=== PATIENT | female | born 1940 | race Caucasian/White ===

== ENCOUNTER 2017-03-22 14:28 | Emergency (ER) | payer MEDICARE, MEDICAID ==
[~2017-03-22] VITALS: Wt 52.3 kg
[~2017-03-22 14:28] MED LIST: ACET-141 PO; AMLO-145 PO; ATEN50TA PO; BACTDS PO; CALC1TAB82 PO; DIVA500T33 PO; ESCI10TA PO; FAMO20TA18 PO; FOLI-49 PO; GABA300C16 PO; HYDR-3498 PO; LISI40TA9 PO; LORA-441 PO; MAGN400O4 PO; OXYB10TA13 PO; PREMVAG VAG; QUET25TA26 PO; RALO60TA12 PO; SENN8.6C3 PO; TERB250T46 PO; TIZA2CAP6 PO; TOPI25CA PO
[2017-03-22 14:42] VITALS: Wt 52.3 kg
[2017-03-22] MEDS ORDERED: ASPIRIN 81 MG TAB PO STA (14:49)
[2017-03-22 15:23] LABS: BASOPHIL # 0.1 10^3/ul (0.0-0.1); BASOPHILS % 0.7 % (0.0-2.0); EOSINOPHILS # 0.2 10^3/ul (0.0-0.5); EOSINOPHILS % 2.7 % (0.0-7.0); HEMATOCRIT 35.4 % (37.0-47.0); HEMOGLOBIN 11.7 g/dl (12.0-16.0); LYMPHOCYTES # 2.6 10^3/ul (0.8-2.9); LYMPHOCYTES % 34.8 % (15.0-51.0); MEAN CORPUSCULAR HEMOGLOBIN 31.4 pg (29.0-33.0); MEAN CORPUSCULAR HGB CONC 33.1 g/dl (32.0-37.0); MEAN CORPUSCULAR VOLUME 94.9 fl (82.0-101.0); MEAN PLATELET VOLUME 9.9 fl (7.4-10.4); MONOCYTE # 0.7 10^3/ul (0.3-0.9); MONOCYTES % 9.3 % (0.0-11.0); NEUTROPHIL # 3.9 10^3/ul (1.6-7.5); PLATELET COUNT 271 10^3/UL (140-415); RED BLOOD COUNT 3.73 10^6/ul (4.20-5.40); RED CELL DISTRIBUTION WIDTH 12.9 % (11.5-14.5); WHITE BLOOD COUNT 7.4 10^3/ul (4.8-10.8)
[2017-03-22] MEDS ORDERED: HYDROCODONE/APAP (5/325) TAB PO ONE (15:30)
[2017-03-22 15:43] LABS: POTASSIUM 3.9 mmol/L (3.5-5.1)
[2017-03-22 15:45] LABS: ANION GAP 15 (8-16); BLOOD UREA NITROGEN 34 mg/dl (7-20); CALCIUM 9.5 mg/dl (8.4-10.2); CARBON DIOXIDE 27 mmol/L (21-31); CHLORIDE 105 mmol/L (97-110); CREATININE 0.87 mg/dl (0.44-1.00); GLUCOSE 105 mg/dl (70-220); SODIUM 143 mmol/L (135-144)
[2017-03-22 15:57] LABS: B-TYPE NATRIURETIC PEPTIDE 183 PG/ML (0-450)
[2017-03-22 15:58] LABS: TROPONIN-I < 0.012 ng/ml (0.00-0.12)
--- NOTE | 2017-03-22 16:56 | RADRPT ---
PROCEDURE: XR Shoulder. CLINICAL INDICATION: Right shoulder pain TECHNIQUE: Three views of the right shoulder are available for review. COMPARISON: None available FINDINGS: No acute fracture or dislocation is identified. Bony mineralization is normal. There is no radiodens e foreign body IMPRESSION: 1. Unremarkable right shoulder x-ray series. 2. No acute fracture or dislocation is seen. RPTAT: QQ .Eitan Cobb MD, MD Date Time Electronically viewed and signed by .Eitan Cobb MD, on 03/22/2017 15:30 .R/
--- NOTE | 2017-03-22 16:56 | RADRPT ---
PROCEDURE: XR Chest. CLINICAL INDICATION: Chest pain TECHNIQUE: Single frontal chest x-ray. COMPARISON: CR CHEST 01/10/2015 FINDINGS: No acute infiltrate, pleural effusion or pneumothorax is identified. Cardiomediastinal silhouette i s within normal limits. Aortic atherosclerotic calcification is noted. The osseous structures are remarkable for degenerative enthesopathy of the spine. IMPRESSION: 1. No evidence of acute cardiopulmonary process. 2. Aortic atherosclerosis. RPTAT: QQ .Eitan Cobb MD, Date Time Electronically viewed and signed by .Eitan Cobb MD, on 03/22/2017 15:29 .R/
[2017-03-22] MEDS ORDERED: ACET-2047 PO (17:01)
[2017-03-22] MEDS ORDERED: AMLO-147 PO (17:02)
[2017-03-22] MEDS ORDERED: METO-429 PO (17:04)
[2017-03-22] MEDS ORDERED: DOCU-159 PO (17:05)
[2017-03-22] MEDS ORDERED: QUET25TA26 PO (17:05)
[2017-03-22] MEDS ORDERED: KETOROLAC 15 MG INJ IV STA (17:25)
[2017-03-22] MEDS ORDERED: morphine 2 MG INJ IV STA (17:49)
[2017-03-22] MEDS ORDERED: ONDANSETRON 4 MG INJ IV PRN (18:00)
[2017-03-22] MEDS ORDERED: ACETAMINOPHEN 325 MG TAB PO PRN (18:00)
[2017-03-22] MEDS ORDERED: HYDR-906 PO (20:30)
[2017-03-22] MEDS ORDERED: POLY17PO6 PO (20:30)
[2017-03-22 20:40] VITALS: TEMP 98.1
[2017-03-22] MEDS ORDERED: AMLODIPINE 10 MG TAB PO ONE (21:30)
[2017-03-22] MEDS ORDERED: hydrALAzine 20 MG INJ ONE (22:25)
[2017-03-22] MEDS ORDERED: hydrALAzine 20 MG INJ IV ONE (22:30)
[2017-03-22 23:00] VITALS: BP 134/64; PULSE 74; RESP 16
--- NOTE | 2017-03-24 20:13 | ERD ---
ER Documentation Chief Complaint Chief Complaint right arm pain and right chest pain for a few days. no stemi in field HPI This 76-year-old female presents for intermittent right-sided chest pain as well as right upper arm pain for the last 3 days. The chest pain is described as a tightness in the right arm pain is described as a soreness. It is mostly present in her upper bicep. It is made worse by certain movements and by use of the arm. She denies shortness of breath, nausea, vomiting. She has had no fever or chills. She currently does not have the chest pain. ROS All systems reviewed and are negative except as per history of present illness. Medications Home Meds Active Scripts Polyethylene Glycol* (Miralax*) 17 Gm Powd.pack, 17 GM PO DAILY for CONSTIPATION , #7 Prov:JULISAISIAHMARA DO 03/22/17 Hydrocodone/Acetaminophen (Sunfield 5-325 Tablet) 1 Each Tablet, 1 EACH PO Q6, #20 TAB Prov:MARA EGAN DO 03/22/17 Reported Medications Docusate Sodium* (Docusate Sodium*) 100 Mg Capsule, 100 MG PO DAILY, #30 CAP 03/22/17 Quetiapine Fumarate* (Seroquel*) 25 Mg Tablet, 25 MG PO HS, #30 TAB 03/22/17 Metoprolol Tartrate* (Lopressor*) 50 Mg Tab, 50 MG PO DAILY, #60 TAB HOLD FORSBP<110 OR HR<60 03/22/17 Amlodipine Besylate* (Amlodipine Besylate*) 10 Mg Tablet, 10 MG PO DAILY, #30 TAB HOLD FOR SBP<110 OR HR<60 03/22/17 Acetaminophen* (Acetaminophen*) 650 Mg Tablet, 650 MG PO Q4H Y for PAIN LEVEL 1- 5, #30 TAB 03/22/17 Escitalopram Oxalate* (Lexapro*) 10 Mg Tablet, 10 MG PO DAILY 01/28/13 Lorazepam* (Ativan*) 0.5 Mg Tablet, 0.5 MG PO Q8H 04/07/10 Discontinued Reported Medications Acetaminophen* (Acetaminophen*) 500 MG Extra Strength Tablet, 500 MG PO Q4H Y for MODERATE PAIN LEVEL 4-6, TAB 01/06/15 Quetiapine Fumarate* (Seroquel*) 25 Mg Tablet, 75 MG PO QHS, TAB 01/06/15 Estrogens Conjugated* (Premarin* Vaginal Cream) 1 Applic Cr, 1 APPLIC VAG TID X 7 DAYS Y for MENOPAUSE, TUB END ON 01/26/2015 01/06/15 Estrogens Conjugated* (Premarin* Vaginal Cream) 1 Applic Cr, 1 APPLIC VAG DAILY X 14 DAYS, TUB END ON 01/19/2015 01/06/15 Oxybutynin Chloride* (Oxybutynin Chloride* ER) 10 Mg/Bottle Tab.osm.24, 10 MG PO QHS, TAB.SA 01/06/15 Magnesium Hydroxide* (Milk Of Magnesia*) 400 Mg/5 Ml Oral.susp, 30 ML PO DAILY Y for CONSTIPATION, ML 01/06/15 Topiramate* (Topamax*) 25 Mg Cap.sprink, 25 MG PO QHS, CAP 11/20/14 Hydrocodone Bit-Acetaminophen* (Sunfield*) 5-325 Mg Tab, 1 TAB PO Q6 Y for PAIN LEVEL 6-10, TAB 11/20/14 Famotidine* (Famotidine*) 20 Mg Tablet, 20 MG PO QHS, TAB 11/20/14 Tizanidine Hcl* (Tizanidine Hcl*) 2 Mg Capsule, 2 MG PO HS 01/28/13 Sennosides* (Senna*) 8.6 Mg Capsule, 8.6 MG PO DAILY 01/28/13 Gabapentin* (Gabapentin*) 300 Mg Capsule, 300 MG PO DAILY 04/07/10 Divalproex Sodium (Depakote) 500 Mg Tablet.dr, 625 MG PO BID 04/07/10 Atenolol* (Atenolol*) 50 Mg Tablet, 50 MG PO DAILY 04/07/10 Folic Acid* (Folic Acid*) 1 Mg Tablet, 1 MG PO DAILY 04/07/10 Calcium Carbonate/Vitamin D3 (Os-Matt 500+D Caplet) 1 Tab Tablet, 1 TAB PO BID 04/07/10 Lisinopril* (Lisinopril*) 40 Mg Tablet, 40 MG PO DAILY HOLD FOR SBP LESS THAN 110 04/07/10 Amlodipine Besylate* (Amlodipine Besylate*) 5 Mg Tablet, 5 MG PO QHS HOLD IF SBP LESS THAN 110 OR HR LESS THAN 60 04/07/10 Raloxifene Hcl* (Evista*) 60 Mg Tablet, 60 MG PO DAILY 04/07/10 Discontinued Scripts Terbinafine* (Lamisil*) 250 Mg Tab, 250 MG PO BID, #6 Prov:MARA WORTHINGTON MD 01/12/15 Sulfamethoxazole-Trimethoprim* (Bactrim* DS) 1 Tab Tab, 1 TAB PO BID, #6 TAB Prov:MARA WORTHINGTON MD 01/12/15 Allergies Allergies: Coded Allergies: Milk Containing Products (Verified Allergy, Unknown, INTOLERANCE, 03/22/17 ) STOMACH UPSET milk (Verified Allergy, Unknown, STOMACH UPSET, 03/22/17) INTOLERANCE orange juice (Unverified Allergy, Unknown, INTOLERANCE, 03/22/17) STOMACH UPSET Uncoded Allergies: FLORIDALMA FLOWER (Allergy, Mild, SNEEZE A LOT, 04/07/10) PT SAYS SHE SNEEZE A LOT Wool CLOTH (Allergy, Mild, ITCHING, 04/07/10) WHOLE BODY GETS ITCHY PMhx/Soc History of Surgery: Yes (partial colon resection, tonsillectomy, hemorrhoidectomy) Anesthesia Reaction: No (NOT KNOWN) Hx Neurological Disorder: No Hx Respiratory Disorders: No Hx Cardiac Disorders: Yes (HTN) Hx Psychiatric Problems: Yes (BIPOLAR DISORDER) Hx Miscellaneous Medical Probl: Yes (wrist fx) Hx Alcohol Use: No Hx Substance Use: No Hx Tobacco Use: Yes (HISTORY PER MD) Smoking Status: Current every day smoker Physical Exam Vitals Vital Signs Date Time Temp Pulse Resp B/P Pulse Ox O2 Delivery O2 Flow Rate FiO2 03/22/17 23:00 74 16 134/64 99 Room Air 03/22/17 20:40 98.1 60 18 161/75 97 Room Air 03/22/17 17:23 98.5 65 16 171/69 99 Room Air 03/22/17 15:44 98.1 60 14 153/67 98 Room Air 03/22/17 14:42 98.0 71 18 148/78 98 Physical Exam Const: [] No distress Head: Atraumatic Eyes: Normal Conjunctiva ENT: Normal External Ears, Nose and Mouth. Neck: Full range of motion..~ No meningismus. Resp: Clear to auscultation bilaterally Cardio: Regular rate and rhythm, no murmurs Abd: Soft, non tender, non distended. Normal bowel sounds Skin: No petechiae or rashes Back: No midline or flank tenderness Ext: No cyanosis, or edema, right arm with normal appearance no deformities or skin changes however she does have tenderness to her right upper bicep and lower shoulder area in the soft tissues. Full range of motion of shoulder and elbow both passive and active. Distal pulses intact all 4 extremities. Neur: Awake and alert Psych: Normal Mood and Affect Result Diagram: 03/22/17 1514 03/22/17 1514 Results 24 hrs Laboratory Tests Test 03/22/17 15:14 03/22/17 18:49 White Blood Count 7.410^3/ul Red Blood Count 3.7310^6/ul Hemoglobin 11.7g/dl Hematocrit 35.4% Mean Corpuscular Volume 94.9fl Mean Corpuscular Hemoglobin 31.4pg Mean Corpuscular Hemoglobin Concent 33.1g/dl Red Cell Distribution Width 12.9% Platelet Count 91242^3/UL Mean Platelet Volume 9.9fl Neutrophils % 52.0% Lymphocytes % 34.8% Monocytes % 9.3% Eosinophils % 2.7% Basophils % 0.7% Nucleated Red Blood Cells % 0.0/100WBC Neutrophils # 3.910^3/ul Lymphocytes # 2.610^3/ul Monocytes # 0.710^3/ul Eosinophils # 0.210^3/ul Basophils # 0.110^3/ul Nucleated Red Blood Cells # 0.010^3/ul Sodium Level 143mmol/L Potassium Level 3.9mmol/L Chloride Level 105mmol/L Carbon Dioxide Level 27mmol/L Anion Gap 15 Blood Urea Nitrogen 34mg/dl Creatinine 0.87mg/dl Glucose Level 105mg/dl Calcium Level 9.5mg/dl Troponin I < 0.012ng/ml < 0.012ng/ml B-Type Natriuretic Peptide 183PG/ML Current Medications Medications (Trade) Dose Ordered Sig/Kendy Route PRN Reason Start Time Stop Time Status Last Admin Dose Admin Aspirin (Aspirin) 162 mg ONCE STAT PO 03/22/17 14:49 03/22/17 14:51 DC 03/22/17 15:25 Acetaminophen/ Hydrocodone Bitart (Sunfield (5/325)) 1 tab ONCE ONCE PO 03/22/17 15:30 03/22/17 15:31 DC 03/22/17 15:25 Ketorolac Tromethamine (Toradol) 15 mg ONCE STAT IV 12/14/17 17:25 03/22/17 17:27 DC Ondansetron HCl (Zofran Inj) 4 mg ER BRIDGE PRN IV NAUSEA AND/OR VOMITING 03/22/17 18:00 03/22/17 23:03 DC Acetaminophen (Tylenol Tab) 650 mg ER BRIDGE PRN PO MILD PAIN/FEVER 03/22/17 18:00 03/22/17 23:03 DC 03/22/17 22:35 Morphine Sulfate (morphine) 2 mg ONCE STAT IV 03/22/17 17:49 03/22/17 17:50 DC 03/22/17 18:17 Amlodipine Besylate (Norvasc) 10 mg ONCE ONCE PO 03/22/17 21:30 03/22/17 21:31 DC 03/22/17 21:55 Hydralazine HCl (Apresoline) 10 mg ONCE ONCE IV 03/22/17 22:30 03/22/17 22:31 DC 03/22/17 22:33 Hydralazine HCl (Apresoline) 20 mg STK-MED ONCE .ROUTE 03/22/17 22:25 03/22/17 22:26 DC Procedures/MDM Atypical chest pain in a patient with cardiac risk factors however the pain pattern seems to be more musculoskeletal. The patient does use her arm frequently for both use of her walker and a wheelchair. She does have full function of that arm. No signs of acute ischemia on EKG or laboratories. Patient remained without chest pain in the emergency room. She was given 325 mg aspirin as well as morphine which helped with her arm pain. Negative shoulder x-ray for any bony abnormality. I discussed with her following up with her primary care doctor for an echocardiogram and she seems agreeable to this. Also discussed with her getting an echocardiogram through her doctor. I have low suspicion for recurrent acute coronary syndrome, aortic dissection, pulmonary embolism. Going to discharge with analgesic pain medicine EKG interpretation: Junctional bradycardia rate of 59, normal axis, no ST or T- wave changes concerning for acute ischemia. Abnormal EKG cafeteria monitor interpretation: Normal sinus rhythm without arrhythmia Chest x-ray interpretation: I see no acute process. See no widened mediastinum , no pneumothorax, no pulmonary edema, no fractures. Right shoulder x-ray interpretation: Normal right shoulder x-ray except for degenerative joint disease. No fracture dislocation or soft tissue abnormality seen. Departure Diagnosis: Primary Impression: Strain of upper arm, right Additional Impressions: Chest pain Normocytic anemia Condition: Critical Patient Instructions: Chest Pain, Uncertain Cause, Muscle Strain, Extremity Additional Instructions: Call your primary care doctor TOMORROW for an appointment during the next 1-2 days and an orthopedic referral.See the doctor sooner or return here if your condition worsens before your appointment time. MARA EGAN DO Mar 23, 2017 21:15
== END 2017-03-22 23:02 | disposition home or self-care (01) ==
LOC: E/R 14:28
DX: S46.911A Strain of unspecified muscle, fascia and tendon at shoulder and upper arm level, right arm, initial encounter (principal); S29.001A Unspecified injury of muscle and tendon of front wall of thorax, initial encounter; D64.9 Anemia, unspecified; I10 Essential (primary) hypertension; F17.210 Nicotine dependence, cigarettes, uncomplicated; X58.XXXA Exposure to other specified factors, initial encounter; Y92.9 Unspecified place or not applicable
CPT/HCPCS: 36415; 71010; 73030; 80048; 83880; 84484; 85025; 93005; 96374; 96375; 99285; J0360; J2270

== ENCOUNTER 2017-12-21 15:17 | Inpatient (IN) | END 2018-01-01 19:00 | DRG 377 ==

== ENCOUNTER 2018-09-03 04:18 | Inpatient (IN) | payer MEDICARE, OTHER ==
[~2018-09-03] VITALS: Ht 160 cm; Wt 60.0 kg
[~2018-09-03 04:18] MED LIST changes: -ACET-141 PO; -AMLO-145 PO; -ATEN50TA PO; -BACTDS PO; -CALC1TAB82 PO; +CLON-379 PO; +DEXT15DR5 BOTH EYES; +DICL100G37 TOP; +DIVA-48 PO; -DIVA500T33 PO; -ESCI10TA PO; +ESCI5TAB10 PO; -FOLI-49 PO; +FURO40TA4 PO; -GABA300C16 PO; -HYDR-3498 PO; +LACHYD12 TOP; -LISI40TA9 PO; -MAGN400O4 PO; -OXYB10TA13 PO; +POLY17PO6 PO; -PREMVAG VAG; -QUET25TA26 PO; -RALO60TA12 PO; -SENN8.6C3 PO; -TERB250T46 PO; -TIZA2CAP6 PO; -TOPI25CA PO; +TRAM50TA PO; +VALB40CA PO
[2018-09-03] MEDS ORDERED: SOD CHLORIDE 0.9% 1,000 ML IV STA (04:47)
[2018-09-03] MEDS ORDERED: ONDANSETRON 4 MG INJ IV PRN ×2 (06:30→13:00)
[2018-09-03] MEDS ORDERED: ACETAMINOPHEN 325 MG TAB PO PRN ×2 (06:30→13:00)
[2018-09-03] MEDS: POTASSIUM CHLORIDE 100 ML IVPB SCH ×2 (06:53→09:16)
--- NOTE | 2018-09-03 07:21 | QN ---
Documentation Comment Repeat lactic acid was 2.4 but at this point I doubt sepsis or severe sepsis. I believe the elevated lactic acid is likely related to severe anemia and dehydration. CECIL LOPEZ MD September 03, 2018 07:21
[2018-09-03] MEDS ORDERED: ALLO100T PO (08:12)
[2018-09-03] MEDS ORDERED: ACET650S13 RC (08:12)
[2018-09-03] MEDS ORDERED: DICL25TA11 PO (08:13)
[2018-09-03] MEDS ORDERED: FURO-110 PO (08:14)
[2018-09-03] MEDS ORDERED: FER325 PO (08:14)
[2018-09-03] MEDS ORDERED: LOSA50TA14 PO (08:15)
[2018-09-03] MEDS ORDERED: MULT-542 PO (08:15)
[2018-09-03] MEDS ORDERED: POTA10TA37 PO (08:16)
[2018-09-03] MEDS ORDERED: PROT946L PO (08:16)
[2018-09-03] MEDS ORDERED: CHOL100062 PO (08:18)
[2018-09-03] MEDS ORDERED: ACET1TAB40 PO (08:18)
[2018-09-03] MEDS ORDERED: CARB1TAB2 PO (08:18)
--- NOTE | 2018-09-03 12:39 | HP ---
Date/Time of Note Date/Time of Note DATE: 09/03/18 TIME: 12:34 Assessment/Plan VTE Prophylaxis SCD applied (from Nsg): Yes Pharmacological prophylaxis: NA/contraindicated Pharm contraindication: bleeding Lines/Catheters IV Catheter Type (from Nrsg): Saline Lock Assessment/Plan Assessment/Plan - Sepsis with fever, and elevated lactic acid most likely secondary to pneumonia. Start broad-spectrum antibiotics. Dr. Batista is asked to see patient in infection disease consultation. - Health care associated pneumonia - Severe anemia, will transfuse 2 units of packed red blood cell count, will obtain stool for OB. - Possible UTI per UA - Acute kidney injury due to dehydration, continue IV fluids. - Severe hypokalemia, status post replacement - Gout, continue Uloric - Bipolar disorder. Continue Depakote, Lexapro and p.r.n. Ativan. - Bedbound status - Hx of hemorrhoidectomy. - DNR/DNI status Further recommendations based on clinical course. Plan of care is discussed with Dr. Wyman. Result Diagram: 09/03/18 0435 09/03/18 0525 Results 24hrs Laboratory Tests Test 09/03/18 04:35 09/03/18 05:14 09/03/18 05:25 09/03/18 06:40 White Blood Count 8.9 Red Blood Count 2.05 #L Hemoglobin 6.4 #*L Hematocrit 21.4 #L Mean Corpuscular 104.4 H Volume Mean Corpuscular 31.2 Hemoglobin Mean Corpuscular 29.9 L Hemoglobin Concen t Red Cell 15.3 H Distribution Width Platelet Count 195 Mean Platelet 11.6 #H Volume Immature 4.300 H Granulocytes % Neutrophils % Segmented 61 Neutrophils % (Manual) Band Neutrophils 21 H % (Manual) Lymphocytes % Lymphocytes % 10 L (Manual) Monocytes % Monocytes % 4 (Manual) Eosinophils % Eosinophils % 1 (Manual) Basophils % Metamyelocytes % 1 H (manual) Myelocytes % 2 H (Manual) Nucleated Red 0.8 H Blood Cells % Immature 0.380 H Granulocytes # Neutrophils # Neutrophils # 5.6 (Manual) Band Neutrophils 1.8 H # Lymphocytes 0.8 (Manual) Lymphocytes # Monocytes # Monocytes # 0.3 (Manual) Eosinophils # Basophils # Metamyelocytes # 0.0 Myelocytes # 0.1 H Nucleated Red Blood Cells # Platelet Estimate NORMAL Hypochromasia 2+ Anisocytosis 1+ Prothrombin Time 17.4 #H Prothrombin Time 1.4 Ratio INR International 1.41 Normalized Ratio Activated 30.4 Partial Thrombopl ast Time POC Venous 1.3 Lactate Urine Color YELLOW Urine Clarity SLIGHTLY CLOUDY A Urine pH 5.0 Urine Specific 1.017 Point Comfort Urine Ketones NEGATIVE Urine Nitrite NEGATIVE Urine Bilirubin NEGATIVE Urine NEGATIVE Urobilinogen Urine Leukocyte TRACE A Esterase Urine Microscopic 1 RBC Urine Microscopic 3 WBC Urine Squamous FEW Epithelial Cells Urine Renal FEW A Epithelial Cells Urine Bacteria FEW A Urine Mucus FEW A Urine Hemoglobin 1+ H Urine Glucose NEGATIVE Urine Total NEGATIVE Protein Sodium Level 155 H Potassium Level 2.3 *L Chloride Level 133 H Carbon Dioxide 19 L Level Anion Gap 3 L Blood Urea 91 H Nitrogen Creatinine 1.18 H Est Glomerular Filtrat Rate mL/min Glucose Level 67 L Calcium Level 4.7 *L Total Bilirubin 0.1 L Direct Bilirubin 0.00 Indirect 0.1 Bilirubin Aspartate Amino 122 H Transf (AST/SGOT) Alanine 61 Aminotransferase (ALT/SGPT) Alkaline 55 Phosphatase Troponin I 0.090 Total Protein 3.4 L Albumin 1.5 L Globulin 1.90 Albumin/Globulin 0.78 Ratio Lactic Acid Level 2.4 *H Test 09/03/18 08:41 Lactic Acid Level 2.5 *H HPI/ROS Admit Date/Time Admit Date/Time Hx of Present Illness The patient is 77-year-old female with history of known STEMI, hypertension, GERD, anemia, Parkinson's disease dysphagia, bipolar disorder and osteoporosis. [facility] was [facility] for evaluation for fever, generalized weakness and productive cough. Patient was noted to have anemia with hemoglobin of 6.4, acute kidney injury with severe hypokalemia. Patient was transfused 2 units of packed red blood cells and was giving potassium replacement. Patient is noted to have diminished lung sounds and productive cough sounds congested. Patient also noted to have elevated lactic acid on admission. Patient is lethargic however arousable but cannot provide any medical history. Most of the medical history was obtained from medical records and talking to nursing staff. Patient has a POLST which indicate patient is DNR DNI. Patient will be admitted for further evaluation and management to telemetry floor. ROS Unable to obtain due to patient's condition PMH/Family/Social Past Medical History Per HPI Medications Current Medications Ondansetron HCl (Zofran Inj) 4 mg ER BRIDGE PRN IV NAUSEA/VOMITING; Start 09/03/18 at 06:30; Stop 09/04/18 at 06:29 Acetaminophen (Tylenol Tab) 650 mg ER BRIDGE PRN PO .MILD PAIN 1-3 OR TEMP; Start 09/03/18 at 06:30; Stop 09/04/18 at 06:29 Coded Allergies: Milk Containing Products (Verified Allergy, Unknown, INTOLERANCE, 09/03/18) STOMACH UPSET milk (Verified Allergy, Unknown, STOMACH UPSET, 09/03/18) INTOLERANCE orange juice (Unverified Allergy, Unknown, INTOLERANCE, 09/03/18) STOMACH UPSET Uncoded Allergies: FLORIDALMA FLOWER (Allergy, Mild, SNEEZE A LOT, 04/07/10) PT SAYS SHE SNEEZE A LOT Wool CLOTH (Allergy, Mild, ITCHING, 04/07/10) WHOLE BODY GETS ITCHY Past Surgical History Past Surgical Hx: other (Status post hemorrhoidectomy) Family History Significant Family History: no pertinent family hx Social History Patient is a resident of prison facility Alcohol Use: none Smoking Status: Never smoker Drug Use: none Exam/Review of Systems Vital Signs Vitals Vital Signs Date Temp Pulse Resp B/P (MAP) Pulse Ox O2 O2 Flow FiO2 Time Delivery Rate 09/03/18 97.9 99 18 120/56 100 Nasal 4.0 11:30 (77) Cannula Intake and Output 09/02/18 09/02/18 09/03/18 1414:59 22:59 06:59 IntakeIntake Total 350 ml BalanceBalance 350 ml Exam Constitutional: alert, frail Head: normocephalic Neck: supple Respiratory: congested cough, diminished breath sounds Cardiovascular: regular rate and rhythm Gastrointestinal: soft, non-tender Genitourinary - Female: other (Acosta catheter) Musculoskeletal: nl extremities to inspection Extremities: normal pulses Neurological: confused, lethargic Skin: nl CHRIS Monroy September 03, 2018 12:39
[2018-09-03] MEDS ORDERED: DOCUSATE SODIUM 100 MG CAP PO PRN (13:00)
[2018-09-03] MEDS ORDERED: NITROGLYCERIN (SL) 0.4 MG TAB SL PRN (13:00)
[2018-09-03] MEDS ORDERED: MAGNESIUM HYDROXIDE 30ML CUP PO PRN (13:00)
[2018-09-03] MEDS ORDERED: LORAZEPAM 2 MG INJ IV PRN (13:00)
[2018-09-03] MEDS ORDERED: NACL 0.9% 3 ML SYG IV SCH (13:00)
[2018-09-03] MEDS: D5W-0.45 NACL + KCL 20 MEQ 1,000 ML IV SCH ×2 (13:18→23:48)
[2018-09-03] MEDS: CEFEPIME 1GM/50 ML (PMX) 50 ML IVPB SCH ×2 (14:48→20:53)
[2018-09-03 15:33] VITALS: BP 119/56; PULSE 65; RESP 19
[2018-09-03 17:10] VITALS: BP 128/70; PULSE 127; RESP 24
[2018-09-03 17:38] VITALS: BP 128/70; PULSE 132; RESP 19
[2018-09-03] MEDS ORDERED: PENDING SANTYL ORDER FOR WOUND CARE XX PRN (18:00)
[2018-09-03 18:39] VITALS: Ht 160 cm; Wt 60.0 kg
[2018-09-03 20:00] VITALS: PULSE 126
[2018-09-03] MEDS ORDERED: ENALAPRILAT 1.25 MG INJ IV PRN (20:00)
[2018-09-03 20:30] VITALS: BP 166/74; PULSE 131; RESP 22
[2018-09-03] MEDS: ACETAMINOPHEN 650 MG SUPP PR PRN (20:46)
[2018-09-03] MEDS: FAMOTIDINE 20 MG INJ IV SCH (20:46)
[2018-09-03] MEDS: LEVALBUTEROL (NEB) 0.63 MG/3 ML AMP HHN SCH (23:59)
[2018-09-04] VITALS (12 sets, daily range): BP systolic 129–154; BP diastolic 54–88; PULSE 92–125; RESP 18–24
[2018-09-04] MEDS ORDERED: CEFTRIAXONE 1 GM/50 ML (PMX) 50 ML IVPB SCH
[2018-09-04] MEDS: LEVALBUTEROL (NEB) 0.63 MG/3 ML AMP HHN SCH ×4 (02:07→19:41)
[2018-09-04] MEDS: AZITHROMYCIN 500MG/NS (PMX) 250 ML IV SCH (03:21)
--- NOTE | 2018-09-04 07:21 | CONS ---
DATE OF ADMISSION: 09/03/2018 DATE OF CONSULTATION: I am seeing this patient for Dr. Ez Bustillos. REQUESTING PHYSICIAN: Maikel Thompson. HISTORY OF PRESENT ILLNESS: The patient is a 77-year-old white female who was admitted from [facility] on [facility] in [place] with the chief complaint of shortness of breat h. The patient was admitted with a diagnosis of sepsis with fever. Upon admission, she was noted to have a temperature equivalent of 102.1, however, it was in axillary, which was read 100.1. The whit e count was 8900 with a 61 polys and 21 bands, hemoglobin 6.4 grams. The patient's urinalysis was ye llow, cloudy, specific gravity 1.017, pH 5, positive leukocyte esterase, 1 RBC, 1 WBC. Serum sodium 155, potassium 2.3, chloride 133, CO2 19, BUN 91, and creatinine 1.18. Lactic acid was 2.4. Chest x -ray revealed a right basilar consolidation and minimally patchy density medially in the left lung ba se. PAST MEDICAL HISTORY: The patient has a past medical history of gout and bipolar disorder. PHYSICAL EXAMINATION: GENERAL: The patient is an acutely ill-appearing white female. VITAL SIGNS: Pulse of 131, temperature axillary of 98.8 which is 100.8, respirations 22, and pulse o ximetry is 95% on 8 liters per minute by nasal cannula. HEENT: The pupils are constricted and reactive. Mouth mucous membranes of the mouth are moist. NECK: Supple. CHEST: Decreased breath sounds at left base and rhonchi over the right upper chest. ABDOMEN: Soft, no palpable organs or masses. EXTREMITIES: Unremarkable. INITIAL IMPRESSION: Systemic inflammatory response, healthcare-associated pneumonia, rule out aspira tion, severe anemia and hypernatremic dehydration, acute kidney injury, gout and bipolar disorder. RECOMMENDATIONS: I would discontinue cefepime and substitute ceftriaxone and azithromycin 1 gram and 500 mg respectively, wait for culture results, and rehydrate the patient. Dictated By: Gordon LOVELACE MD EC/NTS Conf#: [id number] DID#: [id number] CC: EZ BUSTILLOS MD; MAIKEL THOMPSON MD;*EndCC*
[2018-09-04] MEDS: D5W-0.45 NACL + KCL 20 MEQ 1,000 ML IV SCH (08:39)
[2018-09-04] MEDS: DEXTROSE 5% 1,000 ML IV SCH (10:20)
[2018-09-04] MEDS ORDERED: VANCOMYCIN IV PER PHARMACY XX SCH (11:30)
[2018-09-04] MEDS: ACETAMINOPHEN 650 MG SUPP PR PRN (11:38)
[2018-09-04] MEDS ORDERED: VANCOMYCIN HCL 1.25 GM in SOD CHLORIDE 0.9% 250 ML IVPB SCH (13:00)
--- NOTE | 2018-09-04 13:46 | PN ---
Date/Time of Note Date/Time of Note DATE: 09/04/18 TIME: 13:38 Assessment/Plan VTE Prophylaxis Risk score (from [facility] [place]0 risk: 7 SCD applied (from [facility] [place]): Yes Pharmacological prophylaxis: NA/contraindicated Pharm contraindication: other Lines/Catheters IV Catheter Type (from [place]): Saline Lock Urinary Cath still in place: Yes Reason Cath still needed: urinary retention Assessment/Plan Hospital Course Patient is tachycardic with fever, lethargic but easily arousable, continued on oxygen via facemask. Assessment/Plan - Sepsis with fever, and elevated lactic acid most likely secondary to pneumonia. Continue antibiotics. Dr. Batista is following in infection disease consultation. - Health care associated pneumonia - Acute respiratory insufficiency. Dr. Thomas is asked to see patient in pulmonology consultation. - Hypernatremia, IV fluids changed to D5 water. Patient is very lethargic to start p.o. fluids. Dr. Fulton is asked to see patient in nephrology consultation. - Severe anemia, obtain stool for OB. - Possible UTI per UA - Acute kidney injury due to dehydration, continue IV fluids. - Severe hypokalemia, status post replacement, resolved. - Bipolar disorder. - Bedbound status - Hx Gout - Hx of hemorrhoidectomy. - DNR/DNI status Further recommendations based on clinical course. Plan of care is discussed with Dr. Wyman. Result Diagram: 09/04/18 0719 09/04/18 0719 Results 24hrs Laboratory Tests Test 09/04/18 07:19 White Blood Count 7.1 # Red Blood Count 4.39 # Hemoglobin 13.5 # Hematocrit 45.1 # Mean Corpuscular Volume 102.7 H Mean Corpuscular Hemoglobin 30.8 Mean Corpuscular Hemoglobin Concent 29.9 L Red Cell Distribution Width 16.3 H Platelet Count 200 Mean Platelet Volume 11.1 H Immature Granulocytes % 5.500 H Neutrophils % Segmented Neutrophils % (Manual) 44 Band Neutrophils % (Manual) 36 H Lymphocytes % Lymphocytes % (Manual) 12 L Reactive Lymphocytes % (Manual) 1 H Monocytes % Monocytes % (Manual) 4 Eosinophils % Basophils % Metamyelocytes % (manual) 2 H Myelocytes % (Manual) 1 H Nucleated Red Blood Cells % 0.7 H Immature Granulocytes # 0.390 H Neutrophils # Neutrophils # (Manual) 3.3 Band Neutrophils # 2.5 H Lymphocytes (Manual) 0.8 Lymphocytes # Reactive Lymphocytes # 0.0 Monocytes # Monocytes # (Manual) 0.2 L Eosinophils # Basophils # Metamyelocytes # 0.1 H Myelocytes # 0.0 Nucleated Red Blood Cells # Platelet Estimate NORMAL Poikilocytosis 1+ Anisocytosis 1+ Sodium Level 164 *H Potassium Level 4.6 # Chloride Level 131 H Carbon Dioxide Level 26 Anion Gap 7 Blood Urea Nitrogen 74 H Creatinine 1.01 H Est Glomerular Filtrat Rate mL/min Glucose Level 147 # Calcium Level 8.3 L Total Bilirubin 0.2 Direct Bilirubin 0.00 Indirect Bilirubin 0.2 Aspartate Amino Transf (AST/SGOT) 86 H Alanine Aminotransferase (ALT/SGPT) 68 Alkaline Phosphatase 114 # Total Protein 5.9 #L Albumin 2.7 #L Globulin 3.20 Albumin/Globulin Ratio 0.84 Thyroid Stimulating Hormone (TSH) 1.220 Exam/Review of Systems Exam Vitals Vital Signs Date Temp Pulse Resp B/P (MAP) Pulse Ox O2 O2 Flow FiO2 Time Delivery Rate 09/04/18 99.8 107 12:28 09/04/18 18 135/88 95 11:05 (104) 09/04/18 Simple 08:54 Mask 09/04/18 15.0 100 08:33 Intake and Output 09/03/18 09/03/18 09/04/18 1515:00 23:00 07:00 IntakeIntake Total 550 ml 50 ml BalanceBalance 550 ml 50 ml Exam Constitutional: alert, frail Respiratory: congested cough, diminished breath sounds Cardiovascular: regular rate and rhythm, tachycardia Gastrointestinal: soft, non-tender Genitourinary - Female: other (Acosta catheter) Musculoskeletal: nl extremities to inspection Extremities: normal pulses Neurological: confused, lethargic Results Results 24hrs Laboratory Tests Test 09/04/18 07:19 White Blood Count 7.1 # Red Blood Count 4.39 # Hemoglobin 13.5 # Hematocrit 45.1 # Mean Corpuscular Volume 102.7 H Mean Corpuscular Hemoglobin 30.8 Mean Corpuscular Hemoglobin Concent 29.9 L Red Cell Distribution Width 16.3 H Platelet Count 200 Mean Platelet Volume 11.1 H Immature Granulocytes % 5.500 H Neutrophils % Segmented Neutrophils % (Manual) 44 Band Neutrophils % (Manual) 36 H Lymphocytes % Lymphocytes % (Manual) 12 L Reactive Lymphocytes % (Manual) 1 H Monocytes % Monocytes % (Manual) 4 Eosinophils % Basophils % Metamyelocytes % (manual) 2 H Myelocytes % (Manual) 1 H Nucleated Red Blood Cells % 0.7 H Immature Granulocytes # 0.390 H Neutrophils # Neutrophils # (Manual) 3.3 Band Neutrophils # 2.5 H Lymphocytes (Manual) 0.8 Lymphocytes # Reactive Lymphocytes # 0.0 Monocytes # Monocytes # (Manual) 0.2 L Eosinophils # Basophils # Metamyelocytes # 0.1 H Myelocytes # 0.0 Nucleated Red Blood Cells # Platelet Estimate NORMAL Poikilocytosis 1+ Anisocytosis 1+ Sodium Level 164 *H Potassium Level 4.6 # Chloride Level 131 H Carbon Dioxide Level 26 Anion Gap 7 Blood Urea Nitrogen 74 H Creatinine 1.01 H Est Glomerular Filtrat Rate mL/min Glucose Level 147 # Calcium Level 8.3 L Total Bilirubin 0.2 Direct Bilirubin 0.00 Indirect Bilirubin 0.2 Aspartate Amino Transf (AST/SGOT) 86 H Alanine Aminotransferase (ALT/SGPT) 68 Alkaline Phosphatase 114 # Total Protein 5.9 #L Albumin 2.7 #L Globulin 3.20 Albumin/Globulin Ratio 0.84 Thyroid Stimulating Hormone (TSH) 1.220 Medications Medication Current Medications IV Flush (NS 3 ml) 3 ml PER PROTOCOL IV ; Start 09/03/18 at 13:00 Lorazepam (Ativan) 0.5 mg Q6H PRN IV .ANXIETY; Start 09/03/18 at 13:00 Ondansetron HCl (Zofran Inj) 4 mg Q6H PRN IV NAUSEA/VOMITING; Start 09/03/18 at 13:00 Nitroglycerin (Nitroglycerin (Sl Tab) 0.4 Mg) 1 tab Q5M PRN SL .CHEST PAIN; Start 09/03/18 at 13:00 Acetaminophen (Tylenol Tab) 650 mg Q6H PRN PO .PAIN 1-3 OR TEMP; Start 09/03/18 at 13:00 Morphine Sulfate (morphine) 2 mg Q4H PRN IV .PAIN 7-10; Start 09/03/18 at 13:00 Docusate Sodium (Colace) 100 mg Q12H PRN PO .CONSTIPATION; Start 09/03/18 at 13:00 Magnesium Hydroxide (Milk Of Mag) 30 ml DAILY PRN PO .CONSTIPATION; Start 09/03/18 at 13:00 Famotidine (Pepcid Iv) 20 mg QHS IV Last administered on 09/03/18at 20:46; Admin Dose 20 MG; Start 09/03/18 at 21:00 Miscellaneous Information (Pending [facility] Order For Wound Care) This patient lin... PRN PRN XX WOUND CARE; Start 09/03/18 at 18:00 Acetaminophen (Tylenol Supp) 650 mg Q6H PRN CO FEVER Last administered on 09/04/18 11:38; Admin Dose 650 MG; Start 09/03/18 at 20:00 Enalaprilat (Vasotec Iv) 0.625 mg Q6H PRN IV ELEVATED BLOOD PRESSURE Last administered on 09/03/18 20:58; Admin Dose 0.625 MG; Start 09/03/18 at 20:00 Azithromycin 250 ml @ 250 mls/hr Q24H IV Last administered on 09/04/18 03:21; Admin Dose 250 MLS/HR; Start 09/04/18 at 01:00; Stop 09/08/18 at 00:59 Levalbuterol (Xopenex Neb) 0.63 mg Q6H RESP THERAPY HHN Last administered on 09/04/18at 08:19; Admin Dose 0.63 MG; Start 09/04/18 at 00:00 Dextrose 1,000 ml @ 75 mls/hr [id number] IV Last administered on 09/04/18at 10:20; Admin Dose 75 MLS/HR; Start 09/04/18 at 10:00 Vancomycin HCl (Vanco Iv Per Pharmacy) VANCOMYCIN PER PHARMACY PER PROTOCOL XX ; Start 09/04/18 at 11:30 Cefepime HCl 50 ml @ 100 mls/hr Q12 IVPB ; Start 09/04/18 at 21:00 Vancomycin HCl 1.25 gm/Sodium Chloride 250 ml @ 83.333 mls/ hr ONCE@1300 IVPB Last administered on 09/04/18at 12:51; Admin Dose 83.333 MLS/HR; Start 09/04/18 at 13:00; Stop 09/04/18 at 19:00 Vancomycin HCl 250 ml @ 125 mls/hr Q48H IVPB ; Start 09/06/18 at 09:00 CHRIS ROSARIO September 04, 2018 13:46
--- NOTE | 2018-09-04 16:50 | CONS ---
DATE OF ADMISSION: 09/03/2018 DATE OF CONSULTATION: 09/04/2018 TYPE OF CONSULTATION: Nephrology. REASON FOR CONSULTATION: Severe hypernatremia, acute kidney injury. HISTORY OF PRESENT ILLNESS: This is a 77-year-old female with a past medical history of hypertension , history of GERD, history of Parkinson disease, history of dysphagia, history of bipolar disorder, a nemia, ____, who presents from a skilled nurse facility for evaluation of fever, generalized weakness and cough. The patient was transferred to the emergency room. Upon arrival, the patient was noted to have hemoglobin of 6.4 g/dL. The patient also had a chest x-ray which showed findings of bibasila r consolidation. The patient was placed on IV fluids, antibiotic therapy for sepsis, pneumonia, bact eremia and admitted to telemetry for evaluation. In terms of patient's renal history, the patient previously had episodes of acute kidney injury, but her baseline renal function ranges around 0.5 to 1.0 mg/dL. On admission, the patient has creatinine 1.18 mg/dL. The patient was also noted to be hypernatremic with sodium of 155 mEq/L and potassium l evel of 2.3 mEq/L. The patient has been given IV fluid with worsening sodium levels. Urinary output has been approximately 400 mL in the last 12 hours. There have been no reported hemoptysis, hematem esis or hematochezia. PAST MEDICAL HISTORY: As stated above, Parkinson disease, history of dysphagia, history of acute kid onesimo injury, history of hypertension, history of coronary artery disease. PAST SURGICAL HISTORY: Status post hemorrhoidectomy. FAMILY HISTORY: No family history of kidney disease. SOCIAL HISTORY: Lives at skilled nurse facility. MEDICATIONS: Have been reviewed. REVIEW OF SYSTEMS: Unable to do adequate review of systems as the patient is altered. Pertinent pos itives as obtained by reviewing medical records, speaking to hospital staff, stated in HPI, otherwise negative. PHYSICAL EXAMINATION: VITAL SIGNS: Blood pressure is 135/88, respiration 18, pulse 106, temperature 99.8. HEENT: Head is normocephalic. NECK: Supple. HEART: Regular rate. LUNGS: Show diminished breath sounds at base. ABDOMEN: Soft, nontender to palpation without rebound or guarding. EXTREMITIES: Negative for clubbing, cyanosis. Positive edema. DERMATOLOGIC: No rashes. MUSCULOSKELETAL: No joint effusions. NEUROLOGIC: No change in exam. LABORATORY DATA: Have been reviewed. Urinalysis has been reviewed. IMAGING STUDIES: Have been reviewed. ASSESSMENT AND PLAN: This is a 77-year-old female who presents with: 1. Nonoliguric acute kidney injury. Etiology of acute kidney injury is secondary to dehydration, vo lume depletion, tubular injury. Urinalysis shows evidence of urine epithelial cells, which is consis tent with tubular injury. Renal function has improved with IV hydration. At this point, we will con tinue current treatment plan. Continue IV hydration. Continue supportive care, renally dose all med s. 2. Hypernatremia. The patient has a free water deficit approximately 6 liters. Etiology is seconda ry to insensible losses and decreased free water intake. Possibly diabetes insipidus, needs to be ru led out. Plan is to check a urine sodium, urine osmolality. We will adjust hypertonic fluids, start D5 water at 100 mL per hour. We will monitor serial sodium levels closely to ensure correction no m ore than 12 mEq in 24-hour period. Additionally, we will monitor glucose levels closely to maintain euglycemic status in order to ____ any form of osmolar diuresis. 3. Hyperkalemia, likely due to total body deficit, improved. Continue to monitor and replete. 4. Lactic acidosis secondary to sepsis. Continue to trend lactic acid levels. 5. Mineral bone disorder. The patient is hypocalcemic, improved after being given calcium gluconate . Continue to monitor. 6. Severe sepsis secondary to pneumonia and bacteremia. Continue broad spectrum antibiotics. We wi ll continue to monitor. Follow up cultures. Follow up with infectious disease. 7. Acute encephalopathy on top of possible dementia. Continue to monitor. 8. Acute respiratory failure secondary to pneumonia. Continue supplemental oxygen. Continue nebuli zers. 9. Anemia. Monitor H and H levels. Repeat hemoglobin levels within normal limits. Possible previo us ____, resolved. Continue to monitor. 10. Bipolar disorder. 11. History of gout. Thank you, Dr. Wyman, for this interesting consult. It will be a pleasure to follow the patient w ith mary throughout the hospital course. Dictated By: SANDRA REGALADO/EVER Conf#: [id number] DID#: [id number] CC: MAIKEL WYMAN MD; GUALBERTO AGUILAR MD;*End*
[2018-09-04] MEDS: CEFEPIME 1GM/50 ML (PMX) 50 ML IVPB SCH (21:46)
[2018-09-04] MEDS: FAMOTIDINE 20 MG INJ IV SCH (21:46)
[2018-09-05] VITALS (10 sets, daily range): BP systolic 124–143; BP diastolic 67–92; PULSE 85–117; RESP 18–22
[2018-09-05] MEDS: DEXTROSE 5% 1,000 ML IV SCH ×3 (00:24→13:38)
[2018-09-05] MEDS: AZITHROMYCIN 500MG/NS (PMX) 250 ML IV SCH (00:25)
[2018-09-05] MEDS: LEVALBUTEROL (NEB) 0.63 MG/3 ML AMP HHN SCH ×4 (02:16→20:18)
[2018-09-05] MEDS: CEFEPIME 1GM/50 ML (PMX) 50 ML IVPB SCH ×2 (08:34→22:55)
--- NOTE | 2018-09-05 13:54 | PN ---
DATE: 09/05/2018 SUBJECTIVE: The patient is more alert. No acute events noted. No hemoptysis, hematemesis or hemato chezia. OBJECTIVE: VITAL SIGNS: Blood pressure is 143/68, respirations 19, pulse 78, temperature 98.1. HEENT: Head is normocephalic. NECK: Supple. HEART: Regular rate. LUNGS: Show diminished breath sounds at the base. ABDOMEN: Soft, nontender to palpation without rebound or guarding. EXTREMITIES: Negative for clubbing, cyanosis. Trace edema. DERMATOLOGIC: No rashes. MUSCULOSKELETAL: No joint effusion. NEUROLOGIC: No change in exam. MEDICATIONS: Have been reviewed. LABORATORY DATA: Have been reviewed. ASSESSMENT AND PLAN: 1. Nonoliguric acute kidney injury. Etiology is secondary to dehydration and volume depletion. Yan al function has improved with supportive care. We will continue current treatment plans, supportive care, renally dose meds. 2. Hypernatremia. Etiology is secondary to insensible losses and decreased free water intake. The patient has no evidence of diabetes insipidus. Continue hypotonic fluid. Monitor serum sodium level s. 3. Hypokalemia. Etiology is secondary to total body deficit. Improved. Continue to monitor and re plete. 4. Lactic acidosis secondary to sepsis, improving. Continue to monitor. 5. Mineral bone disorder. Monitor calcium and phosphorus levels. 6. Sepsis secondary to pneumonia and bacteremia. Continue current regimen. Follow up cultures. Fo llow up with infectious disease. 7. Acute encephalopathy on top of dementia. Etiology is toxic metabolic. Continue to monitor. 8. Acute respiratory failure secondary to pneumonia. Continue supplemental oxygen. Continue nebuli zers. 9. Anemia. Monitor hemoglobin and hematocrit levels. 10. History of bipolar disorder. 11. History of gout. Dictated By: SANDRA AGUIRRE DO NR/NTS Conf#: [id number] DID#: [id number] CC: GUALBERTO AGUILAR MD; MAIKEL THOMPSON MD;*EndCC*
--- NOTE | 2018-09-05 14:07 | CONS ---
Assessment/Plan Assessment/Plan Hospital Course (Demo Recall) No acute events. Patient is awake noncommunicative, comfortable on nasal cannula. WBC 7.7 bands 49 BUN 51 creatinine 0.72 Blood culture on admission grew staph species 1 out of 2 sets. Urine culture negative Chest x-ray on admission revealed right basilar consolidation. Please see full report in the chart Microbiology: Urine culture preliminary negative blood culture grew gram-positiv e cocci in clusters 1 out of 2 sets Antimicrobials: Vanco, Zithromax, cefepime Physical examination: This is a fragile chronically ill-appearing elderly woman who is awake in no distress. Head atraumatic normocephalic sclera nonicteric vehicle mucosa dry. Neck is supple chest rise symmetrical breath sounds with scattered crackles. Heart: S1-S2. Abdomen soft bowel sounds present. Extremities with trace edema. Assessment: 1. Severe sepsis, present on admission 2. Bacteremia, likely contaminant 3. Healthcare associated pneumonia possibly aspiration 4. Acute possibly on chronic kidney disease 5. Anemia Plan: Remains stable, continue present care, antibiotics, follow repeat blood cu ltures Consultation Date/Type/Reason Admit Date/Time September 03, 2018 at 06:14 Initial Consult Date Type of Consult id Date/Time of Note DATE: 09/05/18 TIME: 14:04 Exam/Review of Systems Exam Vitals Vital Signs Date Temp Pulse Resp B/P (MAP) Pulse Ox O2 O2 Flow FiO2 Time Delivery Rate 09/05/18 98 24 95 Nasal 4.0 36 13:14 Cannula 09/05/18 98.4 129/88 11:02 (102) Intake and Output 09/04/18 09/04/18 09/05/18 1515:00 23:00 07:00 IntakeIntake Total 616.663 ml 283.333 ml OutputOutput Total 450 ml 450 ml BalanceBalance 616.663 ml -166.667 ml -450 ml Results Result Diagram: 09/05/18 0625 09/05/18 0625 Results 24hrs Laboratory Tests Test 09/04/18 14:14 09/04/18 15:55 09/05/18 06:25 Sodium Level 161 *H 158 H Potassium Level 4.2 3.7 Chloride Level 131 H 130 H Carbon Dioxide Level 27 25 Anion Gap 3 L 3 L Blood Urea Nitrogen 65 H 51 H Creatinine 0.84 0.72 Est Glomerular Filtrat Rate mL/min Glucose Level 113 103 Calcium Level 7.9 L 8.3 L Urine Color YELLOW Urine Clarity CLOUDY A Urine pH 5.0 Urine Specific [place] 1.020 Urine Ketones NEGATIVE Urine Nitrite NEGATIVE Urine Bilirubin NEGATIVE Urine Urobilinogen NEGATIVE Urine Leukocyte Esterase NEGATIVE Urine Microscopic RBC 7 H Urine Microscopic WBC 5 Urine Bacteria FEW A Urine Mucus FEW A Urine Hemoglobin 1+ H Urine Osmolality 605 Urine Glucose NEGATIVE Urine Total Protein 1+ H White Blood Count 7.7 Red Blood Count 3.97 L Hemoglobin 12.3 Hematocrit 40.1 Mean Corpuscular Volume 101.0 Mean Corpuscular Hemoglobin 31.0 Mean Corpuscular Hemoglobin Concent 30.7 L Red Cell Distribution Width 16.1 H Platelet Count 188 Mean Platelet Volume 11.6 H Immature Granulocytes % 1.900 H Neutrophils % 83.4 H Segmented Neutrophils % (Manual) 31 L Band Neutrophils % (Manual) 49 H Lymphocytes % 13.2 L Lymphocytes % (Manual) 16 Reactive Lymphocytes % (Manual) 2 H Monocytes % 0.9 Monocytes % (Manual) 1 Eosinophils % 0.1 Basophils % 0.5 Metamyelocytes % (manual) 1 H Nucleated Red Blood Cells % 0.3 H Immature Granulocytes # 0.150 H Neutrophils # 6.4 Neutrophils # (Manual) 2.7 Band Neutrophils # 3.7 H Lymphocytes (Manual) 1.2 Lymphocytes # 1.0 Reactive Lymphocytes # 0.1 H Monocytes # 0.1 L Monocytes # (Manual) 0.0 L Eosinophils # 0.0 Basophils # 0.0 Metamyelocytes # 0.0 Nucleated Red Blood Cells # 0.0 Toxic Granulation 2+ Platelet Estimate NORMAL Giant Platelets 2 H Polychromasia 1+ Poikilocytosis 1+ Medications Medication Current Medications IV Flush (NS 3 ml) 3 ml PER PROTOCOL IV ; Start 09/03/18 at 13:00 Lorazepam (Ativan) 0.5 mg Q6H PRN IV .ANXIETY; Start 09/03/18 at 13:00 Ondansetron HCl (Zofran Inj) 4 mg Q6H PRN IV NAUSEA/VOMITING; Start 09/03/18 at 13:00 Nitroglycerin (Nitroglycerin (Sl Tab) 0.4 Mg) 1 tab Q5M PRN SL .CHEST PAIN; Start 09/03/18 at 13:00 Acetaminophen (Tylenol Tab) 650 mg Q6H PRN PO .PAIN 1-3 OR TEMP; Start 09/03/18 at 13:00 Morphine Sulfate (morphine) 2 mg Q4H PRN IV .PAIN 7-10; Start 09/03/18 at 13:00 Docusate Sodium (Colace) 100 mg Q12H PRN PO .CONSTIPATION; Start 09/03/18 at 13:00 Magnesium Hydroxide (Milk Of Mag) 30 ml DAILY PRN PO .CONSTIPATION; Start 09/03/18 at 13:00 Famotidine (Pepcid Iv) 20 mg QHS IV Last administered on 09/04/18at 21:46; Admin Dose 20 MG; Start 09/03/18 at 21:00 Miscellaneous Information (Pending [facility] Order For Wound Care) This patient lin... PRN PRN XX WOUND CARE; Start 09/03/18 at 18:00 Acetaminophen (Tylenol Supp) 650 mg Q6H PRN SD FEVER Last administered on 09/04/18at 11:38; Admin Dose 650 MG; Start 09/03/18 at 20:00 Enalaprilat (Vasotec Iv) 0.625 mg Q6H PRN IV ELEVATED BLOOD PRESSURE Last administered on 09/03/18at 20:58; Admin Dose 0.625 MG; Start 09/03/18 at 20:00 Azithromycin 250 ml @ 250 mls/hr Q24H IV Last administered on 09/05/18at 00:25; Admin Dose 250 MLS/HR; Start 09/04/18 at 01:00; Stop 09/08/18 at 00:59 Levalbuterol (Xopenex Neb) 0.63 mg Q6H RESP THERAPY HHN Last administered on 09/05/18at 13:14; Admin Dose 0.63 MG; Start 09/04/18 at 00:00 Dextrose 1,000 ml @ 100 mls/hr Q10H IV Last administered on 09/05/18 13:38; Admin Dose 100 MLS/HR; Start 09/04/18 at 10:00 Vancomycin HCl (Vanco Iv Per Pharmacy) VANCOMYCIN PER PHARMACY PER PROTOCOL XX ; Start 09/04/18 at 11:30 Cefepime HCl 50 ml @ 100 mls/hr Q12 IVPB Last administered on 09/05/18at 08:34; Admin Dose 100 MLS/HR; Start 09/04/18 at 21:00 Vancomycin/Sodium Chloride 250 ml @ 125 mls/hr Q24H IVPB ; Start 09/05/18 at 14:00 GHADA ART NP September 05, 2018 14:07
--- NOTE | 2018-09-05 14:41 | PN ---
Date/Time of Note Date/Time of Note DATE: 09/05/18 TIME: 14:38 Assessment/Plan VTE Prophylaxis Risk score (from [facility] [place]0 risk: 9 SCD applied (from [facility] [place]): Yes Pharmacological prophylaxis: NA/contraindicated Pharm contraindication: other Lines/Catheters IV Catheter Type (from [facility]): Saline Lock Urinary Cath still in place: Yes Reason Cath still needed: urinary retention Assessment/Plan Hospital Course Patient is currently on supplemental oxygen via nasal cannula, patient is still lethargic and frail, will try to will obtain swallow eval, continue current care. Assessment/Plan - Sepsis with fever, and elevated lactic acid most likely secondary to pneumonia. Continue antibiotics. Dr. Batista is following in infection disease consultation. - Health care associated pneumonia - Acute respiratory insufficiency. is following in pulmonology consultation. - Hypernatremia, IV fluids changed to D5 water. Dr. Fulton is following in nephrology consultation. - Severe anemia, f/up on stool for OB. - Possible UTI per UA - Acute kidney injury due to dehydration, continue IV fluids. - Severe hypokalemia, status post replacement, resolved. - Bipolar disorder. - Bedbound status - Hx Gout - Hx of hemorrhoidectomy. - Protein calorie malnutrition - DNR/DNI status Further recommendations based on clinical course. Plan of care is discussed with Dr. Wyman. Result Diagram: 09/05/18 0625 09/05/18 0625 Results 24hrs Laboratory Tests Test 09/04/18 15:55 09/05/18 06:25 Urine Color YELLOW Urine Clarity CLOUDY A Urine pH 5.0 Urine Specific [place] 1.020 Urine Ketones NEGATIVE Urine Nitrite NEGATIVE Urine Bilirubin NEGATIVE Urine Urobilinogen NEGATIVE Urine Leukocyte Esterase NEGATIVE Urine Microscopic RBC 7 H Urine Microscopic WBC 5 Urine Bacteria FEW A Urine Mucus FEW A Urine Hemoglobin 1+ H Urine Osmolality 605 Urine Glucose NEGATIVE Urine Total Protein 1+ H White Blood Count 7.7 Red Blood Count 3.97 L Hemoglobin 12.3 Hematocrit 40.1 Mean Corpuscular Volume 101.0 Mean Corpuscular Hemoglobin 31.0 Mean Corpuscular Hemoglobin Concent 30.7 L Red Cell Distribution Width 16.1 H Platelet Count 188 Mean Platelet Volume 11.6 H Immature Granulocytes % 1.900 H Neutrophils % 83.4 H Segmented Neutrophils % (Manual) 31 L Band Neutrophils % (Manual) 49 H Lymphocytes % 13.2 L Lymphocytes % (Manual) 16 Reactive Lymphocytes % (Manual) 2 H Monocytes % 0.9 Monocytes % (Manual) 1 Eosinophils % 0.1 Basophils % 0.5 Metamyelocytes % (manual) 1 H Nucleated Red Blood Cells % 0.3 H Immature Granulocytes # 0.150 H Neutrophils # 6.4 Neutrophils # (Manual) 2.7 Band Neutrophils # 3.7 H Lymphocytes (Manual) 1.2 Lymphocytes # 1.0 Reactive Lymphocytes # 0.1 H Monocytes # 0.1 L Monocytes # (Manual) 0.0 L Eosinophils # 0.0 Basophils # 0.0 Metamyelocytes # 0.0 Nucleated Red Blood Cells # 0.0 Toxic Granulation 2+ Platelet Estimate NORMAL Giant Platelets 2 H Polychromasia 1+ Poikilocytosis 1+ Sodium Level 158 H Potassium Level 3.7 Chloride Level 130 H Carbon Dioxide Level 25 Anion Gap 3 L Blood Urea Nitrogen 51 H Creatinine 0.72 Est Glomerular Filtrat Rate mL/min Glucose Level 103 Calcium Level 8.3 L Exam/Review of Systems Exam Vitals Vital Signs Date Temp Pulse Resp B/P (MAP) Pulse Ox O2 O2 Flow FiO2 Time Delivery Rate 09/05/18 98 24 95 Nasal 4.0 36 13:14 Cannula 09/05/18 98.4 129/88 11:02 (102) Intake and Output 09/04/18 09/04/18 09/05/18 1515:00 23:00 07:00 IntakeIntake Total 616.663 ml 283.333 ml OutputOutput Total 450 ml 450 ml BalanceBalance 616.663 ml -166.667 ml -450 ml Exam Constitutional: alert, frail Respiratory: congested cough, diminished breath sounds Cardiovascular: regular rate and rhythm, tachycardia Gastrointestinal: soft, non-tender Genitourinary - Female: other (Acosta catheter) Musculoskeletal: nl extremities to inspection Extremities: normal pulses Neurological: confused, lethargic Results Results 24hrs Laboratory Tests Test 09/04/18 15:55 09/05/18 06:25 Urine Color YELLOW Urine Clarity CLOUDY A Urine pH 5.0 Urine Specific [place] 1.020 Urine Ketones NEGATIVE Urine Nitrite NEGATIVE Urine Bilirubin NEGATIVE Urine Urobilinogen NEGATIVE Urine Leukocyte Esterase NEGATIVE Urine Microscopic RBC 7 H Urine Microscopic WBC 5 Urine Bacteria FEW A Urine Mucus FEW A Urine Hemoglobin 1+ H Urine Osmolality 605 Urine Glucose NEGATIVE Urine Total Protein 1+ H White Blood Count 7.7 Red Blood Count 3.97 L Hemoglobin 12.3 Hematocrit 40.1 Mean Corpuscular Volume 101.0 Mean Corpuscular Hemoglobin 31.0 Mean Corpuscular Hemoglobin Concent 30.7 L Red Cell Distribution Width 16.1 H Platelet Count 188 Mean Platelet Volume 11.6 H Immature Granulocytes % 1.900 H Neutrophils % 83.4 H Segmented Neutrophils % (Manual) 31 L Band Neutrophils % (Manual) 49 H Lymphocytes % 13.2 L Lymphocytes % (Manual) 16 Reactive Lymphocytes % (Manual) 2 H Monocytes % 0.9 Monocytes % (Manual) 1 Eosinophils % 0.1 Basophils % 0.5 Metamyelocytes % (manual) 1 H Nucleated Red Blood Cells % 0.3 H Immature Granulocytes # 0.150 H Neutrophils # 6.4 Neutrophils # (Manual) 2.7 Band Neutrophils # 3.7 H Lymphocytes (Manual) 1.2 Lymphocytes # 1.0 Reactive Lymphocytes # 0.1 H Monocytes # 0.1 L Monocytes # (Manual) 0.0 L Eosinophils # 0.0 Basophils # 0.0 Metamyelocytes # 0.0 Nucleated Red Blood Cells # 0.0 Toxic Granulation 2+ Platelet Estimate NORMAL Giant Platelets 2 H Polychromasia 1+ Poikilocytosis 1+ Sodium Level 158 H Potassium Level 3.7 Chloride Level 130 H Carbon Dioxide Level 25 Anion Gap 3 L Blood Urea Nitrogen 51 H Creatinine 0.72 Est Glomerular Filtrat Rate mL/min Glucose Level 103 Calcium Level 8.3 L Medications Medication Current Medications IV Flush (NS 3 ml) 3 ml PER PROTOCOL IV ; Start 09/03/18 at 13:00 Lorazepam (Ativan) 0.5 mg Q6H PRN IV .ANXIETY; Start 09/03/18 at 13:00 Ondansetron HCl (Zofran Inj) 4 mg Q6H PRN IV NAUSEA/VOMITING; Start 09/03/18 at 13:00 Nitroglycerin (Nitroglycerin (Sl Tab) 0.4 Mg) 1 tab Q5M PRN SL .CHEST PAIN; Start 09/03/18 at 13:00 Acetaminophen (Tylenol Tab) 650 mg Q6H PRN PO .PAIN 1-3 OR TEMP; Start 09/03/18 at 13:00 Morphine Sulfate (morphine) 2 mg Q4H PRN IV .PAIN 7-10; Start 09/03/18 at 13:00 Docusate Sodium (Colace) 100 mg Q12H PRN PO .CONSTIPATION; Start 09/03/18 at 13:00 Magnesium Hydroxide (Milk Of Mag) 30 ml DAILY PRN PO .CONSTIPATION; Start 09/03/18 at 13:00 Famotidine (Pepcid Iv) 20 mg QHS IV Last administered on 09/04/18at 21:46; Admin Dose 20 MG; Start 09/03/18 at 21:00 [facility]isc[facility] This patient lin ... PRN PRN XX WOUND CARE; Start 09/03/18 at 18:00 Acetaminophen (Tylenol Supp) 650 mg Q6H PRN [place] FEVER Last administered on 09/04/18 11:38; Admin Dose 650 MG; Start 09/03/18 at 20:00 Enalaprilat (Vasotec Iv) 0.625 mg Q6H PRN IV ELEVATED BLOOD PRESSURE Last administered on 09/03/18at 20:58; Admin Dose 0.625 MG; Start 09/03/18 at 20:00 Azithromycin 250 ml @ 250 mls/hr Q24H IV Last administered on 09/05/18 00:25; Admin Dose 250 MLS/HR; Start 09/04/18 at 01:00; Stop 09/08/18 at 00:59 Levalbuterol (Xopenex Neb) 0.63 mg Q6H RESP THERAPY HHN Last administered on 09/05/18 13:14; Admin Dose 0.63 MG; Start 09/04/18 at 00:00 Dextrose 1,000 ml @ 100 mls/hr Q10H IV Last administered on 09/05/18 13:38; Admin Dose 100 MLS/HR; Start 09/04/18 at 10:00 Vancomycin HCl (Vanco Iv Per Pharmacy) VANCOMYCIN PER PHARMACY PER PROTOCOL XX ; Start 09/04/18 at 11:30 Cefepime HCl 50 ml @ 100 mls/hr Q12 IVPB Last administered on 09/05/18at 08:34; Admin Dose 100 MLS/HR; Start 09/04/18 at 21:00 Vancomycin/Sodium Chloride 250 ml @ 125 mls/hr Q24H IVPB ; Start 09/05/18 at 14:00 CHRIS ROSARIO September 05, 2018 14:41
[2018-09-05] MEDS: VANCOMYCIN 750 MG (PMX) 250 ML IVPB SCH (14:54)
--- NOTE | 2018-09-05 15:57 | CONS ---
DATE OF ADMISSION: 09/03/2018 DATE OF CONSULTATION: TYPE OF CONSULTATION: Pulmonary. REASON FOR CONSULTATION: Shortness of breath. Thank you, Dr. Wyman, for this consultation. HISTORY OF PRESENT ILLNESS: This is an unfortunate 77-year-old lady [facility] with a history of coronary artery disease, Parkinson's, dysphagia, bipolar disorder, osteop orosis, found to have increasing cough, congestion with a hemoglobin of 6.4 and evidence of acute kid onesimo injury. She received 2 units packed red blood cells and had correction of her hypokalemia and re cheryl in mild respiratory distress, currently on supplemental O2, previously on bilevel. PAST MEDICAL HISTORY: As above. MEDICATIONS: Per chart. SOCIAL HISTORY: She is a nonsmoker. No alcohol, no history of drug use. FAMILY HISTORY: Noncontributory. SYSTEMS REVIEW: A 12-point review of systems is currently unable to perform. PHYSICAL EXAMINATION: GENERAL: Frail elderly lady on nasal cannula O2. VITAL SIGNS: Currently afebrile, pulse is 89, blood pressure 129/88, O2 saturation 97% on 4 liters n yves cannula. NECK: Supple. No JVD or lymphadenopathy. CARDIAC: S1, S2. No added sounds or murmurs. CHEST: Diminished air entry bilaterally. ABDOMEN: Soft, nontender. No guarding or rebound. EXTREMITIES: No cyanosis, clubbing. A 1+ edema. NEUROLOGIC: Grossly intact. No focal deficits. LABORATORY DATA: White count 7.7, hemoglobin 12.3, platelets of 188. BUN 51, creatinine 2.72, sodiu m 158. INR 1.41. DIAGNOSTIC DATA: Chest x-ray was reviewed which showed elevated right hemidiaphragm with atelectasis . EKG showed no acute ischemic changes. IMPRESSION AND PLAN: 1. Possible early healthcare-associated pneumonia versus aspiration pneumonia. 2. Advanced dementia. 3. Significant anemia, possibly of chronic disease. 4. Dehydration with hypernatremia. 5. Deep venous thrombosis and gastrointestinal prophylaxis. 6. Dementia with dysphagia. RECOMMENDATIONS: 1. Continue to monitor H and H. 2. Antibiotics per ID. 3. Aspiration precautions. 4. Decrease supplemental O2 as tolerated. 5. Discussion of goals of care with family. Dictated By: GUALBERTO WHITE/EVER Conf#: [id number] DID#: [id number] CC: MAIKEL WYMAN MD;*EndCC*
[2018-09-05] MEDS: ACETAMINOPHEN 650 MG SUPP PR PRN (19:47)
[2018-09-05] MEDS: FAMOTIDINE 20 MG INJ IV SCH (22:55)
[2018-09-05] MEDS: BALSAM PERU/CASTOR OIL 60 GM TUBE TOP SCH (22:55)
[2018-09-06] VITALS (10 sets, daily range): BP systolic 118–151; BP diastolic 58–94; PULSE 75–112; RESP 18–20
[2018-09-06] MEDS: AZITHROMYCIN 500MG/NS (PMX) 250 ML IV SCH (01:53)
[2018-09-06] MEDS: LEVALBUTEROL (NEB) 0.63 MG/3 ML AMP HHN SCH ×4 (02:02→20:58)
[2018-09-06] MEDS: DEXTROSE 5% 1,000 ML IV SCH ×3 (02:59→22:18)
--- NOTE | 2018-09-06 08:15 | PN ---
Date/Time of Note Date/Time of Note DATE: 09/06/18 TIME: 08:12 Assessment/Plan VTE [place]axis [place] [facility] [place]: 9 [place] [facility] [place] Yes SCD contraindicated: other Pharmacological prophylaxis: other Pharm contraindication: other Lines/Catheters [facility] (from [facility] Peripheral IV Urinary Cath still in place: Yes Reason Cath still needed: urinary retention Assessment/Plan Assessment/Plan - Sepsis with fever, and elevated lactic acid most likely secondary to pneumonia. Continue antibiotics. Dr. Batista is following in infection disease consultation. - Health care associated pneumonia - Acute respiratory insufficiency. is following in pulmonology consultation. - Hypernatremia, IV fluids changed to D5 water. Dr. Fulton is following in nephrology consultation. - Severe anemia, f/up on stool for OB. - Possible UTI per UA - Acute kidney injury due to dehydration, continue IV fluids. - Severe hypokalemia, status post replacement, resolved. - Bipolar disorder. - Bedbound status - Hx Gout - Hx of hemorrhoidectomy. - Protein calorie malnutrition - DNR/DNI status Further recommendations based on clinical course. Plan of care is discussed with Dr. Wyman. Result Diagram: 09/06/18 0557 09/06/18 0557 Results 24hrs Laboratory Tests Test 09/06/18 05:57 White Blood Count 9.4 # Red Blood Count 3.85 L Hemoglobin 11.9 L Hematocrit 38.7 Mean Corpuscular Volume 100.5 Mean Corpuscular Hemoglobin 30.9 Mean Corpuscular Hemoglobin Concent 30.7 L Red Cell Distribution Width 15.9 H Platelet Count 216 Mean Platelet Volume 11.1 H Immature Granulocytes % 1.400 H Neutrophils % Lymphocytes % Monocytes % Eosinophils % Basophils % Nucleated Red Blood Cells % 0.0 Immature Granulocytes # 0.130 H Neutrophils # Lymphocytes # Monocytes # Eosinophils # Basophils # Nucleated Red Blood Cells # Sodium Level 156 H Potassium Level 3.7 Chloride Level 128 H Carbon Dioxide Level 24 Anion Gap 4 L Blood Urea Nitrogen 36 #H Creatinine 0.75 Est Glomerular Filtrat Rate mL/min Glucose Level 88 Calcium Level 8.3 L Phosphorus Level 3.3 Magnesium Level 2.5 Subjective 24 Hr Interval Summary Free Text/Dictation - afebrile -Na - 156 today; nephro follows - swallow evaluation today no events overnight dw staff Constitutional: requiring IVF, requiring O2 Exam/Review of Systems Exam Vitals Vital Signs Date Temp Pulse Resp B/P (MAP) Pulse Ox O2 O2 Flow FiO2 Time Delivery Rate 09/06/18 98.2 99 18 120/60 97 07:35 (80) 09/06/18 6.0 02:02 09/06/18 Nasal 02:02 Cannula 09/05/18 36 20:18 Intake and Output 09/05/18 09/05/18 09/06/18 1515:00 23:00 07:00 IntakeIntake Total 970 ml 350 ml 0 ml OutputOutput Total 750 ml 650 ml BalanceBalance 970 ml -400 ml -650 ml Constitutional: alert, well developed Psych: nl mood/affect Eyes: nl lids, nl sclera ENMT: nl external ears & nose Respiratory: clear to auscultation Cardiovascular: nl pulses, other (s1s2) Gastrointestinal: soft Musculoskeletal: muscle weakness Extremities: normal pulses Neurological: confused Lymph: nontender Results Results 24hrs Laboratory Tests Test 09/06/18 05:57 White Blood Count 9.4 # Red Blood Count 3.85 L Hemoglobin 11.9 L Hematocrit 38.7 Mean Corpuscular Volume 100.5 Mean Corpuscular Hemoglobin 30.9 Mean Corpuscular Hemoglobin Concent 30.7 L Red Cell Distribution Width 15.9 H Platelet Count 216 Mean Platelet Volume 11.1 H Immature Granulocytes % 1.400 H Neutrophils % Lymphocytes % Monocytes % Eosinophils % Basophils % Nucleated Red Blood Cells % 0.0 Immature Granulocytes # 0.130 H Neutrophils # Lymphocytes # Monocytes # Eosinophils # Basophils # Nucleated Red Blood Cells # Sodium Level 156 H Potassium Level 3.7 Chloride Level 128 H Carbon Dioxide Level 24 Anion Gap 4 L Blood Urea Nitrogen 36 #H Creatinine 0.75 Est Glomerular Filtrat Rate mL/min Glucose Level 88 Calcium Level 8.3 L Phosphorus Level 3.3 Magnesium Level 2.5 Medications Medication Current Medications IV Flush (NS 3 ml) 3 ml PER PROTOCOL IV ; Start 09/03/18 at 13:00 Lorazepam (Ativan) 0.5 mg Q6H PRN IV .ANXIETY; Start 09/03/18 at 13:00 Ondansetron HCl (Zofran Inj) 4 mg Q6H PRN IV NAUSEA/VOMITING; Start 09/03/18 at 13:00 Nitroglycerin (Nitroglycerin (Sl Tab) 0.4 Mg) 1 tab Q5M PRN SL .CHEST PAIN; Start 09/03/18 at 13:00 Acetaminophen (Tylenol Tab) 650 mg Q6H PRN PO .PAIN 1-3 OR TEMP; Start 09/03/18 at 13:00 Morphine Sulfate (morphine) 2 mg Q4H PRN IV .PAIN 7-10; Start 09/03/18 at 13:00 Docusate Sodium (Colace) 100 mg Q12H PRN PO .CONSTIPATION; Start 09/03/18 at 13:00 Magnesium Hydroxide (Milk Of Mag) 30 ml DAILY PRN PO .CONSTIPATION; Start 09/03/18 at 13:00 Famotidine (Pepcid Iv) 20 mg QHS IV Last administered on 09/05/18at 22:55; Admin Dose 20 MG; Start 09/03/18 at 21:00 Miscellaneous Information (Pending [facility] Order For Wound Care) This patient lin... PRN PRN XX WOUND CARE; Start 09/03/18 at 18:00 Acetaminophen (Tylenol Supp) 650 mg Q6H PRN [place] FEVER Last administered on 09/05/18at 19:47; Admin Dose 650 MG; Start 09/03/18 at 20:00 Enalaprilat (Vasotec Iv) 0.625 mg Q6H PRN IV ELEVATED BLOOD PRESSURE Last administered on 09/03/18at 20:58; Admin Dose 0.625 MG; Start 09/03/18 at 20:00 Azithromycin 250 ml @ 250 mls/hr Q24H IV Last administered on 09/06/18at 01:53; Admin Dose 250 MLS/HR; Start 09/04/18 at 01:00; Stop 09/08/18 at 00:59 Levalbuterol (Xopenex Neb) 0.63 mg Q6H RESP THERAPY HHN Last administered on 09/06/18at 02:02; Admin Dose 0.63 MG; Start 09/04/18 at 00:00 Dextrose 1,000 ml @ 100 mls/hr Q10H IV Last administered on 09/05/18at 13:38; Admin Dose 100 MLS/HR; Start 09/04/18 at 10:00 Vancomycin HCl (Vanco Iv Per Pharmacy) VANCOMYCIN PER PHARMACY PER PROTOCOL XX ; Start 09/04/18 at 11:30 Cefepime HCl 50 ml @ 100 mls/hr Q12 IVPB Last administered on 09/05/18at 22:55; Admin Dose 100 MLS/HR; Start 09/04/18 at 21:00 Vancomycin/Sodium Chloride 250 ml @ 125 mls/hr Q24H IVPB Last administered on 09/05/18at 14:54; Admin Dose 125 MLS/HR; Start 09/05/18 at 14:00 BIJAN TERRAZAS September 06, 2018 08:15
[2018-09-06] MEDS ORDERED: VANCOMYCIN 1 GM 250 ML IVPB SCH (09:00)
[2018-09-06] MEDS ORDERED: METOLAZONE 2.5 MG TAB PO ONE (09:00)
[2018-09-06] MEDS: CEFEPIME 1GM/50 ML (PMX) 50 ML IVPB SCH ×2 (09:06→22:16)
[2018-09-06] MEDS: BALSAM PERU/CASTOR OIL 60 GM TUBE TOP SCH ×2 (09:11→22:16)
--- NOTE | 2018-09-06 12:20 | PN ---
DATE: 09/06/2018 SUBJECTIVE: The patient is stable, no events overnight. No fevers, chills, nausea or vomiting. OBJECTIVE: VITAL SIGNS: Blood pressure is 120/60, respirations 18, pulse 99, temperature 98.2. HEENT: Head is normocephalic. NECK: Supple. HEART: Regular rate. LUNGS: Show diminished breath sounds at the base. ABDOMEN: Soft, nontender to palpation without rebound or guarding. EXTREMITIES: Negative for clubbing, cyanosis. Positive edema. DERMATOLOGIC: No rashes. MUSCULOSKELETAL: No joint effusion. NEUROLOGIC: No change in exam. MEDICATIONS: Reviewed. LABORATORY DATA: From 09/06/2018 was reviewed. ASSESSMENT AND PLAN: 1. Nonoliguric acute kidney injury, etiology is secondary to hemodynamics, volume depletion. Renal function is improved with supportive care, IV hydration. Continue to monitor. 2. Hypernatremia, etiology is secondary insensible losses, decreased free water intake. No evidence of diabetes insipidus. We will continue D5 water. The patient has not been receiving continuous D5 water. I spoke with the nursing staff and encouraged them to ensure that the patient is on continuo us IV fluids. 3. Volume overload. Etiology is likely secondary to third spacing, questionable component of heart failure. We will continue current medical management. We will give the patient low dose metolazone to help mobilize fluid. 4. Hypokalemia. Continue to monitor and replete as needed. 5. Lactic acidosis secondary to sepsis, improving. 6. Mineral bone disorder. Monitor calcium and phosphorus levels. 7. Sepsis secondary to pneumonia and bacteremia. Continue current antibiotic regimen. 8. Acute encephalopathy on top of dementia, etiology is toxic metabolic. Continue to monitor. 9. Acute respiratory failure secondary to pneumonia. Continue supplemental oxygen. Continue nebuli zer. 10. Anemia. Monitor hemoglobin and hematocrit levels. 11. History of bipolar disorder. 12. History of gout. Dictated By: SANDRA AGUIRRE DO NR/NTS Conf#: [id number] DID#: [id number] CC: MAIKEL THOMPSON MD; GUALBERTO AGUILAR MD;*EndCC*
[2018-09-06] MEDS: VANCOMYCIN 750 MG (PMX) 250 ML IVPB SCH (13:28)
--- NOTE | 2018-09-06 13:35 | CONS ---
Assessment/Plan Assessment/Plan Hospital Course (Demo Recall) No acute events. Patient is awake, comfortable on 5L nasal cannula. No fevers Blood culture on admission grew staph species 1 out of 2 sets. Urine culture negative Chest x-ray on admission revealed right basilar consolidation. Please see full report in the chart Microbiology: Urine culture preliminary negative blood culture grew gram- positive cocci in clusters 1 out of 2 sets Antimicrobials: Vanco, Zithromax, cefepime Physical examination: This is a fragile chronically ill-appearing elderly woman who is awake in no distress. Head atraumatic normocephalic sclera nonicteric vehicle mucosa dry. Neck is supple chest rise symmetrical breath sounds with scattered crackles. Heart: S1-S2. Abdomen soft bowel sounds present. Extremities with trace edema. Assessment: 1. Severe sepsis, present on admission 2. Bacteremia, likely contaminant 3. Healthcare associated pneumonia possibly aspiration 4. Acute possibly on chronic kidney disease 5. Anemia Plan: Remains stable, continue antibiotics, repeat cxr, pulmonary rec-s Consultation Date/Type/Reason Admit Date/Time September 03, 2018 at 06:14 Initial Consult Date Type of Consult id Date/Time of Note DATE: 09/06/18 TIME: 13:34 Exam/Review of Systems Exam Vitals Vital Signs Date Temp Pulse Resp B/P (MAP) Pulse Ox O2 O2 Flow FiO2 Time Delivery Rate 09/06/18 98.2 75 18 118/58 98 11:28 (78) 09/06/18 6.0 09:35 09/06/18 Nasal 09:26 Cannula 09/05/18 36 20:18 Intake and Output 09/05/18 09/05/18 09/06/18 1515:00 23:00 07:00 IntakeIntake Total 970 ml 350 ml 0 ml OutputOutput Total 750 ml 650 ml BalanceBalance 970 ml -400 ml -650 ml Results Result Diagram: 09/06/18 0557 09/06/18 0557 Results 24hrs Laboratory Tests Test 09/06/18 05:57 White Blood Count 9.4 # Red Blood Count 3.85 L Hemoglobin 11.9 L Hematocrit 38.7 Mean Corpuscular Volume 100.5 Mean Corpuscular Hemoglobin 30.9 Mean Corpuscular Hemoglobin Concent 30.7 L Red Cell Distribution Width 15.9 H Platelet Count 216 Mean Platelet Volume 11.1 H Immature Granulocytes % 1.400 H Neutrophils % Segmented Neutrophils % (Manual) 56 Band Neutrophils % (Manual) 36 H Lymphocytes % Lymphocytes % (Manual) 7 L Monocytes % Monocytes % (Manual) 1 Eosinophils % Basophils % Nucleated Red Blood Cells % 1 H Immature Granulocytes # 0.130 H Neutrophils # Neutrophils # (Manual) 5.6 Band Neutrophils # 3.3 H Lymphocytes (Manual) 0.6 L Lymphocytes # Monocytes # Monocytes # (Manual) 0.0 L Eosinophils # Basophils # Nucleated Red Blood Cells # Platelet Estimate NORMAL Polychromasia 2+ Sodium Level 156 H Potassium Level 3.7 Chloride Level 128 H Carbon Dioxide Level 24 Anion Gap 4 L Blood Urea Nitrogen 36 #H Creatinine 0.75 Est Glomerular Filtrat Rate mL/min Glucose Level 88 Calcium Level 8.3 L Phosphorus Level 3.3 Magnesium Level 2.5 Medications Medication Current Medications IV Flush (NS 3 ml) 3 ml PER PROTOCOL IV ; Start 09/03/18 at 13:00 Lorazepam (Ativan) 0.5 mg Q6H PRN IV .ANXIETY; Start 09/03/18 at 13:00 Ondansetron HCl (Zofran Inj) 4 mg Q6H PRN IV NAUSEA/VOMITING; Start 09/03/18 at 13:00 Nitroglycerin (Nitroglycerin (Sl Tab) 0.4 Mg) 1 tab Q5M PRN SL .CHEST PAIN; Start 09/03/18 at 13:00 Acetaminophen (Tylenol Tab) 650 mg Q6H PRN PO .PAIN 1-3 OR TEMP; Start 09/03/18 at 13:00 Morphine Sulfate (morphine) 2 mg Q4H PRN IV .PAIN 7-10; Start 09/03/18 at 13:00 Docusate Sodium (Colace) 100 mg Q12H PRN PO .CONSTIPATION; Start 09/03/18 at 13:00 Magnesium Hydroxide (Milk Of Mag) 30 ml DAILY PRN PO .CONSTIPATION; Start 09/03/18 at 13:00 Famotidine (Pepcid Iv) 20 mg QHS IV Last administered on 09/05/18at 22:55; Admin Dose 20 MG; Start 09/03/18 at 21:00 Miscellaneous Information (Pending [facility] Order For Wound Care) This patient lin... PRN PRN XX WOUND CARE; Start 09/03/18 at 18:00 Acetaminophen (Tylenol Supp) [address] FEVER Last administered on 09/05/18 19:47; Admin Dose 650 MG; Start 09/03/18 at 20:00 Enalaprilat (Vasotec Iv) 0.625 mg Q6H PRN IV ELEVATED BLOOD PRESSURE Last administered on 09/03/18 20:58; Admin Dose 0.625 MG; Start 09/03/18 at 20:00 Azithromycin 250 ml @ 250 mls/hr Q24H IV Last administered on 09/06/18 01:53; Admin Dose 250 MLS/HR; Start 09/04/18 at 01:00; Stop 09/08/18 at 00:59 Levalbuterol (Xopenex Neb) 0.63 mg Q6H RESP THERAPY HHN Last administered on 09/06/18 09:25; Admin Dose 0.63 MG; Start 09/04/18 at 00:00 Dextrose 1,000 ml @ 100 mls/hr Q10H IV Last administered on 09/05/18 13:38; Admin Dose 100 MLS/HR; Start 09/04/18 at 10:00 Vancomycin HCl (Vanco Iv Per Pharmacy) VANCOMYCIN PER PHARMACY PER PROTOCOL XX ; Start 09/04/18 at 11:30 Cefepime HCl 50 ml @ 100 mls/hr Q12 IVPB Last administered on 09/06/18 09:06; Admin Dose 100 MLS/HR; Start 09/04/18 at 21:00 Vancomycin/Sodium Chloride 250 ml @ 125 mls/hr Q24H IVPB Last administered on 09/06/18 13:28; Admin Dose 125 MLS/HR; Start 09/05/18 at 14:00 GHADA ART NP September 06, 2018 13:35
--- NOTE | 2018-09-06 14:37 | CONS ---
Consult Date/Type/Reason Admit Date/Time September 03, 2018 at 06:14 Initial Consult Date Type of Consult Pulmonary Date/Time of Note DATE: 09/06/18 TIME: 14:36 Subjective Appears comfortable this morning Objective Vital Signs Date Temp Pulse Resp B/P (MAP) Pulse Ox O2 O2 Flow FiO2 Time Delivery Rate 09/06/18 110 12:30 09/06/18 98.2 18 118/58 98 11:28 (78) 09/06/18 6.0 09:35 09/06/18 Nasal 09:26 Cannula 09/05/18 36 20:18 Intake and Output 09/05/18 09/05/18 09/06/18 1515:00 23:00 07:00 IntakeIntake Total 970 ml 350 ml 0 ml OutputOutput Total 750 ml 650 ml BalanceBalance 970 ml -400 ml -650 ml Exam PHYSICAL EXAMINATION: GENERAL: Frail elderly lady on nasal cannula O2. VITAL SIGNS: NECK: Supple. No JVD or lymphadenopathy. CARDIAC: S1, S2. No added sounds or murmurs. CHEST: Diminished air entry bilaterally. ABDOMEN: Soft, nontender. No guarding or rebound. EXTREMITIES: No cyanosis, clubbing. A 1+ edema. NEUROLOGIC: Grossly intact. No focal deficits. Vent Setting Fraction of Inspired Oxygen pe: 36 Results/Medications Result Diagram: 09/06/18 0557 09/06/18 0557 Results 24 hrs Laboratory Tests Test 09/06/18 05:57 White Blood Count 9.4 # Red Blood Count 3.85 L Hemoglobin 11.9 L Hematocrit 38.7 Mean Corpuscular Volume 100.5 Mean Corpuscular Hemoglobin 30.9 Mean Corpuscular Hemoglobin Concent 30.7 L Red Cell Distribution Width 15.9 H Platelet Count 216 Mean Platelet Volume 11.1 H Immature Granulocytes % 1.400 H Neutrophils % Segmented Neutrophils % (Manual) 56 Band Neutrophils % (Manual) 36 H Lymphocytes % Lymphocytes % (Manual) 7 L Monocytes % Monocytes % (Manual) 1 Eosinophils % Basophils % Nucleated Red Blood Cells % 1 H Immature Granulocytes # 0.130 H Neutrophils # Neutrophils # (Manual) 5.6 Band Neutrophils # 3.3 H Lymphocytes (Manual) 0.6 L Lymphocytes # Monocytes # Monocytes # (Manual) 0.0 L Eosinophils # Basophils # Nucleated Red Blood Cells # Platelet Estimate NORMAL Polychromasia 2+ Sodium Level 156 H Potassium Level 3.7 Chloride Level 128 H Carbon Dioxide Level 24 Anion Gap 4 L Blood Urea Nitrogen 36 #H Creatinine 0.75 Est Glomerular Filtrat Rate mL/min Glucose Level 88 Calcium Level 8.3 L Phosphorus Level 3.3 Magnesium Level 2.5 Medications Current Medications IV Flush (NS 3 ml) 3 ml PER PROTOCOL IV ; Start 09/03/18 at 13:00 Lorazepam (Ativan) 0.5 mg Q6H PRN IV .ANXIETY; Start 09/03/18 at 13:00 Ondansetron HCl (Zofran Inj) 4 mg Q6H PRN IV NAUSEA/VOMITING; Start 09/03/18 at 13:00 Nitroglycerin (Nitroglycerin (Sl Tab) 0.4 Mg) 1 tab Q5M PRN SL .CHEST PAIN; Start 09/03/18 at 13:00 Acetaminophen (Tylenol Tab) 650 mg Q6H PRN PO .PAIN 1-3 OR TEMP; Start 09/03/18 at 13:00 Morphine Sulfate (morphine) 2 mg Q4H PRN IV .PAIN 7-10; Start 09/03/18 at 13:00 Docusate Sodium (Colace) 100 mg Q12H PRN PO .CONSTIPATION; Start 09/03/18 at 13:00 Magnesium Hydroxide (Milk Of Mag) 30 ml DAILY PRN PO .CONSTIPATION; Start 09/03/18 at 13:00 Famotidine (Pepcid Iv) 20 mg QHS IV Last administered on 09/05/18at 22:55; Admin Dose 20 MG; Start 09/03/18 at 21:00 Miscellaneous Information (Pending [facility] Order For Wound Care) This patient lin... PRN PRN XX WOUND CARE; Start 09/03/18 at 18:00 Acetaminophen (Tylenol Supp) 650 mg Q6H PRN [place] FEVER Last administered on 09/05/18at 19:47; Admin Dose 650 MG; Start 09/03/18 at 20:00 Enalaprilat (Vasotec Iv) 0.625 mg Q6H PRN IV ELEVATED BLOOD PRESSURE Last administered on 09/03/18at 20:58; Admin Dose 0.625 MG; Start 09/03/18 at 20:00 Azithromycin 250 ml @ 250 mls/hr Q24H IV Last administered on 09/06/18at 01:53; Admin Dose 250 MLS/HR; Start 09/04/18 at 01:00; Stop 09/08/18 at 00:59 Levalbuterol (Xopenex Neb) 0.63 mg Q6H RESP THERAPY HHN Last administered on 09/06/18at 13:49; Admin Dose 0.63 MG; Start 09/04/18 at 00:00 Dextrose 1,000 ml @ 100 mls/hr Q10H IV Last administered on 09/05/18at 13:38; Admin Dose 100 MLS/HR; Start 09/04/18 at 10:00 Vancomycin HCl (Vanco Iv Per Pharmacy) VANCOMYCIN PER PHARMACY PER PROTOCOL XX ; Start 09/04/18 at 11:30 Cefepime HCl 50 ml @ 100 mls/hr Q12 IVPB Last administered on 09/06/18at 09:06; Admin Dose 100 MLS/HR; Start 09/04/18 at 21:00 Vancomycin/Sodium Chloride 250 ml @ 125 mls/hr Q24H IVPB Last administered on 09/06/18at 13:28; Admin Dose 125 MLS/HR; Start 09/05/18 at 14:00 Assessment/Plan Hospital Course (Demo Recall) IMPRESSION 1. Possible early healthcare-associated pneumonia versus aspiration pneumonia. 2. Advanced dementia. 3. Significant anemia, possibly of chronic disease. 4. Dehydration with hypernatremia. 5. Deep venous thrombosis and gastrointestinal prophylaxis. 6. Dementia with dysphagia. RECOMMENDATIONS: 1. Continue to monitor H and H. 2. Antibiotics per ID. 3. Aspiration precautions. 4. Decrease supplemental O2 as tolerated. 5. Discussion of goals of care with family. 6. Continue free water for hypernatremia GUALBERTO AGUILAR MD, [facility] September 06, 2018 14:37
[2018-09-06] MEDS: FAMOTIDINE 20 MG INJ IV SCH (22:18)
[2018-09-07] VITALS (10 sets, daily range): BP systolic 109–150; BP diastolic 55–81; PULSE 70–110; RESP 18–20
[2018-09-07] MEDS: AZITHROMYCIN 500MG/NS (PMX) 250 ML IV SCH (01:26)
[2018-09-07] MEDS: LEVALBUTEROL (NEB) 0.63 MG/3 ML AMP HHN SCH ×4 (01:55→19:30)
[2018-09-07] MEDS: DEXTROSE 5% 1,000 ML IV SCH (08:43)
[2018-09-07] MEDS: BALSAM PERU/CASTOR OIL 60 GM TUBE TOP SCH ×2 (08:44→22:10)
[2018-09-07] MEDS: CEFEPIME 1GM/50 ML (PMX) 50 ML IVPB SCH ×2 (08:44→22:10)
--- NOTE | 2018-09-07 11:32 | PN ---
Date/Time of Note Date/Time of Note DATE: 09/07/18 TIME: 11:32 Assessment/Plan VTE Prophylaxis Risk score (from Ns)>0 risk: 9 SCD applied (from Ns): Yes Pharmacological prophylaxis: LMWH Lines/Catheters IV [facility] Type (from [facility] Peripheral IV Urinary Cath still in place: Yes Reason Cath still needed: skin wounds contaminated by urine Assessment/Plan Hospital Course - Sepsis with fever, and elevated lactic acid most likely secondary to pneumonia. Continue antibiotics. Dr. Batista is following in infection disease consultation. - Health care associated pneumonia - Acute respiratory insufficiency. is following in pulmonology consultation. - Hypernatremia, IV fluids changed to D5 water. Dr. Fulton is following in nephrology consultation. - Severe anemia, f/up on stool for OB. - Possible UTI per UA - Acute kidney injury due to dehydration, continue IV fluids. - Severe hypokalemia, status post replacement, resolved. - Bipolar disorder. - Bedbound status - Hx Gout - Hx of hemorrhoidectomy. - Protein calorie malnutrition - DNR/DNI status Result Diagram: 09/06/18 0557 09/07/18 0559 Results 24hrs Laboratory Tests Test 09/07/18 05:59 Sodium Level 149 H Potassium Level 3.0 L Chloride Level 124 H Carbon Dioxide Level 21 Anion Gap 4 L Blood Urea Nitrogen 25 #H Creatinine 0.61 Est Glomerular Filtrat Rate mL/min Glucose Level 105 Calcium Level 7.8 L Phosphorus Level 3.3 Magnesium Level 2.2 Subjective 24 Hr Interval Summary Free Text/Dictation Eyes open but not verbally responsive Exam/Review of Systems Exam Vitals Vital Signs Date Temp Pulse Resp B/P (MAP) Pulse Ox O2 O2 Flow FiO2 Time Delivery Rate 09/07/18 99.5 109 18 150/72 94 11:05 (98) 09/07/18 Nasal 6.0 08:00 Cannula 09/07/18 44 01:55 Intake and Output 09/06/18 09/06/18 09/07/18 1515:00 23:00 07:00 IntakeIntake Total 1200 ml 0 ml OutputOutput Total 500 ml 500 ml BalanceBalance 700 ml -500 ml Constitutional: well developed Head: normocephalic, atraumatic Neck: supple Respiratory: diminished breath sounds Cardiovascular: regular rate and rhythm Gastrointestinal: soft, non-tender Extremities: normal pulses Results Results 24hrs Laboratory Tests Test 09/07/18 05:59 Sodium Level 149 H Potassium Level 3.0 L Chloride Level 124 H Carbon Dioxide Level 21 Anion Gap 4 L Blood Urea Nitrogen 25 #H Creatinine 0.61 Est Glomerular Filtrat Rate mL/min Glucose Level 105 Calcium Level 7.8 L Phosphorus Level 3.3 Magnesium Level 2.2 Medications Medication Current Medications IV Flush (NS 3 ml) 3 ml PER PROTOCOL IV ; Start 09/03/18 at 13:00 Lorazepam (Ativan) 0.5 mg Q6H PRN IV .ANXIETY; Start 09/03/18 at 13:00 Ondansetron HCl (Zofran Inj) 4 mg Q6H PRN IV NAUSEA/VOMITING; Start 09/03/18 at 13:00 Nitroglycerin (Nitroglycerin (Sl Tab) 0.4 Mg) 1 tab Q5M PRN SL .CHEST PAIN; Start 09/03/18 at 13:00 Acetaminophen (Tylenol Tab) 650 mg Q6H PRN PO .PAIN 1-3 OR TEMP; Start 09/03/18 at 13:00 Morphine Sulfate (morphine) 2 mg Q4H PRN IV .PAIN 7-10; Start 09/03/18 at 13:00 Docusate Sodium (Colace) 100 mg Q12H PRN PO .CONSTIPATION; Start 09/03/18 at 13:00 Magnesium Hydroxide (Milk Of Mag) 30 ml DAILY PRN PO .CONSTIPATION; Start 09/03/18 at 13:00 Famotidine (Pepcid Iv) 20 mg QHS IV Last administered on 09/06/18at 22:18; Admin Dose 20 MG; Start 09/03/18 at 21:00 Miscellaneous Information ([facility]) This patient lin... PRN PRN XX WOUND CARE; Start 09/03/18 at 18:00 Acetaminophen (Tylenol Supp) 650 mg Q6H PRN [place] FEVER Last administered on 09/05/18at 19:47; Admin Dose 650 MG; Start 09/03/18 at 20:00 Enalaprilat (Vasotec Iv) 0.625 mg Q6H PRN IV ELEVATED BLOOD PRESSURE Last administered on 09/03/18at 20:58; Admin Dose 0.625 MG; Start 09/03/18 at 20:00 Azithromycin 250 ml @ 250 mls/hr Q24H IV Last administered on 09/07/18at 01:26; Admin Dose 250 MLS/HR; Start 09/04/18 at 01:00; Stop 09/08/18 at 00:59 Levalbuterol (Xopenex Neb) 0.63 mg Q6H RESP THERAPY HHN Last administered on 09/07/18at 07:57; Admin Dose 0.63 MG; Start 09/04/18 at 00:00 Vancomycin HCl (Vanco Iv Per Pharmacy) VANCOMYCIN PER PHARMACY PER PROTOCOL XX ; Start 09/04/18 at 11:30 Cefepime HCl 50 ml @ 100 mls/hr Q12 IVPB Last administered on 09/07/18at 08:44; Admin Dose 100 MLS/HR; Start 09/04/18 at 21:00 Vancomycin/Sodium Chloride 250 ml @ 125 mls/hr Q24H IVPB Last administered on 09/06/18at 13:28; Admin Dose 125 MLS/HR; Start 09/05/18 at 14:00 Miscellaneous Information (*Rx Drug Level Order Reminder*) VANCOMYCIN TROUGH 09/07 AT 1300 1300 ONCE XX ; Start 09/07/18 at 13:00; Stop 09/07/18 at 13:01 ROBIN HOLLAND Sep 07, 2018 11:32
[2018-09-07] MEDS ORDERED: POTASSIUM CHLORIDE 50 ML IVPB SCH (12:00)
[2018-09-07] MEDS: POTASSIUM CHLORIDE 20 MEQ/SW 100 ML IVPB SCH ×2 (12:25→15:35)
--- NOTE | 2018-09-07 12:56 | CONS ---
Assessment/Plan Assessment/Plan Hospital Course (Demo Recall) 1. Nonoliguric acute kidney injury, etiology is secondary to hemodynamics, volume depletion. Renal function is improved with supportive care, IV hydration. Continue to monitor. 2. Hypernatremia, etiology is secondary insensible losses, decreased free water intake. No evidence of diabetes insipidus. We will continue D5 water. 3. Volume overload. Etiology is likely secondary to third spacing, questionable component of heart failure. We will continue current medical management. s/p metolazone 4. Hypokalemia. Continue to monitor and replete as needed. 5. Lactic acidosis secondary to sepsis, improving. 6. Mineral bone disorder. Monitor calcium and phosphorus levels. 7. Sepsis secondary to pneumonia and bacteremia. Continue current antibiotic regimen. 8. Acute encephalopathy on top of dementia, etiology is toxic metabolic. Continue to monitor. 9. Acute respiratory failure secondary to pneumonia. Continue supplemental oxygen. Continue nebulizer. 10. Anemia. Monitor hemoglobin and hematocrit levels. 11. History of bipolar disorder. 12. History of gout. Consultation Date/Type/Reason Admit Date/Time September 03, 2018 at 06:14 Initial Consult Date Date/Time of Note DATE: 09/07/18 TIME: 12:55 24 HR Interval Summary Free Text/Dictation tolerating ivf no shortness of breath, n/v or urinary issues d.w rn gen nad cv rrr pulm ctab abd soft, nd nt +bs ext: no edema Exam/Review of Systems Exam Vitals Vital Signs Date Temp Pulse Resp B/P (MAP) Pulse Ox O2 O2 Flow FiO2 Time Delivery Rate 09/07/18 99.5 109 18 150/72 94 11:05 (98) 09/07/18 Nasal 6.0 08:00 Cannula 09/07/18 44 01:55 Intake and Output 09/06/18 09/06/18 09/07/18 1515:00 23:00 07:00 IntakeIntake Total 1200 ml 0 ml OutputOutput Total 500 ml 500 ml BalanceBalance 700 ml -500 ml Results Result Diagram: 09/06/18 0557 09/07/18 0559 Results 24hrs Laboratory Tests Test 09/07/18 05:59 Sodium Level 149 H Potassium Level 3.0 L Chloride Level 124 H Carbon Dioxide Level 21 Anion Gap 4 L Blood Urea Nitrogen 25 #H Creatinine 0.61 Est Glomerular Filtrat Rate mL/min Glucose Level 105 Calcium Level 7.8 L Phosphorus Level 3.3 Magnesium Level 2.2 Medications Medication Current Medications IV Flush (NS 3 ml) 3 ml PER PROTOCOL IV ; Start 09/03/18 at 13:00 Lorazepam (Ativan) 0.5 mg Q6H PRN IV .ANXIETY; Start 09/03/18 at 13:00 Ondansetron HCl (Zofran Inj) 4 mg Q6H PRN IV NAUSEA/VOMITING; Start 09/03/18 at 13:00 Nitroglycerin (Nitroglycerin (Sl Tab) 0.4 Mg) 1 tab Q5M PRN SL .CHEST PAIN; Start 09/03/18 at 13:00 Acetaminophen (Tylenol Tab) 650 mg Q6H PRN PO .PAIN 1-3 OR TEMP; Start 09/03/18 at 13:00 Morphine Sulfate (morphine) 2 mg Q4H PRN IV .PAIN 7-10; Start 09/03/18 at 13:00 Docusate Sodium (Colace) 100 mg Q12H PRN PO .CONSTIPATION; Start 09/03/18 at 13:00 Magnesium Hydroxide (Milk Of Mag) 30 ml DAILY PRN PO .CONSTIPATION; Start 09/03/18 at 13:00 Famotidine (Pepcid Iv) 20 mg QHS IV Last administered on 09/06/18at 22:18; Admin Dose 20 MG; Start 09/03/18 at 21:00 [facility] This patient lin... PRN PRN XX WOUND CARE; Start 09/03/18 at 18:00 Acetaminophen (Tylenol Supp) 650 mg Q6H PRN [place] FEVER Last administered on 09/05/18at 19:47; Admin Dose 650 MG; Start 09/03/18 at 20:00 Enalaprilat (Vasotec Iv) 0.625 mg Q6H PRN IV ELEVATED BLOOD PRESSURE Last administered on 09/03/18at 20:58; Admin Dose 0.625 MG; Start 09/03/18 at 20:00 Azithromycin 250 ml @ 250 mls/hr Q24H IV Last administered on 09/07/18at 01:26; Admin Dose 250 MLS/HR; Start 09/04/18 at 01:00; Stop 09/08/18 at 00:59 Levalbuterol (Xopenex Neb) 0.63 mg Q6H RESP THERAPY HHN Last administered on 09/07/18at 07:57; Admin Dose 0.63 MG; Start 09/04/18 at 00:00 Vancomycin HCl (Vanco Iv Per Pharmacy) VANCOMYCIN PER PHARMACY PER PROTOCOL XX ; Start 09/04/18 at 11:30 Cefepime HCl 50 ml @ 100 mls/hr Q12 IVPB Last administered on 09/07/18at 08:44; Admin Dose 100 MLS/HR; Start 09/04/18 at 21:00 Vancomycin/Sodium Chloride 250 ml @ 125 mls/hr Q24H IVPB Last administered on 09/06/18at 13:28; Admin Dose 125 MLS/HR; Start 09/05/18 at 14:00 Miscellaneous Information (*Rx Drug Level Order Reminder*) VANCOMYCIN TROUGH 09/07 AT 1300 1300 ONCE XX ; Start 09/07/18 at 13:00; Stop 09/07/18 at 13:01 Potassium Chloride 100 ml @ 50 mls/hr Q2H IVPB Last administered on 09/07/18at 12:25; Admin Dose 50 MLS/HR; Start 09/07/18 at 12:00; Stop 09/07/18 at 15:59 ASTON DE PAZ MD Sep 07, 2018 12:56
--- NOTE | 2018-09-07 14:03 | CONS ---
Consultation Date/Type/Reason Admit Date/Time September 03, 2018 at 06:14 Initial Consult Date SUBJECTIVE: Patient is awake, alert, afebrile at this time. Pt was noted with low grade fever earlier today =-99.5 VS: stable T: 99.5 LABS: Reviewed. None today Blood culture on admission grew staph species 1 out of 2 sets. Urine culture negative Chest x-ray on admission revealed right basilar consolidation. Please see full report in the chart Microbiology: Urine culture preliminary negative blood culture grew gram- positive cocci in clusters 1 out of 2 sets Antimicrobials: Vanco, Zithromax, cefepime Physical examination: GEN: This is a fragile chronically ill-appearing elderly woman, who is awake in no distress. HENT: Head atraumatic normocephalic; sclera nonicteric vehicle mucosa dry. Neck is supple PULM: chest rise symmetrical breath sounds with scattered crackles. Heart: S1-S2. Abdomen: soft, bowel sounds present. Extremities with trace edema. Assessment: 1. Severe sepsis, present on admission 2. Bacteremia, likely contaminant 3. Healthcare associated pneumonia possibly aspiration 4. Acute possibly on chronic kidney disease 5. Anemia Plan: Pt is stable, Will continue current antibiotics. Repeat cxr and AM labs. Pulmonary following. Date/Time of Note DATE: 09/07/18 TIME: 13:59 Exam/Review of Systems Exam Vitals Vital Signs Date Temp Pulse Resp B/P (MAP) Pulse Ox O2 O2 Flow FiO2 Time Delivery Rate 09/07/18 101 22 97 Nasal 6.0 13:15 Cannula 09/07/18 99.5 150/72 11:05 (98) 09/07/18 44 01:55 Intake and Output 09/06/18 09/06/18 09/07/18 1515:00 23:00 07:00 IntakeIntake Total 1200 ml 0 ml OutputOutput Total 500 ml 500 ml BalanceBalance 700 ml -500 ml Results Result Diagram: 09/06/18 0557 09/07/18 0559 Results 24hrs Laboratory Tests Test 09/07/18 05:59 Sodium Level 149 H Potassium Level 3.0 L Chloride Level 124 H Carbon Dioxide Level 21 Anion Gap 4 L Blood Urea Nitrogen 25 #H Creatinine 0.61 Est Glomerular Filtrat Rate mL/min Glucose Level 105 Calcium Level 7.8 L Phosphorus Level 3.3 Magnesium Level 2.2 Medications Medication Current Medications IV Flush (NS 3 ml) 3 ml PER PROTOCOL IV ; Start 09/03/18 at 13:00 Lorazepam (Ativan) 0.5 mg Q6H PRN IV .ANXIETY; Start 09/03/18 at 13:00 Ondansetron HCl (Zofran Inj) 4 mg Q6H PRN IV NAUSEA/VOMITING; Start 09/03/18 at 13:00 Nitroglycerin (Nitroglycerin (Sl Tab) 0.4 Mg) 1 tab Q5M PRN SL .CHEST PAIN; Start 09/03/18 at 13:00 Acetaminophen (Tylenol Tab) 650 mg Q6H PRN PO .PAIN 1-3 OR TEMP; Start 09/03/18 at 13:00 Morphine Sulfate (morphine) 2 mg Q4H PRN IV .PAIN 7-10; Start 09/03/18 at 13:00 Docusate Sodium (Colace) 100 mg Q12H PRN PO .CONSTIPATION; Start 09/03/18 at 13:00 Magnesium Hydroxide (Milk Of Mag) 30 ml DAILY PRN PO .CONSTIPATION; Start 09/03/18 at 13:00 Famotidine (Pepcid Iv) 20 mg QHS IV Last administered on 09/06/18at 22:18; Admin Dose 20 MG; Start 09/03/18 at 21:00 Miscellaneous Information (Pending [facility] Order For Wound Care) This patient lin... PRN PRN XX WOUND CARE; Start 09/03/18 at 18:00 Acetaminophen (Tylenol Supp) 650 mg Q6H PRN [place] FEVER Last administered on 09/05/18at 19:47; Admin Dose 650 MG; Start 09/03/18 at 20:00 Enalaprilat (Vasotec Iv) 0.625 mg Q6H PRN IV ELEVATED BLOOD PRESSURE Last administered on 09/03/18at 20:58; Admin Dose 0.625 MG; Start 09/03/18 at 20:00 Azithromycin 250 ml @ 250 mls/hr Q24H IV Last administered on 09/07/18at 01:26; Admin Dose 250 MLS/HR; Start 09/04/18 at 01:00; Stop 09/08/18 at 00:59 Levalbuterol (Xopenex Neb) 0.63 mg Q6H RESP THERAPY HHN Last administered on 09/07/18at 13:15; Admin Dose 0.63 MG; Start 09/04/18 at 00:00 Vancomycin HCl (Vanco Iv Per Pharmacy) VANCOMYCIN PER PHARMACY PER PROTOCOL XX ; Start 09/04/18 at 11:30 Cefepime HCl 50 ml @ 100 mls/hr Q12 IVPB Last administered on 09/07/18at 08:44; Admin Dose 100 MLS/HR; Start 09/04/18 at 21:00 Vancomycin/Sodium Chloride 250 ml @ 125 mls/hr Q24H IVPB Last administered on 09/06/18at 13:28; Admin Dose 125 MLS/HR; Start 09/05/18 at 14:00 Potassium Chloride 100 ml @ 50 mls/hr Q2H IVPB Last administered on 09/07/18at 12:25; Admin Dose 50 MLS/HR; Start 09/07/18 at 12:00; Stop 09/07/18 at 15:59 SARAH YANG Sep 07, 2018 14:03
[2018-09-07] MEDS: VANCOMYCIN 750 MG (PMX) 250 ML IVPB SCH (14:40)
--- NOTE | 2018-09-07 16:21 | CONS ---
Consult Date/Type/Reason Admit Date/Time September 03, 2018 at 06:14 Initial Consult Date Type of Consultation: Pulm Date/Time of Note DATE: 09/07/18 TIME: 16:20 Subjective No events. Low grade fever noted. Objective Vitals Vital Signs Date Temp Pulse Resp B/P (MAP) Pulse Ox O2 O2 Flow FiO2 Time Delivery Rate 09/07/18 5.0 15:23 09/07/18 97.6 70 19 109/65 100 15:09 (80) 09/07/18 Nasal 13:15 Cannula 09/07/18 44 01:55 Intake and Output 09/06/18 09/06/18 09/07/18 1515:00 23:00 07:00 IntakeIntake Total 1200 ml 0 ml OutputOutput Total 500 ml 500 ml BalanceBalance 700 ml -500 ml Exam NECK: Supple. No JVD or lymphadenopathy. CARDIAC: S1, S2. No added sounds or murmurs. CHEST: Diminished air entry bilaterally. ABDOMEN: Soft, nontender. No guarding or rebound. EXTREMITIES: No cyanosis, clubbing. A 1+ edema. NEUROLOGIC: Grossly intact. No focal deficits. Results/Medications Result Diagram: 09/06/18 0557 09/07/18 0559 Results 24 hrs Laboratory Tests Test 09/07/18 05:59 09/07/18 12:59 Sodium Level 149 H Potassium Level 3.0 L Chloride Level 124 H Carbon Dioxide Level 21 Anion Gap 4 L Blood Urea Nitrogen 25 #H Creatinine 0.61 Est Glomerular Filtrat Rate mL/min Glucose Level 105 Calcium Level 7.8 L Phosphorus Level 3.3 Magnesium Level 2.2 Vancomycin Level Trough 10.3 Home Meds Active Scripts Polyethylene Glycol* (Miralax*) 17 Gm Powd.pack, 17 GM PO DAILY for CONSTIPATION, #7 Prov:JULISAMARA 03/22/17 Reported Medications Cholecalciferol* (Vitamin D3*) 1,000 Unit Tablet, 1000 UNIT PO DAILY, TAB 09/03/18 Acetaminophen with Codeine (Acetaminophen-Cod #3 Tablet) 1 Each Tablet, 1 TAB PO Q8 PRN for PAIN LEVEL 7-10, #7 TAB 09/03/18 Carbidopa/Levodopa (Sinemet 25-100 mg Tablet) 1 Each Tablet, 1 EACH PO BID, TAB 09/03/18 Protein Supplement (Promod) 946 Ml Liquid, 30 ML PO BID 09/03/18 Potassium Chloride* (K-Dur*) 10 Meq Tab.prt.sr, 10 MEQ PO DAILY, TAB 09/03/18 Multivitamin* (Daily Value*) 1 Each Tablet, 1 TAB PO DAILY, TAB 09/03/18 Losartan Potassium* (Losartan Potassium*) 50 Mg Tablet, 50 MG PO DAILY, TAB HOLD IF SBP <110 OR HR <60 09/03/18 Furosemide* (Lasix*) 20 Mg Tablet, 20 MG PO DAILY, TAB 09/03/18 Ferrous Sulfate* (Ferrous Sulfate*) 325 Mg Tabec, 325 MG PO BID, TAB 09/03/18 Diclofenac Sodium* (Diclofenac Sodium*) 25 Mg Tablet.dr, 25 MG PO Q8 PRN for PAIN LEVEL 4-6, #60 TAB 09/03/18 Allopurinol* (Allopurinol*) 100 Mg Tablet, 200 MG PO DAILY, TAB 09/03/18 Acetaminophen (Acetaminophen) 650 Mg Supp.rect, 650 MG RC Q6H PRN for PAIN LEVEL 1-6, SUPP.RECT AND FEVER 09/03/18 Diclofenac Sodium* (Voltaren* Gel) 1% -100 Gm Gel, 2 GM TOP QID, #1 TUB 12/21/17 Tramadol Hcl* (Ultram*) 50 Mg Tablet, 50 MG PO Q6H PRN for PAIN, TAB 12/21/17 Famotidine* (Famotidine*) 20 Mg Tablet, 20 MG PO DAILY, #30 TAB 12/21/17 Escitalopram Oxalate* (Escitalopram Oxalate*) 5 Mg Tablet, 5 MG PO DAILY, #30 TAB 12/21/17 Clonidine Hcl* (Clonidine Hcl*) 0.1 Mg Tab, 0.1 MG PO Q8 PRN for ELEVATED BLOOD PRESSURE, TAB 12/21/17 Valbenazine Tosylate (Ingrezza) 40 Mg Capsule, 40 MG PO QHS, CAP 12/21/17 Divalproex Sodium* (Depakote*) 500 Mg Tablet.dr, 1000 MG PO BID, #120 TAB 12/21/17 Clonidine Hcl* (Clonidine Hcl*) 0.1 Mg Tab, 0.1 MG PO Q8 PRN for ELEVATED BLOOD PRESSURE, TAB 12/21/17 Ammonium Lactate* (Lac-Hydrin* 12% (225gm)) 1 Applic Lotion, 1 APPLIC TOP DAILY, BOTTLE 12/21/17 Discontinued Reported Medications Furosemide* (Furosemide*) 40 Mg Tablet, 40 MG PO DAILY, TAB 12/21/17 Dextran 70/Hypromellose (ARTIFICIAL TEARS EYE DROPS) 15 Ml Drops, 1 DROP BOTH EYES DAILY PRN for DRY EYES, BOTTLE 12/21/17 Lorazepam* (Ativan*) 0.5 Mg Tablet, 0.5 MG PO Q8H PRN for A 04/07/10 Medications Current Medications IV Flush (NS 3 ml) 3 ml PER PROTOCOL IV ; Start 09/03/18 at 13:00 Lorazepam (Ativan) 0.5 mg Q6H PRN IV .ANXIETY; Start 09/03/18 at 13:00 Ondansetron HCl (Zofran Inj) 4 mg Q6H PRN IV NAUSEA/VOMITING; Start 09/03/18 at 13:00 Nitroglycerin (Nitroglycerin (Sl Tab) 0.4 Mg) 1 tab Q5M PRN SL .CHEST PAIN; Start 09/03/18 at 13:00 Acetaminophen (Tylenol Tab) 650 mg Q6H PRN PO .PAIN 1-3 OR TEMP; Start 09/03/18 at 13:00 Morphine Sulfate (morphine) 2 mg Q4H PRN IV .PAIN 7-10; Start 09/03/18 at 13:00 Docusate Sodium (Colace) 100 mg Q12H PRN PO .CONSTIPATION; Start 09/03/18 at 13:00 Magnesium Hydroxide (Milk Of Mag) 30 ml DAILY PRN PO .CONSTIPATION; Start 09/03/18 at 13:00 Famotidine (Pepcid Iv) 20 mg QHS IV Last administered on 09/06/18at 22:18; Admin Dose 20 MG; Start 09/03/18 at 21:00 Miscellaneous Information (Pending [facility] Order For Wound Care) This patient lin... PRN PRN XX WOUND CARE; Start 09/03/18 at 18:00 Acetaminophen (Tylenol Supp) 650 mg Q6H PRN [place] FEVER Last administered on 09/05/18at 19:47; Admin Dose 650 MG; Start 09/03/18 at 20:00 Enalaprilat (Vasotec Iv) 0.625 mg Q6H PRN IV ELEVATED BLOOD PRESSURE Last administered on 09/03/18at 20:58; Admin Dose 0.625 MG; Start 09/03/18 at 20:00 Azithromycin 250 ml @ 250 mls/hr Q24H IV Last administered on 09/07/18at 01:26; Admin Dose 250 MLS/HR; Start 09/04/18 at 01:00; Stop 09/08/18 at 00:59 Levalbuterol (Xopenex Neb) 0.63 mg Q6H RESP THERAPY HHN Last administered on 09/07/18at 13:15; Admin Dose 0.63 MG; Start 09/04/18 at 00:00 Vancomycin HCl (Vanco Iv Per Pharmacy) VANCOMYCIN PER PHARMACY PER PROTOCOL XX ; Start 09/04/18 at 11:30 Cefepime HCl 50 ml @ 100 mls/hr Q12 IVPB Last administered on 09/07/18at 08:44; Admin Dose 100 MLS/HR; Start 09/04/18 at 21:00 Vancomycin HCl 250 ml @ 125 mls/hr Q24H IVPB ; Start 09/08/18 at 14:00 Assessment/Plan Assessment/Plan (Daily) IMP: 1. Possible early healthcare-associated pneumonia versus aspiration pneumonia. 2. Advanced dementia. 3. Significant anemia, possibly of chronic disease. 4. Dehydration with hypernatremia. 5. Deep venous thrombosis and gastrointestinal prophylaxis. 6. Dementia with dysphagia. RECS: 1. Continue to monitor H and H. 2. Antibiotics per ID. 3. Aspiration precautions. 4. Decrease supplemental O2 as tolerated. 5. Discussion of goals of care with family. 6. Continue free water for hypernatremia ALBANIA ABDI MD Sep 07, 2018 16:21
[2018-09-07] MEDS: FAMOTIDINE 20 MG INJ IV SCH (22:10)
[2018-09-07] MEDS: ACETAMINOPHEN 650 MG SUPP PR PRN (22:10)
[2018-09-08] VITALS (10 sets, daily range): BP systolic 110–161; BP diastolic 57–115; PULSE 82–129; RESP 17–20
[2018-09-08] MEDS: LEVALBUTEROL (NEB) 0.63 MG/3 ML AMP HHN SCH ×4 (01:53→20:44)
[2018-09-08] MEDS: BALSAM PERU/CASTOR OIL 60 GM TUBE TOP SCH ×2 (09:17→20:28)
[2018-09-08] MEDS: CEFEPIME 1GM/50 ML (PMX) 50 ML IVPB SCH ×2 (10:06→20:28)
--- NOTE | 2018-09-08 10:55 | PN ---
Date/Time of Note Date/Time of Note DATE: 09/08/18 TIME: 10:55 Assessment/Plan VTE Prophylaxis Risk score (from Ns)>0 risk: 9 SCD applied (from Ns): Yes Pharmacological prophylaxis: LMWH Lines/Catheters IV C[facility]ter Type (from [facility]): Peripheral IV Urinary Cath still in place: Yes Reason Cath still needed: skin wounds contaminated by urine Assessment/Plan Hospital Course - Sepsis with fever, and elevated lactic acid most likely secondary to pneumonia. Continue antibiotics. Dr. Batista is following in infection disease consultation. - Health care associated pneumonia - Acute respiratory insufficiency. is following in pulmonology consultation. - Hypernatremia, IV fluids changed to D5 water. Dr. Fulton is following in nephrology consultation. - Severe anemia, f/up on stool for OB. - Possible UTI per UA - Acute kidney injury due to dehydration, continue IV fluids. - Severe hypokalemia, status post replacement, resolved. - Bipolar disorder. - Bedbound status - Hx Gout - Hx of hemorrhoidectomy. - Protein calorie malnutrition - DNR/DNI status Result Diagram: 09/06/18 0557 09/07/18 0559 Results 24hrs Laboratory Tests Test 09/07/18 12:59 Vancomycin Level Trough 10.3 Subjective 24 Hr Interval Summary Free Text/Dictation Patient resting, comfortable Exam/Review of Systems Exam Vitals Vital Signs Date Temp Pulse Resp B/P (MAP) Pulse Ox O2 O2 Flow FiO2 Time Delivery Rate 09/08/18 83 08:01 09/08/18 Nasal 6.0 07:54 Cannula 09/08/18 22 95 07:29 09/08/18 97.7 115/57 07:09 (76) 09/07/18 44 01:55 Intake and Output 09/07/18 09/07/18 09/08/18 1515:00 23:00 07:00 IntakeIntake Total 50 ml 250 ml OutputOutput Total 300 ml 300 ml BalanceBalance 50 ml -50 ml -300 ml Constitutional: well developed Head: normocephalic, atraumatic Neck: supple Respiratory: diminished breath sounds Cardiovascular: regular rate and rhythm Gastrointestinal: soft, non-tender Extremities: normal pulses Results Results 24hrs Laboratory Tests Test 09/07/18 12:59 Vancomycin Level Trough 10.3 Medications Medication Current Medications IV Flush (NS 3 ml) 3 ml PER PROTOCOL IV ; Start 09/03/18 at 13:00 Lorazepam (Ativan) 0.5 mg Q6H PRN IV .ANXIETY; Start 09/03/18 at 13:00 Ondansetron HCl (Zofran Inj) 4 mg Q6H PRN IV NAUSEA/VOMITING; Start 09/03/18 at 13:00 Nitroglycerin (Nitroglycerin (Sl Tab) 0.4 Mg) 1 tab Q5M PRN SL .CHEST PAIN; Start 09/03/18 at 13:00 Acetaminophen (Tylenol Tab) 650 mg Q6H PRN PO .PAIN 1-3 OR TEMP; Start 09/03/18 at 13:00 Morphine Sulfate (morphine) 2 mg Q4H PRN IV .PAIN 7-10; Start 09/03/18 at 13:00 Docusate Sodium (Colace) 100 mg Q12H PRN PO .CONSTIPATION; Start 09/03/18 at 13:00 Magnesium Hydroxide (Milk Of Mag) 30 ml DAILY PRN PO .CONSTIPATION; Start 09/03/18 at 13:00 Famotidine (Pepcid Iv) 20 mg QHS IV Last administered on 09/07/18at 22:10; Admin Dose 20 MG; Start 09/03/18 at 21:00 Miscellaneous Information (Pending [facility] Order For Wound Care) This patient lin... PRN PRN XX WOUND CARE; Start 09/03/18 at 18:00 Acetaminophen (Tylenol Supp) 650 mg Q6H PRN [place] FEVER Last administered on 09/07/18at 22:10; Admin Dose 650 MG; Start 09/03/18 at 20:00 Enalaprilat (Vasotec Iv) 0.625 mg Q6H PRN IV ELEVATED BLOOD PRESSURE Last adm inistered on 09/03/18at 20:58; Admin Dose 0.625 MG; Start 09/03/18 at 20:00 Levalbuterol (Xopenex Neb) 0.63 mg Q6H RESP THERAPY HHN Last administered on 09/08/18at 07:29; Admin Dose 0.63 MG; Start 09/04/18 at 00:00 Vancomycin HCl (Vanco Iv Per Pharmacy) VANCOMYCIN PER PHARMACY PER PROTOCOL XX ; Start 09/04/18 at 11:30 Cefepime HCl 50 ml @ 100 mls/hr Q12 IVPB Last administered on 09/08/18at 10:06; Admin Dose 100 MLS/HR; Start 09/04/18 at 21:00 Vancomycin HCl 250 ml @ 125 mls/hr Q24H IVPB ; Start 09/08/18 at 14:00 ROBIN HOLLAND Sep 08, 2018 10:55
--- NOTE | 2018-09-08 12:18 | CONS ---
Assessment/Plan Assessment/Plan Hospital Course (Demo Recall) 1. Nonoliguric acute kidney injury, etiology is secondary to hemodynamics, volume depletion. Renal function is improved with supportive care, IV hydration. Continue to monitor. 2. Hypernatremia, etiology is secondary insensible losses, decreased free water intake. No evidence of diabetes insipidus. We will continue D5 water. 3. Volume overload. Etiology is likely secondary to third spacing, questionable component of heart failure. We will continue current medical management. s/p metolazone 4. Hypokalemia. Continue to monitor and replete as needed. 5. Lactic acidosis secondary to sepsis, improving. 6. Mineral bone disorder. Monitor calcium and phosphorus levels. 7. Sepsis secondary to pneumonia and bacteremia. Continue current antibiotic regimen. 8. Acute encephalopathy on top of dementia, etiology is toxic metabolic. Continue to monitor. 9. Acute respiratory failure secondary to pneumonia. Continue supplemental oxygen. Continue nebulizer. 10. Anemia. Monitor hemoglobin and hematocrit levels. 11. History of bipolar disorder. 12. History of gout. Consultation Date/Type/Reason Admit Date/Time September 03, 2018 at 06:14 Initial Consult Date Date/Time of Note DATE: 09/08/18 TIME: 12:18 24 HR Interval Summary Free Text/Dictation denies n/v or shortness of breath d/.w rn gen nad cv rrr pulm ctab abd soft, nd, nt +bs ext: no edema Exam/Review of Systems Exam Vitals Vital Signs Date Temp Pulse Resp B/P (MAP) Pulse Ox O2 O2 Flow FiO2 Time Delivery Rate 09/08/18 98.2 89 18 142/78 100 Nasal 11:11 (99) Cannula 09/08/18 6.0 07:54 09/07/18 44 01:55 Intake and Output 09/07/18 09/07/18 09/08/18 1515:00 23:00 07:00 IntakeIntake Total 50 ml 250 ml OutputOutput Total 300 ml 300 ml BalanceBalance 50 ml -50 ml -300 ml Results Result Diagram: 09/06/18 0557 09/07/18 0559 Results 24hrs Laboratory Tests Test 09/07/18 12:59 Vancomycin Level Trough 10.3 Medications Medication Current Medications IV Flush (NS 3 ml) 3 ml PER PROTOCOL IV ; Start 09/03/18 at 13:00 Lorazepam (Ativan) 0.5 mg Q6H PRN IV .ANXIETY; Start 09/03/18 at 13:00 Ondansetron HCl (Zofran Inj) 4 mg Q6H PRN IV NAUSEA/VOMITING; Start 09/03/18 at 13:00 Nitroglycerin (Nitroglycerin (Sl Tab) 0.4 Mg) 1 tab Q5M PRN SL .CHEST PAIN; Start 09/03/18 at 13:00 Acetaminophen (Tylenol Tab) 650 mg Q6H PRN PO .PAIN 1-3 OR TEMP; Start 09/03/18 at 13:00 Morphine Sulfate (morphine) 2 mg Q4H PRN IV .PAIN 7-10; Start 09/03/18 at 13:00 Docusate Sodium (Colace) 100 mg Q12H PRN PO .CONSTIPATION; Start 09/03/18 at 13:00 Magnesium Hydroxide (Milk Of Mag) 30 ml DAILY PRN PO .CONSTIPATION; Start 09/03/18 at 13:00 Famotidine (Pepcid Iv) 20 mg QHS IV Last administered on 09/07/18at 22:10; Admin Dose 20 MG; Start 09/03/18 at 21:00 Miscellaneous Information (Pending [facility] Order For Wound Care) This patient lin... PRN PRN XX WOUND CARE; Start 09/03/18 at 18:00 Acetaminophen (Tylenol Supp) 650 mg Q6H PRN [place] FEVER Last administered on 09/07/18at 22:10; Admin Dose 650 MG; Start 09/03/18 at 20:00 Enalaprilat (Vasotec Iv) 0.625 mg Q6H PRN IV ELEVATED BLOOD PRESSURE Last administered on 09/03/18at 20:58; Admin Dose 0.625 MG; Start 09/03/18 at 20:00 Levalbuterol (Xopenex Neb) 0.63 mg Q6H RESP THERAPY HHN Last administered on 09/08/18at 07:29; Admin Dose 0.63 MG; Start 09/04/18 at 00:00 Vancomycin HCl (Vanco Iv Per Pharmacy) VANCOMYCIN PER PHARMACY PER PROTOCOL XX ; Start 09/04/18 at 11:30 Cefepime HCl 50 ml @ 100 mls/hr Q12 IVPB Last administered on 09/08/18at 10:06; Admin Dose 100 MLS/HR; Start 09/04/18 at 21:00 Vancomycin HCl 250 ml @ 125 mls/hr Q24H IVPB ; Start 09/08/18 at 14:00 Dextrose 1,000 ml @ 100 mls/hr Q10H IV ; Start 09/08/18 at 12:30; Status UNV ASTON DE PAZ MD Sep 08, 2018 12:18
[2018-09-08] MEDS: DEXTROSE 5% 1,000 ML IV SCH (13:37)
[2018-09-08] MEDS: VANCOMYCIN 1 GM 250 ML IVPB SCH (13:37)
--- NOTE | 2018-09-08 15:26 | CONS ---
Assessment/Plan Assessment/Plan Hospital Course (Demo Recall) Remains on 5 L nasal cannula status post low-grade fevers yesterday T-current 99.9 sodium 151 BUN 29 creatinine 0.62 Blood culture on admission grew staph species 1 out of 2 sets. Urine culture negative Microbiology: Urine culture preliminary negative blood culture grew gram- positive cocci in clusters 1 out of 2 sets Antimicrobials: Vanco, Zithromax, cefepime Physical examination: This is a fragile chronically ill-appearing elderly woman who is awake in no distress. Head atraumatic normocephalic sclera nonicteric vehicle mucosa dry. Neck is supple chest rise symmetrical breath sounds with scattered crackles. Heart: S1-S2. Abdomen soft bowel sounds present. Extremities with trace edema. Assessment: 1. Severe sepsis, present on admission 2. Bacteremia, likely contaminant 3. Healthcare associated pneumonia possibly aspiration 4. Acute possibly on chronic kidney disease 5. Anemia Plan: Remains unchanged, DC Zithromax, continue antibiotics, follow chest x-ray in a.m. Consultation Date/Type/Reason Admit Date/Time September 03, 2018 at 06:14 Initial Consult Date Type of Consult id Date/Time of Note DATE: 09/08/18 TIME: 15:26 Exam/Review of Systems Exam Vitals Vital Signs Date Temp Pulse Resp B/P (MAP) Pulse Ox O2 O2 Flow FiO2 Time Delivery Rate 09/08/18 99.9 129 20 161/86 94 Nasal 15:09 (111) Cannula 09/08/18 5.0 13:10 09/07/18 44 01:55 Intake and Output 09/07/18 09/07/18 09/08/18 1515:00 23:00 07:00 IntakeIntake Total 50 ml 250 ml OutputOutput Total 300 ml 300 ml BalanceBalance 50 ml -50 ml -300 ml Results Result Diagram: 09/06/18 0557 09/08/18 1302 Results 24hrs Laboratory Tests Test 09/08/18 13:02 Sodium Level 151 H Potassium Level 4.0 Chloride Level 124 H Carbon Dioxide Level 20 L Anion Gap 7 Blood Urea Nitrogen 29 H Creatinine 0.62 Est Glomerular Filtrat Rate mL/min Glucose Level 73 Calcium Level 8.1 L Medications Medication Current Medications IV Flush (NS 3 ml) 3 ml PER PROTOCOL IV ; Start 09/03/18 at 13:00 Lorazepam (Ativan) 0.5 mg Q6H PRN IV .ANXIETY; Start 09/03/18 at 13:00 Ondansetron HCl (Zofran Inj) 4 mg Q6H PRN IV NAUSEA/VOMITING; Start 09/03/18 at 13:00 Nitroglycerin (Nitroglycerin (Sl Tab) 0.4 Mg) 1 tab Q5M PRN SL .CHEST PAIN; Start 09/03/18 at 13:00 Acetaminophen (Tylenol Tab) 650 mg Q6H PRN PO .PAIN 1-3 OR TEMP; Start 09/03/18 at 13:00 Morphine Sulfate (morphine) 2 mg Q4H PRN IV .PAIN 7-10; Start 09/03/18 at 13:00 Docusate Sodium (Colace) 100 mg Q12H PRN PO .CONSTIPATION; Start 09/03/18 at 13:00 Magnesium Hydroxide (Milk Of Mag) 30 ml DAILY PRN PO .CONSTIPATION; Start 09/03/18 at 13:00 Famotidine (Pepcid Iv) 20 mg QHS IV Last administered on 09/07/18at 22:10; Admin Dose 20 MG; Start 09/03/18 at 21:00 Miscellaneous Information (Pending [facility] Order For Wound Care) This patient lin... PRN PRN XX WOUND CARE; Start 09/03/18 at 18:00 Acetaminophen (Tylenol Supp) 650 mg Q6H PRN [place] FEVER Last administered on 09/07/18at 22:10; Admin Dose 650 MG; Start 09/03/18 at 20:00 Enalaprilat (Vasotec Iv) 0.625 mg Q6H PRN IV ELEVATED BLOOD PRESSURE Last administered on 09/03/18at 20:58; Admin Dose 0.625 MG; Start 09/03/18 at 20:00 Levalbuterol (Xopenex Neb) 0.63 mg Q6H RESP THERAPY HHN Last administered on 09/08/18 13:10; Admin Dose 0.63 MG; Start 09/04/18 at 00:00 Vancomycin HCl (Vanco Iv Per Pharmacy) VANCOMYCIN PER PHARMACY PER PROTOCOL XX ; Start 09/04/18 at 11:30 Cefepime HCl 50 ml @ 100 mls/hr Q12 IVPB Last administered on 09/08/18at 10:06; Admin Dose 100 MLS/HR; Start 09/04/18 at 21:00 Vancomycin HCl 250 ml @ 125 mls/hr Q24H IVPB Last administered on 09/08/18at 13:37; Admin Dose 125 MLS/HR; Start 09/08/18 at 14:00 Dextrose 1,000 ml @ 100 mls/hr Q10H IV Last administered on 09/08/18 13:37; Admin Dose 100 MLS/HR; Start 09/08/18 at 12:30 GHADA ART NP Sep 08, 2018 15:26
--- NOTE | 2018-09-08 18:54 | CONS ---
Consult Date/Type/Reason Admit Date/Time September 03, 2018 at 06:14 Initial Consult Date Type of Consultation: Pulm Date/Time of Note DATE: 09/08/18 TIME: 18:52 Subjective Remains febrile. CXR today is worse with increasing airspace opacity in the L lower lung field. Objective Vitals Vital Signs Date Temp Pulse Resp B/P (MAP) Pulse Ox O2 O2 Flow FiO2 Time Delivery Rate 09/08/18 102 16:01 09/08/18 99.9 20 161/86 94 Nasal 15:09 (111) Cannula 09/08/18 5.0 13:10 09/07/18 44 01:55 Intake and Output 09/07/18 09/07/18 09/08/18 1515:00 23:00 07:00 IntakeIntake Total 50 ml 250 ml OutputOutput Total 300 ml 300 ml BalanceBalance 50 ml -50 ml -300 ml Exam NECK: Supple. No JVD or lymphadenopathy. CARDIAC: S1, S2. No added sounds or murmurs. CHEST: Diminished air entry bilaterally. Coarse BS b/l ABDOMEN: Soft, nontender. No guarding or rebound. EXTREMITIES: No cyanosis, clubbing. 1+ edema. NEUROLOGIC: Grossly intact. No focal deficits. Results/Medications Result Diagram: 09/06/18 0557 09/08/18 1302 Results 24 hrs Laboratory Tests Test 09/08/18 13:02 Sodium Level 151 H Potassium Level 4.0 Chloride Level 124 H Carbon Dioxide Level 20 L Anion Gap 7 Blood Urea Nitrogen 29 H Creatinine 0.62 Est Glomerular Filtrat Rate mL/min Glucose Level 73 Calcium Level 8.1 L Home Meds Active Scripts Polyethylene Glycol* (Miralax*) 17 Gm Powd.pack, 17 GM PO DAILY for CONSTIPATION, #7 Prov:JULISAMARA 03/22/17 Reported Medications Cholecalciferol* (Vitamin D3*) 1,000 Unit Tablet, 1000 UNIT PO DAILY, TAB 09/03/18 Acetaminophen with Codeine (Acetaminophen-Cod #3 Tablet) 1 Each Tablet, 1 TAB PO Q8 PRN for PAIN LEVEL 7-10, #7 TAB 09/03/18 Carbidopa/Levodopa (Sinemet 25-100 mg Tablet) 1 Each Tablet, 1 EACH PO BID, TAB 09/03/18 Protein Supplement (Promod) 946 Ml Liquid, 30 ML PO BID 09/03/18 Potassium Chloride* (K-Dur*) 10 Meq Tab.prt.sr, 10 MEQ PO DAILY, TAB 09/03/18 Multivitamin* (Daily Value*) 1 Each Tablet, 1 TAB PO DAILY, TAB 09/03/18 Losartan Potassium* (Losartan Potassium*) 50 Mg Tablet, 50 MG PO DAILY, TAB HOLD IF SBP <110 OR HR <60 09/03/18 Furosemide* (Lasix*) 20 Mg Tablet, 20 MG PO DAILY, TAB 09/03/18 Ferrous Sulfate* (Ferrous Sulfate*) 325 Mg Tabec, 325 MG PO BID, TAB 09/03/18 Diclofenac Sodium* (Diclofenac Sodium*) 25 Mg Tablet.dr, 25 MG PO Q8 PRN for PAIN LEVEL 4-6, #60 TAB 09/03/18 Allopurinol* (Allopurinol*) 100 Mg Tablet, 200 MG PO DAILY, TAB 09/03/18 Acetaminophen (Acetaminophen) 650 Mg Supp.rect, 650 MG RC Q6H PRN for PAIN LEVEL 1-6, SUPP.RECT AND FEVER 09/03/18 Diclofenac Sodium* (Voltaren* Gel) 1% -100 Gm Gel, 2 GM TOP QID, #1 TUB 12/21/17 Tramadol Hcl* (Ultram*) 50 Mg Tablet, 50 MG PO Q6H PRN for PAIN, TAB 12/21/17 Famotidine* (Famotidine*) 20 Mg Tablet, 20 MG PO DAILY, #30 TAB 12/21/17 Escitalopram Oxalate* (Escitalopram Oxalate*) 5 Mg Tablet, 5 MG PO DAILY, #30 TAB 12/21/17 Clonidine Hcl* (Clonidine Hcl*) 0.1 Mg Tab, 0.1 MG PO Q8 PRN for ELEVATED BLOOD PRESSURE, TAB 12/21/17 Valbenazine Tosylate (Ingrezza) 40 Mg Capsule, 40 MG PO QHS, CAP 12/21/17 Divalproex Sodium* (Depakote*) 500 Mg Tablet.dr, 1000 MG PO BID, #120 TAB 12/21/17 Clonidine Hcl* (Clonidine Hcl*) 0.1 Mg Tab, 0.1 MG PO Q8 PRN for ELEVATED BLOOD PRESSURE, TAB 12/21/17 Ammonium Lactate* (Lac-Hydrin* 12% (225gm)) 1 Applic Lotion, 1 APPLIC TOP DAILY, BOTTLE 12/21/17 Discontinued Reported Medications Furosemide* (Furosemide*) 40 Mg Tablet, 40 MG PO DAILY, TAB 12/21/17 Dextran 70/Hypromellose (ARTIFICIAL TEARS EYE DROPS) 15 Ml Drops, 1 DROP BOTH EYES DAILY PRN for DRY EYES, BOTTLE 12/21/17 Lorazepam* (Ativan*) 0.5 Mg Tablet, 0.5 MG PO Q8H PRN for A 04/07/10 Medications Current Medications IV Flush (NS 3 ml) 3 ml PER PROTOCOL IV ; Start 09/03/18 at 13:00 Lorazepam (Ativan) 0.5 mg Q6H PRN IV .ANXIETY; Start 09/03/18 at 13:00 Ondansetron HCl (Zofran Inj) 4 mg Q6H PRN IV NAUSEA/VOMITING; Start 09/03/18 at 13:00 Nitroglycerin (Nitroglycerin (Sl Tab) 0.4 Mg) 1 tab Q5M PRN SL .CHEST PAIN; Start 09/03/18 at 13:00 Acetaminophen (Tylenol Tab) 650 mg Q6H PRN PO .PAIN 1-3 OR TEMP; Start 09/03/18 at 13:00 Morphine Sulfate (morphine) 2 mg Q4H PRN IV .PAIN 7-10; Start 09/03/18 at 13:00 Docusate Sodium (Colace) 100 mg Q12H PRN PO .CONSTIPATION; Start 09/03/18 at 13 :00 Magnesium Hydroxide (Milk Of Mag) 30 ml DAILY PRN PO .CONSTIPATION; Start 09/03/18 at 13:00 Famotidine (Pepcid Iv) 20 mg QHS IV Last administered on 09/07/18at 22:10; Admin Dose 20 MG; Start 09/03/18 at 21:00 Miscellaneous Information (Pending [facility] Order For Wound Care) This patient lin... PRN PRN XX WOUND CARE; Start 09/03/18 at 18:00 Acetaminophen (Tylenol Supp) 650 mg Q6H PRN [place] FEVER Last administered on 09/07/18at 22:10; Admin Dose 650 MG; Start 09/03/18 at 20:00 Enalaprilat (Vasotec Iv) 0.625 mg Q6H PRN IV ELEVATED BLOOD PRESSURE Last administered on 09/03/18at 20:58; Admin Dose 0.625 MG; Start 09/03/18 at 20:00 Levalbuterol (Xopenex Neb) 0.63 mg Q6H RESP THERAPY HHN Last administered on 09/08/18at 13:10; Admin Dose 0.63 MG; Start 09/04/18 at 00:00 Vancomycin HCl (Vanco Iv Per Pharmacy) VANCOMYCIN PER PHARMACY PER PROTOCOL XX ; Start 09/04/18 at 11:30 Cefepime HCl 50 ml @ 100 mls/hr Q12 IVPB Last administered on 09/08/18at 10:06; Admin Dose 100 MLS/HR; Start 09/04/18 at 21:00 Vancomycin HCl 250 ml @ 125 mls/hr Q24H IVPB Last administered on 09/08/18at 13:37; Admin Dose 125 MLS/HR; Start 09/08/18 at 14:00 Dextrose 1,000 ml @ 100 mls/hr Q10H IV Last administered on 09/08/18at 13:37; Admin Dose 100 MLS/HR; Start 09/08/18 at 12:30 Assessment/Plan Hospital Course (Demo Recall) IMP: 1. Possible early healthcare-associated pneumonia versus aspiration pneumonia--not improving clinically or radiographically 2. Advanced dementia. 3. Significant anemia, possibly of chronic disease. 4. Dehydration with hypernatremia. 5. Deep venous thrombosis and gastrointestinal prophylaxis. 6. Dementia with dysphagia. RECS: 1. Continue to monitor H and H 2. Antibiotics per ID 3. Aspiration precautions. 4. Decrease supplemental O2 as tolerated 5. Continue free water for hypernatremia ALBANIA ABDI MD Sep 08, 2018 18:54
[2018-09-08] MEDS: FAMOTIDINE 20 MG INJ IV SCH (20:28)
[2018-09-09] VITALS (11 sets, daily range): BP systolic 81–152; BP diastolic 51–96; PULSE 50–112; RESP 18–20
[2018-09-09] MEDS: DEXTROSE 5% 1,000 ML IV SCH ×3 (00:44→18:09)
[2018-09-09] MEDS: ACETAMINOPHEN 650 MG SUPP PR PRN ×2 (00:55→23:53)
[2018-09-09] MEDS: LEVALBUTEROL (NEB) 0.63 MG/3 ML AMP HHN SCH ×4 (01:44→20:42)
[2018-09-09] MEDS: CEFEPIME 1GM/50 ML (PMX) 50 ML IVPB SCH ×2 (09:39→20:59)
[2018-09-09] MEDS: POTASSIUM CHLORIDE 100 ML IVPB SCH ×2 (09:39→11:45)
[2018-09-09] MEDS: BALSAM PERU/CASTOR OIL 60 GM TUBE TOP SCH ×2 (09:40→21:13)
--- NOTE | 2018-09-09 12:12 | CONS ---
Consult Date/Type/Reason Admit Date/Time September 03, 2018 at 06:14 Initial Consult Date Type of Consult Pulmonary Date/Time of Note DATE: 09/09/18 TIME: 12:11 Subjective No significant changes continues Ventimask oxygen Objective Vital Signs Date Temp Pulse Resp B/P (MAP) Pulse Ox O2 O2 Flow FiO2 Time Delivery Rate 09/09/18 98.2 50 18 86/63 (71) 90 11:12 09/09/18 Simple 10.0 08:23 Mask 09/07/18 44 01:55 Intake and Output 09/08/18 09/08/18 09/09/18 1515:00 23:00 07:00 IntakeIntake Total 0 ml OutputOutput Total 1150 ml BalanceBalance -1150 ml Exam NECK: Supple. No JVD or lymphadenopathy. CARDIAC: S1, S2. No added sounds or murmurs. CHEST: Diminished air entry bilaterally. Coarse BS b/l ABDOMEN: Soft, nontender. No guarding or rebound. EXTREMITIES: No cyanosis, clubbing. 1+ edema. NEUROLOGIC: Grossly intact. No focal deficits. Vent Setting Fraction of Inspired Oxygen pe: 44 Results/Medications Result Diagram: 09/09/18 0620 09/09/18 0620 Results 24 hrs Laboratory Tests Test 09/08/18 13:02 09/09/18 06:20 Sodium Level 151 H 146 H Potassium Level 4.0 3.1 L Chloride Level 124 H 120 H Carbon Dioxide Level 20 L 21 Anion Gap 7 5 Blood Urea Nitrogen 29 H 25 H Creatinine 0.62 0.57 Est Glomerular Filtrat Rate mL/min Glucose Level 73 129 # Calcium Level 8.1 L 7.8 L White Blood Count 4.9 # Red Blood Count 3.68 L Hemoglobin 11.5 L Hematocrit 36.3 L Mean Corpuscular Volume 98.6 Mean Corpuscular Hemoglobin 31.3 Mean Corpuscular Hemoglobin Concent 31.7 L Red Cell Distribution Width 15.5 H Platelet Count 168 # Mean Platelet Volume 11.1 H Immature Granulocytes % 0.800 H Neutrophils % Segmented Neutrophils % (Manual) 53 Band Neutrophils % (Manual) 36 H Lymphocytes % Lymphocytes % (Manual) 8 L Monocytes % Eosinophils % Eosinophils % (Manual) 1 Basophils % Metamyelocytes % (manual) 1 H Myelocytes % (Manual) 1 H Nucleated Red Blood Cells % 0.0 Immature Granulocytes # 0.040 H Neutrophils # Neutrophils # (Manual) 2.7 Band Neutrophils # 1.7 H Lymphocytes (Manual) 0.3 L Lymphocytes # Monocytes # Eosinophils # Basophils # Metamyelocytes # 0.0 Myelocytes # 0.0 Nucleated Red Blood Cells # Toxic Granulation 1+ Platelet Estimate NORMAL Giant Platelets 1 H Poikilocytosis 1+ Phosphorus Level 3.1 Magnesium Level 1.9 Medications Current Medications IV Flush (NS 3 ml) 3 ml PER PROTOCOL IV ; Start 09/03/18 at 13:00 Lorazepam (Ativan) 0.5 mg Q6H PRN IV .ANXIETY; Start 09/03/18 at 13:00 Ondansetron HCl (Zofran Inj) 4 mg Q6H PRN IV NAUSEA/VOMITING; Start 09/03/18 at 13:00 Nitroglycerin (Nitroglycerin (Sl Tab) 0.4 Mg) 1 tab Q5M PRN SL .CHEST PAIN; Start 09/03/18 at 13:00 Acetaminophen (Tylenol Tab) 650 mg Q6H PRN PO .PAIN 1-3 OR TEMP; Start 09/03/18 at 13:00 Morphine Sulfate (morphine) 2 mg Q4H PRN IV .PAIN 7-10; Start 09/03/18 at 13:00 Docusate Sodium (Colace) 100 mg Q12H PRN PO .CONSTIPATION; Start 09/03/18 at 13:00 Magnesium Hydroxide (Milk Of Mag) 30 ml DAILY PRN PO .CONSTIPATION; Start 09/03/18 at 13:00 Famotidine (Pepcid Iv) 20 mg QHS IV Last administered on 09/08/18at 20:28; Admin Dose 20 MG; Start 09/03/18 at 21:00 [facility] This patient lin... PRN PRN XX WOUND CARE; Start 09/03/18 at 18:00 Acetaminophen (Tylenol Supp) 650 mg Q6H PRN ID FEVER Last administered on 09/09/18at 00:55; Admin Dose 650 MG; Start 09/03/18 at 20:00 Enalaprilat (Vasotec Iv) 0.625 mg Q6H PRN IV ELEVATED BLOOD PRESSURE Last administered on 09/03/18at 20:58; Admin Dose 0.625 MG; Start 09/03/18 at 20:00 Levalbuterol (Xopenex Neb) 0.63 mg Q6H RESP THERAPY HHN Last administered on 09/09/18at 08:12; Admin Dose 0.63 MG; Start 09/04/18 at 00:00 Vancomycin HCl (Vanco Iv Per Pharmacy) VANCOMYCIN PER PHARMACY PER PROTOCOL XX ; Start 09/04/18 at 11:30 Cefepime HCl 50 ml @ 100 mls/hr Q12 IVPB Last administered on 09/09/18at 09:39; Admin Dose 100 MLS/HR; Start 09/04/18 at 21:00 Vancomycin HCl 250 ml @ 125 mls/hr Q24H IVPB Last administered on 09/08/18at 13:37; Admin Dose 125 MLS/HR; Start 09/08/18 at 14:00 Dextrose 1,000 ml @ 100 mls/hr Q10H IV Last administered on 09/09/18 09:39; Admin Dose 100 MLS/HR; Start 09/08/18 at 12:30 Potassium Chloride 100 ml @ 50 mls/hr Q2H IVPB Last administered on 09/09/18at 11:45; Admin Dose 50 MLS/HR; Start 09/09/18 at 08:30; Stop 09/09/18 at 12:29 Assessment/Plan Hospital Course (Demo Recall) IMPRESSION 1. Possible early healthcare-associated pneumonia versus aspiration pneumonia. 2. Advanced dementia. 3. Significant anemia, possibly of chronic disease. 4. Dehydration with hypernatremia. 5. Deep venous thrombosis and gastrointestinal prophylaxis. 6. Dementia with dysphagia. RECOMMENDATIONS: 1. Continue to monitor H and H. 2. Antibiotics per ID. 3. Aspiration precautions. 4. Decrease supplemental O2 as tolerated. 5. Discussion of goals of care with family. 6. Continue free water for hypernatremia Consider transfer to [facility]. Consider hospice eval. GUALBERTO AGUILAR MD, [facility] Sep 09, 2018 12:12
--- NOTE | 2018-09-09 13:51 | PN ---
DATE: 09/09/2018 SUBJECTIVE: The patient remains lethargic, confused, altered. No other events noted. OBJECTIVE: VITAL SIGNS: Blood pressure is 81/51, respiration 18, pulse 75, temperature 98.5. HEENT: Head is normocephalic. NECK: Supple. HEART: Regular rate. LUNGS: Show diminished breath sounds at the base. ABDOMEN: Soft, nontender to palpation without rebound or guarding. EXTREMITIES: Negative for clubbing, cyanosis. Positive edema. DERMATOLOGIC: No rashes. MUSCULOSKELETAL: No joint effusion. NEUROLOGIC: No change in exam. MEDICATIONS: Have been reviewed. LABORATORY DATA: Have been reviewed. ASSESSMENT AND PLAN: 1. Nonoliguric acute kidney injury. Etiology is secondary to hemodynamics and volume depletion. Re nal function is improved. Continue current treatment plan, supportive care. Continue to renally dos e meds. 2. Hypernatremia. Etiology is secondary insensible losses, decreased free water intake. No evidenc e of diabetes insipidus. Sodium levels are improving. Continue D5 water. 3. Volume overload. Etiology is likely secondary to third spacing, questionable heart failure. We will continue to monitor. We will give intermittent diuretic therapy as needed. The patient is stat us post metolazone. 4. Hypokalemia. Continue to monitor and replete. 5. Mineral bone disorder. Monitor calcium and phosphorus levels. 6. Sepsis secondary to pneumonia and bacteremia. Continue current regimen. 7. Acute encephalopathy on top of dementia. Etiology is toxic metabolic. Continue to monitor. 8. Acute respiratory failure secondary to pneumonia. Continue face mask, supplemental oxygen, nebul izers. 9. Anemia. Monitor hemoglobin and hematocrit levels. 10. History of bipolar disorder. Dictated By: SANDRA AGUIRRE DO NR/NTS Conf#: [id number] DID#: [id number] CC: GUALBERTO AGUILAR MD; MAIKEL THOMPSON MD;*EndCC*
--- NOTE | 2018-09-09 14:36 | CONS ---
Assessment/Plan Assessment/Plan Hospital Course (Demo Recall) No events overnight, lethargic, on facemask WBC 4.9 platelets 168 BUN 25 creatinine 0.57 Chest x-ray revealed bibasilar consolidation with probable small pleural effusions Blood culture on admission grew staph species 1 out of 2 sets. Urine culture negative Microbiology: Urine culture preliminary negative blood culture grew gram- positive cocci in clusters 1 out of 2 sets Antimicrobials: Vanco, cefepime Physical examination: This is a fragile chronically ill-appearing elderly woman who is awake in no distress. Head atraumatic normocephalic sclera nonicteric vehicle mucosa dry. Neck is supple chest rise symmetrical breath sounds with scattered crackles. Heart: S1-S2. Abdomen soft bowel sounds present. Extremities with trace edema. Assessment: 1. Severe sepsis, present on admission 2. Bacteremia, cw contaminant 3. Respiratory failure 3. Healthcare associated pneumonia possibly aspiration 4. Acute possibly on chronic kidney disease 5. Anemia 6. DNR Plan: Remains unchanged, completing antibiotics for pneumonia Consultation Date/Type/Reason Admit Date/Time September 03, 2018 at 06:14 Initial Consult Date Type of Consult id Date/Time of Note DATE: 09/09/18 TIME: 14:34 Exam/Review of Systems Exam Vitals Vital Signs Date Temp Pulse Resp B/P (MAP) Pulse Ox O2 O2 Flow FiO2 Time Delivery Rate 09/09/18 110 32 100 Simple 10.0 13:36 Mask 09/09/18 98.2 86/63 (71) 11:12 09/07/18 44 01:55 Intake and Output 09/08/18 09/08/18 09/09/18 1515:00 23:00 07:00 IntakeIntake Total 0 ml OutputOutput Total 1150 ml BalanceBalance -1150 ml Results Result Diagram: 09/09/18 0620 09/09/18 0620 Results 24hrs Laboratory Tests Test 09/09/18 06:20 White Blood Count 4.9 # Red Blood Count 3.68 L Hemoglobin 11.5 L Hematocrit 36.3 L Mean Corpuscular Volume 98.6 Mean Corpuscular Hemoglobin 31.3 Mean Corpuscular Hemoglobin Concent 31.7 L Red Cell Distribution Width 15.5 H Platelet Count 168 # Mean Platelet Volume 11.1 H Immature Granulocytes % 0.800 H Neutrophils % Segmented Neutrophils % (Manual) 53 Band Neutrophils % (Manual) 36 H Lymphocytes % Lymphocytes % (Manual) 8 L Monocytes % Eosinophils % Eosinophils % (Manual) 1 Basophils % Metamyelocytes % (manual) 1 H Myelocytes % (Manual) 1 H Nucleated Red Blood Cells % 0.0 Immature Granulocytes # 0.040 H Neutrophils # Neutrophils # (Manual) 2.7 Band Neutrophils # 1.7 H Lymphocytes (Manual) 0.3 L Lymphocytes # Monocytes # Eosinophils # Basophils # Metamyelocytes # 0.0 Myelocytes # 0.0 Nucleated Red Blood Cells # Toxic Granulation 1+ Platelet Estimate NORMAL Giant Platelets 1 H Poikilocytosis 1+ Sodium Level 146 H Potassium Level 3.1 L Chloride Level 120 H Carbon Dioxide Level 21 Anion Gap 5 Blood Urea Nitrogen 25 H Creatinine 0.57 Est Glomerular Filtrat Rate mL/min Glucose Level 129 # Calcium Level 7.8 L Phosphorus Level 3.1 Magnesium Level 1.9 Medications Medication Current Medications IV Flush (NS 3 ml) 3 ml PER PROTOCOL IV ; Start 09/03/18 at 13:00 Lorazepam (Ativan) 0.5 mg Q6H PRN IV .ANXIETY; Start 09/03/18 at 13:00 Ondansetron HCl (Zofran Inj) 4 mg Q6H PRN IV NAUSEA/VOMITING; Start 09/03/18 at 13:00 Nitroglycerin (Nitroglycerin (Sl Tab) 0.4 Mg) 1 tab Q5M PRN SL .CHEST PAIN; Start 09/03/18 at 13:00 Acetaminophen (Tylenol Tab) 650 mg Q6H PRN PO .PAIN 1-3 OR TEMP; Start 09/03/18 at 13:00 Morphine Sulfate (morphine) 2 mg Q4H PRN IV .PAIN 7-10; Start 09/03/18 at 13:00 Docusate Sodium (Colace) 100 mg Q12H PRN PO .CONSTIPATION; Start 09/03/18 at 13:00 Magnesium Hydroxide (Milk Of Mag) 30 ml DAILY PRN PO .CONSTIPATION; Start 09/03/18 at 13:00 Famotidine (Pepcid Iv) 20 mg QHS IV Last administered on 09/08/18at 20:28; Admin Dose 20 MG; Start 09/03/18 at 21:00 [facility] This patient lin... PRN PRN XX WOUND CARE; Start 09/03/18 at 18:00 Acetaminophen (Tylenol Supp) 650 mg Q6H PRN LA FEVER Last administered on 09/09/18at 00:55; Admin Dose 650 MG; Start 09/03/18 at 20:00 Enalaprilat (Vasotec Iv) 0.625 mg Q6H PRN IV ELEVATED BLOOD PRESSURE Last administered on 09/03/18at 20:58; Admin Dose 0.625 MG; Start 09/03/18 at 20:00 Levalbuterol (Xopenex Neb) 0.63 mg Q6H RESP THERAPY HHN Last administered on 09/09/18 13:25; Admin Dose 0.63 MG; Start 09/04/18 at 00:00 Vancomycin HCl (Vanco Iv Per Pharmacy) VANCOMYCIN PER PHARMACY PER PROTOCOL XX ; Start 09/04/18 at 11:30 Cefepime HCl 50 ml @ 100 mls/hr Q12 IVPB Last administered on 09/09/18 09:39; Admin Dose 100 MLS/HR; Start 09/04/18 at 21:00 Vancomycin HCl 250 ml @ 125 mls/hr Q24H IVPB Last administered on 09/08/18at 13:37; Admin Dose 125 MLS/HR; Start 09/08/18 at 14:00 Dextrose 1,000 ml @ 100 mls/hr Q10H IV Last administered on 09/09/18 09:39; Admin Dose 100 MLS/HR; Start 09/08/18 at 12:30 GHADA ART NP Sep 09, 2018 14:36
[2018-09-09] MEDS: VANCOMYCIN 1 GM 250 ML IVPB SCH (15:26)
--- NOTE | 2018-09-09 16:59 | PN ---
Date/Time of Note Date/Time of Note DATE: 09/09/18 TIME: 16:58 Assessment/Plan VTE Prophylaxis Risk score (from Ns)>0 risk: 9 SCD applied (from Ns): Yes Pharmacological prophylaxis: LMWH Lines/Catheters IV [facility] Type [email or web address] Peripheral IV Urinary Cath still in place: Yes Reason Cath still needed: urinary retention Assessment/Plan Hospital Course Patient's continues to be lethargic but easily arousable on oxygen via face make mask, patient continues on IV fluids, will obtain a swallow reevaluation. Assessment/Plan - Sepsis with fever, and elevated lactic acid most likely secondary to pneumonia. Continue antibiotics. Dr. Batista is following in infection disease consultation. - Health care associated pneumonia - Acute respiratory insufficiency. is following in pulmonology consultation. - Hypernatremia, IV fluids changed to D5 water. Dr. Fulton is following in nephrology consultation. - Severe anemia, f/up on stool for OB. - Possible UTI per UA - Acute kidney injury due to dehydration, continue IV fluids. - Severe hypokalemia, status post replacement, resolved. - Bipolar disorder. - Bedbound status - Hx Gout - Hx of hemorrhoidectomy. - Protein calorie malnutrition - DNR/DNI status Further recommendations based on clinical course. Plan of care is discussed with Dr. Wyman. Result Diagram: 09/09/18 0620 09/09/18 0620 Results 24hrs Laboratory Tests Test 09/09/18 06:20 White Blood Count 4.9 # Red Blood Count 3.68 L Hemoglobin 11.5 L Hematocrit 36.3 L Mean Corpuscular Volume 98.6 Mean Corpuscular Hemoglobin 31.3 Mean Corpuscular Hemoglobin Concent 31.7 L Red Cell Distribution Width 15.5 H Platelet Count 168 # Mean Platelet Volume 11.1 H Immature Granulocytes % 0.800 H Neutrophils % Segmented Neutrophils % (Manual) 53 Band Neutrophils % (Manual) 36 H Lymphocytes % Lymphocytes % (Manual) 8 L Monocytes % Eosinophils % Eosinophils % (Manual) 1 Basophils % Metamyelocytes % (manual) 1 H Myelocytes % (Manual) 1 H Nucleated Red Blood Cells % 0.0 Immature Granulocytes # 0.040 H Neutrophils # Neutrophils # (Manual) 2.7 Band Neutrophils # 1.7 H Lymphocytes (Manual) 0.3 L Lymphocytes # Monocytes # Eosinophils # Basophils # Metamyelocytes # 0.0 Myelocytes # 0.0 Nucleated Red Blood Cells # Toxic Granulation 1+ Platelet Estimate NORMAL Giant Platelets 1 H Poikilocytosis 1+ Sodium Level 146 H Potassium Level 3.1 L Chloride Level 120 H Carbon Dioxide Level 21 Anion Gap 5 Blood Urea Nitrogen 25 H Creatinine 0.57 Est Glomerular Filtrat Rate mL/min Glucose Level 129 # Calcium Level 7.8 L Phosphorus Level 3.1 Magnesium Level 1.9 Exam/Review of Systems Exam Vitals Vital Signs Date Temp Pulse Resp B/P (MAP) Pulse Ox O2 O2 Flow FiO2 Time Delivery Rate 09/09/18 104 16:01 09/09/18 97.9 18 136/96 93 15:12 (109) 09/09/18 Simple 10.0 13:36 Mask 09/07/18 44 01:55 Intake and Output 09/08/18 09/08/18 09/09/18 1515:00 23:00 07:00 IntakeIntake Total 0 ml OutputOutput Total 1150 ml BalanceBalance -1150 ml Exam Constitutional: alert, frail Respiratory: c diminished breath sounds Cardiovascular: regular rate and rhythm, tachycardia Gastrointestinal: soft, non-tender Genitourinary - Female: other (Acosta catheter) Musculoskeletal: nl extremities to inspection Extremities: normal pulses Neurological: confused, lethargic Results Results 24hrs Laboratory Tests Test 09/09/18 06:20 White Blood Count 4.9 # Red Blood Count 3.68 L Hemoglobin 11.5 L Hematocrit 36.3 L Mean Corpuscular Volume 98.6 Mean Corpuscular Hemoglobin 31.3 Mean Corpuscular Hemoglobin Concent 31.7 L Red Cell Distribution Width 15.5 H Platelet Count 168 # Mean Platelet Volume 11.1 H Immature Granulocytes % 0.800 H Neutrophils % Segmented Neutrophils % (Manual) 53 Band Neutrophils % (Manual) 36 H Lymphocytes % Lymphocytes % (Manual) 8 L Monocytes % Eosinophils % Eosinophils % (Manual) 1 Basophils % Metamyelocytes % (manual) 1 H Myelocytes % (Manual) 1 H Nucleated Red Blood Cells % 0.0 Immature Granulocytes # 0.040 H Neutrophils # Neutrophils # (Manual) 2.7 Band Neutrophils # 1.7 H Lymphocytes (Manual) 0.3 L Lymphocytes # Monocytes # Eosinophils # Basophils # Metamyelocytes # 0.0 Myelocytes # 0.0 Nucleated Red Blood Cells # Toxic Granulation 1+ Platelet Estimate NORMAL Giant Platelets 1 H Poikilocytosis 1+ Sodium Level 146 H Potassium Level 3.1 L Chloride Level 120 H Carbon Dioxide Level 21 Anion Gap 5 Blood Urea Nitrogen 25 H Creatinine 0.57 Est Glomerular Filtrat Rate mL/min Glucose Level 129 # Calcium Level 7.8 L Phosphorus Level 3.1 Magnesium Level 1.9 Medications Medication Current Medications IV Flush (NS 3 ml) 3 ml PER PROTOCOL IV ; Start 09/03/18 at 13:00 Lorazepam (Ativan) 0.5 mg Q6H PRN IV .ANXIETY; Start 09/03/18 at 13:00 Ondansetron HCl (Zofran Inj) 4 mg Q6H PRN IV NAUSEA/VOMITING; Start 09/03/18 at 13:00 Nitroglycerin (Nitroglycerin (Sl Tab) 0.4 Mg) 1 tab Q5M PRN SL .CHEST PAIN; Start 09/03/18 at 13:00 Acetaminophen (Tylenol Tab) 650 mg Q6H PRN PO .PAIN 1-3 OR TEMP; Start 09/03/18 at 13:00 Morphine Sulfate (morphine) 2 mg Q4H PRN IV .PAIN 7-10; Start 09/03/18 at 13:00 Docusate Sodium (Colace) 100 mg Q12H PRN PO .CONSTIPATION; Start 09/03/18 at 13:00 Magnesium Hydroxide (Milk Of Mag) 30 ml DAILY PRN PO .CONSTIPATION; Start 09/03/18 at 13:00 Famotidine (Pepcid Iv) 20 mg QHS IV Last administered on 09/08/18at 20:28; Admin Dose 20 MG; Start 09/03/18 at 21:00 Miscellaneous Information (Pending [facility] Order For Wound Care) This patient lin... PRN PRN XX WOUND CARE; Start 09/03/18 at 18:00 Acetaminophen (Tylenol Supp) 650 mg Q6H PRN MD FEVER Last administered on 09/09/18at 00:55; Admin Dose 650 MG; Start 09/03/18 at 20:00 Enalaprilat (Vasotec Iv) 0.625 mg Q6H PRN IV ELEVATED BLOOD PRESSURE Last administered on 09/03/18at 20:58; Admin Dose 0.625 MG; Start 09/03/18 at 20:00 Levalbuterol (Xopenex Neb) 0.63 mg Q6H RESP THERAPY HHN Last administered on 09/09/18 13:25; Admin Dose 0.63 MG; Start 09/04/18 at 00:00 Vancomycin HCl (Vanco Iv Per Pharmacy) VANCOMYCIN PER PHARMACY PER PROTOCOL XX ; Start 09/04/18 at 11:30 Cefepime HCl 50 ml @ 100 mls/hr Q12 IVPB Last administered on 09/09/18 09:39; Admin Dose 100 MLS/HR; Start 09/04/18 at 21:00 Vancomycin HCl 250 ml @ 125 mls/hr Q24H IVPB Last administered on 09/09/18 15:26; Admin Dose 125 MLS/HR; Start 09/08/18 at 14:00 Dextrose 1,000 ml @ 100 mls/hr Q10H IV Last administered on 09/09/18 09:39; Admin Dose 100 MLS/HR; Start 09/08/18 at 12:30 CHRIS ROSARIO Sep 09, 2018 16:58
[2018-09-09] MEDS: FAMOTIDINE 20 MG INJ IV SCH (21:01)
[2018-09-10] VITALS (9 sets, daily range): BP systolic 108–141; BP diastolic 61–89; PULSE 80–111; RESP 18–19
[2018-09-10] MEDS: LEVALBUTEROL (NEB) 0.63 MG/3 ML AMP HHN SCH ×4 (00:48→19:28)
[2018-09-10] MEDS: DEXTROSE 5% 1,000 ML IV SCH ×2 (05:13→20:44)
[2018-09-10] MEDS: CEFEPIME 1GM/50 ML (PMX) 50 ML IVPB SCH ×2 (08:22→20:53)
[2018-09-10] MEDS: BALSAM PERU/CASTOR OIL 60 GM TUBE TOP SCH ×2 (08:23→20:53)
[2018-09-10] MEDS ORDERED: FUROSEMIDE 20 MG INJ IV ONE (08:30)
[2018-09-10] MEDS ORDERED: POTASSIUM CHLORIDE 100 ML IVPB ONE (08:30)
--- NOTE | 2018-09-10 09:29 | PN ---
DATE: 09/10/2018 SUBJECTIVE: The patient remains stable, in serious condition. No other events noted. OBJECTIVE: VITAL SIGNS: Blood pressure is 120/69, respirations 18, pulse 96, temperature 98.7. HEENT: Head is normocephalic. NECK: Supple. HEART: Regular rate. LUNGS: Show diminished breath sounds at the base. ABDOMEN: Soft, nontender to palpation without rebound or guarding. EXTREMITIES: Negative for clubbing, cyanosis. Positive edema. DERMATOLOGIC: No rashes. MUSCULOSKELETAL: No joint effusion. NEUROLOGIC: No change in exam. MEDICATIONS: Reviewed. LABORATORY DATA: Reviewed. IMAGING STUDIES: Reviewed. ASSESSMENT AND PLAN: 1. Nonoliguric acute kidney injury. Etiology is secondary to hemodynamics. Renal function is impro yolis. Continue current treatment plans, supportive care, renally dose all medications. 2. Hypernatremia, etiology is secondary to insensible losses, decreased free water intake. The juanito ent's sodium levels have improved. Continue D5 water and deescalate rate. 3. Volume overload secondary to third spacing, questionable heart failure. We will also give the pa tient Lasix 20 mg IV x1 and monitor closely. 4. Hypokalemia. Continue to monitor and replete. 5. Mineral bone disorder, monitor calcium and phosphorus levels. 6. Sepsis secondary to pneumonia and bacteremia. Continue current antibiotic regimen. 7. Acute encephalopathy on top of dementia, etiology is toxic metabolic. Continue to monitor. 8. Acute respiratory failure secondary to pneumonia. The patient is on facemask, nebulizers, contin ue. 9. Anemia. Monitor hemoglobin and hematocrit levels. 10. History of bipolar disorder. Dictated By: SANDRA AGUIRRE DO NR/NTS Conf#: [id number] DID#: [id number] CC: MAIKEL THOMPSON MD; GUALBERTO AGUILAR MD;*EndCC*
--- NOTE | 2018-09-10 12:48 | CONS ---
Consult Date/Type/Reason Admit Date/Time September 03, 2018 at 06:14 Initial Consult Date Type of Consult Pulmonary Date/Time of Note DATE: 09/10/18 TIME: 12:48 Subjective Patient comfortable no new events. Objective Vital Signs Date Temp Pulse Resp B/P (MAP) Pulse Ox O2 O2 Flow FiO2 Time Delivery Rate 09/10/18 90 12:47 09/10/18 101.3 18 139/82 93 11:51 (101) 09/10/18 10.0 09:47 09/10/18 Nasal 09:46 Cannula 09/07/18 44 01:55 Intake and Output 09/09/18 09/09/18 09/10/18 1515:00 23:00 07:00 IntakeIntake Total 1250 ml 0 ml OutputOutput Total 400 ml 400 ml BalanceBalance 850 ml -400 ml Exam NECK: Supple. No JVD or lymphadenopathy. CARDIAC: S1, S2. No added sounds or murmurs. CHEST: Diminished air entry bilaterally. Coarse BS b/l ABDOMEN: Soft, nontender. No guarding or rebound. EXTREMITIES: No cyanosis, clubbing. 1+ edema. NEUROLOGIC: Grossly intact. No focal deficits. Vent Setting Fraction of Inspired Oxygen pe: 44 Results/Medications Result Diagram: 09/10/18 0607 09/10/18 0607 Results 24 hrs Laboratory Tests Test 09/10/18 06:07 White Blood Count 4.1 L Red Blood Count 3.90 L Hemoglobin 12.2 Hematocrit 38.3 Mean Corpuscular Volume 98.2 Mean Corpuscular Hemoglobin 31.3 Mean Corpuscular Hemoglobin Concent 31.9 L Red Cell Distribution Width 15.5 H Platelet Count 161 Mean Platelet Volume 11.3 H Immature Granulocytes % 1.200 H Neutrophils % Segmented Neutrophils % (Manual) 54 Band Neutrophils % (Manual) 27 H Lymphocytes % Lymphocytes % (Manual) 18 Monocytes % Eosinophils % Basophils % Myelocytes % (Manual) 1 H Nucleated Red Blood Cells % 0.0 Immature Granulocytes # 0.050 H Neutrophils # Neutrophils # (Manual) 2.3 Band Neutrophils # 1.1 H Lymphocytes (Manual) 0.7 L Lymphocytes # Monocytes # Eosinophils # Basophils # Myelocytes # 0.0 Nucleated Red Blood Cells # Platelet Estimate NORMAL Poikilocytosis 2+ Anisocytosis 1+ Sodium Level 142 Potassium Level 3.7 Chloride Level 118 H Carbon Dioxide Level 19 L Anion Gap 5 Blood Urea Nitrogen 22 H Creatinine 0.55 Est Glomerular Filtrat Rate mL/min Glucose Level 96 Calcium Level 7.9 L Phosphorus Level 2.9 Magnesium Level 1.8 Medications Current Medications IV Flush (NS 3 ml) 3 ml PER PROTOCOL IV ; Start 09/03/18 at 13:00 Lorazepam (Ativan) 0.5 mg Q6H PRN IV .ANXIETY; Start 09/03/18 at 13:00 Ondansetron HCl (Zofran Inj) 4 mg Q6H PRN IV NAUSEA/VOMITING; Start 09/03/18 at 13:00 Nitroglycerin (Nitroglycerin (Sl Tab) 0.4 Mg) 1 tab Q5M PRN SL .CHEST PAIN; St art 09/03/18 at 13:00 Acetaminophen (Tylenol Tab) 650 mg Q6H PRN PO .PAIN 1-3 OR TEMP; Start 09/03/18 at 13:00 Morphine Sulfate (morphine) 2 mg Q4H PRN IV .PAIN 7-10; Start 09/03/18 at 13:00 Docusate Sodium (Colace) 100 mg Q12H PRN PO .CONSTIPATION; Start 09/03/18 at 13:00 Magnesium Hydroxide (Milk Of Mag) 30 ml DAILY PRN PO .CONSTIPATION; Start 09/03/18 at 13:00 Famotidine (Pepcid Iv) 20 mg QHS IV Last administered on 09/09/18at 21:01; Admin Dose 20 MG; Start 09/03/18 at 21:00 Miscellaneous Information (Pending [facility] Order For Wound Care) This patient lin... PRN PRN XX WOUND CARE; Start 09/03/18 at 18:00 Acetaminophen (Tylenol Supp) 650 mg Q6H PRN [place] FEVER Last administered on 09/09/18at 23:53; Admin Dose 650 MG; Start 09/03/18 at 20:00 Enalaprilat (Vasotec Iv) 0.625 mg Q6H PRN IV ELEVATED BLOOD PRESSURE Last administered on 09/03/18at 20:58; Admin Dose 0.625 MG; Start 09/03/18 at 20:00 Levalbuterol (Xopenex Neb) 0.63 mg Q6H RESP THERAPY HHN Last administered on 09/10/18at 09:45; Admin Dose 0.63 MG; Start 09/04/18 at 00:00 Vancomycin HCl (Vanco Iv Per Pharmacy) VANCOMYCIN PER PHARMACY PER PROTOCOL XX ; Start 09/04/18 at 11:30 Cefepime HCl 50 ml @ 100 mls/hr Q12 IVPB Last administered on 09/10/18at 08:22; Admin Dose 100 MLS/HR; Start 09/04/18 at 21:00 Vancomycin HCl 250 ml @ 125 mls/hr Q24H IVPB Last administered on 09/09/18at 15:26; Admin Dose 125 MLS/HR; Start 09/08/18 at 14:00 Dextrose 1,000 ml @ 50 mls/hr Q20H IV Last administered on 09/10/18at 05:13; Admin Dose 100 MLS/HR; Start 09/08/18 at 12:30 Assessment/Plan Hospital Course (Demo Recall) IMPRESSION 1. Possible early healthcare-associated pneumonia versus aspiration pneumonia. 2. Advanced dementia. 3. Significant anemia, possibly of chronic disease. 4. Dehydration with hypernatremia. 5. Deep venous thrombosis and gastrointestinal prophylaxis. 6. Dementia with dysphagia. RECOMMENDATIONS: 1. Continue to monitor H and H. 2. Antibiotics per ID. 3. Aspiration precautions. 4. Decrease supplemental O2 as tolerated. 5. Discussion of goals of care with family. 6. Continue free water for hypernatremia Consider transfer to [facility]. Consider hospice eval. Discharge planning okay from pulmonary standpoint GUALBERTO AGUILAR MD, [facility] Sep 10, 2018 12:48
--- NOTE | 2018-09-10 15:21 | CONS ---
Assessment/Plan Assessment/Plan Hospital Course (Demo Recall) No events overnight, lethargic, on facemask Chest x-ray revealed bibasilar consolidation with probable small pleural effusions Blood culture on admission grew staph species 1 out of 2 sets. Urine culture negative Microbiology: Urine culture preliminary negative blood culture grew gram-pos itive cocci in clusters 1 out of 2 sets Antimicrobials: Vanco, cefepime Physical examination: This is a fragile chronically ill-appearing elderly woman who is awake in no distress. Head atraumatic normocephalic sclera nonicteric vehicle mucosa dry. Neck is supple chest rise symmetrical breath sounds with scattered crackles. Heart: S1-S2. Abdomen soft bowel sounds present. Extremities with trace edema. Assessment: 1. Severe sepsis, present on admission 2. Bacteremia, cw contaminant 3. Respiratory failure 3. Healthcare associated pneumonia possibly aspiration 4. Acute possibly on chronic kidney disease 5. Anemia 6. DNR Plan: Remains unchanged,continue Cefepime, dc Vanco Consultation Date/Type/Reason Admit Date/Time September 03, 2018 at 06:14 Initial Consult Date Type of Consult id Date/Time of Note DATE: 09/10/18 TIME: 15:20 Exam/Review of Systems Exam Vitals Vital Signs Date Temp Pulse Resp B/P (MAP) Pulse Ox O2 O2 Flow FiO2 Time Delivery Rate 09/10/18 104 24 92 Simple 10.0 13:30 Mask 09/10/18 101.3 139/82 11:51 (101) 09/07/18 44 01:55 Intake and Output 09/09/18 09/09/18 09/10/18 1515:00 23:00 07:00 IntakeIntake Total 1250 ml 0 ml OutputOutput Total 400 ml 400 ml BalanceBalance 850 ml -400 ml Results Result Diagram: 09/10/18 0607 09/10/18 0607 Results 24hrs Laboratory Tests Test 09/10/18 06:07 White Blood Count 4.1 L Red Blood Count 3.90 L Hemoglobin 12.2 Hematocrit 38.3 Mean Corpuscular Volume 98.2 Mean Corpuscular Hemoglobin 31.3 Mean Corpuscular Hemoglobin Concent 31.9 L Red Cell Distribution Width 15.5 H Platelet Count 161 Mean Platelet Volume 11.3 H Immature Granulocytes % 1.200 H Neutrophils % Segmented Neutrophils % (Manual) 54 Band Neutrophils % (Manual) 27 H Lymphocytes % Lymphocytes % (Manual) 18 Monocytes % Eosinophils % Basophils % Myelocytes % (Manual) 1 H Nucleated Red Blood Cells % 0.0 Immature Granulocytes # 0.050 H Neutrophils # Neutrophils # (Manual) 2.3 Band Neutrophils # 1.1 H Lymphocytes (Manual) 0.7 L Lymphocytes # Monocytes # Eosinophils # Basophils # Myelocytes # 0.0 Nucleated Red Blood Cells # Platelet Estimate NORMAL Poikilocytosis 2+ Anisocytosis 1+ Sodium Level 142 Potassium Level 3.7 Chloride Level 118 H Carbon Dioxide Level 19 L Anion Gap 5 Blood Urea Nitrogen 22 H Creatinine 0.55 Est Glomerular Filtrat Rate mL/min Glucose Level 96 Calcium Level 7.9 L Phosphorus Level 2.9 Magnesium Level 1.8 Medications Medication Current Medications IV Flush (NS 3 ml) 3 ml PER PROTOCOL IV ; Start 09/03/18 at 13:00 Lorazepam (Ativan) 0.5 mg Q6H PRN IV .ANXIETY; Start 09/03/18 at 13:00 Ondansetron HCl (Zofran Inj) 4 mg Q6H PRN IV NAUSEA/VOMITING; Start 09/03/18 at 13:00 Nitroglycerin (Nitroglycerin (Sl Tab) 0.4 Mg) 1 tab Q5M PRN SL .CHEST PAIN; Start 09/03/18 at 13:00 Acetaminophen (Tylenol Tab) 650 mg Q6H PRN PO .PAIN 1-3 OR TEMP; Start 09/03/18 at 13:00 Morphine Sulfate (morphine) 2 mg Q4H PRN IV .PAIN 7-10; Start 09/03/18 at 13:00 Docusate Sodium (Colace) 100 mg Q12H PRN PO .CONSTIPATION; Start 09/03/18 at 13:00 Magnesium Hydroxide (Milk Of Mag) 30 ml DAILY PRN PO .CONSTIPATION; Start 09/03/18 at 13:00 Famotidine (Pepcid Iv) 20 mg QHS IV Last administered on 09/09/18at 21:01; Admin Dose 20 MG; Start 09/03/18 at 21:00 Miscellaneous Information (Pending [facility] Order For Wound Care) This patient lin... PRN PRN XX WOUND CARE; Start 09/03/18 at 18:00 Acetaminophen (Tylenol Supp) 650 mg Q6H PRN [place] FEVER Last administered on 09/09/18 23:53; Admin Dose 650 MG; Start 09/03/18 at 20:00 Enalaprilat (Vasotec Iv) 0.625 mg Q6H PRN IV ELEVATED BLOOD PRESSURE Last administered on 09/03/18 20:58; Admin Dose 0.625 MG; Start 09/03/18 at 20:00 Levalbuterol (Xopenex Neb) 0.63 mg Q6H RESP THERAPY HHN Last administered on 09/10/18 13:30; Admin Dose 0.63 MG; Start 09/04/18 at 00:00 Vancomycin HCl (Vanco Iv Per Pharmacy) VANCOMYCIN PER PHARMACY PER PROTOCOL XX ; Start 09/04/18 at 11:30 Cefepime HCl 50 ml @ 100 mls/hr Q12 IVPB Last administered on 09/10/18 08:22; Admin Dose 100 MLS/HR; Start 09/04/18 at 21:00 Vancomycin HCl 250 ml @ 125 mls/hr Q24H IVPB Last administered on 09/09/18 15:26; Admin Dose 125 MLS/HR; Start 09/08/18 at 14:00 Dextrose 1,000 ml @ 50 mls/hr Q20H IV Last administered on 09/10/18 05:13; Admin Dose 100 MLS/HR; Start 09/08/18 at 12:30 GHADA ART NP Sep 10, 2018 15:21
[2018-09-10] MEDS: ACETAMINOPHEN 650 MG SUPP PR PRN (18:48)
--- NOTE | 2018-09-10 19:08 | PN ---
Date/Time of Note Date/Time of Note DATE: 09/10/18 TIME: 19:08 Assessment/Plan VTE Prophylaxis Risk score (from Ns)>0 risk: 10 SCD applied (from Ns): Yes Pharmacological prophylaxis: LMWH Lines/Catheters IV Catheter Type (from [facility]): Peripheral IV Central line still needed: Yes Urinary Cath still in place: Yes Reason Cath still needed: urinary retention Assessment/Plan Hospital Course Patient spiked fever, on abx, check cxr, repeat cx.pt continues on oxygen via face mask. Assessment/Plan - Sepsis with fever, and elevated lactic acid most likely secondary to pneumonia. Continue antibiotics. Dr. Batista is following in infection disease consultation. - Health care associated pneumonia - Acute respiratory insufficiency. is following in pulmonology consultation. - Hypernatremia, IV fluids changed to D5 water. Dr. Fulton is following in nephrology consultation. - Severe anemia, f/up on stool for OB. - Possible UTI per UA - Acute kidney injury due to dehydration, continue IV fluids. - Severe hypokalemia, status post replacement, resolved. - Bipolar disorder. - Bedbound status - Hx Gout - Hx of hemorrhoidectomy. - Protein calorie malnutrition - DNR/DNI status Further recommendations based on clinical course. Plan of care is discussed with Dr. Wyman. Result Diagram: 09/10/18 0607 09/10/18 0607 Results 24hrs Laboratory Tests Test 09/10/18 06:07 White Blood Count 4.1 L Red Blood Count 3.90 L Hemoglobin 12.2 Hematocrit 38.3 Mean Corpuscular Volume 98.2 Mean Corpuscular Hemoglobin 31.3 Mean Corpuscular Hemoglobin Concent 31.9 L Red Cell Distribution Width 15.5 H Platelet Count 161 Mean Platelet Volume 11.3 H Immature Granulocytes % 1.200 H Neutrophils % Segmented Neutrophils % (Manual) 54 Band Neutrophils % (Manual) 27 H Lymphocytes % Lymphocytes % (Manual) 18 Monocytes % Eosinophils % Basophils % Myelocytes % (Manual) 1 H Nucleated Red Blood Cells % 0.0 Immature Granulocytes # 0.050 H Neutrophils # Neutrophils # (Manual) 2.3 Band Neutrophils # 1.1 H Lymphocytes (Manual) 0.7 L Lymphocytes # Monocytes # Eosinophils # Basophils # Myelocytes # 0.0 Nucleated Red Blood Cells # Platelet Estimate NORMAL Poikilocytosis 2+ Anisocytosis 1+ Sodium Level 142 Potassium Level 3.7 Chloride Level 118 H Carbon Dioxide Level 19 L Anion Gap 5 Blood Urea Nitrogen 22 H Creatinine 0.55 Est Glomerular Filtrat Rate mL/min Glucose Level 96 Calcium Level 7.9 L Phosphorus Level 2.9 Magnesium Level 1.8 Exam/Review of Systems Exam Vitals Vital Signs Date Temp Pulse Resp B/P (MAP) Pulse Ox O2 O2 Flow FiO2 Time Delivery Rate 09/10/18 93 16:34 09/10/18 101.0 18 129/79 93 15:23 (96) 09/10/18 Simple 10.0 13:30 Mask 09/07/18 44 01:55 Intake and Output 09/09/18 09/09/18 09/10/18 1515:00 23:00 07:00 IntakeIntake Total 1250 ml 0 ml OutputOutput Total 400 ml 400 ml BalanceBalance 850 ml -400 ml Exam Constitutional: alert, frail Respiratory: diminished breath sounds Cardiovascular: regular rate and rhythm Gastrointestinal: soft, non-tender Genitourinary - Female: other (Acosta catheter) Musculoskeletal: nl extremities to inspection Extremities: normal pulses Neurological: confused, lethargic Results Results 24hrs Laboratory Tests Test 09/10/18 06:07 White Blood Count 4.1 L Red Blood Count 3.90 L Hemoglobin 12.2 Hematocrit 38.3 Mean Corpuscular Volume 98.2 Mean Corpuscular Hemoglobin 31.3 Mean Corpuscular Hemoglobin Concent 31.9 L Red Cell Distribution Width 15.5 H Platelet Count 161 Mean Platelet Volume 11.3 H Immature Granulocytes % 1.200 H Neutrophils % Segmented Neutrophils % (Manual) 54 Band Neutrophils % (Manual) 27 H Lymphocytes % Lymphocytes % (Manual) 18 Monocytes % Eosinophils % Basophils % Myelocytes % (Manual) 1 H Nucleated Red Blood Cells % 0.0 Immature Granulocytes # 0.050 H Neutrophils # Neutrophils # (Manual) 2.3 Band Neutrophils # 1.1 H Lymphocytes (Manual) 0.7 L Lymphocytes # Monocytes # Eosinophils # Basophils # Myelocytes # 0.0 Nucleated Red Blood Cells # Platelet Estimate NORMAL Poikilocytosis 2+ Anisocytosis 1+ Sodium Level 142 Potassium Level 3.7 Chloride Level 118 H Carbon Dioxide Level 19 L Anion Gap 5 Blood Urea Nitrogen 22 H Creatinine 0.55 Est Glomerular Filtrat Rate mL/min Glucose Level 96 Calcium Level 7.9 L Phosphorus Level 2.9 Magnesium Level 1.8 Medications Medication Current Medications IV Flush (NS 3 ml) 3 ml PER PROTOCOL IV ; Start 09/03/18 at 13:00 Lorazepam (Ativan) 0.5 mg Q6H PRN IV .ANXIETY; Start 09/03/18 at 13:00 Ondansetron HCl (Zofran Inj) 4 mg Q6H PRN IV NAUSEA/VOMITING; Start 09/03/18 at 13:00 Nitroglycerin (Nitroglycerin (Sl Tab) 0.4 Mg) 1 tab Q5M PRN SL .CHEST PAIN; Start 09/03/18 at 13:00 Acetaminophen (Tylenol Tab) 650 mg Q6H PRN PO .PAIN 1-3 OR TEMP; Start 09/03/18 at 13:00 Morphine Sulfate (morphine) 2 mg Q4H PRN IV .PAIN 7-10; Start 09/03/18 at 13:00 Docusate Sodium (Colace) 100 mg Q12H PRN PO .CONSTIPATION; Start 09/03/18 at 13:00 Magnesium Hydroxide (Milk Of Mag) 30 ml DAILY PRN PO .CONSTIPATION; Start 09/03/18 at 13:00 Famotidine (Pepcid Iv) 20 mg QHS IV Last administered on 09/09/18at 21:01; Admin Dose 20 MG; Start 09/03/18 at 21:00 Miscellaneous Information (Pending [facility] Order For Wound Care) This patient lin... PRN PRN XX WOUND CARE; Start 09/03/18 at 18:00 Acetaminophen (Tylenol Supp) 650 mg Q6H PRN [place] FEVER Last administered on 09/10/18at 18:48; Admin Dose 650 MG; Start 09/03/18 at 20:00 Enalaprilat (Vasotec Iv) 0.625 mg Q6H PRN IV ELEVATED BLOOD PRESSURE Last administered on 09/03/18at 20:58; Admin Dose 0.625 MG; Start 09/03/18 at 20:00 Levalbuterol (Xopenex Neb) 0.63 mg Q6H RESP THERAPY HHN Last administered on 09/10/18at 13:30; Admin Dose 0.63 MG; Start 09/04/18 at 00:00 Cefepime HCl 50 ml @ 100 mls/hr Q12 IVPB Last administered on 09/10/18at 08:22; Admin Dose 100 MLS/HR; Start 09/04/18 at 21:00 Dextrose 1,000 ml @ 50 mls/hr Q20H IV Last administered on 09/10/18at 05:13; Admin Dose 100 MLS/HR; Start 09/08/18 at 12:30 CHRIS ROSARIO Sep 10, 2018 19:08
[2018-09-10] MEDS: FAMOTIDINE 20 MG INJ IV SCH (20:53)
[2018-09-11] VITALS (11 sets, daily range): BP systolic 94–175; BP diastolic 71–97; PULSE 68–120; RESP 16–20
[2018-09-11] MEDS: LEVALBUTEROL (NEB) 0.63 MG/3 ML AMP HHN SCH ×4 (02:09→20:00)
[2018-09-11] MEDS: DEXTROSE 5% 1,000 ML IV SCH (02:45)
[2018-09-11] MEDS ORDERED: FUROSEMIDE 40 MG INJ IV ONE (08:30)
[2018-09-11] MEDS ORDERED: POTASSIUM CHLORIDE 100 ML IVPB ONE (08:30)
[2018-09-11] MEDS: BALSAM PERU/CASTOR OIL 60 GM TUBE TOP SCH ×2 (09:03→21:04)
[2018-09-11] MEDS: CEFEPIME 1GM/50 ML (PMX) 50 ML IVPB SCH ×2 (10:56→21:03)
--- NOTE | 2018-09-11 10:57 | CONS ---
Consult Date/Type/Reason Admit Date/Time September 03, 2018 at 06:14 Initial Consult Date Type of Consult Pulmonary Date/Time of Note DATE: 09/11/18 TIME: 10:57 Subjective Remains on nonrebreather with congestion respiratory distress Objective Vital Signs Date Temp Pulse Resp B/P (MAP) Pulse Ox O2 O2 Flow FiO2 Time Delivery Rate 09/11/18 99 23 94 Simple 10.0 08:38 Mask 09/11/18 98.4 128/97 07:18 (107) Intake and Output 09/10/18 09/10/18 09/11/18 1515:00 23:00 07:00 IntakeIntake Total 50 ml OutputOutput Total 1200 ml 400 ml BalanceBalance -1150 ml -400 ml Exam NECK: Supple. No JVD or lymphadenopathy. CARDIAC: S1, S2. No added sounds or murmurs. CHEST: Diminished air entry bilaterally. Coarse BS b/l ABDOMEN: Soft, nontender. No guarding or rebound. EXTREMITIES: No cyanosis, clubbing. 1+ edema. NEUROLOGIC: Grossly intact. No focal deficits. Vent Setting Fraction of Inspired Oxygen pe: 44 Results/Medications Result Diagram: 09/11/18 0609 09/11/18 0609 Results 24 hrs Laboratory Tests Test 09/11/18 06:09 White Blood Count 2.7 #L Red Blood Count 4.06 L Hemoglobin 12.5 Hematocrit 39.4 Mean Corpuscular Volume 97.0 Mean Corpuscular Hemoglobin 30.8 Mean Corpuscular Hemoglobin Concent 31.7 L Red Cell Distribution Width 15.4 H Platelet Count 162 Mean Platelet Volume 11.3 H Immature Granulocytes % 0.800 H Neutrophils % Segmented Neutrophils % (Manual) 47 Band Neutrophils % (Manual) 39 H Lymphocytes % Lymphocytes % (Manual) 14 L Monocytes % Eosinophils % Basophils % Nucleated Red Blood Cells % 0.0 Immature Granulocytes # 0.020 Neutrophils # Neutrophils # (Manual) 1.3 L Band Neutrophils # 1.0 H Lymphocytes (Manual) 0.3 L Lymphocytes # Monocytes # Eosinophils # Basophils # Nucleated Red Blood Cells # Platelet Estimate NORMAL Giant Platelets 2 H Polychromasia 1+ Ovalocytes 1+ Sodium Level 140 Potassium Level 3.7 Chloride Level 113 H Carbon Dioxide Level 20 L Anion Gap 7 Blood Urea Nitrogen 22 H Creatinine 0.53 Est Glomerular Filtrat Rate mL/min Glucose Level 88 Calcium Level 7.9 L Phosphorus Level 3.3 Magnesium Level 1.7 Medications Current Medications IV Flush (NS 3 ml) 3 ml PER PROTOCOL IV ; Start 09/03/18 at 13:00 Lorazepam (Ativan) 0.5 mg Q6H PRN IV .ANXIETY; Start 09/03/18 at 13:00 Ondansetron HCl (Zofran Inj) 4 mg Q6H PRN IV NAUSEA/VOMITING; Start 09/03/18 at 13:00 Nitroglycerin (Nitroglycerin (Sl Tab) 0.4 Mg) 1 tab Q5M PRN SL .CHEST PAIN; Start 09/03/18 at 13:00 Acetaminophen (Tylenol Tab) 650 mg Q6H PRN PO .PAIN 1-3 OR TEMP; Start 09/03/18 at 13:00 Morphine Sulfate (morphine) 2 mg Q4H PRN IV .PAIN 7-10; Start 09/03/18 at 13:00 Docusate Sodium (Colace) 100 mg Q12H PRN PO .CONSTIPATION; Start 09/03/18 at 13:00 Magnesium Hydroxide (Milk Of Mag) 30 ml DAILY PRN PO .CONSTIPATION; Start 09/03/18 at 13:00 Famotidine (Pepcid Iv) 20 mg QHS IV Last administered on 09/10/18 20:53; Admin Dose 20 MG; Start 09/03/18 at 21:00 Miscellaneous Information (Pending [facility] Order For Wound Care) This patient lin... PRN PRN XX WOUND CARE; Start 09/03/18 at 18:00 Acetaminophen (Tylenol Supp) 650 mg Q6H PRN [place] FEVER Last administered on 09/10/18at 18:48; Admin Dose 650 MG; Start 09/03/18 at 20:00 Enalaprilat (Vasotec Iv) 0.625 mg Q6H PRN IV ELEVATED BLOOD PRESSURE Last administered on 09/03/18at 20:58; Admin Dose 0.625 MG; Start 09/03/18 at 20:00 Levalbuterol (Xopenex Neb) 0.63 mg Q6H RESP THERAPY HHN Last administered on 09/11/18 08:37; Admin Dose 0.63 MG; Start 09/04/18 at 00:00 Cefepime HCl 50 ml @ 100 mls/hr Q12 IVPB Last administered on 6/5/19at 10:56; Admin Dose 100 MLS/HR; Start 09/04/18 at 21:00 Dextrose 1,000 ml @ 50 mls/hr Q20H IV Last administered on 09/11/18at 02:45; Admin Dose 50 MLS/HR; Start 09/08/18 at 12:30 Assessment/Plan Hospital Course (Demo Recall) IMPRESSION 1. Possible early healthcare-associated pneumonia versus aspiration pneumonia. 2. Advanced dementia. 3. Significant anemia, possibly of chronic disease. 4. Dehydration with hypernatremia. 5. Deep venous thrombosis and gastrointestinal prophylaxis. 6. Dementia with dysphagia. RECOMMENDATIONS: 1. Continue to monitor H and H. 2. Antibiotics per ID. 3. Aspiration precautions. 4. Decrease supplemental O2 as tolerated. 5. Discussion of goals of care with family. 6. Continue free water for hypernatremia Consider transfer to [facility]. Consider hospice eval. Discussed with primary team. GUALBERTO AGUILAR MD, [facility] Sep 11, 2018 10:57
--- NOTE | 2018-09-11 14:02 | PN ---
DATE: 09/11/2018 SUBJECTIVE: The patient remains in serious condition on a facemask. No other events noted. No hemo ptysis, hematemesis or hematochezia. OBJECTIVE: VITAL SIGNS: Blood pressure is 128/96, respiration 18, pulse 97, temperature 98.4. HEENT: Head is normocephalic. NECK: Supple. HEART: Regular rate. LUNGS: Show diminished breath sounds at the base. ABDOMEN: Soft, nontender to palpation without rebound or guarding. EXTREMITIES: Negative for clubbing, cyanosis. Positive edema. DERMATOLOGIC: No rashes. MUSCULOSKELETAL: No joint effusion. NEUROLOGIC: No change in exam. MEDICATIONS: Reviewed. LABORATORY DATA: Has been reviewed. ASSESSMENT AND PLAN: 1. Nonoliguric acute kidney injury. Etiology is secondary to hemodynamics. Renal function is impro yolis. Continue current treatment plan, supportive care, renally dose all meds. 2. Hypernatremia, improved. Continue to monitor. Continue hypertonic fluid. 3. Volume overload. Etiology is multifactorial secondary to third spacing, questionable heart failu re. Will intensify diuretic regimen. Will continue Lasix 40 mg IV daily. Monitor closely. 4. Hypokalemia. Continue to monitor and replete as needed. 5. Mineral bone disorder. Monitor calcium and phosphorus levels. 6. Sepsis secondary to pneumonia bacteremia. Continue antibiotic regimen. 7. Acute encephalopathy on top of dementia. Etiology is toxic metabolic. 8. Acute hypoxemic respiratory failure. Etiology is secondary to pneumonia, possible congestive hea rt failure. The patient remains on facemask, nebulizers. Follow up chest x-ray. Continue to monito r. Continue diuretic therapy as stated above. Continue antibiotics. 9. Anemia. Monitor hemoglobin and hematocrit levels. 10. History of bipolar disorder. Dictated By: SANDRA AGUIRRE DO NR/NTS Conf#: [id number] DID#: [id number] CC: MAIKEL THOMPSON MD;*End*
--- NOTE | 2018-09-11 16:04 | CONS ---
Assessment/Plan Assessment/Plan Hospital Course (Demo Recall) Patient remains unchanged, lethargic, on facemask and very congested, requires frequent suctioning Blood culture on admission grew staph species 1 out of 2 sets. Urine culture negative Microbiology: Urine culture preliminary negative blood culture grew gram- positive cocci in clusters 1 out of 2 sets Antimicrobials: Cefepime Physical examination: This is a fragile chronically ill-appearing elderly woman who is awake in no distress. Head atraumatic normocephalic sclera nonicteric vehicle mucosa dry. Neck is supple chest rise symmetrical breath sounds with scattered crackles. Heart: S1-S2. Abdomen soft bowel sounds present. Extremities with trace edema. Assessment: 1. Severe sepsis, present on admission 2. Bacteremia, cw contaminant 3. Respiratory failure 3. Healthcare associated pneumonia possibly aspiration 4. Acute possibly on chronic kidney disease 5. Anemia 6. DNR Plan: Remains unchanged, continue present care aggressive pulmonary toilet status post Lasix dose Consultation Date/Type/Reason Admit Date/Time September 03, 2018 at 06:14 Initial Consult Date Type of Consult id Date/Time of Note DATE: 09/11/18 TIME: 16:03 Exam/Review of Systems Exam Vitals Vital Signs Date Temp Pulse Resp B/P (MAP) Pulse Ox O2 O2 Flow FiO2 Time Delivery Rate 09/11/18 101.0 103 18 104/71 96 15:03 (82) 09/11/18 Non 15.0 14:03 Rebreathe r Mask Intake and Output 09/10/18 09/10/18 09/11/18 1515:00 23:00 07:00 IntakeIntake Total 50 ml OutputOutput Total 1200 ml 400 ml BalanceBalance -1150 ml -400 ml Results Result Diagram: 09/11/18 0609 09/11/18 0609 Results 24hrs Laboratory Tests Test 09/11/18 06:09 White Blood Count 2.7 #L Red Blood Count 4.06 L Hemoglobin 12.5 Hematocrit 39.4 Mean Corpuscular Volume 97.0 Mean Corpuscular Hemoglobin 30.8 Mean Corpuscular Hemoglobin Concent 31.7 L Red Cell Distribution Width 15.4 H Platelet Count 162 Mean Platelet Volume 11.3 H Immature Granulocytes % 0.800 H Neutrophils % Segmented Neutrophils % (Manual) 47 Band Neutrophils % (Manual) 39 H Lymphocytes % Lymphocytes % (Manual) 14 L Monocytes % Eosinophils % Basophils % Nucleated Red Blood Cells % 0.0 Immature Granulocytes # 0.020 Neutrophils # Neutrophils # (Manual) 1.3 L Band Neutrophils # 1.0 H Lymphocytes (Manual) 0.3 L Lymphocytes # Monocytes # Eosinophils # Basophils # Nucleated Red Blood Cells # Platelet Estimate NORMAL Giant Platelets 2 H Polychromasia 1+ Ovalocytes 1+ Sodium Level 140 Potassium Level 3.7 Chloride Level 113 H Carbon Dioxide Level 20 L Anion Gap 7 Blood Urea Nitrogen 22 H Creatinine 0.53 Est Glomerular Filtrat Rate mL/min Glucose Level 88 Calcium Level 7.9 L Phosphorus Level 3.3 Magnesium Level 1.7 Medications Medication Current Medications IV Flush (NS 3 ml) 3 ml PER PROTOCOL IV ; Start 09/03/18 at 13:00 Lorazepam (Ativan) 0.5 mg Q6H PRN IV .ANXIETY; Start 09/03/18 at 13:00 Ondansetron HCl (Zofran Inj) 4 mg Q6H PRN IV NAUSEA/VOMITING; Start 09/03/18 at 13:00 Nitroglycerin (Nitroglycerin (Sl Tab) 0.4 Mg) 1 tab Q5M PRN SL .CHEST PAIN; Start 09/03/18 at 13:00 Acetaminophen (Tylenol Tab) 650 mg Q6H PRN PO .PAIN 1-3 OR TEMP; Start 09/03/18 at 13:00 Morphine Sulfate (morphine) 2 mg Q4H PRN IV .PAIN 7-10; Start 09/03/18 at 13:00 Docusate Sodium (Colace) 100 mg Q12H PRN PO .CONSTIPATION; Start 09/03/18 at 13:00 Magnesium Hydroxide (Milk Of Mag) 30 ml DAILY PRN PO .CONSTIPATION; Start 09/03/18 at 13:00 Famotidine (Pepcid Iv) 20 mg QHS IV Last administered on 09/10/18at 20:53; Admin Dose 20 MG; Start 09/03/18 at 21:00 [facility] This patient lin... PRN PRN XX WOUND CARE; Start 09/03/18 at 18:00 Acetaminophen (Tylenol Supp) 650 mg Q6H PRN [place] FEVER Last administered on 09/10/18at 18:48; Admin Dose 650 MG; Start 09/03/18 at 20:00 Enalaprilat (Vasotec Iv) 0.625 mg Q6H PRN IV ELEVATED BLOOD PRESSURE Last administered on 09/03/18at 20:58; Admin Dose 0.625 MG; Start 09/03/18 at 20:00 Levalbuterol (Xopenex Neb) 0.63 mg Q6H RESP THERAPY HHN Last administered on 09/11/18 14:01; Admin Dose 0.63 MG; Start 09/04/18 at 00:00 Cefepime HCl 50 ml @ 100 mls/hr Q12 IVPB Last administered on 09/11/18 10:56; Admin Dose 100 MLS/HR; Start 09/04/18 at 21:00 GHADA ART NP Sep 11, 2018 16:04
--- NOTE | 2018-09-11 19:25 | PN ---
Date/Time of Note Date/Time of Note DATE: 09/11/18 TIME: 19:18 Assessment/Plan VTE Prophylaxis Risk score (from Ns)>0 risk: 10 SCD applied (from [facility]): Yes Pharmacological prophylaxis: NA/contraindicated, LMWH Pharm contraindication: anticoag not tolerated Lines/Catheters IV Catheter Type (from [facility]): Peripheral IV Central line still needed: Yes Urinary Cath still in place: Yes Reason Cath still needed: urinary retention Assessment/Plan Hospital Course Patient continues to deteriorate, currently on nonrebreather mask, congested, status post Lasix. Patient is very lethargic, febrile and tachycardic. Patient is DNR/DNI and no artificial nutrition per pulsed signed by patient. social worker health services consult to locate next of kin. Dr. Cheema is asked to see patient in palliative care consultation. Assessment/Plan - Sepsis with fever, and elevated lactic acid most likely secondary to pneumonia. Continue antibiotics per ID. Dr. Batista is following in infection disease consultation. - Health care associated pneumonia - Acute respiratory insufficiency. is following in pulmonology consultation. - Hypernatremia, resolved. Dr. Fulton is following in nephrology consultation. - Severe anemia, f/up on stool for OB. - Possible UTI per UA - Acute kidney injury due to dehydration, continue IV fluids. - Severe hypokalemia, status post replacement, resolved. - Bipolar disorder. - Bedbound status - Hx Gout - Hx of hemorrhoidectomy. - Protein calorie malnutrition - DNR/DNI status Further recommendations based on clinical course. Plan of care is discussed with Dr. Wyman. Result Diagram: 09/11/18 0609 09/11/18 0609 Results 24hrs Laboratory Tests Test 09/11/18 06:09 White Blood Count 2.7 #L Red Blood Count 4.06 L Hemoglobin 12.5 Hematocrit 39.4 Mean Corpuscular Volume 97.0 Mean Corpuscular Hemoglobin 30.8 Mean Corpuscular Hemoglobin Concent 31.7 L Red Cell Distribution Width 15.4 H Platelet Count 162 Mean Platelet Volume 11.3 H Immature Granulocytes % 0.800 H Neutrophils % Segmented Neutrophils % (Manual) 47 Band Neutrophils % (Manual) 39 H Lymphocytes % Lymphocytes % (Manual) 14 L Monocytes % Eosinophils % Basophils % Nucleated Red Blood Cells % 0.0 Immature Granulocytes # 0.020 Neutrophils # Neutrophils # (Manual) 1.3 L Band Neutrophils # 1.0 H Lymphocytes (Manual) 0.3 L Lymphocytes # Monocytes # Eosinophils # Basophils # Nucleated Red Blood Cells # Platelet Estimate NORMAL Giant Platelets 2 H Polychromasia 1+ Ovalocytes 1+ Sodium Level 140 Potassium Level 3.7 Chloride Level 113 H Carbon Dioxide Level 20 L Anion Gap 7 Blood Urea Nitrogen 22 H Creatinine 0.53 Est Glomerular Filtrat Rate mL/min Glucose Level 88 Calcium Level 7.9 L Phosphorus Level 3.3 Magnesium Level 1.7 Exam/Review of Systems Exam Vitals Vital Signs Date Temp Pulse Resp B/P (MAP) Pulse Ox O2 O2 Flow FiO2 Time Delivery Rate 09/11/18 105 16:48 09/11/18 101.0 18 104/71 96 15:03 (82) 09/11/18 Non 15.0 14:03 Rebreathe r Mask Intake and Output 09/10/18 09/10/18 09/11/18 1515:00 23:00 07:00 IntakeIntake Total 50 ml OutputOutput Total 1200 ml 400 ml BalanceBalance -1150 ml -400 ml Exam Constitutional: alert, frail Respiratory: diminished breath sounds Cardiovascular: regular rate and rhythm Gastrointestinal: soft, non-tender Genitourinary - Female: other (Acosta catheter) Musculoskeletal: nl extremities to inspection Extremities: normal pulses Neurological: confused, lethargic Results Results 24hrs Laboratory Tests Test 09/11/18 06:09 White Blood Count 2.7 #L Red Blood Count 4.06 L Hemoglobin 12.5 Hematocrit 39.4 Mean Corpuscular Volume 97.0 Mean Corpuscular Hemoglobin 30.8 Mean Corpuscular Hemoglobin Concent 31.7 L Red Cell Distribution Width 15.4 H Platelet Count 162 Mean Platelet Volume 11.3 H Immature Granulocytes % 0.800 H Neutrophils % Segmented Neutrophils % (Manual) 47 Band Neutrophils % (Manual) 39 H Lymphocytes % Lymphocytes % (Manual) 14 L Monocytes % Eosinophils % Basophils % Nucleated Red Blood Cells % 0.0 Immature Granulocytes # 0.020 Neutrophils # Neutrophils # (Manual) 1.3 L Band Neutrophils # 1.0 H Lymphocytes (Manual) 0.3 L Lymphocytes # Monocytes # Eosinophils # Basophils # Nucleated Red Blood Cells # Platelet Estimate NORMAL Giant Platelets 2 H Polychromasia 1+ Ovalocytes 1+ Sodium Level 140 Potassium Level 3.7 Chloride Level 113 H Carbon Dioxide Level 20 L Anion Gap 7 Blood Urea Nitrogen 22 H Creatinine 0.53 Est Glomerular Filtrat Rate mL/min Glucose Level 88 Calcium Level 7.9 L Phosphorus Level 3.3 Magnesium Level 1.7 Medications Medication Current Medications IV Flush (NS 3 ml) 3 ml PER PROTOCOL IV ; Start 09/03/18 at 13:00 Lorazepam (Ativan) 0.5 mg Q6H PRN IV .ANXIETY; Start 09/03/18 at 13:00 Ondansetron HCl (Zofran Inj) 4 mg Q6H PRN IV NAUSEA/VOMITING; Start 09/03/18 at 13:00 Nitroglycerin (Nitroglycerin (Sl Tab) 0.4 Mg) 1 tab Q5M PRN SL .CHEST PAIN; Start 09/03/18 at 13:00 Acetaminophen (Tylenol Tab) 650 mg Q6H PRN PO .PAIN 1-3 OR TEMP; Start 09/03/18 at 13:00 Morphine Sulfate (morphine) 2 mg Q4H PRN IV .PAIN 7-10; Start 09/03/18 at 13:00 Docusate Sodium (Colace) 100 mg Q12H PRN PO .CONSTIPATION; Start 09/03/18 at 13:00 Magnesium Hydroxide (Milk Of Mag) 30 ml DAILY PRN PO .CONSTIPATION; Start 09/03/18 at 13:00 Famotidine (Pepcid Iv) 20 mg QHS IV Last administered on 09/10/18at 20:53; Admin Dose 20 MG; Start 09/03/18 at 21:00 Miscellaneous Information (Pending [facility] Order For Wound Care) This patient lin... PRN PRN XX WOUND CARE; Start 09/03/18 at 18:00 Acetaminophen (Tylenol Supp) 650 mg Q6H PRN [place] FEVER Last administered on 09/10/18at 18:48; Admin Dose 650 MG; Start 09/03/18 at 20:00 Enalaprilat (Vasotec Iv) 0.625 mg Q6H PRN IV ELEVATED BLOOD PRESSURE Last administered on 09/03/18at 20:58; Admin Dose 0.625 MG; Start 09/03/18 at 20:00 Levalbuterol (Xopenex Neb) 0.63 mg Q6H RESP THERAPY HHN Last administered on 09/11/18at 14:01; Admin Dose 0.63 MG; Start 09/04/18 at 00:00 Cefepime HCl 50 ml @ 100 mls/hr Q12 IVPB Last administered on 09/11/18at 10:56; Admin Dose 100 MLS/HR; Start 09/04/18 at 21:00 CHRIS ROSARIO Sep 11, 2018 19:25
[2018-09-11] MEDS: FAMOTIDINE 20 MG INJ IV SCH (21:03)
[2018-09-12] VITALS (13 sets, daily range): BP systolic 76–127; BP diastolic 49–79; PULSE 94–124; RESP 16–20
[2018-09-12] MEDS: LEVALBUTEROL (NEB) 0.63 MG/3 ML AMP HHN SCH ×4 (02:00→19:57)
[2018-09-12] MEDS ORDERED: MAGNESIUM SULFATE 2 GM/50 ML 50 ML IVPB ONE (08:30)
--- NOTE | 2018-09-12 08:52 | PN ---
DATE: 09/12/2018 SUBJECTIVE: The patient remains seriously ill, on facemask. No other events noted. No hemoptysis, hematemesis, hematochezia. OBJECTIVE: VITAL SIGNS: Blood pressure is 87/62, respirations 20, pulse 109, temperature 97.9. HEENT: Head is normocephalic. NECK: Supple. HEART: Regular rate. LUNGS: Show diminished breath sounds at the base. ABDOMEN: Soft, nontender to palpation without rebound or guarding. EXTREMITIES: Negative for clubbing, cyanosis. Positive edema. DERMATOLOGIC: No rashes. MUSCULOSKELETAL: No joint effusion. NEUROLOGIC: No change in exam. MEDICATIONS: The patient's medications have been reviewed. LABORATORY DATA: Has been reviewed. ASSESSMENT AND PLAN: 1. Nonoliguric acute kidney injury with unknown baseline creatinine. Etiology is secondary to hemod ynamics. Renal function is improved. Continue current treatment plans, supportive care, renally dos e all meds. 2. Hypernatremia, improved. Continue to monitor. 3. Volume overload. Etiology is likely due to third spacing, questionable heart failure. Continue intermittent diuretic therapy. 4. Hypokalemia and hypomagnesemia. Continue to monitor and replete. 5. Mineral bone disorder. Monitor calcium and phosphorus levels. 6. Sepsis secondary to pneumonia, bacteremia. Continue current antibiotic regimen. 7. Acute encephalopathy on top of dementia, etiology is toxic metabolic. 8. Acute hypoxemic respiratory failure secondary to pneumonia, CHF. The patient remains on facemask nebulizers. Continue to monitor. Continue diuretic therapy. 9. Anemia. Monitor hemoglobin and hematocrit levels. 10. History of bipolar disorder. Dictated By: SANDRA AGUIRRE DO NR/NTS Conf#: [id number] DID#: [id number] CC: MAIKEL THOMPSON MD; GUALBERTO AGUILAR MD;*EndCC*
[2018-09-12] MEDS: BALSAM PERU/CASTOR OIL 60 GM TUBE TOP SCH ×2 (09:35→20:31)
[2018-09-12] MEDS: DEXTROSE 5%-0.45% NACL 1,000 ML IV SCH (11:09)
--- NOTE | 2018-09-12 11:14 | CONS ---
Assessment/Plan Assessment/Plan Assessment/Plan (Daily) Assessment and recommendations; 1. Patient admitted with bilateral pneumonia with a significant component of fluid overload and pulmonary edema based upon chest x-ray from yesterday. 2. Dementia. 3. Anemia and thrombocytopenia. Continue current supportive care. Administer Lasix 40 mg IV x1. Obtain follow- up chest x-ray in 24 hours. Prognosis is guarded. Consultation Date/Type/Reason Admit Date/Time September 03, 2018 at 06:14 Initial Consult Date Type of Consult Pulmonary Patient condition is tenuous. Still on 100% nonrebreather mask. General exam; elderly female, awake and appropriately responsive. Appearing mil dly tachypneic. Reason for Consultation H EENT exam; supple neck, no JVD. No lymphadenopathy. Midline trachea. No thyromegaly. Patient has fair dentition. On 100% nonrebreather mask. Chest exam; bilateral crackles. S1-S2 audible, no murmurs. Regular rhythm. Abdomen exam; soft, no organomegaly. Nontender. Nondistended. Bowel sounds audible. Extremity exam; no peripheral edema. 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 Date/Time of Note DATE: 09/12/18 TIME: 11:13 Exam/Review of Systems Exam Vitals Vital Signs Date Temp Pulse Resp B/P (MAP) Pulse Ox O2 O2 Flow FiO2 Time Delivery Rate 09/12/18 99.0 110 18 76/49 (58) 91 11:06 09/12/18 15.0 100 09:40 09/12/18 Non 09:38 Rebreather Mask Intake and Output 09/11/18 09/11/18 09/12/18 1515:00 23:00 07:00 IntakeIntake Total 600 ml OutputOutput Total 1600 ml 750 ml BalanceBalance -1600 ml -150 ml Results Result Diagram: 09/12/18 0617 09/12/18 0617 Results 24hrs Laboratory Tests Test 09/12/18 06:17 White Blood Count 2.8 L Red Blood Count 4.29 Hemoglobin 13.3 Hematocrit 40.6 Mean Corpuscular Volume 94.6 Mean Corpuscular Hemoglobin 31.0 Mean Corpuscular Hemoglobin Concent 32.8 Red Cell Distribution Width 15.0 H Platelet Count 166 Mean Platelet Volume 11.7 H Immature Granulocytes % 1.100 H Neutrophils % 70.1 Lymphocytes % 25.6 Monocytes % 2.8 Eosinophils % 0.0 Basophils % 0.4 Nucleated Red Blood Cells % 0.0 Immature Granulocytes # 0.030 Neutrophils # 2.0 Lymphocytes # 0.7 L Monocytes # 0.1 L Eosinophils # 0.0 Basophils # 0.0 Nucleated Red Blood Cells # 0.0 Sodium Level 137 Potassium Level 3.3 L Chloride Level 110 Carbon Dioxide Level 22 Anion Gap 5 Blood Urea Nitrogen 19 Creatinine 0.57 Est Glomerular Filtrat Rate mL/min Glucose Level 94 Calcium Level 7.9 L Phosphorus Level 3.2 Magnesium Level 1.5 L Medications Medication Current Medications IV Flush (NS 3 ml) 3 ml PER PROTOCOL IV ; Start 09/03/18 at 13:00 Lorazepam (Ativan) 0.5 mg Q6H PRN IV .ANXIETY; Start 09/03/18 at 13:00 Ondansetron HCl (Zofran Inj) 4 mg Q6H PRN IV NAUSEA/VOMITING; Start 09/03/18 at 13:00 Nitroglycerin (Nitroglycerin (Sl Tab) 0.4 Mg) 1 tab Q5M PRN SL .CHEST PAIN; Start 09/03/18 at 13:00 Acetaminophen (Tylenol Tab) 650 mg Q6H PRN PO .PAIN 1-3 OR TEMP; Start 09/03/18 at 13:00 Morphine Sulfate (morphine) 2 mg Q4H PRN IV .PAIN 7-10; Start 09/03/18 at 13:00 Docusate Sodium (Colace) 100 mg Q12H PRN PO .CONSTIPATION; Start 09/03/18 at 13:00 Magnesium Hydroxide (Milk Of Mag) 30 ml DAILY PRN PO .CONSTIPATION; Start 09/03/18 at 13:00 Famotidine (Pepcid Iv) 20 mg QHS IV Last administered on 09/11/18at 21:03; Admin Dose 20 MG; Start 09/03/18 at 21:00 [facility] This patient lin... PRN PRN XX WOUND CARE; Start 09/03/18 at 18:00 Acetaminophen (Tylenol Supp) 650 mg Q6H PRN [place] FEVER Last administered on 09/10/18at 18:48; Admin Dose 650 MG; Start 09/03/18 at 20:00 Enalaprilat (Vasotec Iv) 0.625 mg Q6H PRN IV ELEVATED BLOOD PRESSURE Last administered on 09/03/18at 20:58; Admin Dose 0.625 MG; Start 09/03/18 at 20:00 Levalbuterol (Xopenex Neb) 0.63 mg Q6H RESP THERAPY HHN Last administered on 09/12/18at 08:00; Admin Dose 0.63 MG; Start 09/04/18 at 00:00 Cefepime HCl 50 ml @ 100 mls/hr Q12 IVPB Last administered on 09/11/18at 21:03; Admin Dose 100 MLS/HR; Start 09/04/18 at 21:00 Potassium Chloride 100 ml @ 50 mls/hr Q2H IVPB ; Start 09/12/18 at 08:30; Stop 09/12/18 at 12:29 Dextrose/Sodium Chloride 1,000 ml @ 50 mls/hr Q20H IV ; Start 09/12/18 at 10:00 CASSANDRA HONG Sep 12, 2018 11:14
[2018-09-12] MEDS: CEFEPIME 1GM/50 ML (PMX) 50 ML IVPB SCH (11:25)
[2018-09-12] MEDS ORDERED: FUROSEMIDE 40 MG INJ IV ONE (11:30)
--- NOTE | 2018-09-12 14:11 | PN ---
Date/Time of Note Date/Time of Note DATE: 09/12/18 TIME: 14:07 Assessment/Plan VTE Prophylaxis Risk score (from Ns)>0 risk: 8 SCD applied (from Ns): Yes Pharmacological prophylaxis: other Lines/Catheters IV Catheter Type (from [facility]): Peripheral IV Central line still needed: Yes Urinary Cath still in place: Yes Reason Cath still needed: urinary retention Assessment/Plan Hospital Course Patient is lethargic, frail, continues on nonrebreather mask. Patient was tachycardia no fever status post Lasix IV. Will replace potassium for K of 3.1. Patient is DNR/DNI and no artificial nutrition per POLST signed by patient. breaker table worker is working locate next of kin. Dr. Cheema is following in palliative care consultation. Assessment/Plan - Sepsis with fever, and elevated lactic acid most likely secondary to pneum onia. Continue antibiotics per ID. Dr. Batista is following in infection disease consultation. - Health care associated pneumonia - Acute respiratory insufficiency. is following in pulmonology consultation. - Hypernatremia, resolved. Dr. Fulton is following in nephrology consultation. - Severe anemia, f/up on stool for OB. - Possible UTI per UA - Acute kidney injury due to dehydration, continue IV fluids. - Severe hypokalemia, status post replacement, resolved. - Bipolar disorder. - Bedbound status - Hx Gout - Hx of hemorrhoidectomy. - Protein calorie malnutrition - DNR/DNI status Further recommendations based on clinical course. Plan of care is discussed with Dr. Wyman. Result Diagram: 09/12/18 0617 09/12/18 0617 Results 24hrs Laboratory Tests Test 09/12/18 06:17 White Blood Count 2.8 L Red Blood Count 4.29 Hemoglobin 13.3 Hematocrit 40.6 Mean Corpuscular Volume 94.6 Mean Corpuscular Hemoglobin 31.0 Mean Corpuscular Hemoglobin Concent 32.8 Red Cell Distribution Width 15.0 H Platelet Count 166 Mean Platelet Volume 11.7 H Immature Granulocytes % 1.100 H Neutrophils % 70.1 Lymphocytes % 25.6 Monocytes % 2.8 Eosinophils % 0.0 Basophils % 0.4 Nucleated Red Blood Cells % 0.0 Immature Granulocytes # 0.030 Neutrophils # 2.0 Lymphocytes # 0.7 L Monocytes # 0.1 L Eosinophils # 0.0 Basophils # 0.0 Nucleated Red Blood Cells # 0.0 Sodium Level 137 Potassium Level 3.3 L Chloride Level 110 Carbon Dioxide Level 22 Anion Gap 5 Blood Urea Nitrogen 19 Creatinine 0.57 Est Glomerular Filtrat Rate mL/min Glucose Level 94 Calcium Level 7.9 L Phosphorus Level 3.2 Magnesium Level 1.5 L Exam/Review of Systems Exam Vitals Vital Signs Date Temp Pulse Resp B/P (MAP) Pulse Ox O2 O2 Flow FiO2 Time Delivery Rate 09/12/18 97 15.0 100 13:47 09/12/18 115 0 Non 13:44 Rebreather Mask 09/12/18 119/71 11:41 (87) 09/12/18 99.0 11:06 Intake and Output 09/11/18 09/11/18 09/12/18 1515:00 23:00 07:00 IntakeIntake Total 600 ml OutputOutput Total 1600 ml 750 ml BalanceBalance -1600 ml -150 ml Exam Constitutional: alert, frail Respiratory: diminished breath sounds Cardiovascular: regular rate and rhythm Gastrointestinal: soft, non-tender Genitourinary - Female: other (Acosta catheter) Musculoskeletal: nl extremities to inspection Extremities: normal pulses Neurological: confused, lethargic Results Results 24hrs Laboratory Tests Test 09/12/18 06:17 White Blood Count 2.8 L Red Blood Count 4.29 Hemoglobin 13.3 Hematocrit 40.6 Mean Corpuscular Volume 94.6 Mean Corpuscular Hemoglobin 31.0 Mean Corpuscular Hemoglobin Concent 32.8 Red Cell Distribution Width 15.0 H Platelet Count 166 Mean Platelet Volume 11.7 H Immature Granulocytes % 1.100 H Neutrophils % 70.1 Lymphocytes % 25.6 Monocytes % 2.8 Eosinophils % 0.0 Basophils % 0.4 Nucleated Red Blood Cells % 0.0 Immature Granulocytes # 0.030 Neutrophils # 2.0 Lymphocytes # 0.7 L Monocytes # 0.1 L Eosinophils # 0.0 Basophils # 0.0 Nucleated Red Blood Cells # 0.0 Sodium Level 137 Potassium Level 3.3 L Chloride Level 110 Carbon Dioxide Level 22 Anion Gap 5 Blood Urea Nitrogen 19 Creatinine 0.57 Est Glomerular Filtrat Rate mL/min Glucose Level 94 Calcium Level 7.9 L Phosphorus Level 3.2 Magnesium Level 1.5 L Medications Medication Current Medications IV Flush (NS 3 ml) 3 ml PER PROTOCOL IV ; Start 09/03/18 at 13:00 Lorazepam (Ativan) 0.5 mg Q6H PRN IV .ANXIETY; Start 09/03/18 at 13:00 Ondansetron HCl (Zofran Inj) 4 mg Q6H PRN IV NAUSEA/VOMITING; Start 09/03/18 at 13:00 Nitroglycerin (Nitroglycerin (Sl Tab) 0.4 Mg) 1 tab Q5M PRN SL .CHEST PAIN; Start 09/03/18 at 13:00 Acetaminophen (Tylenol Tab) 650 mg Q6H PRN PO .PAIN 1-3 OR TEMP; Start 09/03/18 at 13:00 Morphine Sulfate (morphine) 2 mg Q4H PRN IV .PAIN 7-10; Start 09/03/18 at 13:00 Docusate Sodium (Colace) 100 mg Q12H PRN PO .CONSTIPATION; Start 09/03/18 at 13:00 Magnesium Hydroxide (Milk Of Mag) 30 ml DAILY PRN PO .CONSTIPATION; Start 09/03/18 at 13:00 Famotidine (Pepcid Iv) 20 mg QHS IV Last administered on 09/11/18 21:03; Admin Dose 20 MG; Start 09/03/18 at 21:00 Miscellaneous Information (Pending [facility] Order For Wound Care) This patient lin... PRN PRN XX WOUND CARE; Start 09/03/18 at 18:00 Acetaminophen (Tylenol Supp) 650 mg Q6H PRN [place] FEVER Last administered on 09/10/18 18:48; Admin Dose 650 MG; Start 09/03/18 at 20:00 Enalaprilat (Vasotec Iv) 0.625 mg Q6H PRN IV ELEVATED BLOOD PRESSURE Last administered on 09/03/18at 20:58; Admin Dose 0.625 MG; Start 09/03/18 at 20:00 Levalbuterol (Xopenex Neb) 0.63 mg Q6H RESP THERAPY HHN Last administered on 09/12/18 13:40; Admin Dose 0.63 MG; Start 09/04/18 at 00:00 Cefepime HCl 50 ml @ 100 mls/hr Q12 IVPB Last administered on 09/12/18 11:25; Admin Dose 100 MLS/HR; Start 09/04/18 at 21:00 Dextrose/Sodium Chloride 1,000 ml @ 50 mls/hr Q20H IV Last administered on 09/12/18at 11:09; Admin Dose 50 MLS/HR; Start 09/12/18 at 10:00 CHRIS ROSARIO Sep 12, 2018 14:11
[2018-09-12] MEDS: POTASSIUM CHLORIDE 100 ML IVPB SCH ×2 (14:27→17:17)
[2018-09-12] MEDS ORDERED: POTASSIUM CHLORIDE 100 ML IVPB SCH (14:30)
--- NOTE | 2018-09-12 15:13 | CONS ---
Assessment/Plan Assessment/Plan Hospital Course (Demo Recall) Patient spiked fever of 102 yesterday she is lethargic and in no distress, on facemask saturating 97%. WBC 2.8 platelets 166 neutrophils 70.1 BUN 19 creatinine 0.57 Microbiology: Urine culture preliminary negative blood culture grew gram- positive cocci in clusters 1 out of 2 sets Antimicrobials: Cefepime Physical examination: This is a fragile chronically ill-appearing elderly woman who is awake in no distress. Head atraumatic normocephalic sclera nonicteric vehicle mucosa dry. Neck is supple chest rise symmetrical breath sounds with scattered crackles. Heart: S1-S2. Abdomen soft bowel sounds present. Extremities with trace edema. Assessment: 1. Severe sepsis, present on admission 2. Bacteremia, cw contaminant 3. Respiratory failure 3. Healthcare associated pneumonia possibly aspiration 4. Acute possibly on chronic kidney disease 5. Anemia 6. DNR Plan: Remains unchanged, overall doing poorly, she is DNR status, will change antibiotics to meropenem given ongoing fevers, repeat cultures and follow chest x-ray in a.m. Consultation Date/Type/Reason Admit Date/Time September 03, 2018 at 06:14 Initial Consult Date Type of Consult id Date/Time of Note DATE: 09/12/18 TIME: 15:13 Exam/Review of Systems Exam Vitals Vital Signs Date Temp Pulse Resp B/P (MAP) Pulse Ox O2 O2 Flow FiO2 Time Delivery Rate 09/12/18 97 15.0 100 13:47 09/12/18 115 0 Non 13:44 Rebreather Mask 09/12/18 119/71 11:41 (87) 09/12/18 99.0 11:06 Intake and Output 09/11/18 09/11/18 09/12/18 1515:00 23:00 07:00 IntakeIntake Total 600 ml OutputOutput Total 1600 ml 750 ml BalanceBalance -1600 ml -150 ml Results Result Diagram: 09/12/18 0617 09/12/18 0617 Results 24hrs Laboratory Tests Test 09/12/18 06:17 White Blood Count 2.8 L Red Blood Count 4.29 Hemoglobin 13.3 Hematocrit 40.6 Mean Corpuscular Volume 94.6 Mean Corpuscular Hemoglobin 31.0 Mean Corpuscular Hemoglobin Concent 32.8 Red Cell Distribution Width 15.0 H Platelet Count 166 Mean Platelet Volume 11.7 H Immature Granulocytes % 1.100 H Neutrophils % 70.1 Lymphocytes % 25.6 Monocytes % 2.8 Eosinophils % 0.0 Basophils % 0.4 Nucleated Red Blood Cells % 0.0 Immature Granulocytes # 0.030 Neutrophils # 2.0 Lymphocytes # 0.7 L Monocytes # 0.1 L Eosinophils # 0.0 Basophils # 0.0 Nucleated Red Blood Cells # 0.0 Sodium Level 137 Potassium Level 3.3 L Chloride Level 110 Carbon Dioxide Level 22 Anion Gap 5 Blood Urea Nitrogen 19 Creatinine 0.57 Est Glomerular Filtrat Rate mL/min Glucose Level 94 Calcium Level 7.9 L Phosphorus Level 3.2 Magnesium Level 1.5 L Medications Medication Current Medications IV Flush (NS 3 ml) 3 ml PER PROTOCOL IV ; Start 09/03/18 at 13:00 Lorazepam (Ativan) 0.5 mg Q6H PRN IV .ANXIETY; Start 09/03/18 at 13:00 Ondansetron HCl (Zofran Inj) 4 mg Q6H PRN IV NAUSEA/VOMITING; Start 09/03/18 at 13:00 Nitroglycerin (Nitroglycerin (Sl Tab) 0.4 Mg) 1 tab Q5M PRN SL .CHEST PAIN; Start 09/03/18 at 13:00 Acetaminophen (Tylenol Tab) 650 mg Q6H PRN PO .PAIN 1-3 OR TEMP; Start 09/03/18 at 13:00 Morphine Sulfate (morphine) 2 mg Q4H PRN IV .PAIN 7-10; Start 09/03/18 at 13:00 Docusate Sodium (Colace) 100 mg Q12H PRN PO .CONSTIPATION; Start 09/03/18 at 13:00 Magnesium Hydroxide (Milk Of Mag) 30 ml DAILY PRN PO .CONSTIPATION; Start 09/03/18 at 13:00 Famotidine (Pepcid Iv) 20 mg QHS IV Last administered on 09/11/18at 21:03; Admin Dose 20 MG; Start 09/03/18 at 21:00 Miscellaneous Information (Pending [facility] Order For Wound Care) This patient lin... PRN PRN XX WOUND CARE; Start 09/03/18 at 18:00 Acetaminophen (Tylenol Supp) 650 mg Q6H PRN [place] FEVER Last administered on 09/10/18at 18:48; Admin Dose 650 MG; Start 09/03/18 at 20:00 Enalaprilat (Vasotec Iv) 0.625 mg Q6H PRN IV ELEVATED BLOOD PRESSURE Last administered on 09/03/18at 20:58; Admin Dose 0.625 MG; Start 09/03/18 at 20:00 Levalbuterol (Xopenex Neb) 0.63 mg Q6H RESP THERAPY HHN Last administered on 09/12/18 13:40; Admin Dose 0.63 MG; Start 09/04/18 at 00:00 Cefepime HCl 50 ml @ 100 mls/hr Q12 IVPB Last administered on 09/12/18 11:25; Admin Dose 100 MLS/HR; Start 09/04/18 at 21:00 Dextrose/Sodium Chloride 1,000 ml @ 50 mls/hr Q20H IV Last administered on 09/12/18 11:09; Admin Dose 50 MLS/HR; Start 09/12/18 at 10:00 GHADA ART NP Sep 12, 2018 15:13
[2018-09-12] MEDS ORDERED: POTASSIUM CHLORIDE 100 ML IVPB ONE (17:00)
[2018-09-12] MEDS: MEROPENEM 1 GM/50ML(PMX) 50 ML IVPB SCH (20:31)
[2018-09-12] MEDS: FAMOTIDINE 20 MG INJ IV SCH (20:31)
[2018-09-13] VITALS (13 sets, daily range): BP systolic 106–154; BP diastolic 60–87; PULSE 68–132; RESP 16–32
[2018-09-13] MEDS: LEVALBUTEROL (NEB) 0.63 MG/3 ML AMP HHN SCH ×4 (01:30→20:50)
--- NOTE | 2018-09-13 05:32 | PN ---
Date/Time of Note Date/Time of Note DATE: 09/13/18 TIME: 05:31 Assessment/Plan VTE Prophylaxis Risk score (from [facility] [place])>0 risk: 6 SCD applied (from [facility] [place]): Yes SCD contraindicated: other Pharmacological prophylaxis: other Pharm contraindication: other Lines/Catheters [facility] Type (from [facility]): Peripheral IV Urinary Cath still in place: Yes Reason Cath still needed: urinary retention Assessment/Plan Assessment/Plan - Hypokalemia- resolved - Sepsis with fever, and elevated lactic acid most likely secondary to pneumonia. Continue antibiotics per ID. Dr. Batista is following in infection disease consultation. - Health care associated pneumonia - Acute respiratory insufficiency. is following in pulmonology consultation. - Hypernatremia, resolved. Dr. Fulton is following in nephrology consultation. - Severe anemia, f/up on stool for OB. - Possible UTI per UA - Acute kidney injury due to dehydration, continue IV fluids. - Severe hypokalemia, status post replacement, resolved. - Bipolar disorder. - Bedbound status - Hx Gout - Hx of hemorrhoidectomy. - Protein calorie malnutrition - DNR/DNI status Further recommendations based on clinical course. Plan of care is discussed with Dr. Wyman. Result Diagram: 09/12/18 0617 09/12/18 0617 Results 24hrs Laboratory Tests Test 09/12/18 06:17 09/12/18 20:30 White Blood Count 2.8 L Red Blood Count 4.29 Hemoglobin 13.3 Hematocrit 40.6 Mean Corpuscular Volume 94.6 Mean Corpuscular Hemoglobin 31.0 Mean Corpuscular Hemoglobin Concent 32.8 Red Cell Distribution Width 15.0 H Platelet Count 166 Mean Platelet Volume 11.7 H Immature Granulocytes % 1.100 H Neutrophils % 70.1 Lymphocytes % 25.6 Monocytes % 2.8 Eosinophils % 0.0 Basophils % 0.4 Nucleated Red Blood Cells % 0.0 Immature Granulocytes # 0.030 Neutrophils # 2.0 Lymphocytes # 0.7 L Monocytes # 0.1 L Eosinophils # 0.0 Basophils # 0.0 Nucleated Red Blood Cells # 0.0 Sodium Level 137 Potassium Level 3.3 L Chloride Level 110 Carbon Dioxide Level 22 Anion Gap 5 Blood Urea Nitrogen 19 Creatinine 0.57 Est Glomerular Filtrat Rate mL/min Glucose Level 94 Calcium Level 7.9 L Phosphorus Level 3.2 Magnesium Level 1.5 L Bedside Glucose 85 Subjective 24 Hr Interval Summary Free Text/Dictation nad alert seems comfortable on supplement oxygen via no rebreather mask no events reported last night Constitutional: requiring O2 Exam/Review of Systems Exam Vitals Vital Signs Date Temp Pulse Resp B/P (MAP) Pulse Ox O2 O2 Flow FiO2 Time Delivery Rate 09/13/18 97.9 110 16 108/66 99 05:02 (80) 09/13/18 Non 15.0 01:30 Rebreather Mask 09/13/18 100 01:23 Intake and Output 09/12/18 09/12/18 09/13/18 1515:00 23:00 07:00 IntakeIntake Total 100 ml 100 ml OutputOutput Total 1000 ml BalanceBalance 100 ml -900 ml Constitutional: alert, frail Psych: nl mood/affect Eyes: nl lids, nl sclera ENMT: nl external ears & nose Neck: non-tender Respiratory: clear to auscultation Cardiovascular: nl pulses, other (s1s2) Gastrointestinal: soft, non-tender Musculoskeletal: muscle weakness Neurological: confused Skin: other Lymph: nontender Results Results 24hrs Laboratory Tests Test 09/12/18 06:17 09/12/18 20:30 White Blood Count 2.8 L Red Blood Count 4.29 Hemoglobin 13.3 Hematocrit 40.6 Mean Corpuscular Volume 94.6 Mean Corpuscular Hemoglobin 31.0 Mean Corpuscular Hemoglobin Concent 32.8 Red Cell Distribution Width 15.0 H Platelet Count 166 Mean Platelet Volume 11.7 H Immature Granulocytes % 1.100 H Neutrophils % 70.1 Lymphocytes % 25.6 Monocytes % 2.8 Eosinophils % 0.0 Basophils % 0.4 Nucleated Red Blood Cells % 0.0 Immature Granulocytes # 0.030 Neutrophils # 2.0 Lymphocytes # 0.7 L Monocytes # 0.1 L Eosinophils # 0.0 Basophils # 0.0 Nucleated Red Blood Cells # 0.0 Sodium Level 137 Potassium Level 3.3 L Chloride Level 110 Carbon Dioxide Level 22 Anion Gap 5 Blood Urea Nitrogen 19 Creatinine 0.57 Est Glomerular Filtrat Rate mL/min Glucose Level 94 Calcium Level 7.9 L Phosphorus Level 3.2 Magnesium Level 1.5 L Bedside Glucose 85 Medications Medication Current Medications IV Flush (NS 3 ml) 3 ml PER PROTOCOL IV ; Start 09/03/18 at 13:00 Lorazepam (Ativan) 0.5 mg Q6H PRN IV .ANXIETY; Start 09/03/18 at 13:00 Ondansetron HCl (Zofran Inj) 4 mg Q6H PRN IV NAUSEA/VOMITING; Start 09/03/18 at 13:00 Nitroglycerin (Nitroglycerin (Sl Tab) 0.4 Mg) 1 tab Q5M PRN SL .CHEST PAIN; Start 09/03/18 at 13:00 Acetaminophen (Tylenol Tab) 650 mg Q6H PRN PO .PAIN 1-3 OR TEMP; Start 09/03/18 at 13:00 Morphine Sulfate (morphine) 2 mg Q4H PRN IV .PAIN 7-10; Start 09/03/18 at 13:00 Docusate Sodium (Colace) 100 mg Q12H PRN PO .CONSTIPATION; Start 09/03/18 at 13:00 Magnesium Hydroxide (Milk Of Mag) 30 ml DAILY PRN PO .CONSTIPATION; Start 09/03/18 at 13:00 Famotidine (Pepcid Iv) 20 mg QHS IV Last administered on 09/12/18at 20:31; Admin Dose 20 MG; Start 09/03/18 at 21:00 Miscellaneous Information (Pending [facility] Order For Wound Care) This patient lin... PRN PRN XX WOUND CARE; Start 09/03/18 at 18:00 Acetaminophen (Tylenol Supp) 650 mg Q6H PRN [place] FEVER Last administered on 09/10/18 18:48; Admin Dose 650 MG; Start 09/03/18 at 20:00 Enalaprilat (Vasotec Iv) 0.625 mg Q6H PRN IV ELEVATED BLOOD PRESSURE Last administered on 09/03/18at 20:58; Admin Dose 0.625 MG; Start 09/03/18 at 20:00 Levalbuterol (Xopenex Neb) 0.63 mg Q6H RESP THERAPY HHN Last administered on 09/13/18 01:30; Admin Dose 0.63 MG; Start 09/04/18 at 00:00 Dextrose/Sodium Chloride 1,000 ml @ 50 mls/hr Q20H IV Last administered on 09/12/18 11:09; Admin Dose 50 MLS/HR; Start 09/12/18 at 10:00 Meropenem/Sodium Chloride 50 ml @ 100 mls/hr Q12 IVPB Last administered on 09/12/18at 20:31; Admin Dose 100 MLS/HR; Start 09/12/18 at 21:00 BIJAN TERRAZAS Sep 13, 2018 05:31
[2018-09-13] MEDS: DEXTROSE 5%-0.45% NACL 1,000 ML IV SCH ×2 (06:00→19:59)
[2018-09-13] MEDS: MEROPENEM 1 GM/50ML(PMX) 50 ML IVPB SCH ×2 (09:06→19:59)
[2018-09-13] MEDS: BALSAM PERU/CASTOR OIL 60 GM TUBE TOP SCH ×2 (09:07→20:00)
--- NOTE | 2018-09-13 10:07 | PN ---
DATE: 09/13/2018 SUBJECTIVE: The patient is in serious condition. On facemask. No other changes noted. OBJECTIVE: VITAL SIGNS: Blood pressure is 108/66, respirations 16, pulse 110, temperature 97.9. HEENT: Head is normocephalic. NECK: Supple. HEART: Regular rate. LUNGS: Show diminished breath sounds at the base. ABDOMEN: Soft, nontender to palpation. No rebound or guarding. EXTREMITIES: Negative for clubbing, cyanosis. Trace edema. DERMATOLOGIC: No rashes. MUSCULOSKELETAL: No joint effusion. NEUROLOGIC: No change in exam. MEDICATIONS: Have been reviewed. LABORATORY DATA: Has been reviewed. Laboratory data is currently pending. ASSESSMENT AND PLAN: 1. Nonoliguric acute kidney injury with unknown baseline creatinine. Etiology is secondary to hemod ynamics. Renal function is improved. Continue current treatment plans, supportive care, renally dos e all meds. 2. Hypernatremia, improved. Continue to monitor. 3. Volume overload. Etiology is likely due to third spacing. Continue intermittent diuretic therap y. 4. Hypokalemia and hypomagnesemia. Continue to monitor and replete. 5. Mineral bone disorder, monitor calcium and phosphorus levels. 6. Sepsis secondary to pneumonia bacteremia. Continue current antibiotic regimen. 7. Acute encephalopathy on top of dementia, etiology is toxic metabolic. 8. Acute hypoxic respiratory failure secondary to pneumonia, congestive heart failure. The patient remains on facemask. Will continue. Follow with pulmonary. 9. Anemia. Monitor hemoglobin and hematocrit levels. 10. History of bipolar disorder. Dictated By: SANDRA REGALADO/NTS Conf#: [id number] DID#: [id number] CC: MAIKEL THOMPSON MD;*EndCC*
--- NOTE | 2018-09-13 14:00 | CONS ---
Consult Date/Type/Reason Admit Date/Time September 03, 2018 at 06:14 Initial Consult Date Type of Consult Pulmonary Date/Time of Note DATE: 09/13/18 TIME: 13:59 Subjective Patient more alert this morning. Less dyspnea. Objective Vital Signs Date Temp Pulse Resp B/P (MAP) Pulse Ox O2 O2 Flow FiO2 Time Delivery Rate 09/13/18 98 15.0 100 13:30 09/13/18 115 20 Non 13:28 Rebreather Mask 09/13/18 97.6 138/85 11:41 (102) Intake and Output 09/12/18 09/12/18 09/13/18 1515:00 23:00 07:00 IntakeIntake Total 100 ml 150 ml 600 ml OutputOutput Total 1000 ml 800 ml BalanceBalance 100 ml -850 ml -200 ml Exam NECK: Supple. No JVD or lymphadenopathy. CARDIAC: S1, S2. No added sounds or murmurs. CHEST: Diminished air entry bilaterally. Coarse BS b/l ABDOMEN: Soft, nontender. No guarding or rebound. EXTREMITIES: No cyanosis, clubbing. 1+ edema. NEUROLOGIC: Grossly intact. No focal deficits. Vent Setting Fraction of Inspired Oxygen pe: 100 Results/Medications Result Diagram: 09/12/18 0617 09/13/18 0812 Results 24 hrs Laboratory Tests Test 09/12/18 20:30 09/13/18 08:12 Bedside Glucose 85 Sodium Level 140 Potassium Level 4.3 Chloride Level 111 H Carbon Dioxide Level 23 Anion Gap 6 Blood Urea Nitrogen 22 H Creatinine 0.58 Est Glomerular Filtrat Rate mL/min Glucose Level 101 Calcium Level 8.1 L Phosphorus Level 3.1 Magnesium Level 2.0 Medications Current Medications IV Flush (NS 3 ml) 3 ml PER PROTOCOL IV ; Start 09/03/18 at 13:00 Lorazepam (Ativan) 0.5 mg Q6H PRN IV .ANXIETY; Start 09/03/18 at 13:00 Ondansetron HCl (Zofran Inj) 4 mg Q6H PRN IV NAUSEA/VOMITING; Start 09/03/18 at 13:00 Nitroglycerin (Nitroglycerin (Sl Tab) 0.4 Mg) 1 tab Q5M PRN SL .CHEST PAIN; St art 09/03/18 at 13:00 Acetaminophen (Tylenol Tab) 650 mg Q6H PRN PO .PAIN 1-3 OR TEMP; Start 09/03/18 at 13:00 Morphine Sulfate (morphine) 2 mg Q4H PRN IV .PAIN 7-10; Start 09/03/18 at 13:00 Docusate Sodium (Colace) 100 mg Q12H PRN PO .CONSTIPATION; Start 09/03/18 at 13:00 Magnesium Hydroxide (Milk Of Mag) 30 ml DAILY PRN PO .CONSTIPATION; Start 09/03/18 at 13:00 Famotidine (Pepcid Iv) 20 mg QHS IV Last administered on 09/12/18at 20:31; Admin Dose 20 MG; Start 09/03/18 at 21:00 Miscellaneous Information (Pending [facility] Order For Wound Care) This patient lin... PRN PRN XX WOUND CARE; Start 09/03/18 at 18:00 Acetaminophen (Tylenol Supp) 650 mg Q6H PRN [place] FEVER Last administered on 09/10/18 18:48; Admin Dose 650 MG; Start 09/03/18 at 20:00 Enalaprilat (Vasotec Iv) 0.625 mg Q6H PRN IV ELEVATED BLOOD PRESSURE Last administered on 09/03/18at 20:58; Admin Dose 0.625 MG; Start 09/03/18 at 20:00 Levalbuterol (Xopenex Neb) 0.63 mg Q6H RESP THERAPY HHN Last administered on 09/13/18 13:16; Admin Dose 0.63 MG; Start 09/04/18 at 00:00 Dextrose/Sodium Chloride 1,000 ml @ 50 mls/hr Q20H IV Last administered on 09/12/18at 11:09; Admin Dose 50 MLS/HR; Start 09/12/18 at 10:00 Meropenem/Sodium Chloride 50 ml @ 100 mls/hr Q12 IVPB Last administered on 09/13/18 09:06; Admin Dose 100 MLS/HR; Start 09/12/18 at 21:00 Assessment/Plan Hospital Course (Demo Recall) IMPRESSION 1. Possible early healthcare-associated pneumonia versus aspiration pneumonia. 2. Advanced dementia. 3. Significant anemia, possibly of chronic disease. 4. Dehydration with hypernatremia. 5. Deep venous thrombosis and gastrointestinal prophylaxis. 6. Dementia with dysphagia. RECOMMENDATIONS: 1. Continue to monitor H and H. 2. Antibiotics per ID. 3. Aspiration precautions. 4. Decrease supplemental O2 as tolerated. 5. Discussion of goals of care with family. 6. Continue free water for hypernatremia Consider transfer to [facility] [place]. Consider hospice eval. Discussed with primary team. GUALBERTO AGUILAR MD, [facility] Sep 13, 2018 14:00
--- NOTE | 2018-09-13 18:58 | CONS ---
Assessment/Plan Assessment/Plan Hospital Course (Demo Recall) 1100 Patient is noncommunicative remains on facemask, no fevers overnight Microbiology: Urine culture preliminary negative blood culture grew gram- positive cocci in clusters 1 out of 2 sets Antimicrobials: Merrem Physical examination: This is a fragile chronically ill-appearing elderly woman who is awake in no distress. Head atraumatic normocephalic sclera nonicteric vehicle mucosa dry. Neck is supple chest rise symmetrical breath sounds with scattered crackles. Heart: S1-S2. Abdomen soft bowel sounds present. Extremities with trace edema. Assessment: 1. Severe sepsis, present on admission 2. Bacteremia, cw contaminant 3. Respiratory failure likely ongoing aspiration secondary to secretion retention 3. Healthcare associated pneumonia 4. Acute possibly on chronic kidney disease 5. Anemia 6. DNR Plan: Doing poorly, agree with hospice eval Consultation Date/Type/Reason Admit Date/Time September 03, 2018 at 06:14 Initial Consult Date Type of Consult id Date/Time of Note DATE: 09/13/18 TIME: 18:56 Exam/Review of Systems Exam Vitals Vital Signs Date Temp Pulse Resp B/P (MAP) Pulse Ox O2 O2 Flow FiO2 Time Delivery Rate 09/13/18 15.0 100 17:40 09/13/18 132 16:34 09/13/18 Non 16:20 Rebreather 09/13/18 99.0 32 106/86 94 16:17 (93) Intake and Output 09/12/18 09/12/18 09/13/18 1515:00 23:00 07:00 IntakeIntake Total 100 ml 150 ml 600 ml OutputOutput Total 1000 ml 800 ml BalanceBalance 100 ml -850 ml -200 ml Results Result Diagram: 09/12/18 0617 09/13/18 0812 Results 24hrs Laboratory Tests Test 09/12/18 20:30 09/13/18 08:12 Bedside Glucose 85 Sodium Level 140 Potassium Level 4.3 Chloride Level 111 H Carbon Dioxide Level 23 Anion Gap 6 Blood Urea Nitrogen 22 H Creatinine 0.58 Est Glomerular Filtrat Rate mL/min Glucose Level 101 Calcium Level 8.1 L Phosphorus Level 3.1 Magnesium Level 2.0 Medications Medication Current Medications IV Flush (NS 3 ml) 3 ml PER PROTOCOL IV ; Start 09/03/18 at 13:00 Lorazepam (Ativan) 0.5 mg Q6H PRN IV .ANXIETY; Start 09/03/18 at 13:00 Ondansetron HCl (Zofran Inj) 4 mg Q6H PRN IV NAUSEA/VOMITING; Start 09/03/18 at 13:00 Nitroglycerin (Nitroglycerin (Sl Tab) 0.4 Mg) 1 tab Q5M PRN SL .CHEST PAIN; Start 09/03/18 at 13:00 Acetaminophen (Tylenol Tab) 650 mg Q6H PRN PO .PAIN 1-3 OR TEMP; Start 09/03/18 at 13:00 Morphine Sulfate (morphine) 2 mg Q4H PRN IV .PAIN 7-10; Start 09/03/18 at 13:00 Docusate Sodium (Colace) 100 mg Q12H PRN PO .CONSTIPATION; Start 09/03/18 at 13:00 Magnesium Hydroxide (Milk Of Mag) 30 ml DAILY PRN PO .CONSTIPATION; Start 09/03/18 at 13:00 Famotidine (Pepcid Iv) 20 mg QHS IV Last administered on 09/12/18at 20:31; Admin Dose 20 MG; Start 09/03/18 at 21:00 [facility] This patient lin... PRN PRN XX WOUND CARE; Start 09/03/18 at 18:00 Acetaminophen (Tylenol Supp) 650 mg Q6H PRN [place] FEVER Last administered on 09/10/18at 18:48; Admin Dose 650 MG; Start 09/03/18 at 20:00 Enalaprilat (Vasotec Iv) 0.625 mg Q6H PRN IV ELEVATED BLOOD PRESSURE Last administered on 09/03/18at 20:58; Admin Dose 0.625 MG; Start 09/03/18 at 20:00 Levalbuterol (Xopenex Neb) 0.63 mg Q6H RESP THERAPY HHN Last administered on 09/13/18at 13:16; Admin Dose 0.63 MG; Start 09/04/18 at 00:00 Dextrose/Sodium Chloride 1,000 ml @ 50 mls/hr Q20H IV Last administered on 09/12/18at 11:09; Admin Dose 50 MLS/HR; Start 09/12/18 at 10:00 Meropenem/Sodium Chloride 50 ml @ 100 mls/hr Q12 IVPB Last administered on 09/13/18at 09:06; Admin Dose 100 MLS/HR; Start 09/12/18 at 21:00 GHADA ART NP Sep 13, 2018 18:58
[2018-09-13] MEDS: FAMOTIDINE 20 MG INJ IV SCH (19:59)
[2018-09-14] VITALS (10 sets, daily range): BP systolic 106–163; BP diastolic 64–99; PULSE 85–134; RESP 20–24
[2018-09-14] MEDS: LEVALBUTEROL (NEB) 0.63 MG/3 ML AMP HHN SCH ×4 (01:43→19:46)
[2018-09-14] MEDS: DEXTROSE 5%-0.45% NACL 1,000 ML IV SCH ×2 (02:00→16:25)
[2018-09-14] MEDS: MEROPENEM 1 GM/50ML(PMX) 50 ML IVPB SCH ×2 (08:41→20:10)
[2018-09-14] MEDS: BALSAM PERU/CASTOR OIL 60 GM TUBE TOP SCH ×2 (08:45→20:11)
--- NOTE | 2018-09-14 09:13 | PN ---
DATE: 09/14/2018 SUBJECTIVE: The patient remains in serious condition on high flow oxygen. OBJECTIVE: VITAL SIGNS: Blood pressure is 153/82, respirations 24, pulse 110, temperature 97.8. HEENT: Head is normocephalic. NECK: Supple. HEART: Regular rate. LUNGS: Show diminished breath sounds at the base. ABDOMEN: Soft, nontender to palpation. No rebound or guarding. EXTREMITIES: Negative for clubbing, cyanosis, no edema. DERMATOLOGIC: No rashes. MUSCULOSKELETAL: No joint effusion. NEUROLOGIC: No change in exam. MEDICATIONS: The patient's medications have been reviewed. LABORATORY DATA: Has been reviewed. IMAGING STUDIES: Have been reviewed. ASSESSMENT AND PLAN: 1. Nonoliguric acute kidney injury with unknown baseline creatinine. Etiology is secondary to hemod ynamics. The patient's renal function has improved. Continue current treatment plan, supportive car e, renally dose all meds. 2. Hypernatremia, improved. Continue to monitor. 3. Volume overload. Etiology second and third spacing, improved. Continue intermittent diuretic th erapy as needed. 4. Hypokalemia and hypomagnesemia. Continue to monitor and replete as needed. 5. Mineral bone disorder, monitor calcium and phosphorus levels. 6. Sepsis secondary to pneumonia bacteremia. Continue current antibiotic regimen. 7. Acute encephalopathy on top of dementia, etiology is toxic metabolic. 8. Acute hypoxemic respiratory failure secondary to pneumonia, CHF. The patient remains on oxyg en. We will continue. Follow with pulmonary. Continue nebulizers. 9. Anemia. Monitor hemoglobin and hematocrit levels. 10. History of bipolar disorder. Dictated By: SANDRA AGUIRRE DO NR/NTS Conf#: [id number] DID#: [id number] CC: GUALBERTO AGUILAR MD; MAIKEL THOMPSON MD;*EndCC*
--- NOTE | 2018-09-14 10:41 | CONS ---
Assessment/Plan Assessment/Plan Assessment/Plan (Daily) Assessment and recommendations; 1. Patient admitted with bilateral pneumonia currently on appropriate antimicrobial regimen. Patient remains persistently severely hypoxemic. 2. Encephalopathy with interval improvement. 3. Interval improvement in hypernatremia. 4. Chronic renal insufficiency. 5. Thrombocytopenia. Continue with supportive care. Prognosis is poor. Consultation Date/Type/Reason Admit Date/Time September 03, 2018 at 06:14 Initial Consult Date Type of Consult Pulmonary Patient condition is tenuous. Still on 100% nonrebreather mask. General exam; elderly female, awake and appropriately responsive. Appearing mildly tachypneic. Date/Time of Note DATE: 09/14/18 TIME: 10:38 24 HR Interval Summary Free Text/Dictation Patient's condition is tenuous. 100% FiO2 via high flow nasal cannula. Patient however is more awake and appropriately responsive. General exam; elderly female, on high flow nasal cannula. Awake, mildly tachypneic. Exam/Review of Systems Exam Vitals Vital Signs Date Temp Pulse Resp B/P (MAP) Pulse Ox O2 O2 Flow FiO2 Time Delivery Rate 09/14/18 97 08:00 09/14/18 97.8 24 153/82 96 High Flow 08:00 (105) 09/14/18 100 05:47 09/13/18 15.0 21:00 Intake and Output 09/13/18 09/13/18 09/14/18 1515:00 23:00 07:00 IntakeIntake Total 300 ml BalanceBalance 300 ml Exam H ENT exam; supple neck, no JVD. No lymphadenopathy. Midline trachea. No thyromegaly. Patient has multiple carious teeth. Chest exam; diminished breath sounds bilaterally. S1-S2 audible, no murmurs. Abdomen exam; soft, scaphoid. No organomegaly. Bowel sounds audible. Nontender. Extremity exam; no peripheral edema clubbing. [employer] exam; is awake and appropriately responsive. Exhibiting severe generalized weakness. Results Result Diagram: 09/14/18 0738 09/14/18 0738 Results 24hrs Laboratory Tests Test 09/14/18 07:38 White Blood Count 3.2 L Red Blood Count 4.00 L Hemoglobin 12.4 Hematocrit 38.3 Mean Corpuscular Volume 95.8 Mean Corpuscular Hemoglobin 31.0 Mean Corpuscular Hemoglobin Concent 32.4 Red Cell Distribution Width 15.2 H Platelet Count 140 Mean Platelet Volume 12.1 H Immature Granulocytes % 1.200 H Neutrophils % Lymphocytes % Monocytes % Eosinophils % Basophils % Nucleated Red Blood Cells % 0.0 Immature Granulocytes # 0.040 H Neutrophils # Lymphocytes # Monocytes # Eosinophils # Basophils # Nucleated Red Blood Cells # Sodium Level 140 Potassium Level 4.0 Chloride Level 113 H Carbon Dioxide Level 20 L Anion Gap 7 Blood Urea Nitrogen 20 Creatinine 0.37 L Est Glomerular Filtrat Rate mL/min Glucose Level 93 Calcium Level 7.7 L Phosphorus Level 2.4 L Magnesium Level 1.8 Medications Medication Current Medications IV Flush (NS 3 ml) 3 ml PER PROTOCOL IV ; Start 09/03/18 at 13:00 Lorazepam (Ativan) 0.5 mg Q6H PRN IV .ANXIETY; Start 09/03/18 at 13:00 Ondansetron HCl (Zofran Inj) 4 mg Q6H PRN IV NAUSEA/VOMITING; Start 09/03/18 at 13:00 Nitroglycerin (Nitroglycerin (Sl Tab) 0.4 Mg) 1 tab Q5M PRN SL .CHEST PAIN; Start 09/03/18 at 13:00 Acetaminophen (Tylenol Tab) 650 mg Q6H PRN PO .PAIN 1-3 OR TEMP; Start 09/03/18 at 13:00 Morphine Sulfate (morphine) 2 mg Q4H PRN IV .PAIN 7-10; Start 09/03/18 at 13:00 Docusate Sodium (Colace) 100 mg Q12H PRN PO .CONSTIPATION; Start 09/03/18 at 13:00 Magnesium Hydroxide (Milk Of Mag) 30 ml DAILY PRN PO .CONSTIPATION; Start 09/03/18 at 13:00 Famotidine (Pepcid Iv) 20 mg QHS IV Last administered on 09/13/18at 19:59; Admin Dose 20 MG; Start 09/03/18 at 21:00 Miscellaneous Information (Pending [facility] Order For Wound Care) This patient lin... PRN PRN XX WOUND CARE; Start 09/03/18 at 18:00 Acetaminophen (Tylenol Supp) 650 mg Q6H PRN [place] FEVER Last administered on 09/10/18at 18:48; Admin Dose 650 MG; Start 09/03/18 at 20:00 Enalaprilat (Vasotec Iv) 0.625 mg Q6H PRN IV ELEVATED BLOOD PRESSURE Last administered on 09/03/18at 20:58; Admin Dose 0.625 MG; Start 09/03/18 at 20:00 Levalbuterol (Xopenex Neb) 0.63 mg Q6H RESP THERAPY HHN Last administered on 09/14/18 08:19; Admin Dose 0.63 MG; Start 09/04/18 at 00:00 Dextrose/Sodium Chloride 1,000 ml @ 50 mls/hr Q20H IV Last administered on 09/13/18at 19:59; Admin Dose 50 MLS/HR; Start 09/12/18 at 10:00 Meropenem/Sodium Chloride 50 ml @ 100 mls/hr Q12 IVPB Last administered on 09/14/18 08:41; Admin Dose 100 MLS/HR; Start 09/12/18 at 21:00 CASSANDRA HONG Sep 14, 2018 10:41
--- NOTE | 2018-09-14 12:54 | CONS ---
Assessment/Plan Assessment/Plan Hospital Course (Demo Recall) ID PROGRESS NOTE CURRENT ABX: DAY # =>Merrem 09/14/18 0738 09/14/18 0738 24H INTERVAL SUMMARY * Awake, alert, mild labored breathing on O2 via NC, left eye ptosis, no fevers, VSS * Currently in process bedside BUEXT US -- generalized edema, BUEXTBLEXT, foot drop, patient is noncommunicative IMAGING: * 09/13/18 CXR: IMPRESSION:Slightly improving right lower lobe infiltrate and right pleural effusion.Unchanged left perihilar and left lower lobe infiltrate and left pleural effusion.No other significant change. MICRO/OTHER * Microbiology: Urine culture preliminary negative blood culture grew gram- positive cocci in clusters 1 out of 2 sets, repeat BCx (-) PHYSICAL EXAMINATION: GENERAL: VSS, NAD HEENT: AT, NC, anicteric, left eye ptosis NECK: Supple, CHEST: Equal chest rise bilaterally, mild labored breathing w/sternal retractions on O2 via NC HEART: Pulse RRR ABDOMEN: Soft : deferred EXTREMITIES: Warm, dry , generalized mild puffy edema x 4 extremities SKIN: No rash, no diaphoresis ID ASSESSMENT 77 yo F admit with: 1. Severe sepsis, present on admission=> resolved 2. Bacteremia, c/w contaminant 3. Respiratory failure likely ongoing aspiration secondary to secretion retention 3. Healthcare associated pneumonia 4. Acute possibly on chronic kidney disease 5. Anemia 6. DNR ABX ALLERGIES: None to ABX INVASIVES: PIV CURRENT ABX: DAY # => Merrem ID RECOMMENDATIONS/PLAN: 1. Continue Merrem for ASP PNA 2. Pulmonary toilet, asp precautions. . Consultation Date/Type/Reason Admit Date/Time September 03, 2018 at 06:14 Initial Consult Date Date/Time of Note DATE: 09/14/18 TIME: 12:53 Exam/Review of Systems Exam Vitals Vital Signs Date Temp Pulse Resp B/P (MAP) Pulse Ox O2 O2 Flow FiO2 Time Delivery Rate 09/14/18 98.4 85 22 114/68 93 High Flow 11:59 (83) 09/14/18 100 05:47 09/13/18 15.0 21:00 Intake and Output 09/13/18 09/13/18 09/14/18 1515:00 23:00 07:00 IntakeIntake Total 300 ml BalanceBalance 300 ml Results Result Diagram: 09/14/18 0738 09/14/18 0738 Results 24hrs Laboratory Tests Test 09/14/18 07:38 White Blood Count 3.2 L Red Blood Count 4.00 L Hemoglobin 12.4 Hematocrit 38.3 Mean Corpuscular Volume 95.8 Mean Corpuscular Hemoglobin 31.0 Mean Corpuscular Hemoglobin Concent 32.4 Red Cell Distribution Width 15.2 H Platelet Count 140 Mean Platelet Volume 12.1 H Immature Granulocytes % 1.200 H Neutrophils % Lymphocytes % Monocytes % Eosinophils % Basophils % Nucleated Red Blood Cells % 0.0 Immature Granulocytes # 0.040 H Neutrophils # Lymphocytes # Monocytes # Eosinophils # Basophils # Nucleated Red Blood Cells # Sodium Level 140 Potassium Level 4.0 Chloride Level 113 H Carbon Dioxide Level 20 L Anion Gap 7 Blood Urea Nitrogen 20 Creatinine 0.37 L Est Glomerular Filtrat Rate mL/min Glucose Level 93 Calcium Level 7.7 L Phosphorus Level 2.4 L Magnesium Level 1.8 Medications Medication Current Medications IV Flush (NS 3 ml) 3 ml PER PROTOCOL IV ; Start 09/03/18 at 13:00 Lorazepam (Ativan) 0.5 mg Q6H PRN IV .ANXIETY; Start 09/03/18 at 13:00 Ondansetron HCl (Zofran Inj) 4 mg Q6H PRN IV NAUSEA/VOMITING; Start 09/03/18 at 13:00 Nitroglycerin (Nitroglycerin (Sl Tab) 0.4 Mg) 1 tab Q5M PRN SL .CHEST PAIN; Start 09/03/18 at 13:00 Acetaminophen (Tylenol Tab) 650 mg Q6H PRN PO .PAIN 1-3 OR TEMP; Start 09/03/18 at 13:00 Morphine Sulfate (morphine) 2 mg Q4H PRN IV .PAIN 7-10; Start 09/03/18 at 13:00 Docusate Sodium (Colace) 100 mg Q12H PRN PO .CONSTIPATION; Start 09/03/18 at 13:00 Magnesium Hydroxide (Milk Of Mag) 30 ml DAILY PRN PO .CONSTIPATION; Start 09/03/18 at 13:00 Famotidine (Pepcid Iv) 20 mg QHS IV Last administered on 09/13/18at 19:59; Admin Dose 20 MG; Start 09/03/18 at 21:00 Miscellaneous Information (Pending [facility] Order For Wound Care) This patient lin... PRN PRN XX WOUND CARE; Start 09/03/18 at 18:00 Acetaminophen (Tylenol Supp) 650 mg Q6H PRN [place] FEVER Last administered on 09/10/18 18:48; Admin Dose 650 MG; Start 09/03/18 at 20:00 Enalaprilat (Vasotec Iv) 0.625 mg Q6H PRN IV ELEVATED BLOOD PRESSURE Last administered on 09/03/18 20:58; Admin Dose 0.625 MG; Start 09/03/18 at 20:00 Levalbuterol (Xopenex Neb) 0.63 mg Q6H RESP THERAPY HHN Last administered on 09/14/18 08:19; Admin Dose 0.63 MG; Start 09/04/18 at 00:00 Dextrose/Sodium Chloride 1,000 ml @ 50 mls/hr Q20H IV Last administered on 09/13/18 19:59; Admin Dose 50 MLS/HR; Start 09/12/18 at 10:00 Meropenem/Sodium Chloride 50 ml @ 100 mls/hr Q12 IVPB Last administered on 09/14/18 08:41; Admin Dose 100 MLS/HR; Start 09/12/18 at 21:00 TRISTON COCHRAN NP Sep 14, 2018 12:54
[2018-09-14] MEDS: FAMOTIDINE 20 MG INJ IV SCH (20:10)
[2018-09-15] VITALS (12 sets, daily range): BP systolic 109–173; BP diastolic 62–96; PULSE 73–121; RESP 18–22
[2018-09-15] MEDS: LEVALBUTEROL (NEB) 0.63 MG/3 ML AMP HHN SCH ×4 (01:49→21:22)
[2018-09-15] MEDS ORDERED: POTASSIUM PHOSPHATE 20 MEQ in SOD CHLORIDE 0.9% 250 ML IVPB ONE (08:00)
[2018-09-15] MEDS ORDERED: FUROSEMIDE 20 MG INJ IV ONE (08:00)
[2018-09-15] MEDS: BALSAM PERU/CASTOR OIL 60 GM TUBE TOP SCH ×2 (08:19→20:25)
[2018-09-15] MEDS: MEROPENEM 1 GM/50ML(PMX) 50 ML IVPB SCH ×2 (08:19→20:25)
--- NOTE | 2018-09-15 08:40 | PN ---
Date/Time of Note Date/Time of Note DATE: 09/15/18 TIME: 08:40 Assessment/Plan VTE Prophylaxis Risk score (from [facility] [place]0 risk: 9 SCD applied (from [facility] [place]): Yes SCD contraindicated: other Pharmacological prophylaxis: other Pharm contraindication: other Lines/Catheters [facility] Peripheral IV Urinary Cath still in place: Yes Reason Cath still needed: urinary retention Assessment/Plan Assessment/Plan - Hypokalemia- resolved - Sepsis with fever, and elevated lactic acid most likely secondary to pneumonia. Continue antibiotics per ID. Dr. Batista is following in infection disease consultation. - Health care associated pneumonia - Acute respiratory insufficiency. is following in pulmonology consultation. - Hypernatremia, resolved. Dr. Fulton is following in nephrology consultation. - Severe anemia, f/up on stool for OB. - Possible UTI per UA - Acute kidney injury due to dehydration, continue IV fluids. - Severe hypokalemia, status post replacement, resolved. - Bipolar disorder. - Bedbound status - Hx Gout - Hx of hemorrhoidectomy. - Protein calorie malnutrition - DNR/DNI status Further recommendations based on clinical course. Plan of care is discussed with Dr. Wyman. Result Diagram: 09/15/18 0603 09/15/18 0603 Results 24hrs Laboratory Tests Test 09/15/18 06:00 09/15/18 06:03 Phosphorus Level 2.1 L Magnesium Level 1.7 White Blood Count 4.4 #L Red Blood Count 3.91 L Hemoglobin 11.9 L Hematocrit 37.2 Mean Corpuscular Volume 95.1 Mean Corpuscular Hemoglobin 30.4 Mean Corpuscular Hemoglobin Concent 32.0 Red Cell Distribution Width 15.3 H Platelet Count 139 L Mean Platelet Volume 12.2 H Immature Granulocytes % 0.700 H Neutrophils % Lymphocytes % Monocytes % Eosinophils % Basophils % Nucleated Red Blood Cells % 0.0 Immature Granulocytes # 0.030 Neutrophils # Lymphocytes # Monocytes # Eosinophils # Basophils # Nucleated Red Blood Cells # Sodium Level 139 Potassium Level 3.7 Chloride Level 113 H Carbon Dioxide Level 22 Anion Gap 4 L Blood Urea Nitrogen 17 Creatinine 0.41 L Est Glomerular Filtrat Rate mL/min Glucose Level 102 Calcium Level 7.9 L Subjective 24 Hr Interval Summary Free Text/Dictation Late Entry- 09/14/2018 NAD Afebrile; VSS No new events reported last night SNF transfer when stable dw staff Exam/Review of Systems Exam Vitals Vital Signs Date Temp Pulse Resp B/P (MAP) Pulse Ox O2 O2 Flow FiO2 Time Delivery Rate 09/15/18 98 20 93 Nasal 100 07:53 Cannula 09/15/18 98.7 145/87 07:48 (106) 09/13/18 15.0 21:00 Intake and Output 09/14/18 09/14/18 09/15/18 1515:00 23:00 07:00 IntakeIntake Total 1425 ml OutputOutput Total 100 ml 450 ml BalanceBalance 1325 ml -450 ml Constitutional: alert, non-verbal, frail Psych: nl mood/affect Head: normocephalic Eyes: nl lids, nl sclera ENMT: nl external ears & nose Neck: non-tender Respiratory: clear to auscultation Cardiovascular: nl pulses, other Gastrointestinal: soft, other (gt intact) Musculoskeletal: muscle weakness Extremities: normal pulses Neurological: confused Results Results 24hrs Laboratory Tests Test 09/15/18 06:00 09/15/18 06:03 Phosphorus Level 2.1 L Magnesium Level 1.7 White Blood Count 4.4 #L Red Blood Count 3.91 L Hemoglobin 11.9 L Hematocrit 37.2 Mean Corpuscular Volume 95.1 Mean Corpuscular Hemoglobin 30.4 Mean Corpuscular Hemoglobin Concent 32.0 Red Cell Distribution Width 15.3 H Platelet Count 139 L Mean Platelet Volume 12.2 H Immature Granulocytes % 0.700 H Neutrophils % Lymphocytes % Monocytes % Eosinophils % Basophils % Nucleated Red Blood Cells % 0.0 Immature Granulocytes # 0.030 Neutrophils # Lymphocytes # Monocytes # Eosinophils # Basophils # Nucleated Red Blood Cells # Sodium Level 139 Potassium Level 3.7 Chloride Level 113 H Carbon Dioxide Level 22 Anion Gap 4 L Blood Urea Nitrogen 17 Creatinine 0.41 L Est Glomerular Filtrat Rate mL/min Glucose Level 102 Calcium Level 7.9 L Medications Medication Current Medications IV Flush (NS 3 ml) 3 ml PER PROTOCOL IV ; Start 09/03/18 at 13:00 Lorazepam (Ativan) 0.5 mg Q6H PRN IV .ANXIETY; Start 09/03/18 at 13:00 Ondansetron HCl (Zofran Inj) 4 mg Q6H PRN IV NAUSEA/VOMITING; Start 09/03/18 at 13:00 Nitroglycerin (Nitroglycerin (Sl Tab) 0.4 Mg) 1 tab Q5M PRN SL .CHEST PAIN; Start 09/03/18 at 13:00 Acetaminophen (Tylenol Tab) 650 mg Q6H PRN PO .PAIN 1-3 OR TEMP; Start 09/03/18 at 13:00 Morphine Sulfate (morphine) 2 mg Q4H PRN IV .PAIN 7-10; Start 09/03/18 at 13:00 Docusate Sodium (Colace) 100 mg Q12H PRN PO .CONSTIPATION; Start 09/03/18 at 13:00 Magnesium Hydroxide (Milk Of Mag) 30 ml DAILY PRN PO .CONSTIPATION; Start 09/03/18 at 13:00 Famotidine (Pepcid Iv) 20 mg QHS IV Last administered on 09/14/18at 20:10; Admin Dose 20 MG; Start 09/03/18 at 21:00 [facility] This patient lin... PRN PRN XX WOUND CARE; Start 09/03/18 at 18:00 Acetaminophen (Tylenol Supp) 650 mg Q6H PRN [place] FEVER Last administered on 09/10/18at 18:48; Admin Dose 650 MG; Start 09/03/18 at 20:00 Enalaprilat (Vasotec Iv) 0.625 mg Q6H PRN IV ELEVATED BLOOD PRESSURE Last administered on 09/03/18at 20:58; Admin Dose 0.625 MG; Start 09/03/18 at 20:00 Levalbuterol (Xopenex Neb) 0.63 mg Q6H RESP THERAPY HHN Last administered on 09/15/18at 07:50; Admin Dose 0.63 MG; Start 09/04/18 at 00:00 Dextrose/Sodium Chloride 1,000 ml @ 50 mls/hr Q20H IV Last administered on 09/14/18at 16:25; Admin Dose 50 MLS/HR; Start 09/12/18 at 10:00 Meropenem/Sodium Chloride 50 ml @ 100 mls/hr Q12 IVPB Last administered on 09/15/18at 08:19; Admin Dose 100 MLS/HR; Start 09/12/18 at 21:00 Potassium Phosphate 20 meq/ Sodium Chloride 254.5455 ml @ 63.636 m... ONCE ONCE IVPB ; Start 09/15/18 at 08:00; Stop 09/15/18 at 11:59 BIJAN TERRAZAS Sep 15, 2018 08:40
--- NOTE | 2018-09-15 08:41 | PN ---
Date/Time of Note Date/Time of Note DATE: 09/15/18 TIME: 08:41 Assessment/Plan VTE Prophylaxis Risk score (from [facility] [place])>0 risk: 9 SCD applied (from [facility] [place]): Yes SCD contraindicated: other Pharmacological prophylaxis: other Pharm contraindication: other Lines/Catheters IV [facility]ter Type (from [facility]): Peripheral IV Urinary Cath still in place: Yes Reason Cath still needed: urinary retention Assessment/Plan Assessment/Plan - Hypokalemia- resolved - Sepsis with fever, and elevated lactic acid most likely secondary to pneumonia. Continue antibiotics per ID. Dr. Batista is following in infection disease consultation. - Health care associated pneumonia - Acute respiratory insufficiency. is following in pulmonology consultation. - Hypernatremia, resolved. Dr. Fulton is following in nephrology consultation. - Severe anemia, f/up on stool for OB. - Possible UTI per UA - Acute kidney injury due to dehydration, continue IV fluids. - Severe hypokalemia, status post replacement, resolved. - Bipolar disorder. - Bedbound status - Hx Gout - Hx of hemorrhoidectomy. - Protein calorie malnutrition - DNR/DNI status Further recommendations based on clinical course. Plan of care is discussed with Dr. Wyman. Result Diagram: 09/15/18 0603 09/15/18 0603 Results 24hrs Laboratory Tests Test 09/15/18 06:00 09/15/18 06:03 Phosphorus Level 2.1 L Magnesium Level 1.7 White Blood Count 4.4 #L Red Blood Count 3.91 L Hemoglobin 11.9 L Hematocrit 37.2 Mean Corpuscular Volume 95.1 Mean Corpuscular Hemoglobin 30.4 Mean Corpuscular Hemoglobin Concent 32.0 Red Cell Distribution Width 15.3 H Platelet Count 139 L Mean Platelet Volume 12.2 H Immature Granulocytes % 0.700 H Neutrophils % Lymphocytes % Monocytes % Eosinophils % Basophils % Nucleated Red Blood Cells % 0.0 Immature Granulocytes # 0.030 Neutrophils # Lymphocytes # Monocytes # Eosinophils # Basophils # Nucleated Red Blood Cells # Sodium Level 139 Potassium Level 3.7 Chloride Level 113 H Carbon Dioxide Level 22 Anion Gap 4 L Blood Urea Nitrogen 17 Creatinine 0.41 L Est Glomerular Filtrat Rate mL/min Glucose Level 102 Calcium Level 7.9 L Subjective 24 Hr Interval Summary Subjective hx not possible: pt non-verbal Constitutional: requiring O2 Exam/Review of Systems Exam Vitals Vital Signs Date Temp Pulse Resp B/P (MAP) Pulse Ox O2 O2 Flow FiO2 Time Delivery Rate 09/15/18 98 20 93 Nasal 100 07:53 Cannula 09/15/18 98.7 145/87 07:48 (106) 09/13/18 15.0 21:00 Intake and Output 09/14/18 09/14/18 09/15/18 1515:00 23:00 07:00 IntakeIntake Total 1425 ml OutputOutput Total 100 ml 450 ml BalanceBalance 1325 ml -450 ml Results Results 24hrs Laboratory Tests Test 09/15/18 06:00 09/15/18 06:03 Phosphorus Level 2.1 L Magnesium Level 1.7 White Blood Count 4.4 #L Red Blood Count 3.91 L Hemoglobin 11.9 L Hematocrit 37.2 Mean Corpuscular Volume 95.1 Mean Corpuscular Hemoglobin 30.4 Mean Corpuscular Hemoglobin Concent 32.0 Red Cell Distribution Width 15.3 H Platelet Count 139 L Mean Platelet Volume 12.2 H Immature Granulocytes % 0.700 H Neutrophils % Lymphocytes % Monocytes % Eosinophils % Basophils % Nucleated Red Blood Cells % 0.0 Immature Granulocytes # 0.030 Neutrophils # Lymphocytes # Monocytes # Eosinophils # Basophils # Nucleated Red Blood Cells # Sodium Level 139 Potassium Level 3.7 Chloride Level 113 H Carbon Dioxide Level 22 Anion Gap 4 L Blood Urea Nitrogen 17 Creatinine 0.41 L Est Glomerular Filtrat Rate mL/min Glucose Level 102 Calcium Level 7.9 L Medications Medication Current Medications IV Flush (NS 3 ml) 3 ml PER PROTOCOL IV ; Start 09/03/18 at 13:00 Lorazepam (Ativan) 0.5 mg Q6H PRN IV .ANXIETY; Start 09/03/18 at 13:00 Ondansetron HCl (Zofran Inj) 4 mg Q6H PRN IV NAUSEA/VOMITING; Start 09/03/18 at 13:00 Nitroglycerin (Nitroglycerin (Sl Tab) 0.4 Mg) 1 tab Q5M PRN SL .CHEST PAIN; Start 09/03/18 at 13:00 Acetaminophen (Tylenol Tab) 650 mg Q6H PRN PO .PAIN 1-3 OR TEMP; Start 09/03/18 at 13:00 Morphine Sulfate (morphine) 2 mg Q4H PRN IV .PAIN 7-10; Start 09/03/18 at 13:00 Docusate Sodium (Colace) 100 mg Q12H PRN PO .CONSTIPATION; Start 09/03/18 at 13:00 Magnesium Hydroxide (Milk Of Mag) 30 ml DAILY PRN PO .CONSTIPATION; Start 09/03/18 at 13:00 Famotidine (Pepcid Iv) 20 mg QHS IV Last administered on 09/14/18 20:10; Admin Dose 20 MG; Start 09/03/18 at 21:00 [facility] This patient lin... PRN PRN XX WOUND CARE; Start 09/03/18 at 18:00 Acetaminophen (Tylenol Supp) 650 mg Q6H PRN [place] FEVER Last administered on 09/10/18 18:48; Admin Dose 650 MG; Start 09/03/18 at 20:00 Enalaprilat (Vasotec Iv) 0.625 mg Q6H PRN IV ELEVATED BLOOD PRESSURE Last administered on 09/03/18at 20:58; Admin Dose 0.625 MG; Start 09/03/18 at 20:00 Levalbuterol (Xopenex Neb) 0.63 mg Q6H RESP THERAPY HHN Last administered on 09/15/18 07:50; Admin Dose 0.63 MG; Start 09/04/18 at 00:00 Dextrose/Sodium Chloride 1,000 ml @ 50 mls/hr Q20H IV Last administered on 09/14/18 16:25; Admin Dose 50 MLS/HR; Start 09/12/18 at 10:00 Meropenem/Sodium Chloride 50 ml @ 100 mls/hr Q12 IVPB Last administered on 09/15/18 08:19; Admin Dose 100 MLS/HR; Start 09/12/18 at 21:00 Potassium Phosphate 20 meq/ Sodium Chloride 254.5455 ml @ 63.636 m... ONCE ONCE IVPB ; Start 09/15/18 at 08:00; Stop 09/15/18 at 11:59 BIJAN TERRAZAS Sep 15, 2018 08:41
--- NOTE | 2018-09-15 08:53 | PN ---
DATE: 09/15/2018 SUBJECTIVE: The patient remains critically ill on high flow oxygen. No other acute events noted. N o hemoptysis, hematemesis, hematochezia. OBJECTIVE: VITAL SIGNS: Blood pressure is 109/62, respirations 22, pulse 118, temperature 98.0. HEENT: Head is normocephalic. NECK: Supple. HEART: Regular rate. LUNGS: Show diminished breath sounds at the base. ABDOMEN: Soft, nontender to palpation without rebound or guarding. EXTREMITIES: Negative for clubbing, cyanosis, positive edema. DERMATOLOGIC: No rashes. MUSCULOSKELETAL: No joint effusion. NEUROLOGIC: No change in exam. MEDICATIONS: The patient's medications have been reviewed. LABORATORY DATA: Has been reviewed. ASSESSMENT AND PLAN: 1. Nonoliguric acute kidney injury with unknown baseline creatinine. Etiology is secondary to hemod ynamics. Renal function is improved. Continue current treatment plan, supportive care, renally dose all meds. 2. Hypernatremia, improved. Continue to monitor. 3. Volume overload. Etiology is likely multifactorial secondary to third spacing. Will continue in termittent diuretic therapy. 4. Hypokalemia and hypomagnesemia. Continue to monitor and replete as needed. 5. Mineral bone disorder, monitor calcium and phosphorus levels. 6. Sepsis secondary to pneumonia bacteremia. Continue current antibiotic regimen. 7. Acute encephalopathy on top of dementia. The etiology is toxic metabolic. 8. Acute hypoxemic respiratory failure secondary to pneumonia and congestive heart failure. The pat ient remains on high flow oxygen. We will continue. Follow up with pulmonary. Continue nebulizers. 9. Anemia. Monitor hemoglobin and hematocrit levels. 10. History of bipolar disorder. Dictated By: SANDRA REGALADO/EVER Conf#: [id number] DID#: [id number]
[2018-09-15] MEDS: DEXTROSE 5%-0.45% NACL 1,000 ML IV SCH (11:18)
--- NOTE | 2018-09-15 11:45 | CONS ---
Assessment/Plan Assessment/Plan Assessment/Plan (Daily) Assessment recommendations; 1. Patient admitted with bilateral pneumonia with persistent severe hypoxemia. 2. Left upper extremity DVT. 3. Anemia and thrombocytopenia. 4. Dementia. Continue current supportive care. Add apixaban 2.5 mg twice daily. Prognosis is poor. Consultation Date/Type/Reason Admit Date/Time September 03, 2018 at 06:14 Initial Consult Date Type of Consult Pulmonary Patient condition is tenuous. Still on 100% nonrebreather mask. General exam; elderly female, awake and appropriately responsive. Appearing mildly tachypneic. Date/Time of Note DATE: 09/15/18 TIME: 11:44 24 HR Interval Summary Free Text/Dictation Patient's condition is tenuous at best. General exam; elderly female, appears lethargic. Patient though remains communicative to some degree. Exam/Review of Systems Exam Vitals Vital Signs Date Temp Pulse Resp B/P (MAP) Pulse Ox O2 O2 Flow FiO2 Time Delivery Rate 09/15/18 98.0 112 18 149/70 93 11:18 (96) 09/15/18 90 11:01 09/15/18 Nasal 08:00 Cannula 09/13/18 15.0 21:00 Intake and Output 09/14/18 09/14/18 09/15/18 1515:00 23:00 07:00 IntakeIntake Total 1425 ml OutputOutput Total 100 ml 450 ml BalanceBalance 1325 ml -450 ml Exam H ENT exam; supple neck, no JVD. No lymphadenopathy. Midline trachea. Patient does have carious teeth. Chest exam; diminished breath sounds throughout. S1-S2 audible, no murmurs. Abdomen exam; scaphoid, no organomegaly. Bowel sounds audible. Extremity exam; peripheral edema. UT[employer] WORK[employer] exam; patient is awake and somewhat responsive. Appears lethargic. Results Result Diagram: 09/15/18 0603 09/15/18 0603 Results 24hrs Laboratory Tests Test 09/15/18 06:00 09/15/18 06:03 Phosphorus Level 2.1 L Magnesium Level 1.7 White Blood Count 4.4 #L Red Blood Count 3.91 L Hemoglobin 11.9 L Hematocrit 37.2 Mean Corpuscular Volume 95.1 Mean Corpuscular Hemoglobin 30.4 Mean Corpuscular Hemoglobin Concent 32.0 Red Cell Distribution Width 15.3 H Platelet Count 139 L Mean Platelet Volume 12.2 H Immature Granulocytes % 0.700 H Neutrophils % Segmented Neutrophils % (Manual) 57 Band Neutrophils % (Manual) 29 H Lymphocytes % Lymphocytes % (Manual) 8 L Reactive Lymphocytes % (Manual) 4 H Monocytes % Monocytes % (Manual) 1 Eosinophils % Basophils % Metamyelocytes % (manual) 1 H Nucleated Red Blood Cells % 0.0 Immature Granulocytes # 0.030 Neutrophils # Neutrophils # (Manual) 2.6 Band Neutrophils # 1.2 H Lymphocytes (Manual) 0.3 L Lymphocytes # Reactive Lymphocytes # 0.1 H Monocytes # Monocytes # (Manual) 0.0 L Eosinophils # Basophils # Metamyelocytes # 0.0 Nucleated Red Blood Cells # Platelet Estimate NORMAL Giant Platelets 1 H Polychromasia 2+ Poikilocytosis 1+ Anisocytosis 1+ Sodium Level 139 Potassium Level 3.7 Chloride Level 113 H Carbon Dioxide Level 22 Anion Gap 4 L Blood Urea Nitrogen 17 Creatinine 0.41 L Est Glomerular Filtrat Rate mL/min Glucose Level 102 Calcium Level 7.9 L Medications Medication Current Medications IV Flush (NS 3 ml) 3 ml PER PROTOCOL IV ; Start 09/03/18 at 13:00 Lorazepam (Ativan) 0.5 mg Q6H PRN IV .ANXIETY; Start 09/03/18 at 13:00 Ondansetron HCl (Zofran Inj) 4 mg Q6H PRN IV NAUSEA/VOMITING; Start 09/03/18 at 13:00 Nitroglycerin (Nitroglycerin (Sl Tab) 0.4 Mg) 1 tab Q5M PRN SL .CHEST PAIN; Start 09/03/18 at 13:00 Acetaminophen (Tylenol Tab) 650 mg Q6H PRN PO .PAIN 1-3 OR TEMP; Start 09/03/18 at 13:00 Morphine Sulfate (morphine) 2 mg Q4H PRN IV .PAIN 7-10; Start 09/03/18 at 13:00 Docusate Sodium (Colace) 100 mg Q12H PRN PO .CONSTIPATION; Start 09/03/18 at 13:00 Magnesium Hydroxide (Milk Of Mag) 30 ml DAILY PRN PO .CONSTIPATION; Start 09/03/18 at 13:00 Famotidine (Pepcid Iv) 20 mg QHS IV Last administered on 09/14/18at 20:10; Admin Dose 20 MG; Start 09/03/18 at 21:00 Miscellaneous Information (Pending Santyl Order For Wound Care) This patient lin... PRN PRN XX WOUND CARE; Start 09/03/18 at 18:00 Acetaminophen (Tylenol Supp) 650 mg Q6H PRN [place] FEVER Last administered on 09/10/18 18:48; Admin Dose 650 MG; Start 09/03/18 at 20:00 Enalaprilat (Vasotec Iv) 0.625 mg Q6H PRN IV ELEVATED BLOOD PRESSURE Last administered on 09/03/18 20:58; Admin Dose 0.625 MG; Start 09/03/18 at 20:00 Levalbuterol (Xopenex Neb) 0.63 mg Q6H RESP THERAPY HHN Last administered on 09/15/18 07:50; Admin Dose 0.63 MG; Start 09/04/18 at 00:00 Meropenem/Sodium Chloride 50 ml @ 100 mls/hr Q12 IVPB Last administered on 09/15/18 08:19; Admin Dose 100 MLS/HR; Start 09/12/18 at 21:00 Potassium Phosphate 20 meq/ Sodium Chloride 254.5455 ml @ 63.636 m... ONCE ONCE IVPB Last administered on 09/15/18 09:32; Admin Dose 63.636 MLS/HR; Start 09/15/18 at 08:00; Stop 09/15/18 at 11:59 Dextrose/Sodium Chloride 1,000 ml @ 50 mls/hr Q20H IV Last administered on 09/15/18 11:18; Admin Dose 50 MLS/HR; Start 09/15/18 at 11:00 CASSANDRA HONG 9, 2019 11:45
[2018-09-15] MEDS: APIXABAN 5 MG TABLET PO SCH ×2 (12:00→20:17)
--- NOTE | 2018-09-15 15:48 | CONS ---
Assessment/Plan Assessment/Plan Hospital Course (Demo Recall) ID PROGRESS NOTE CURRENT ABX: DAY # =>Merrem 24H INTERVAL SUMMARY * Seen in process of TNS to 2Circle -- clinically status quo =stable * Awake, alert, mild labored breathing on O2 via NC, left eye ptosis, no fevers, VSS * Currently in process bedside BUEXT US -- generalized edema, BUEXTBLEXT, foot drop, patient is noncommunicative IMAGING: * 09/13/18 CXR: IMPRESSION:Slightly improving right lower lobe infiltrate and right pleural effusion.Unchanged left perihilar and left lower lobe infiltrate and left pleural effusion.No other significant change. MICRO/OTHER * Microbiology: Urine culture preliminary negative blood culture grew gram- positive cocci in clusters 1 out of 2 sets, repeat BCx (-) PHYSICAL EXAMINATION: GENERAL: VSS, NAD HEENT: AT, NC, anicteric, left eye ptosis NECK: Supple, CHEST: Equal chest rise bilaterally, mild labored breathing w/sternal retractions on O2 via NC HEART: Pulse RRR ABDOMEN: Soft : deferred EXTREMITIES: Warm, dry , generalized mild puffy edema x 4 extremities SKIN: No rash, no diaphoresis ID ASSESSMENT 77 yo F admit with: 1. Severe sepsis, present on admission=> resolved 2. Bacteremia, c/w contaminant 3. Respiratory failure likely ongoing aspiration secondary to secretion retention 3. Healthcare associated pneumonia 4. Acute possibly on chronic kidney disease 5. Anemia 6. DNR ABX ALLERGIES: None to ABX INVASIVES: PIV CURRENT ABX: DAY # => Merrem ID RECOMMENDATIONS/PLAN: 1. Continue Merrem for ASP PNA 2. Pulmonary toilet, asp precautions. . Consultation Date/Type/Reason Admit Date/Time September 03, 2018 at 06:14 Initial Consult Date Date/Time of Note DATE: 09/15/18 TIME: 15:47 Exam/Review of Systems Exam Vitals Vital Signs Date Temp Pulse Resp B/P (MAP) Pulse Ox O2 O2 Flow FiO2 Time Delivery Rate 09/15/18 97.6 117 18 140/81 92 15:19 (100) 09/15/18 90 14:48 09/15/18 Nasal 13:07 Cannula 09/13/18 15.0 21:00 Intake and Output 09/14/18 09/14/18 09/15/18 1515:00 23:00 07:00 IntakeIntake Total 1425 ml OutputOutput Total 100 ml 450 ml BalanceBalance 1325 ml -450 ml Results Result Diagram: 09/15/18 0603 09/15/18 0603 Results 24hrs Laboratory Tests Test 09/15/18 06:00 09/15/18 06:03 Phosphorus Level 2.1 L Magnesium Level 1.7 White Blood Count 4.4 #L Red Blood Count 3.91 L Hemoglobin 11.9 L Hematocrit 37.2 Mean Corpuscular Volume 95.1 Mean Corpuscular Hemoglobin 30.4 Mean Corpuscular Hemoglobin Concent 32.0 Red Cell Distribution Width 15.3 H Platelet Count 139 L Mean Platelet Volume 12.2 H Immature Granulocytes % 0.700 H Neutrophils % Segmented Neutrophils % (Manual) 57 Band Neutrophils % (Manual) 29 H Lymphocytes % Lymphocytes % (Manual) 8 L Reactive Lymphocytes % (Manual) 4 H Monocytes % Monocytes % (Manual) 1 Eosinophils % Basophils % Metamyelocytes % (manual) 1 H Nucleated Red Blood Cells % 0.0 Immature Granulocytes # 0.030 Neutrophils # Neutrophils # (Manual) 2.6 Band Neutrophils # 1.2 H Lymphocytes (Manual) 0.3 L Lymphocytes # Reactive Lymphocytes # 0.1 H Monocytes # Monocytes # (Manual) 0.0 L Eosinophils # Basophils # Metamyelocytes # 0.0 Nucleated Red Blood Cells # Platelet Estimate NORMAL Giant Platelets 1 H Polychromasia 2+ Poikilocytosis 1+ Anisocytosis 1+ Sodium Level 139 Potassium Level 3.7 Chloride Level 113 H Carbon Dioxide Level 22 Anion Gap 4 L Blood Urea Nitrogen 17 Creatinine 0.41 L Est Glomerular Filtrat Rate mL/min Glucose Level 102 Calcium Level 7.9 L Medications Medication Current Medications IV Flush (NS 3 ml) 3 ml PER PROTOCOL IV ; Start 09/03/18 at 13:00 Lorazepam (Ativan) 0.5 mg Q6H PRN IV .ANXIETY; Start 09/03/18 at 13:00 Ondansetron HCl (Zofran Inj) 4 mg Q6H PRN IV NAUSEA/VOMITING; Start 09/03/18 at 13:00 Nitroglycerin (Nitroglycerin (Sl Tab) 0.4 Mg) 1 tab Q5M PRN SL .CHEST PAIN; Start 09/03/18 at 13:00 Acetaminophen (Tylenol Tab) 650 mg Q6H PRN PO .PAIN 1-3 OR TEMP; Start 09/03/18 at 13:00 Morphine Sulfate (morphine) 2 mg Q4H PRN IV .PAIN 7-10; Start 09/03/18 at 13:00 Docusate Sodium (Colace) 100 mg Q12H PRN PO .CONSTIPATION; Start 09/03/18 at 13:00 Magnesium Hydroxide (Milk Of Mag) 30 ml DAILY PRN PO .CONSTIPATION; Start 09/03/18 at 13:00 Famotidine (Pepcid Iv) 20 mg QHS IV Last administered on 09/14/18 20:10; Admin Dose 20 MG; Start 09/03/18 at 21:00 Miscellaneous Information (Pending [facility] Order For Wound Care) This patient lin... PRN PRN XX WOUND CARE; Start 09/03/18 at 18:00 Acetaminophen (Tylenol Supp) 650 mg Q6H PRN [place] FEVER Last administered on 09/10/18 18:48; Admin Dose 650 MG; Start 09/03/18 at 20:00 Enalaprilat (Vasotec Iv) 0.625 mg Q6H PRN IV ELEVATED BLOOD PRESSURE Last administered on 09/03/18 20:58; Admin Dose 0.625 MG; Start 09/03/18 at 20:00 Levalbuterol (Xopenex Neb) 0.63 mg Q6H RESP THERAPY HHN Last administered on 09/15/18 13:05; Admin Dose 0.63 MG; Start 09/04/18 at 00:00 Meropenem/Sodium Chloride 50 ml @ 100 mls/hr Q12 IVPB Last administered on 09/15/18 08:19; Admin Dose 100 MLS/HR; Start 09/12/18 at 21:00 Dextrose/Sodium Chloride 1,000 ml @ 50 mls/hr Q20H IV Last administered on 09/15/18 11:18; Admin Dose 50 MLS/HR; Start 09/15/18 at 11:00 Apixaban (Eliquis) 2.5 mg BID PO ; Start 09/15/18 at 12:00 TRISTON COCHRAN NP Sep 15, 2018 15:48
[2018-09-15] MEDS: FAMOTIDINE 20 MG INJ IV SCH (20:25)
[2018-09-16] VITALS (11 sets, daily range): BP systolic 121–175; BP diastolic 71–100; PULSE 78–129; RESP 20–22
[2018-09-16] MEDS: LEVALBUTEROL (NEB) 0.63 MG/3 ML AMP HHN SCH ×4 (01:26→22:30)
[2018-09-16] MEDS: DEXTROSE 5%-0.45% NACL 1,000 ML IV SCH ×2 (07:00→18:08)
[2018-09-16] MEDS ORDERED: POTASSIUM CHLORIDE 100 ML IVPB ONE (08:00)
[2018-09-16] MEDS ORDERED: FUROSEMIDE 20 MG INJ IV ONE (08:00)
[2018-09-16] MEDS: BALSAM PERU/CASTOR OIL 60 GM TUBE TOP SCH ×2 (08:21→21:00)
[2018-09-16] MEDS: MEROPENEM 1 GM/50ML(PMX) 50 ML IVPB SCH ×2 (08:21→20:32)
[2018-09-16] MEDS: APIXABAN 5 MG TABLET PO SCH ×2 (08:22→20:33)
--- NOTE | 2018-09-16 09:07 | PN ---
DATE: 09/16/2018 SUBJECTIVE: The patient remains on high flow oxygen. No other events noted. No hemoptysis, hematem esis, hematochezia. OBJECTIVE: VITAL SIGNS: Blood pressure is 140/79, pulse 78, temperature 97.7. HEENT: Head is normocephalic. NECK: Supple. HEART: Regular rate. LUNGS: Show diminished breath sounds at the base. ABDOMEN: Soft, nontender to palpation without rebound or guarding. EXTREMITIES: Negative for clubbing, cyanosis. Positive edema. DERMATOLOGIC: No rashes. MUSCULOSKELETAL: No joint effusion. NEUROLOGIC: No change in exam. MEDICATIONS: The patient's medications have been reviewed. LABORATORY DATA: Has been reviewed. ASSESSMENT AND PLAN: 1. Nonoliguric acute kidney injury with unknown baseline creatinine. Etiology is secondary to hemod ynamics. Renal function is improved. Continue current treatment plans, supportive care, renally dos e all meds. 2. Volume overload. Etiology is multifactorial secondary to third spacing. We will give the patien t an additional dose of diuretic Lasix today and monitor closely. 3. Hypernatremia, improved. Continue hypotonic fluid. 4. Hypokalemia. 5. Hypomagnesemia. Continue to monitor and replete as needed. 6. Mineral bone disorder, monitor calcium and phosphorus levels. 7. Sepsis secondary to pneumonia bacteremia. Continue current antibiotic regimen. 8. Acute encephalopathy on top of dementia, etiology is toxic metabolic. 9. Acute hypoxemic respiratory failure secondary to pneumonia, CHF. The patient remains on high michelle w oxygen. Continue to monitor. 10. Anemia. Monitor hemoglobin and hematocrit levels. 11. History of bipolar disorder. Dictated By: SANDRA AGUIRRE DO NR/NTS Conf#: [id number] DID#: [id number] CC: MAIKEL THOMPSON MD; GUALBERTO AGUILAR MD;*EndCC*
--- NOTE | 2018-09-16 11:45 | CONS ---
Assessment/Plan Assessment/Plan Assessment/Plan (Daily) Assessment and recommendations; 1. Patient admitted with severe bilateral pneumonia with persistent hypoxemia despite appropriate antimicrobial regimen. 2. Mild anemia and thrombocytopenia. 3. Dementia. 4. Left upper extremity DVT. Continue current supportive care. Consider palliative care. Prognosis is poor. Consultation Date/Type/Reason Admit Date/Time September 03, 2018 at 06:14 Initial Consult Date Type of Consult Pulmonary Patient condition is tenuous. Still on 100% nonrebreather mask. General exam; elderly female, awake and appropriately responsive. Appearing mildly tachypneic. Date/Time of Note DATE: 09/16/18 TIME: 11:43 24 HR Interval Summary Free Text/Dictation Patient's condition is tenuous. Still on nonrebreather mask at 100% FiO2. General exam; elderly female, appears very lethargic. Fairly responsive though. Exam/Review of Systems Exam Vitals Vital Signs Date Temp Pulse Resp B/P (MAP) Pulse Ox O2 O2 Flow FiO2 Time Delivery Rate 09/16/18 97.4 125 22 140/83 94 High Flow 11:06 (102) 09/16/18 90 10:56 09/13/18 15.0 21:00 Intake and Output 09/15/18 09/15/18 09/16/18 1515:00 23:00 07:00 IntakeIntake Total 304.5455 ml 300 ml 750 ml OutputOutput Total 600 ml 200 ml BalanceBalance 304.5455 ml -300 ml 550 ml Exam H EENT exam; supple neck, no JVD. No lymphadenopathy. Midline trachea. No thyromegaly. Patient has carious teeth. Chest exam; diminished breath sounds throughout. S1-S2 audible, no murmurs. Regular rhythm. Abdomen exam; soft, scaphoid. No organomegaly. Bowel sounds audible. Extremity exam; no peripheral edema. Patient does have patchy ecchymosis. [employer] TE[employer] exam; patient awake minimally responsive and lethargic. Results Result Diagram: 09/16/18 0715 09/16/18 0715 Results 24hrs Laboratory Tests Test 09/16/18 07:15 White Blood Count 4.4 L Red Blood Count 4.03 L Hemoglobin 12.6 Hematocrit 38.3 Mean Corpuscular Volume 95.0 Mean Corpuscular Hemoglobin 31.3 Mean Corpuscular Hemoglobin Concent 32.9 Red Cell Distribution Width 14.8 H Platelet Count 147 Mean Platelet Volume 12.1 H Immature Granulocytes % 1.800 H Neutrophils % Segmented Neutrophils % (Manual) 57 Band Neutrophils % (Manual) 30 H Lymphocytes % Lymphocytes % (Manual) 6 L Monocytes % Monocytes % (Manual) 6 Eosinophils % Eosinophils % (Manual) 1 Basophils % Nucleated Red Blood Cells % 0.0 Immature Granulocytes # 0.080 H Neutrophils # Neutrophils # (Manual) 2.6 Band Neutrophils # 1.3 H Lymphocytes (Manual) 0.2 L Lymphocytes # Monocytes # Monocytes # (Manual) 0.2 L Eosinophils # Basophils # Nucleated Red Blood Cells # Platelet Estimate NORMAL Giant Platelets 6 H Polychromasia 2+ Poikilocytosis 1+ Anisocytosis 1+ Sodium Level 140 Potassium Level 3.8 Chloride Level 112 H Carbon Dioxide Level 21 Anion Gap 7 Blood Urea Nitrogen 17 Creatinine 0.30 L Est Glomerular Filtrat Rate mL/min Glucose Level 107 Calcium Level 7.8 L Phosphorus Level 2.7 Magnesium Level 1.7 Medications Medication Current Medications IV Flush (NS 3 ml) 3 ml PER PROTOCOL IV ; Start 09/03/18 at 13:00 Lorazepam (Ativan) 0.5 mg Q6H PRN IV .ANXIETY; Start 09/03/18 at 13:00 Ondansetron HCl (Zofran Inj) 4 mg Q6H PRN IV NAUSEA/VOMITING; Start 09/03/18 at 13:00 Nitroglycerin (Nitroglycerin (Sl Tab) 0.4 Mg) 1 tab Q5M PRN SL .CHEST PAIN; Start 09/03/18 at 13:00 Acetaminophen (Tylenol Tab) 650 mg Q6H PRN PO .PAIN 1-3 OR TEMP; Start 09/03/18 at 13:00 Morphine Sulfate (morphine) 2 mg Q4H PRN IV .PAIN 7-10; Start 09/03/18 at 13:00 Docusate Sodium (Colace) 100 mg Q12H PRN PO .CONSTIPATION; Start 09/03/18 at 13:00 Magnesium Hydroxide (Milk Of Mag) 30 ml DAILY PRN PO .CONSTIPATION; Start 09/03/18 at 13:00 Famotidine (Pepcid Iv) 20 mg QHS IV Last administered on 09/15/18at 20:25; Admin Dose 20 MG; Start 09/03/18 at 21:00 Miscellaneous Information (Pending Santyl Order For Wound Care) This patient lin... PRN PRN XX WOUND CARE; Start 09/03/18 at 18:00 Acetaminophen (Tylenol Supp) 650 mg Q6H PRN [place] FEVER Last administered on 18:48; Admin Dose 650 MG; Start 09/03/18 at 20:00 Enalaprilat (Vasotec Iv) 0.625 mg Q6H PRN IV ELEVATED BLOOD PRESSURE Last administered on 09/03/18 20:58; Admin Dose 0.625 MG; Start 09/03/18 at 20:00 Levalbuterol (Xopenex Neb) 0.63 mg Q6H RESP THERAPY HHN Last administered on 09/16/18 07:46; Admin Dose 0.63 MG; Start 09/04/18 at 00:00 Meropenem/Sodium Chloride 50 ml @ 100 mls/hr Q12 IVPB Last administered on 09/16/18 08:21; Admin Dose 100 MLS/HR; Start 09/12/18 at 21:00 Dextrose/Sodium Chloride 1,000 ml @ 50 mls/hr Q20H IV Last administered on 09/15/18 11:18; Admin Dose 50 MLS/HR; Start 09/15/18 at 11:00 Apixaban (Eliquis) 2.5 mg BID PO ; Start 09/15/18 at 12:00 CASSANDRA HONG 10, 2019 11:45
--- NOTE | 2018-09-16 15:06 | CONS ---
Assessment/Plan Assessment/Plan Hospital Course (Demo Recall) No acute events. Patient is comfortable on nasal cannula, no fevers Microbiology: Urine culture preliminary negative blood culture grew gram- positive cocci in clusters 1 out of 2 sets Antimicrobials: Merrem Physical examination: This is a fragile chronically ill-appearing elderly woman who is awake in no distress. Head atraumatic normocephalic sclera nonicteric vehicle mucosa dry. Neck is supple chest rise symmetrical breath sounds with scattered crackles. Heart: S1-S2. Abdomen soft bowel sounds present. Extremities with trace edema. Assessment: 1. Severe sepsis, present on admission 2. Bacteremia, cw contaminant 3. Respiratory failure likely ongoing aspiration secondary to secretion retention 3. Healthcare associated pneumonia 4. Acute possibly on chronic kidney disease 5. Anemia 6. DNR Plan: Clinically stable, continue present care, aspiration precautions Consultation Date/Type/Reason Admit Date/Time September 03, 2018 at 06:14 Initial Consult Date Type of Consult id Date/Time of Note DATE: 09/16/18 TIME: 15:05 Exam/Review of Systems Exam Vitals Vital Signs Date Temp Pulse Resp B/P (MAP) Pulse Ox O2 O2 Flow FiO2 Time Delivery Rate 09/16/18 119 20 97 90 13:25 09/16/18 97.4 140/83 High Flow 11:06 (102) 09/13/18 15.0 21:00 Intake and Output 09/15/18 09/15/18 09/16/18 1515:00 23:00 07:00 IntakeIntake Total 304.5455 ml 300 ml 750 ml OutputOutput Total 600 ml 200 ml BalanceBalance 304.5455 ml -300 ml 550 ml Results Result Diagram: 09/16/18 0715 09/16/18 0715 Results 24hrs Laboratory Tests Test 09/16/18 07:15 White Blood Count 4.4 L Red Blood Count 4.03 L Hemoglobin 12.6 Hematocrit 38.3 Mean Corpuscular Volume 95.0 Mean Corpuscular Hemoglobin 31.3 Mean Corpuscular Hemoglobin Concent 32.9 Red Cell Distribution Width 14.8 H Platelet Count 147 Mean Platelet Volume 12.1 H Immature Granulocytes % 1.800 H Neutrophils % Segmented Neutrophils % (Manual) 57 Band Neutrophils % (Manual) 30 H Lymphocytes % Lymphocytes % (Manual) 6 L Monocytes % Monocytes % (Manual) 6 Eosinophils % Eosinophils % (Manual) 1 Basophils % Nucleated Red Blood Cells % 0.0 Immature Granulocytes # 0.080 H Neutrophils # Neutrophils # (Manual) 2.6 Band Neutrophils # 1.3 H Lymphocytes (Manual) 0.2 L Lymphocytes # Monocytes # Monocytes # (Manual) 0.2 L Eosinophils # Basophils # Nucleated Red Blood Cells # Platelet Estimate NORMAL Giant Platelets 6 H Polychromasia 2+ Poikilocytosis 1+ Anisocytosis 1+ Sodium Level 140 Potassium Level 3.8 Chloride Level 112 H Carbon Dioxide Level 21 Anion Gap 7 Blood Urea Nitrogen 17 Creatinine 0.30 L Est Glomerular Filtrat Rate mL/min Glucose Level 107 Calcium Level 7.8 L Phosphorus Level 2.7 Magnesium Level 1.7 Medications Medication Current Medications IV Flush (NS 3 ml) 3 ml PER PROTOCOL IV ; Start 09/03/18 at 13:00 Lorazepam (Ativan) 0.5 mg Q6H PRN IV .ANXIETY; Start 09/03/18 at 13:00 Ondansetron HCl (Zofran Inj) 4 mg Q6H PRN IV NAUSEA/VOMITING; Start 09/03/18 at 13:00 Nitroglycerin (Nitroglycerin (Sl Tab) 0.4 Mg) 1 tab Q5M PRN SL .CHEST PAIN; Start 09/03/18 at 13:00 Acetaminophen (Tylenol Tab) 650 mg Q6H PRN PO .PAIN 1-3 OR TEMP; Start 09/03/18 at 13:00 Morphine Sulfate (morphine) 2 mg Q4H PRN IV .PAIN 7-10; Start 09/03/18 at 13:00 Docusate Sodium (Colace) 100 mg Q12H PRN PO .CONSTIPATION; Start 09/03/18 at 13:00 Magnesium Hydroxide (Milk Of Mag) 30 ml DAILY PRN PO .CONSTIPATION; Start 09/03/18 at 13:00 Famotidine (Pepcid Iv) 20 mg QHS IV Last administered on 09/15/18at 20:25; Admin Dose 20 MG; Start 09/03/18 at 21:00 Miscellaneous Information [facility] This patient lin... PRN PRN XX WOUND CARE; Start 09/03/18 at 18:00 Acetaminophen (Tylenol Supp) 650 mg Q6H PRN [place] FEVER Last administered on 09/10/18at 18:48; Admin Dose 650 MG; Start 09/03/18 at 20:00 Enalaprilat (Vasotec Iv) 0.625 mg Q6H PRN IV ELEVATED BLOOD PRESSURE Last administered on 09/03/18at 20:58; Admin Dose 0.625 MG; Start 09/03/18 at 20:00 Levalbuterol (Xopenex Neb) 0.63 mg Q6H RESP THERAPY HHN Last administered on 09/16/18at 13:23; Admin Dose 0.63 MG; Start 09/04/18 at 00:00 Meropenem/Sodium Chloride 50 ml @ 100 mls/hr Q12 IVPB Last administered on 09/16/18 08:21; Admin Dose 100 MLS/HR; Start 09/12/18 at 21:00 Dextrose/Sodium Chloride 1,000 ml @ 50 mls/hr Q20H IV Last administered on 09/15/18at 11:18; Admin Dose 50 MLS/HR; Start 09/15/18 at 11:00 Apixaban (Eliquis) 2.5 mg BID PO ; Start 09/15/18 at 12:00 GHADA ART NP Sep 16, 2018 15:06
--- NOTE | 2018-09-16 16:03 | PN ---
Date/Time of Note Date/Time of Note DATE: 09/16/18 TIME: 15:54 Assessment/Plan VTE Prophylaxis Risk score (from Ns)>0 risk: 9 SCD applied (from Ns): Yes Pharmacological prophylaxis: LMWH Lines/Catheters IV Catheter Type (from [facility]): Peripheral IV Urinary Cath still in place: Yes Reason Cath still needed: urinary retention Assessment/Plan Hospital Course Patient is on high flow via vapotherm, lethargic, continues on IVF with D5. Assessment/Plan - Sepsis with fever, and elevated lactic acid most likely secondary to pneumonia. Continue antibiotics per ID. Dr. Batista is following in infection disease consultation. - Health care associated pneumonia - Acute respiratory insufficiency. is following in pulmonology consultation. - Hypernatremia, resolved. Dr. Fulton is following in nephrology consultation. - Severe anemia, f/up on stool for OB. - Possible UTI per UA - Acute kidney injury due to dehydration, continue IV fluids. - Severe hypokalemia, status post replacement, resolved. - Bipolar disorder. - Bedbound status - Hx Gout - Hx of hemorrhoidectomy. - Protein calorie malnutrition - DNR/DNI status - Poor prognosis. Dr. Cheema is following in palliative care consultation. Further recommendations based on clinical course. Plan of care is discussed with Dr. Wyman. Result Diagram: 09/16/18 0715 09/16/18 0715 Results 24hrs Laboratory Tests Test 09/16/18 07:15 White Blood Count 4.4 L Red Blood Count 4.03 L Hemoglobin 12.6 Hematocrit 38.3 Mean Corpuscular Volume 95.0 Mean Corpuscular Hemoglobin 31.3 Mean Corpuscular Hemoglobin Concent 32.9 Red Cell Distribution Width 14.8 H Platelet Count 147 Mean Platelet Volume 12.1 H Immature Granulocytes % 1.800 H Neutrophils % Segmented Neutrophils % (Manual) 57 Band Neutrophils % (Manual) 30 H Lymphocytes % Lymphocytes % (Manual) 6 L Monocytes % Monocytes % (Manual) 6 Eosinophils % Eosinophils % (Manual) 1 Basophils % Nucleated Red Blood Cells % 0.0 Immature Granulocytes # 0.080 H Neutrophils # Neutrophils # (Manual) 2.6 Band Neutrophils # 1.3 H Lymphocytes (Manual) 0.2 L Lymphocytes # Monocytes # Monocytes # (Manual) 0.2 L Eosinophils # Basophils # Nucleated Red Blood Cells # Platelet Estimate NORMAL Giant Platelets 6 H Polychromasia 2+ Poikilocytosis 1+ Anisocytosis 1+ Sodium Level 140 Potassium Level 3.8 Chloride Level 112 H Carbon Dioxide Level 21 Anion Gap 7 Blood Urea Nitrogen 17 Creatinine 0.30 L Est Glomerular Filtrat Rate mL/min Glucose Level 107 Calcium Level 7.8 L Phosphorus Level 2.7 Magnesium Level 1.7 Exam/Review of Systems Exam Vitals Vital Signs Date Temp Pulse Resp B/P (MAP) Pulse Ox O2 O2 Flow FiO2 Time Delivery Rate 09/16/18 95 90 15:49 09/16/18 98.5 119 22 121/71 High Flow 15:36 (88) 09/13/18 15.0 21:00 Intake and Output 09/15/18 09/15/18 09/16/18 1515:00 23:00 07:00 IntakeIntake Total 304.5455 ml 300 ml 750 ml OutputOutput Total 600 ml 200 ml BalanceBalance 304.5455 ml -300 ml 550 ml Exam Constitutional: alert, frail Respiratory: diminished breath sounds Cardiovascular: regular rate and rhythm Gastrointestinal: soft, non-tender Genitourinary - Female: other (Acosta catheter) Musculoskeletal: nl extremities to inspection Extremities: normal pulses Neurological: confused, lethargic Results Results 24hrs Laboratory Tests Test 09/16/18 07:15 White Blood Count 4.4 L Red Blood Count 4.03 L Hemoglobin 12.6 Hematocrit 38.3 Mean Corpuscular Volume 95.0 Mean Corpuscular Hemoglobin 31.3 Mean Corpuscular Hemoglobin Concent 32.9 Red Cell Distribution Width 14.8 H Platelet Count 147 Mean Platelet Volume 12.1 H Immature Granulocytes % 1.800 H Neutrophils % Segmented Neutrophils % (Manual) 57 Band Neutrophils % (Manual) 30 H Lymphocytes % Lymphocytes % (Manual) 6 L Monocytes % Monocytes % (Manual) 6 Eosinophils % Eosinophils % (Manual) 1 Basophils % Nucleated Red Blood Cells % 0.0 Immature Granulocytes # 0.080 H Neutrophils # Neutrophils # (Manual) 2.6 Band Neutrophils # 1.3 H Lymphocytes (Manual) 0.2 L Lymphocytes # Monocytes # Monocytes # (Manual) 0.2 L Eosinophils # Basophils # Nucleated Red Blood Cells # Platelet Estimate NORMAL Giant Platelets 6 H Polychromasia 2+ Poikilocytosis 1+ Anisocytosis 1+ Sodium Level 140 Potassium Level 3.8 Chloride Level 112 H Carbon Dioxide Level 21 Anion Gap 7 Blood Urea Nitrogen 17 Creatinine 0.30 L Est Glomerular Filtrat Rate mL/min Glucose Level 107 Calcium Level 7.8 L Phosphorus Level 2.7 Magnesium Level 1.7 Medications Medication Current Medications IV Flush (NS 3 ml) 3 ml PER PROTOCOL IV ; Start 09/03/18 at 13:00 Lorazepam (Ativan) 0.5 mg Q6H PRN IV .ANXIETY; Start 09/03/18 at 13:00 Ondansetron HCl (Zofran Inj) 4 mg Q6H PRN IV NAUSEA/VOMITING; Start 09/03/18 at 13:00 Nitroglycerin (Nitroglycerin (Sl Tab) 0.4 Mg) 1 tab Q5M PRN SL .CHEST PAIN; Start 09/03/18 at 13:00 Acetaminophen (Tylenol Tab) 650 mg Q6H PRN PO .PAIN 1-3 OR TEMP; Start 09/03/18 at 13:00 Morphine Sulfate (morphine) 2 mg Q4H PRN IV .PAIN 7-10; Start 09/03/18 at 13:00 Docusate Sodium (Colace) 100 mg Q12H PRN PO .CONSTIPATION; Start 09/03/18 at 13:00 Magnesium Hydroxide (Milk Of Mag) 30 ml DAILY PRN PO .CONSTIPATION; Start 09/03/18 at 13:00 Famotidine (Pepcid Iv) 20 mg QHS IV Last administered on 09/15/18at 20:25; Admin Dose 20 MG; Start 09/03/18 at 21:00 Miscellaneous Information (Pending [facility] Order For Wound Care) This patient lin... PRN PRN XX WOUND CARE; Start 09/03/18 at 18:00 Acetaminophen (Tylenol Supp) 650 mg Q6H PRN [place] FEVER Last administered on 09/10/18at 18:48; Admin Dose 650 MG; Start 09/03/18 at 20:00 Enalaprilat (Vasotec Iv) 0.625 mg Q6H PRN IV ELEVATED BLOOD PRESSURE Last administered on 09/03/18at 20:58; Admin Dose 0.625 MG; Start 09/03/18 at 20:00 Levalbuterol (Xopenex Neb) 0.63 mg Q6H RESP THERAPY HHN Last administered on 09/16/18at 13:23; Admin Dose 0.63 MG; Start 09/04/18 at 00:00 Meropenem/Sodium Chloride 50 ml @ 100 mls/hr Q12 IVPB Last administered on 09/16/18at 08:21; Admin Dose 100 MLS/HR; Start 09/12/18 at 21:00 Dextrose/Sodium Chloride 1,000 ml @ 50 mls/hr Q20H IV Last administered on 09/15/18at 11:18; Admin Dose 50 MLS/HR; Start 09/15/18 at 11:00 Apixaban (Eliquis) 2.5 mg BID PO ; Start 09/15/18 at 12:00 CHRIS ROSARIO Sep 16, 2018 16:03
[2018-09-16] MEDS: FAMOTIDINE 20 MG INJ IV SCH (20:33)
[2018-09-17] VITALS (12 sets, daily range): BP systolic 113–154; BP diastolic 76–99; PULSE 61–130; RESP 18–30
[2018-09-17] MEDS: LEVALBUTEROL (NEB) 0.63 MG/3 ML AMP HHN SCH ×4 (01:41→19:24)
[2018-09-17] MEDS: BALSAM PERU/CASTOR OIL 60 GM TUBE TOP SCH (08:13)
[2018-09-17] MEDS: MEROPENEM 1 GM/50ML(PMX) 50 ML IVPB SCH ×2 (08:13→21:22)
[2018-09-17] MEDS: APIXABAN 5 MG TABLET PO SCH ×2 (08:13→20:53)
[2018-09-17] MEDS ORDERED: MAGNESIUM SULFATE 2 GM/50 ML 50 ML IVPB ONE (08:30)
--- NOTE | 2018-09-17 08:37 | PN ---
DATE: 09/17/2018 SUBJECTIVE: The patient remains in serious condition, on high-flow oxygen. No other events noted. No hemoptysis, hematemesis or hematochezia. OBJECTIVE: VITAL SIGNS: Blood pressure is 154/83, pulse 124, respirations 32, temperature 97.9. HEENT: Head is normocephalic. NECK: Supple. HEART: Regular rate. LUNGS: Show diminished breath sounds at the base. ABDOMEN: Soft, nontender to palpation without rebound or guarding. EXTREMITIES: Negative for clubbing, cyanosis. Trace edema. DERMATOLOGIC: No rashes. MUSCULOSKELETAL: No joint effusion. NEUROLOGIC: No change in exam. MEDICATIONS: Have been reviewed. LABORATORY DATA: Has been reviewed. IMAGING STUDIES: Have been reviewed. ASSESSMENT AND PLAN: 1. Nonoliguric acute kidney injury with unknown baseline creatinine. Etiology is secondary to hemod ynamics. Renal function is improving. Continue current treatment plans, supportive care, renally do se all meds. 2. Volume overload. Etiology is multifactorial secondary to third spacing, possible diastolic heart failure. Continue intermittent diuretic therapy as needed. 3. Hyponatremia, improved. Continue to monitor. Continue hypertonic fluid. 4. Hypokalemia and hypomagnesemia. Continue to monitor and replete as needed. 5. Mineral bone disorder. Continue to monitor and replace phosphorus as needed. 6. Sepsis secondary to pneumonia bacteremia. Continue antibiotic regimen. 7. Acute encephalopathy on top of dementia, etiology is toxic metabolic. 8. Acute hypoxemic respiratory failure secondary to pneumonia, congestive heart failure. Continue h igh flow oxygen. 9. Anemia. Continue to monitor hemoglobin and hematocrit levels. 10. History of bipolar disorder. Dictated By: SANDRA AGUIRRE DO NR/NTS Conf#: [id number] DID#: [id number] CC: MAIKEL THOMPSON MD;*EndCC*
[2018-09-17] MEDS ORDERED: POTASSIUM PHOSPHATE 30 MM in SOD CHLORIDE 0.9% 250 ML IVPB ONE (09:00)
--- NOTE | 2018-09-17 11:57 | CONS ---
Assessment/Plan Assessment/Plan Assessment/Plan (Daily) Recommendations; 1. Patient admitted with severe bilateral pneumonia with persistent hypoxemia with interval improvement 2. 2. Acute encephalopathy with interval improvement as well. Continue current supportive care. Obtain follow-up chest x-ray. Consultation Date/Type/Reason Admit Date/Time September 03, 2018 at 06:14 Initial Consult Date Type of Consult Pulmonary Patient condition is tenuous. Still on 100% nonrebreather mask. General exam; elderly female, awake and appropriately responsive. Appearing mildly tachypneic. Date/Time of Note DATE: 09/17/18 TIME: 11:55 24 HR Interval Summary Free Text/Dictation Patient's condition remains tenuous. On high flow nasal cannula at 70% FiO2. General exam; elderly woman, awake and fairly responsive. Currently in no distress. Exam/Review of Systems Exam Vitals Vital Signs Date Temp Pulse Resp B/P (MAP) Pulse Ox O2 O2 Flow FiO2 Time Delivery Rate 09/17/18 98.5 128 30 125/80 90 11:41 (95) 09/17/18 90 07:51 09/16/18 Nasal 20:00 Cannula 09/13/18 15.0 21:00 Intake and Output 09/16/18 09/16/18 09/17/18 1515:00 23:00 07:00 IntakeIntake Total 150 ml OutputOutput Total 900 ml 300 ml BalanceBalance 150 ml -900 ml -300 ml Exam H EENT exam; supple neck, no JVD. No lymphadenopathy. Midline trachea. No thyromegaly. Patient has fair dentition. No neck masses. Chest exam; diminished breath sounds bilaterally. S1-S2 audible, no murmurs. Regular rhythm. Abdomen exam; soft, no organomegaly. Bowel sounds audible. Nontender. Extremity exam; no peripheral edema clubbing. Patient has a patchy ecchymosis. BATCH UNIT TREATER exam; patient awake appropriately responsive but exhibiting generalized weakness. Results Result Diagram: 09/17/18 0602 09/17/18 0602 Results 24hrs Laboratory Tests Test 09/17/18 06:02 White Blood Count 6.0 # Red Blood Count 3.99 L Hemoglobin 12.3 Hematocrit 38.3 Mean Corpuscular Volume 96.0 Mean Corpuscular Hemoglobin 30.8 Mean Corpuscular Hemoglobin Concent 32.1 Red Cell Distribution Width 14.7 H Platelet Count 148 Mean Platelet Volume 11.7 H Immature Granulocytes % 1.700 H Neutrophils % Segmented Neutrophils % (Manual) 65 Band Neutrophils % (Manual) 16 H Lymphocytes % Lymphocytes % (Manual) 8 L Monocytes % Monocytes % (Manual) 10 Eosinophils % Basophils % Basophils % (Manual) 1 Nucleated Red Blood Cells % 0.0 Immature Granulocytes # 0.100 H Neutrophils # Neutrophils # (Manual) 4.0 Band Neutrophils # 0.9 H Lymphocytes (Manual) 0.4 L Lymphocytes # Monocytes # Monocytes # (Manual) 0.6 Eosinophils # Basophils # Basophils # (Manual) 0.0 Nucleated Red Blood Cells # Platelet Estimate NORMAL Giant Platelets 5 H Poikilocytosis 3+ Sodium Level 139 Potassium Level 4.0 Chloride Level 111 H Carbon Dioxide Level 25 Anion Gap 3 L Blood Urea Nitrogen 17 Creatinine 0.36 L Est Glomerular Filtrat Rate mL/min Glucose Level 108 Calcium Level 8.1 L Phosphorus Level 2.2 L Magnesium Level 1.5 L Medications Medication Current Medications IV Flush (NS 3 ml) 3 ml PER PROTOCOL IV ; Start 09/03/18 at 13:00 Lorazepam (Ativan) 0.5 mg Q6H PRN IV .ANXIETY; Start 09/03/18 at 13:00 Ondansetron HCl (Zofran Inj) 4 mg Q6H PRN IV NAUSEA/VOMITING; Start 09/03/18 at 13:00 Nitroglycerin (Nitroglycerin (Sl Tab) 0.4 Mg) 1 tab Q5M PRN SL .CHEST PAIN; Start 09/03/18 at 13:00 Acetaminophen (Tylenol Tab) 650 mg Q6H PRN PO .PAIN 1-3 OR TEMP; Start 09/03/18 at 13:00 Morphine Sulfate (morphine) 2 mg Q4H PRN IV .PAIN 7-10; Start 09/03/18 at 13:00 Docusate Sodium (Colace) 100 mg Q12H PRN PO .CONSTIPATION; Start 09/03/18 at 13:00 Magnesium Hydroxide (Milk Of Mag) 30 ml DAILY PRN PO .CONSTIPATION; Start 09/03/18 at 13:00 Famotidine (Pepcid Iv) 20 mg QHS IV Last administered on 09/16/18at 20:33; Admin Dose 20 MG; Start 09/03/18 at 21:00 Miscellaneous [facility] This patient lin... PRN PRN XX WOUND CARE; Start 09/03/18 at 18:00 Acetaminophen (Tylenol Supp) 650 mg Q6H PRN [place] FEVER Last administered on 09/10/18 18:48; Admin Dose 650 MG; Start 09/03/18 at 20:00 Enalaprilat (Vasotec Iv) 0.625 mg Q6H PRN IV ELEVATED BLOOD PRESSURE Last administered on 09/03/18 20:58; Admin Dose 0.625 MG; Start 09/03/18 at 20:00 Levalbuterol (Xopenex Neb) 0.63 mg Q6H RESP THERAPY HHN Last administered on 09/17/18 07:48; Admin Dose 0.63 MG; Start 09/04/18 at 00:00 Meropenem/Sodium Chloride 50 ml @ 100 mls/hr Q12 IVPB Last administered on 09/17/18 08:13; Admin Dose 100 MLS/HR; Start 09/12/18 at 21:00 Dextrose/Sodium Chloride 1,000 ml @ 50 mls/hr Q20H IV Last administered on 09/16/18 18:08; Admin Dose 50 MLS/HR; Start 09/15/18 at 11:00 Apixaban (Eliquis) 2.5 mg BID PO ; Start 09/15/18 at 12:00 Potassium Phosphate 30 mm/ Sodium Chloride 260 ml @ 65 mls/hr ONCE ONCE IVPB Last administered on 09/17/18 11:30; Admin Dose 65 MLS/HR; Start 09/17/18 at 09:00; Stop 09/17/18 at 12:59 CASSANDRA HONG 11, 2019 11:57
--- NOTE | 2018-09-17 12:05 | CONS ---
Assessment/Plan Assessment/Plan Hospital Course (Demo Recall) No acute events, no fevers Microbiology: Urine culture preliminary negative blood culture grew gram- positive cocci in clusters 1 out of 2 sets Antimicrobials: Merrem Physical examination: This is a fragile chronically ill-appearing elderly woman who is awake in no distress. Head atraumatic normocephalic sclera nonicteric vehicle mucosa dry. Neck is supple chest rise symmetrical breath sounds with scattered crackles. Heart: S1-S2. Abdomen soft bowel sounds present. Extremities with trace edema. Assessment: 1. Severe sepsis, present on admission 2. Bacteremia, cw contaminant 3. Respiratory failure likely ongoing aspiration secondary to secretion retention 3. Healthcare associated pneumonia 4. Acute possibly on chronic kidney disease 5. Anemia 6. DNR Plan: Clinically unchanged, continue present care, aspiration precautions, prognosis poor Consultation Date/Type/Reason Admit Date/Time September 03, 2018 at 06:14 Initial Consult Date Type of Consult id Date/Time of Note DATE: 09/17/18 TIME: 12:04 Exam/Review of Systems Exam Vitals Vital Signs Date Temp Pulse Resp B/P (MAP) Pulse Ox O2 O2 Flow FiO2 Time Delivery Rate 09/17/18 98.5 128 30 125/80 90 11:41 (95) 09/17/18 90 07:51 09/16/18 Nasal 20:00 Cannula 09/13/18 15.0 21:00 Intake and Output 09/16/18 09/16/18 09/17/18 1515:00 23:00 07:00 IntakeIntake Total 150 ml OutputOutput Total 900 ml 300 ml BalanceBalance 150 ml -900 ml -300 ml Results Result Diagram: 09/17/18 0602 09/17/18 0602 Results 24hrs Laboratory Tests Test 09/17/18 06:02 White Blood Count 6.0 # Red Blood Count 3.99 L Hemoglobin 12.3 Hematocrit 38.3 Mean Corpuscular Volume 96.0 Mean Corpuscular Hemoglobin 30.8 Mean Corpuscular Hemoglobin Concent 32.1 Red Cell Distribution Width 14.7 H Platelet Count 148 Mean Platelet Volume 11.7 H Immature Granulocytes % 1.700 H Neutrophils % Segmented Neutrophils % (Manual) 65 Band Neutrophils % (Manual) 16 H Lymphocytes % Lymphocytes % (Manual) 8 L Monocytes % Monocytes % (Manual) 10 Eosinophils % Basophils % Basophils % (Manual) 1 Nucleated Red Blood Cells % 0.0 Immature Granulocytes # 0.100 H Neutrophils # Neutrophils # (Manual) 4.0 Band Neutrophils # 0.9 H Lymphocytes (Manual) 0.4 L Lymphocytes # Monocytes # Monocytes # (Manual) 0.6 Eosinophils # Basophils # Basophils # (Manual) 0.0 Nucleated Red Blood Cells # Platelet Estimate NORMAL Giant Platelets 5 H Poikilocytosis 3+ Sodium Level 139 Potassium Level 4.0 Chloride Level 111 H Carbon Dioxide Level 25 Anion Gap 3 L Blood Urea Nitrogen 17 Creatinine 0.36 L Est Glomerular Filtrat Rate mL/min Glucose Level 108 Calcium Level 8.1 L Phosphorus Level 2.2 L Magnesium Level 1.5 L Medications Medication Current Medications IV Flush (NS 3 ml) 3 ml PER PROTOCOL IV ; Start 09/03/18 at 13:00 Lorazepam (Ativan) 0.5 mg Q6H PRN IV .ANXIETY; Start 09/03/18 at 13:00 Ondansetron HCl (Zofran Inj) 4 mg Q6H PRN IV NAUSEA/VOMITING; Start 09/03/18 at 13:00 Nitroglycerin (Nitroglycerin (Sl Tab) 0.4 Mg) 1 tab Q5M PRN SL .CHEST PAIN; Start 09/03/18 at 13:00 Acetaminophen (Tylenol Tab) 650 mg Q6H PRN PO .PAIN 1-3 OR TEMP; Start 09/03/18 at 13:00 Morphine Sulfate (morphine) 2 mg Q4H PRN IV .PAIN 7-10; Start 09/03/18 at 13:00 Docusate Sodium (Colace) 100 mg Q12H PRN PO .CONSTIPATION; Start 09/03/18 at 13:00 Magnesium Hydroxide (Milk Of Mag) 30 ml DAILY PRN PO .CONSTIPATION; Start 09/03/18 at 13:00 Famotidine (Pepcid Iv) 20 mg QHS IV Last administered on 09/16/18at 20:33; Admin Dose 20 MG; Start 09/03/18 at 21:00 Miscellaneous Information (Pending [facility] Order For Wound Care) This patient lin... PRN PRN XX WOUND CARE; Start 09/03/18 at 18:00 Acetaminophen (Tylenol Supp) 650 mg Q6H PRN [place] FEVER Last administered on 09/10/18at 18:48; Admin Dose 650 MG; Start 09/03/18 at 20:00 Enalaprilat (Vasotec Iv) 0.625 mg Q6H PRN IV ELEVATED BLOOD PRESSURE Last administered on 09/03/18at 20:58; Admin Dose 0.625 MG; Start 09/03/18 at 20:00 Levalbuterol (Xopenex Neb) 0.63 mg Q6H RESP THERAPY HHN Last administered on 09/17/18at 07:48; Admin Dose 0.63 MG; Start 09/04/18 at 00:00 Meropenem/Sodium Chloride 50 ml @ 100 mls/hr Q12 IVPB Last administered on 09/17/18at 08:13; Admin Dose 100 MLS/HR; Start 09/12/18 at 21:00 Dextrose/Sodium Chloride 1,000 ml @ 50 mls/hr Q20H IV Last administered on 09/16/18at 18:08; Admin Dose 50 MLS/HR; Start 09/15/18 at 11:00 Apixaban (Eliquis) 2.5 mg BID PO ; Start 09/15/18 at 12:00 Potassium Phosphate 30 mm/ Sodium Chloride 260 ml @ 65 mls/hr ONCE ONCE IVPB Last administered on 09/17/18at 11:30; Admin Dose 65 MLS/HR; Start 09/17/18 at 09:00; Stop 09/17/18 at 12:59 GHDAA ART NP Sep 17, 2018 12:05
[2018-09-17] MEDS ORDERED: *CONTINUE SAME TPN IV ONE (13:30)
[2018-09-17] MEDS ORDERED: LIDOCAINE 1% (MPF) 5 ML VIAL SC ONE (13:30)
--- NOTE | 2018-09-17 14:47 | PN ---
Date/Time of Note Date/Time of Note DATE: 09/17/18 TIME: 14:43 Assessment/Plan VTE Prophylaxis Risk score (from Ns)>0 risk: 9 SCD applied (from Ns): Yes Pharmacological prophylaxis: LMWH Lines/Catheters IV Catheter Type (from [facility]): Peripheral IV Urinary Cath still in place: Yes Reason Cath still needed: urinary retention Assessment/Plan Hospital Course Patient is tachycardic at times with high flow oxygen requirements. Patient needs PICC line to start TPN for malnutrition. Patient has no family. Jose barnard. Assessment/Plan - Sepsis with fever, and elevated lactic acid most likely secondary to pneumonia. Continue antibiotics per ID. Dr. Batista is following in infection disease consultation. - Health care associated pneumonia - Acute respiratory insufficiency. is following in pulmonology consultation. - Hypernatremia, resolved. Dr. Fulton is following in nephrology consultation. - Severe anemia, f/up on stool for OB. - Possible UTI per UA - Acute kidney injury due to dehydration, continue IV fluids. - Severe hypokalemia, status post replacement, resolved. - Bipolar disorder. - Bedbound status - Hx Gout - Hx of hemorrhoidectomy. - Protein calorie malnutrition - DNR/DNI status - Poor prognosis. Dr. Cheema is following in palliative care consultation. Further recommendations based on clinical course. Plan of care is discussed with Dr. Wyman. Result Diagram: 09/17/18 0602 09/17/18 0602 Results 24hrs Laboratory Tests Test 09/17/18 06:02 White Blood Count 6.0 # Red Blood Count 3.99 L Hemoglobin 12.3 Hematocrit 38.3 Mean Corpuscular Volume 96.0 Mean Corpuscular Hemoglobin 30.8 Mean Corpuscular Hemoglobin Concent 32.1 Red Cell Distribution Width 14.7 H Platelet Count 148 Mean Platelet Volume 11.7 H Immature Granulocytes % 1.700 H Neutrophils % Segmented Neutrophils % (Manual) 65 Band Neutrophils % (Manual) 16 H Lymphocytes % Lymphocytes % (Manual) 8 L Monocytes % Monocytes % (Manual) 10 Eosinophils % Basophils % Basophils % (Manual) 1 Nucleated Red Blood Cells % 0.0 Immature Granulocytes # 0.100 H Neutrophils # Neutrophils # (Manual) 4.0 Band Neutrophils # 0.9 H Lymphocytes (Manual) 0.4 L Lymphocytes # Monocytes # Monocytes # (Manual) 0.6 Eosinophils # Basophils # Basophils # (Manual) 0.0 Nucleated Red Blood Cells # Platelet Estimate NORMAL Giant Platelets 5 H Poikilocytosis 3+ Sodium Level 139 Potassium Level 4.0 Chloride Level 111 H Carbon Dioxide Level 25 Anion Gap 3 L Blood Urea Nitrogen 17 Creatinine 0.36 L Est Glomerular Filtrat Rate mL/min Glucose Level 108 Calcium Level 8.1 L Phosphorus Level 2.2 L Magnesium Level 1.5 L Exam/Review of Systems Exam Vitals Vital Signs Date Temp Pulse Resp B/P (MAP) Pulse Ox O2 O2 Flow FiO2 Time Delivery Rate 09/17/18 128 30 93 90 13:48 09/17/18 98.5 125/80 11:41 (95) 09/16/18 Nasal 20:00 Cannula 09/13/18 15.0 21:00 Intake and Output 09/16/18 09/16/18 09/17/18 1515:00 23:00 07:00 IntakeIntake Total 150 ml OutputOutput Total 900 ml 300 ml BalanceBalance 150 ml -900 ml -300 ml Exam Constitutional: alert, frail Respiratory: diminished breath sounds Cardiovascular: regular rate and rhythm Gastrointestinal: soft, non-tender Genitourinary - Female: other (Acosta catheter) Musculoskeletal: nl extremities to inspection Extremities: normal pulses Neurological: confused, lethargic Results Results 24hrs Laboratory Tests Test 09/17/18 06:02 White Blood Count 6.0 # Red Blood Count 3.99 L Hemoglobin 12.3 Hematocrit 38.3 Mean Corpuscular Volume 96.0 Mean Corpuscular Hemoglobin 30.8 Mean Corpuscular Hemoglobin Concent 32.1 Red Cell Distribution Width 14.7 H Platelet Count 148 Mean Platelet Volume 11.7 H Immature Granulocytes % 1.700 H Neutrophils % Segmented Neutrophils % (Manual) 65 Band Neutrophils % (Manual) 16 H Lymphocytes % Lymphocytes % (Manual) 8 L Monocytes % Monocytes % (Manual) 10 Eosinophils % Basophils % Basophils % (Manual) 1 Nucleated Red Blood Cells % 0.0 Immature Granulocytes # 0.100 H Neutrophils # Neutrophils # (Manual) 4.0 Band Neutrophils # 0.9 H Lymphocytes (Manual) 0.4 L Lymphocytes # Monocytes # Monocytes # (Manual) 0.6 Eosinophils # Basophils # Basophils # (Manual) 0.0 Nucleated Red Blood Cells # Platelet Estimate NORMAL Giant Platelets 5 H Poikilocytosis 3+ Sodium Level 139 Potassium Level 4.0 Chloride Level 111 H Carbon Dioxide Level 25 Anion Gap 3 L Blood Urea Nitrogen 17 Creatinine 0.36 L Est Glomerular Filtrat Rate mL/min Glucose Level 108 Calcium Level 8.1 L Phosphorus Level 2.2 L Magnesium Level 1.5 L Medications Medication Current Medications IV Flush (NS 3 ml) 3 ml PER PROTOCOL IV ; Start 09/03/18 at 13:00 Lorazepam (Ativan) 0.5 mg Q6H PRN IV .ANXIETY; Start 09/03/18 at 13:00 Ondansetron HCl (Zofran Inj) 4 mg Q6H PRN IV NAUSEA/VOMITING; Start 09/03/18 at 13:00 Nitroglycerin (Nitroglycerin (Sl Tab) 0.4 Mg) 1 tab Q5M PRN SL .CHEST PAIN; Start 09/03/18 at 13:00 Acetaminophen (Tylenol Tab) 650 mg Q6H PRN PO .PAIN 1-3 OR TEMP; Start 09/03/18 at 13:00 Morphine Sulfate (morphine) 2 mg Q4H PRN IV .PAIN 7-10; Start 09/03/18 at 13:00 Docusate Sodium (Colace) 100 mg Q12H PRN PO .CONSTIPATION; Start 09/03/18 at 13:00 Magnesium Hydroxide (Milk Of Mag) 30 ml DAILY PRN PO .CONSTIPATION; Start 09/03/18 at 13:00 Famotidine (Pepcid Iv) 20 mg QHS IV Last administered on 09/16/18at 20:33; Admin Dose 20 MG; Start 09/03/18 at 21:00 Miscellaneous Information (Pending [facility] Order For Wound Care) This patient lin... PRN PRN XX WOUND CARE; Start 09/03/18 at 18:00 Acetaminophen (Tylenol Supp) 650 mg Q6H PRN [place] FEVER Last administered on 09/10/18at 18:48; Admin Dose 650 MG; Start 09/03/18 at 20:00 Enalaprilat (Vasotec Iv) 0.625 mg Q6H PRN IV ELEVATED BLOOD PRESSURE Last administered on 09/03/18at 20:58; Admin Dose 0.625 MG; Start 09/03/18 at 20:00 Levalbuterol (Xopenex Neb) 0.63 mg Q6H RESP THERAPY HHN Last administered on 09/17/18at 13:48; Admin Dose 0.63 MG; Start 09/04/18 at 00:00 Meropenem/Sodium Chloride 50 ml @ 100 mls/hr Q12 IVPB Last administered on 09/17/18at 08:13; Admin Dose 100 MLS/HR; Start 09/12/18 at 21:00 Dextrose/Sodium Chloride 1,000 ml @ 50 mls/hr Q20H IV Last administered on 09/16/18at 18:08; Admin Dose 50 MLS/HR; Start 09/15/18 at 11:00 Apixaban (Eliquis) 2.5 mg BID PO ; Start 09/15/18 at 12:00 Miscellaneous Information CONTINUE SAME TPN TODAY ONCE ONCE IV ; Start 09/17/18 at 13:30; Stop 09/17/18 at 13:31; Status CHRIS PENA Sep 17, 2018 14:47
[2018-09-17] MEDS: FAMOTIDINE 20 MG INJ IV SCH (21:23)
[2018-09-17] MEDS: DEXTROSE 5%-0.45% NACL 1,000 ML IV SCH (21:23)
[2018-09-18] VITALS (12 sets, daily range): BP systolic 105–139; BP diastolic 76–93; PULSE 103–156; RESP 17–24
[2018-09-18] MEDS: LEVALBUTEROL (NEB) 0.63 MG/3 ML AMP HHN SCH ×4 (01:24→19:48)
[2018-09-18] MEDS ORDERED: FUROSEMIDE 20 MG INJ IV ONE (08:30)
[2018-09-18] MEDS: BALSAM PERU/CASTOR OIL 60 GM TUBE TOP SCH ×2 (08:32→20:44)
[2018-09-18] MEDS: MEROPENEM 1 GM/50ML(PMX) 50 ML IVPB SCH ×2 (08:32→20:43)
[2018-09-18] MEDS: APIXABAN 5 MG TABLET PO SCH ×2 (08:33→20:44)
--- NOTE | 2018-09-18 08:39 | PN ---
DATE: 09/18/2018 SUBJECTIVE: The patient is stable. No events overnight. The patient remains on high flow oxygen. No significant change. OBJECTIVE: VITAL SIGNS: Blood pressure is 127/93, pulse 115, respirations 22, temperature 98.3. HEENT: Head is normocephalic. NECK: Supple. HEART: Regular rate. LUNGS: Show diminished breath sounds at the base. ABDOMEN: Soft, nontender to palpation without rebound or guarding. EXTREMITIES: Negative for clubbing, cyanosis. Positive edema. DERMATOLOGIC: No rashes. MUSCULOSKELETAL: No joint effusion. NEUROLOGIC: No change in exam. MEDICATIONS: Reviewed. LABORATORY DATA: Reviewed. ASSESSMENT AND PLAN: 1. Nonoliguric acute kidney injury with unknown baseline creatinine. Etiology is secondary to hemod ynamics. Renal function is improving. Continue current treatment plans, supportive care, renally do se all medications. 2. Volume overload. Etiology is multifactorial secondary to third spacing, possible diastolic heart failure. Continue intermittent diuretic therapy. 3. Hypernatremia, improved. 4. Hypokalemia and hypomagnesemia, improved. 5. Mineral bone disorder. Monitor calcium and phosphorus levels. 6. Sepsis secondary to pneumonia and bacteremia. The patient is completing antibiotic course. 7. Acute encephalopathy and dementia, etiology is toxic metabolic. 8. Acute hypoxemic respiratory failure, secondary to pneumonia and congestive heart failure. Contin ue high flow oxygen. Continue current medical management. 9. Anemia. Monitor hemoglobin and hematocrit levels. 10. History of bipolar disorder. 11. Nutrition. The patient remains n.p.o. Consider possible TPN. Dictated By: SANDRA REGALADO/NTS Conf#: [id number] DID#: [id number] CC: GUALBERTO AGUILAR MD; MAIKEL THOMPSON MD;*EndCC*
--- NOTE | 2018-09-18 11:16 | CONS ---
Assessment/Plan Assessment/Plan Assessment/Plan (Daily) Chest x-ray was reviewed from yesterday which is again showing extensive bilateral pneumonia. Patient is currently on high flow nasal cannula at 80% FiO2. Assessment and recommendations; 1. Patient admitted with severe bilateral pneumonia without any interval improvement despite aggressive treatment. 2. Advanced dementia. 3. Anemia and thrombocytopenia. Continue current supportive care. Prognosis is very poor. Consider palliative care. Consultation Date/Type/Reason Admit Date/Time September 03, 2018 at 06:14 Initial Consult Date Type of Consult Pulmonary Patient condition is tenuous. Still on 100% nonrebreather mask. General exam; elderly female, awake and appropriately responsive. Appearing mildly tachypneic. Date/Time of Note DATE: 09/18/18 TIME: 11:13 24 HR Interval Summary Free Text/Dictation Patient's condition is tenuous. On high flow nasal cannula at 80% FiO2. General exam; elderly woman, awake and alert but noncommunicative. Currently in no distress. Exam/Review of Systems Exam Vitals Vital Signs Date Temp Pulse Resp B/P (MAP) Pulse Ox O2 O2 Flow FiO2 Time Delivery Rate 09/18/18 Nasal 08:42 Cannula 09/18/18 80 08:23 09/18/18 118 08:22 09/18/18 30 98 08:21 09/18/18 98.3 127/93 07:09 (104) Intake and Output 09/17/18 09/17/18 09/18/18 1515:00 23:00 07:00 IntakeIntake Total 360 ml 400 ml OutputOutput Total 300 ml 980 ml BalanceBalance 360 ml 100 ml -980 ml Exam H EENT exam; supple neck, no JVD. No lymphadenopathy. Midline trachea. No thyromegaly. Patient has multiple carious teeth. Chest exam; diminished breath sounds throughout with bilateral crackles. S1-S2 audible, no murmurs. Regular rhythm. Abdomen exam; soft, nondistended. No organomegaly. Bowel sounds audible. Scaphoid. Extremity exam; no peripheral edema. Patient does have patchy ecchymosis. 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 Does not follow any commands. Results Result Diagram: 09/18/18 0632 09/18/18 0632 Results 24hrs Laboratory Tests Test 09/18/18 06:32 White Blood Count 4.8 Red Blood Count 3.55 L Hemoglobin 10.7 L Hematocrit 33.8 L Mean Corpuscular Volume 95.2 Mean Corpuscular Hemoglobin 30.1 Mean Corpuscular Hemoglobin Concent 31.7 L Red Cell Distribution Width 14.6 H Platelet Count 117 #L Mean Platelet Volume 11.2 H Immature Granulocytes % 1.400 H Neutrophils % Lymphocytes % Monocytes % Eosinophils % Basophils % Nucleated Red Blood Cells % 0.0 Immature Granulocytes # 0.070 H Neutrophils # Lymphocytes # Monocytes # Eosinophils # Basophils # Nucleated Red Blood Cells # Sodium Level 142 Potassium Level 4.3 Chloride Level 112 H Carbon Dioxide Level 25 Anion Gap 5 Blood Urea Nitrogen 16 Creatinine 0.34 L Est Glomerular Filtrat Rate mL/min Glucose Level 102 Calcium Level 7.6 L Phosphorus Level 3.1 Magnesium Level 2.1 Medications Medication Current Medications IV Flush (NS 3 ml) 3 ml PER PROTOCOL IV ; Start 09/03/18 at 13:00 Lorazepam (Ativan) 0.5 mg Q6H PRN IV .ANXIETY; Start 09/03/18 at 13:00 Ondansetron HCl (Zofran Inj) 4 mg Q6H PRN IV NAUSEA/VOMITING; Start 09/03/18 at 13:00 Nitroglycerin (Nitroglycerin (Sl Tab) 0.4 Mg) 1 tab Q5M PRN SL .CHEST PAIN; Start 09/03/18 at 13:00 Acetaminophen (Tylenol Tab) 650 mg Q6H PRN PO .PAIN 1-3 OR TEMP; Start 09/03/18 at 13:00 Morphine Sulfate (morphine) 2 mg Q4H PRN IV .PAIN 7-10; Start 09/03/18 at 13:00 Docusate Sodium (Colace) 100 mg Q12H PRN PO .CONSTIPATION; Start 09/03/18 at 13:00 Magnesium Hydroxide (Milk Of Mag) 30 ml DAILY PRN PO .CONSTIPATION; Start 09/03/18 at 13:00 Famotidine (Pepcid Iv) 20 mg QHS IV Last administered on 09/17/18at 21:23; Admin Dose 20 MG; Start 09/03/18 at 21:00 Miscellaneous Information (Pending Santyl Order For Wound Care) This patient lin... PRN PRN XX WOUND CARE; Start 09/03/18 at 18:00 Acetaminophen (Tylenol Supp) 650 mg Q6H PRN [place] FEVER Last administered on 09/10/18 18:48; Admin Dose 650 MG; Start 09/03/18 at 20:00 Enalaprilat (Vasotec Iv) 0.625 mg Q6H PRN IV ELEVATED BLOOD PRESSURE Last administered on 09/03/18at 20:58; Admin Dose 0.625 MG; Start 09/03/18 at 20:00 Levalbuterol (Xopenex Neb) 0.63 mg Q6H RESP THERAPY HHN Last administered on 09/18/18at 08:21; Admin Dose 0.63 MG; Start 09/04/18 at 00:00 Meropenem/Sodium Chloride 50 ml @ 100 mls/hr Q12 IVPB Last administered on 09/07 08:32; Admin Dose 100 MLS/HR; Start 09/12/18 at 21:00 Apixaban (Eliquis) 2.5 mg BID PO ; Start 09/15/18 at 12:00 Miscellaneous Information CONTINUE SAME TPN TODAY ONCE ONCE IV ; Start 09/17/18 at 13:30; Stop 09/17/18 at 13:31; Status UNV IV Flush (NS 10 ml) 10 ml Q8 PRN IV IV PROTOCOL; Start 09/17/18 at 16:00 CASSANDRA HONG 12, 2019 11:16
--- NOTE | 2018-09-18 14:11 | CONS ---
Assessment/Plan Assessment/Plan Hospital Course (Demo Recall) Lethargic, on high flow oxygen, on and off low-grade fevers, no distress Microbiology: Urine culture preliminary negative blood culture grew gram- positive cocci in clusters 1 out of 2 sets Antimicrobials: Merrem Physical examination: This is a fragile chronically ill-appearing elderly woman who is awake in no distress. Head atraumatic normocephalic sclera nonicteric vehicle mucosa dry. Neck is supple chest rise symmetrical breath sounds with scattered crackles. Heart: S1-S2. Abdomen soft bowel sounds present. Extremities with trace edema. Assessment: 1. Severe sepsis, present on admission 2. Bacteremia, cw contaminant 3. Respiratory failure likely ongoing aspiration secondary to secretion retention 3. Healthcare associated pneumonia 4. Acute possibly on chronic kidney disease 5. Anemia 6. DNR Plan: Clinically unchanged, continue present care, prognosis poor Consultation Date/Type/Reason Admit Date/Time September 03, 2018 at 06:14 Initial Consult Date Type of Consult id Date/Time of Note DATE: 09/18/18 TIME: 14:11 Exam/Review of Systems Exam Vitals Vital Signs Date Temp Pulse Resp B/P (MAP) Pulse Ox O2 O2 Flow FiO2 Time Delivery Rate 09/18/18 124 13:54 09/18/18 30 94 80 13:00 09/18/18 Nasal 08:42 Cannula 09/18/18 98.3 127/93 07:09 (104) Intake and Output 09/17/18 09/17/18 09/18/18 1515:00 23:00 07:00 IntakeIntake Total 360 ml 400 ml OutputOutput Total 300 ml 980 ml BalanceBalance 360 ml 100 ml -980 ml Results Result Diagram: 09/18/18 0632 09/18/18 0632 Results 24hrs Laboratory Tests Test 09/18/18 06:32 White Blood Count 4.8 Red Blood Count 3.55 L Hemoglobin 10.7 L Hematocrit 33.8 L Mean Corpuscular Volume 95.2 Mean Corpuscular Hemoglobin 30.1 Mean Corpuscular Hemoglobin Concent 31.7 L Red Cell Distribution Width 14.6 H Platelet Count 117 #L Mean Platelet Volume 11.2 H Immature Granulocytes % 1.400 H Neutrophils % Segmented Neutrophils % (Manual) 61 Band Neutrophils % (Manual) 23 H Lymphocytes % Lymphocytes % (Manual) 6 L Reactive Lymphocytes % (Manual) 1 H Monocytes % Monocytes % (Manual) 8 Eosinophils % Basophils % Promyelocytes % (Manual) 1 H Nucleated Red Blood Cells % 1 H Immature Granulocytes # 0.070 H Neutrophils # Neutrophils # (Manual) 3.0 Band Neutrophils # 1.1 H Lymphocytes (Manual) 0.2 L Lymphocytes # Reactive Lymphocytes # 0.0 Monocytes # Monocytes # (Manual) 0.3 Eosinophils # Basophils # Promyelocytes # 0.0 Nucleated Red Blood Cells # Platelet Estimate DECREASED Giant Platelets 3 H Sodium Level 142 Potassium Level 4.3 Chloride Level 112 H Carbon Dioxide Level 25 Anion Gap 5 Blood Urea Nitrogen 16 Creatinine 0.34 L Est Glomerular Filtrat Rate mL/min Glucose Level 102 Calcium Level 7.6 L Phosphorus Level 3.1 Magnesium Level 2.1 Medications Medication Current Medications IV Flush (NS 3 ml) 3 ml PER PROTOCOL IV ; Start 09/03/18 at 13:00 Lorazepam (Ativan) 0.5 mg Q6H PRN IV .ANXIETY; Start 09/03/18 at 13:00 Ondansetron HCl (Zofran Inj) 4 mg Q6H PRN IV NAUSEA/VOMITING; Start 09/03/18 at 13:00 Nitroglycerin (Nitroglycerin (Sl Tab) 0.4 Mg) 1 tab Q5M PRN SL .CHEST PAIN; Start 09/03/18 at 13:00 Acetaminophen (Tylenol Tab) 650 mg Q6H PRN PO .PAIN 1-3 OR TEMP; Start 09/03/18 at 13:00 Morphine Sulfate (morphine) 2 mg Q4H PRN IV .PAIN 7-10; Start 09/03/18 at 13:00 Docusate Sodium (Colace) 100 mg Q12H PRN PO .CONSTIPATION; Start 09/03/18 at 13:00 Magnesium Hydroxide (Milk Of Mag) 30 ml DAILY PRN PO .CONSTIPATION; Start 09/03/18 at 13:00 Famotidine (Pepcid Iv) 20 mg QHS IV Last administered on 09/17/18at 21:23; Admin Dose 20 MG; Start 09/03/18 at 21:00 Miscellaneous Information (Pending Santyl Order For Wound Care) This patient lin... PRN PRN XX WOUND CARE; Start 09/03/18 at 18:00 Acetaminophen (Tylenol Supp) 650 mg Q6H PRN [place] FEVER Last administered on 09/10/18at 18:48; Admin Dose 650 MG; Start 09/03/18 at 20:00 Enalaprilat (Vasotec Iv) 0.625 mg Q6H PRN IV ELEVATED BLOOD PRESSURE Last administered on 09/03/18at 20:58; Admin Dose 0.625 MG; Start 09/03/18 at 20:00 Levalbuterol (Xopenex Neb) 0.63 mg Q6H RESP THERAPY HHN Last administered on 09/18/18at 13:00; Admin Dose 0.63 MG; Start 09/04/18 at 00:00 Meropenem/Sodium Chloride 50 ml @ 100 mls/hr Q12 IVPB Last administered on 09/18/18at 08:32; Admin Dose 100 MLS/HR; Start 09/12/18 at 21:00 Apixaban (Eliquis) 2.5 mg BID PO ; Start 09/15/18 at 12:00 IV Flush (NS 10 ml) 10 ml Q8 PRN IV IV PROTOCOL; Start 09/17/18 at 16:00 Total Parenteral Nutrition 1,000 ml @ 60 mls/hr [id number] IV ; Start 09/18/18 at 16:00 GHADA ART NP Sep 18, 2018 14:11
--- NOTE | 2018-09-18 16:14 | PN ---
Date/Time of Note Date/Time of Note DATE: 09/18/18 TIME: 16:11 Assessment/Plan VTE Prophylaxis Risk score (from Ns)>0 risk: 10 SCD applied (from Ns): Yes Pharmacological prophylaxis: apixaban Lines/Catheters IV Catheter Type (from Nrs): PICC Line Central line still needed: Yes Urinary Cath still in place: Yes Reason Cath still needed: urinary retention Assessment/Plan Hospital Course Patient status post PICC line placement, plan to start short-term TPN today to improve patient nutritional status, pending Garcia evsue. Assessment/Plan - Sepsis with fever, and elevated lactic acid most likely secondary to pneumon ia. Continue antibiotics per ID. Dr. Batista is following in infection disease consultation. - Health care associated pneumonia - Acute respiratory insufficiency. is following in pulmonology consultation. - Hypernatremia, resolved. Dr. Fulton is following in nephrology consultation. - Severe anemia, f/up on stool for OB. - Possible UTI per UA - Acute kidney injury due to dehydration, continue IV fluids. - Severe hypokalemia, status post replacement, resolved. - Bipolar disorder. - Bedbound status - Hx Gout - Hx of hemorrhoidectomy. - Protein calorie malnutrition - DNR/DNI status - Poor prognosis. Dr. Cheema is following in palliative care consultation. Further recommendations based on clinical course. Plan of care is discussed with Dr. Wyman. Result Diagram: 09/18/18 0632 09/18/18 0632 Results 24hrs Laboratory Tests Test 09/18/18 06:32 White Blood Count 4.8 Red Blood Count 3.55 L Hemoglobin 10.7 L Hematocrit 33.8 L Mean Corpuscular Volume 95.2 Mean Corpuscular Hemoglobin 30.1 Mean Corpuscular Hemoglobin Concent 31.7 L Red Cell Distribution Width 14.6 H Platelet Count 117 #L Mean Platelet Volume 11.2 H Immature Granulocytes % 1.400 H Neutrophils % Segmented Neutrophils % (Manual) 61 Band Neutrophils % (Manual) 23 H Lymphocytes % Lymphocytes % (Manual) 6 L Reactive Lymphocytes % (Manual) 1 H Monocytes % Monocytes % (Manual) 8 Eosinophils % Basophils % Promyelocytes % (Manual) 1 H Nucleated Red Blood Cells % 1 H Immature Granulocytes # 0.070 H Neutrophils # Neutrophils # (Manual) 3.0 Band Neutrophils # 1.1 H Lymphocytes (Manual) 0.2 L Lymphocytes # Reactive Lymphocytes # 0.0 Monocytes # Monocytes # (Manual) 0.3 Eosinophils # Basophils # Promyelocytes # 0.0 Nucleated Red Blood Cells # Platelet Estimate DECREASED Giant Platelets 3 H Sodium Level 142 Potassium Level 4.3 Chloride Level 112 H Carbon Dioxide Level 25 Anion Gap 5 Blood Urea Nitrogen 16 Creatinine 0.34 L Est Glomerular Filtrat Rate mL/min Glucose Level 102 Calcium Level 7.6 L Phosphorus Level 3.1 Magnesium Level 2.1 Exam/Review of Systems Exam Vitals Vital Signs Date Temp Pulse Resp B/P (MAP) Pulse Ox O2 O2 Flow FiO2 Time Delivery Rate 09/18/18 98.0 107 17 139/84 90 15:09 (102) 09/18/18 80 13:00 09/18/18 Nasal 08:42 Cannula Intake and Output 09/17/18 09/17/18 09/18/18 1515:00 23:00 07:00 IntakeIntake Total 360 ml 400 ml OutputOutput Total 300 ml 980 ml BalanceBalance 360 ml 100 ml -980 ml Exam Constitutional: alert, frail Respiratory: diminished breath sounds Cardiovascular: regular rate and rhythm Gastrointestinal: soft, non-tender Genitourinary - Female: other (Acosta catheter) Musculoskeletal: nl extremities to inspection Extremities: normal pulses Neurological: confused, lethargic Results Results 24hrs Laboratory Tests Test 09/18/18 06:32 White Blood Count 4.8 Red Blood Count 3.55 L Hemoglobin 10.7 L Hematocrit 33.8 L Mean Corpuscular Volume 95.2 Mean Corpuscular Hemoglobin 30.1 Mean Corpuscular Hemoglobin Concent 31.7 L Red Cell Distribution Width 14.6 H Platelet Count 117 #L Mean Platelet Volume 11.2 H Immature Granulocytes % 1.400 H Neutrophils % Segmented Neutrophils % (Manual) 61 Band Neutrophils % (Manual) 23 H Lymphocytes % Lymphocytes % (Manual) 6 L Reactive Lymphocytes % (Manual) 1 H Monocytes % Monocytes % (Manual) 8 Eosinophils % Basophils % Promyelocytes % (Manual) 1 H Nucleated Red Blood Cells % 1 H Immature Granulocytes # 0.070 H Neutrophils # Neutrophils # (Manual) 3.0 Band Neutrophils # 1.1 H Lymphocytes (Manual) 0.2 L Lymphocytes # Reactive Lymphocytes # 0.0 Monocytes # Monocytes # (Manual) 0.3 Eosinophils # Basophils # Promyelocytes # 0.0 Nucleated Red Blood Cells # Platelet Estimate DECREASED Giant Platelets 3 H Sodium Level 142 Potassium Level 4.3 Chloride Level 112 H Carbon Dioxide Level 25 Anion Gap 5 Blood Urea Nitrogen 16 Creatinine 0.34 L Est Glomerular Filtrat Rate mL/min Glucose Level 102 Calcium Level 7.6 L Phosphorus Level 3.1 Magnesium Level 2.1 Medications Medication Current Medications IV Flush (NS 3 ml) 3 ml PER PROTOCOL IV ; Start 09/03/18 at 13:00 Lorazepam (Ativan) 0.5 mg Q6H PRN IV .ANXIETY; Start 09/03/18 at 13:00 Ondansetron HCl (Zofran Inj) 4 mg Q6H PRN IV NAUSEA/VOMITING; Start 09/03/18 at 13:00 Nitroglycerin (Nitroglycerin (Sl Tab) 0.4 Mg) 1 tab Q5M PRN SL .CHEST PAIN; Start 09/03/18 at 13:00 Acetaminophen (Tylenol Tab) 650 mg Q6H PRN PO .PAIN 1-3 OR TEMP; Start 09/03/18 at 13:00 Morphine Sulfate (morphine) 2 mg Q4H PRN IV .PAIN 7-10; Start 09/03/18 at 13:00 Docusate Sodium (Colace) 100 mg Q12H PRN PO .CONSTIPATION; Start 09/03/18 at 13:00 Magnesium Hydroxide (Milk Of Mag) 30 ml DAILY PRN PO .CONSTIPATION; Start 09/03/18 at 13:00 Famotidine (Pepcid Iv) 20 mg QHS IV Last administered on 09/17/18at 21:23; Admin Dose 20 MG; Start 09/03/18 at 21:00 Miscellaneous Information (Pending Santyl Order For Wound Care) This patient lin... PRN PRN XX WOUND CARE; Start 09/03/18 at 18:00 Acetaminophen (Tylenol Supp) 650 mg Q6H PRN [place] FEVER Last administered on 09/10/18at 18:48; Admin Dose 650 MG; Start 09/03/18 at 20:00 Enalaprilat (Vasotec Iv) 0.625 mg Q6H PRN IV ELEVATED BLOOD PRESSURE Last administered on 09/03/18at 20:58; Admin Dose 0.625 MG; Start 09/03/18 at 20:00 Levalbuterol (Xopenex Neb) 0.63 mg Q6H RESP THERAPY HHN Last administered on 09/18/18at 13:00; Admin Dose 0.63 MG; Start 09/04/18 at 00:00 Meropenem/Sodium Chloride 50 ml @ 100 mls/hr Q12 IVPB Last administered on 09/18/18at 08:32; Admin Dose 100 MLS/HR; Start 09/12/18 at 21:00 Apixaban (Eliquis) 2.5 mg BID PO ; Start 09/15/18 at 12:00 IV Flush (NS 10 ml) 10 ml Q8 PRN IV IV PROTOCOL; Start 09/17/18 at 16:00 Total Parenteral Nutrition 1,000 ml @ 60 mls/hr [id number] IV ; Start 09/18/18 at 16:00 CHRIS ROSARIO Sep 18, 2018 16:14
[2018-09-18] MEDS: TPN 1,000 ML IV SCH (16:43)
[2018-09-18] MEDS: FAMOTIDINE 20 MG INJ IV SCH (20:43)
[2018-09-19] VITALS (12 sets, daily range): BP systolic 97–135; BP diastolic 73–84; PULSE 61–144; RESP 16–21
[2018-09-19] MEDS: LEVALBUTEROL (NEB) 0.63 MG/3 ML AMP HHN SCH ×4 (01:24→20:23)
[2018-09-19] MEDS: TPN 1,000 ML IV SCH (07:58)
[2018-09-19] MEDS: MEROPENEM 1 GM/50ML(PMX) 50 ML IVPB SCH ×2 (08:06→20:19)
[2018-09-19] MEDS: BALSAM PERU/CASTOR OIL 60 GM TUBE TOP SCH ×2 (08:06→20:20)
[2018-09-19] MEDS: APIXABAN 5 MG TABLET PO SCH ×2 (08:06→20:20)
[2018-09-19] MEDS ORDERED: FUROSEMIDE 20 MG INJ IV ONE (09:00)
--- NOTE | 2018-09-19 09:31 | PN ---
DATE: 09/19/2018 SUBJECTIVE: The patient remains on high flow oxygen. The patient is currently on TPN. No other dorothy nts noted. OBJECTIVE: VITAL SIGNS: Blood pressure is 135/79, pulse 120, respirations 28, temperature 98.6. HEENT: Head is normocephalic. NECK: Supple. HEART: Regular rate. LUNGS: Show diminished breath sounds at the base. ABDOMEN: Soft, nontender to palpation without rebound or guarding. EXTREMITIES: Negative for clubbing, cyanosis. Positive edema. DERMATOLOGIC: No rashes. MUSCULOSKELETAL: No joint effusion. NEUROLOGIC: No change in exam. MEDICATIONS: The patient's medications have been reviewed. LABORATORY DATA: Has been reviewed. ASSESSMENT AND PLAN: 1. Nonoliguric acute kidney injury with unknown baseline creatinine. Etiology is secondary to hemod ynamics. Renal function is improved. Continue current treatment plan, supportive care, renally dose all medicines. 2. Volume overload. Etiology is multifactorial secondary to third spacing possible diastolic heart failure. Continue intermittent diuretic therapy. We will give the patient a dose of Lasix 20 mg IV x1. 3. Hypokalemia and hypomagnesemia. Continue to monitor, being adjusted per TPN. 4. Mineral bone disorder. The patient is hypophosphatemic. Anticipate phos to be given for TPN. 5. Sepsis secondary to pneumonia and bacteremia. The patient has completed an antibiotic course. 6. Acute encephalopathy on top of dementia, etiology is toxic metabolic. 7. Acute hypoxic respiratory failure secondary to pneumonia and congestive heart failure. The patie nt remains on high flow oxygen. Continue medical management. 8. Anemia. Monitor hemoglobin and hematocrit levels. 9. History of bipolar disorder. 10. Nutrition. Continue TPN. Dictated By: SANDRA AGUIRRE DO NR/NTS Conf#: [id number] DID#: [id number] CC: MAIKEL THOMPSON MD; GUALBERTO AGUILAR MD;*End*
--- NOTE | 2018-09-19 11:11 | CONS ---
Assessment/Plan Assessment/Plan Assessment/Plan (Daily) Patient is on TPN due to dysphagia. Assessment and recommendations; 1. Patient admitted with severe bilateral pneumonia with persistent hypoxemia without any interval change in chest x-ray or clinical status. 2. Dementia. Patient however is responsive and has shown improvement in encephalopathy. 3. Anemia and thrombocytopenia. Continue current supportive care. Prognosis is poor. Consultation Date/Type/Reason Admit Date/Time September 03, 2018 at 06:14 Initial Consult Date Type of Consult Pulmonary Patient condition is tenuous. Still on 100% nonrebreather mask. General exam; elderly female, awake and appropriately responsive. Appearing mildly tachypneic. Date/Time of Note DATE: 09/19/18 TIME: 11:09 24 HR Interval Summary Free Text/Dictation Patient's condition is a still poor. On high flow nasal cannula 85% FiO2 30 L/min. General exam; elderly female, appropriately responsive. Currently no distress. H EENT exam; supple neck, no JVD. No lymphadenopathy. Midline trachea. No thyromegaly. Patient has fair dentition. No neck masses. Chest exam; diminished breath sounds bilaterally with scattered crackles. S1-S2 audible, no murmurs. Regular rhythm. Abdomen exam; soft, scaphoid. Nontender. No organomegaly. Bowel sounds audible. Extremity exam; no peripheral edema. BUSGIRL exam; patient awake responsive appropriately but exhibiting generalized weakness. Exam/Review of Systems Exam Vitals Vital Signs Date Temp Pulse Resp B/P (MAP) Pulse Ox O2 O2 Flow FiO2 Time Delivery Rate 09/19/18 144 08:01 09/19/18 94 90 08:00 09/19/18 28 08:00 09/19/18 Nasal 07:45 Cannula 09/19/18 98.7 135/79 07:11 (97) Intake and Output 09/18/18 09/18/18 09/19/18 1515:00 23:00 07:00 IntakeIntake Total 550 ml 50 ml 720 ml OutputOutput Total 1000 ml 800 ml BalanceBalance 550 ml -950 ml -80 ml Results Result Diagram: 09/19/18 0605 09/19/18 0605 Results 24hrs Laboratory Tests Test 09/19/18 06:05 White Blood Count 5.4 Red Blood Count 3.73 L Hemoglobin 11.4 L Hematocrit 36.4 L Mean Corpuscular Volume 97.6 Mean Corpuscular Hemoglobin 30.6 Mean Corpuscular Hemoglobin Concent 31.3 L Red Cell Distribution Width 14.2 Platelet Count 107 L Mean Platelet Volume 12.2 H Immature Granulocytes % 3.700 H Neutrophils % Segmented Neutrophils % (Manual) 68 Band Neutrophils % (Manual) 18 H Lymphocytes % Lymphocytes % (Manual) 7 L Reactive Lymphocytes % (Manual) 1 H Monocytes % Monocytes % (Manual) 6 Eosinophils % Basophils % Nucleated Red Blood Cells % 0.0 Immature Granulocytes # 0.200 H Neutrophils # Neutrophils # (Manual) 3.7 Band Neutrophils # 0.9 H Lymphocytes (Manual) 0.3 L Lymphocytes # Reactive Lymphocytes # 0.0 Monocytes # Monocytes # (Manual) 0.3 Eosinophils # Basophils # Nucleated Red Blood Cells # Platelet Estimate DECREASED Polychromasia 1+ Sodium Level 139 Potassium Level 3.7 Chloride Level 109 Carbon Dioxide Level 28 Anion Gap 2 L Blood Urea Nitrogen 24 H Creatinine 0.36 L Est Glomerular Filtrat Rate mL/min Glucose Level 123 Calcium Level 8.2 L Phosphorus Level 2.1 #L Magnesium Level 1.7 Prealbumin 4.1 L Triglycerides Level 185 H Medications Medication Current Medications IV Flush (NS 3 ml) 3 ml PER PROTOCOL IV ; Start 09/03/18 at 13:00 Lorazepam (Ativan) 0.5 mg Q6H PRN IV .ANXIETY; Start 09/03/18 at 13:00 Ondansetron HCl (Zofran Inj) 4 mg Q6H PRN IV NAUSEA/VOMITING; Start 09/03/18 at 13:00 Nitroglycerin (Nitroglycerin (Sl Tab) 0.4 Mg) 1 tab Q5M PRN SL .CHEST PAIN; Start 09/03/18 at 13:00 Acetaminophen (Tylenol Tab) 650 mg Q6H PRN PO .PAIN 1-3 OR TEMP; Start 09/03/18 at 13:00 Morphine Sulfate (morphine) 2 mg Q4H PRN IV .PAIN 7-10; Start 09/03/18 at 13:00 Docusate Sodium (Colace) 100 mg Q12H PRN PO .CONSTIPATION; Start 09/03/18 at 13:00 Magnesium Hydroxide (Milk Of Mag) 30 ml DAILY PRN PO .CONSTIPATION; Start 09/03/18 at 13:00 Famotidine (Pepcid Iv) 20 mg QHS IV Last administered on 09/18/18 20:43; Admin Dose 20 MG; Start 09/03/18 at 21:00 Miscellaneous Information (Pending [facility] Order For Wound Care) This patient lin... PRN PRN XX WOUND CARE; Start 09/03/18 at 18:00 Acetaminophen (Tylenol Supp) 650 mg Q6H PRN [place] FEVER Last administered on 09/10/18 18:48; Admin Dose 650 MG; Start 09/03/18 at 20:00 Enalaprilat (Vasotec Iv) 0.625 mg Q6H PRN IV ELEVATED BLOOD PRESSURE Last administered on 09/03/18 20:58; Admin Dose 0.625 MG; Start 09/03/18 at 20:00 Levalbuterol (Xopenex Neb) 0.63 mg Q6H RESP THERAPY HHN Last administered on 09/19/18 08:13; Admin Dose 0.63 MG; Start 09/04/18 at 00:00 Meropenem/Sodium Chloride 50 ml @ 100 mls/hr Q12 IVPB Last administered on 08:06; Admin Dose 100 MLS/HR; Start 09/12/18 at 21:00 Apixaban (Eliquis) 2.5 mg BID PO ; Start 09/15/18 at 12:00 IV Flush (NS 10 ml) 10 ml Q8 PRN IV IV PROTOCOL; Start 09/17/18 at 16:00 Total Parenteral Nutrition 1,000 ml @ 60 mls/hr [id number] IV Last administered on 09/19/18 07:58; Admin Dose 60 MLS/HR; Start 09/18/18 at 16:00 CASSANDRA HONG 13, 2019 11:11
--- NOTE | 2018-09-19 11:20 | CONS ---
Assessment/Plan Assessment/Plan Hospital Course (Demo Recall) All noted, no acute events, pt remains unchanged Microbiology: Urine culture preliminary negative blood culture grew gram- positive cocci in clusters 1 out of 2 sets Antimicrobials: Merrem Physical examination: This is a fragile chronically ill-appearing elderly woman who is awake in no distress. Head atraumatic normocephalic sclera nonicteric vehicle mucosa dry. Neck is supple chest rise symmetrical breath sounds with scattered crackles. Heart: S1-S2. Abdomen soft bowel sounds present. Extremities with trace edema. Assessment: 1. Severe sepsis, present on admission 2. Bacteremia, cw contaminant 3. Respiratory failure likely ongoing aspiration secondary to secretion retention 3. Healthcare associated pneumonia 4. Acute possibly on chronic kidney disease 5. Anemia 6. DNR Plan: Clinically unchanged, continue present care, prognosis poor Consultation Date/Type/Reason Admit Date/Time September 03, 2018 at 06:14 Initial Consult Date Type of Consult id Date/Time of Note DATE: 09/19/18 TIME: 11:19 Exam/Review of Systems Exam Vitals Vital Signs Date Temp Pulse Resp B/P (MAP) Pulse Ox O2 O2 Flow FiO2 Time Delivery Rate 09/19/18 144 08:01 09/19/18 94 90 08:00 09/19/18 28 08:00 09/19/18 Nasal 07:45 Cannula 09/19/18 98.7 135/79 07:11 (97) Intake and Output 09/18/18 09/18/18 09/19/18 1515:00 23:00 07:00 IntakeIntake Total 550 ml 50 ml 720 ml OutputOutput Total 1000 ml 800 ml BalanceBalance 550 ml -950 ml -80 ml Results Result Diagram: 09/19/18 0605 09/19/18 0605 Results 24hrs Laboratory Tests Test 09/19/18 06:05 White Blood Count 5.4 Red Blood Count 3.73 L Hemoglobin 11.4 L Hematocrit 36.4 L Mean Corpuscular Volume 97.6 Mean Corpuscular Hemoglobin 30.6 Mean Corpuscular Hemoglobin Concent 31.3 L Red Cell Distribution Width 14.2 Platelet Count 107 L Mean Platelet Volume 12.2 H Immature Granulocytes % 3.700 H Neutrophils % Segmented Neutrophils % (Manual) 68 Band Neutrophils % (Manual) 18 H Lymphocytes % Lymphocytes % (Manual) 7 L Reactive Lymphocytes % (Manual) 1 H Monocytes % Monocytes % (Manual) 6 Eosinophils % Basophils % Nucleated Red Blood Cells % 0.0 Immature Granulocytes # 0.200 H Neutrophils # Neutrophils # (Manual) 3.7 Band Neutrophils # 0.9 H Lymphocytes (Manual) 0.3 L Lymphocytes # Reactive Lymphocytes # 0.0 Monocytes # Monocytes # (Manual) 0.3 Eosinophils # Basophils # Nucleated Red Blood Cells # Platelet Estimate DECREASED Polychromasia 1+ Sodium Level 139 Potassium Level 3.7 Chloride Level 109 Carbon Dioxide Level 28 Anion Gap 2 L Blood Urea Nitrogen 24 H Creatinine 0.36 L Est Glomerular Filtrat Rate mL/min Glucose Level 123 Calcium Level 8.2 L Phosphorus Level 2.1 #L Magnesium Level 1.7 Prealbumin 4.1 L Triglycerides Level 185 H Medications Medication Current Medications IV Flush (NS 3 ml) 3 ml PER PROTOCOL IV ; Start 09/03/18 at 13:00 Lorazepam (Ativan) 0.5 mg Q6H PRN IV .ANXIETY; Start 09/03/18 at 13:00 Ondansetron HCl (Zofran Inj) 4 mg Q6H PRN IV NAUSEA/VOMITING; Start 09/03/18 at 13:00 Nitroglycerin (Nitroglycerin (Sl Tab) 0.4 Mg) 1 tab Q5M PRN SL .CHEST PAIN; Start 09/03/18 at 13:00 Acetaminophen (Tylenol Tab) 650 mg Q6H PRN PO .PAIN 1-3 OR TEMP; Start 09/03/18 at 13:00 Morphine Sulfate (morphine) 2 mg Q4H PRN IV .PAIN 7-10; Start 09/03/18 at 13:00 Docusate Sodium (Colace) 100 mg Q12H PRN PO .CONSTIPATION; Start 09/03/18 at 13:00 Magnesium Hydroxide (Milk Of Mag) 30 ml DAILY PRN PO .CONSTIPATION; Start 09/03/18 at 13:00 Famotidine (Pepcid Iv) 20 mg QHS IV Last administered on 09/18/18at 20:43; Admin Dose 20 MG; Start 09/03/18 at 21:00 Miscellaneous Information (Pending [facility]yl Order For Wound Care) This patient lin... PRN PRN XX WOUND CARE; Start 09/03/18 at 18:00 Acetaminophen (Tylenol Supp) 650 mg Q6H PRN [place] FEVER Last administered on 09/10/18 18:48; Admin Dose 650 MG; Start 09/03/18 at 20:00 Enalaprilat (Vasotec Iv) 0.625 mg Q6H PRN IV ELEVATED BLOOD PRESSURE Last administered on 09/03/18 20:58; Admin Dose 0.625 MG; Start 09/03/18 at 20:00 Levalbuterol (Xopenex Neb) 0.63 mg Q6H RESP THERAPY HHN Last administered on 09/19/18 08:13; Admin Dose 0.63 MG; Start 09/04/18 at 00:00 Meropenem/Sodium Chloride 50 ml @ 100 mls/hr Q12 IVPB Last administered on 09/19/18 08:06; Admin Dose 100 MLS/HR; Start 09/12/18 at 21:00 Apixaban (Eliquis) 2.5 mg BID PO ; Start 09/15/18 at 12:00 IV Flush (NS 10 ml) 10 ml Q8 PRN IV IV PROTOCOL; Start 09/17/18 at 16:00 Total Parenteral Nutrition 1,000 ml @ 60 mls/hr [id number] IV Last administered on 09/19/18 07:58; Admin Dose 60 MLS/HR; Start 09/18/18 at 16:00 GHADA ART NP Sep 19, 2018 11:19
--- NOTE | 2018-09-19 14:56 | PN ---
Date/Time of Note Date/Time of Note DATE: 09/19/18 TIME: 14:52 Assessment/Plan VTE Prophylaxis Risk score (from Ns)>0 risk: 11 SCD applied (from Ns): Yes Pharmacological prophylaxis: apixaban Lines/Catheters IV [facility] Type (from [facility]): PICC Line Central line still needed: Yes Urinary Cath still in place: Yes Reason Cath still needed: urinary retention Assessment/Plan Hospital Course Patient is currently on Vapotherm with 90% FiO2 and TPN, patient is lethargic but arousable, patient is undergoing evaluation for [facility]. Assessment/Plan - Sepsis with fever, and elevated lactic acid most likely secondary to pneumonia. Continue antibiotics per ID. Dr. Batista is following in infection disease consultation. - Health care associated pneumonia - Acute respiratory insufficiency. is following in pulmonology consultation. - Hypernatremia, resolved. Dr. Fulton is following in nephrology consultation. - Severe anemia, f/up on stool for OB. - Acute kidney injury due to dehydration, continue IV fluids. - Severe hypokalemia, status post replacement, resolved. - Bipolar disorder. - Bedbound status - Hx Gout - Hx of hemorrhoidectomy. - Protein calorie malnutrition, continue TPN. - DNR/DNI status - Poor prognosis. Dr. Cheema is following in palliative care consultation. Further recommendations based on clinical course. Plan of care is discussed with Dr. Wyman. Result Diagram: 09/19/18 0605 09/19/18 0605 Results 24hrs Laboratory Tests Test 09/19/18 06:05 White Blood Count 5.4 Red Blood Count 3.73 L Hemoglobin 11.4 L Hematocrit 36.4 L Mean Corpuscular Volume 97.6 Mean Corpuscular Hemoglobin 30.6 Mean Corpuscular Hemoglobin Concent 31.3 L Red Cell Distribution Width 14.2 Platelet Count 107 L Mean Platelet Volume 12.2 H Immature Granulocytes % 3.700 H Neutrophils % Segmented Neutrophils % (Manual) 68 Band Neutrophils % (Manual) 18 H Lymphocytes % Lymphocytes % (Manual) 7 L Reactive Lymphocytes % (Manual) 1 H Monocytes % Monocytes % (Manual) 6 Eosinophils % Basophils % Nucleated Red Blood Cells % 0.0 Immature Granulocytes # 0.200 H Neutrophils # Neutrophils # (Manual) 3.7 Band Neutrophils # 0.9 H Lymphocytes (Manual) 0.3 L Lymphocytes # Reactive Lymphocytes # 0.0 Monocytes # Monocytes # (Manual) 0.3 Eosinophils # Basophils # Nucleated Red Blood Cells # Platelet Estimate DECREASED Polychromasia 1+ Sodium Level 139 Potassium Level 3.7 Chloride Level 109 Carbon Dioxide Level 28 Anion Gap 2 L Blood Urea Nitrogen 24 H Creatinine 0.36 L Est Glomerular Filtrat Rate mL/min Glucose Level 123 Calcium Level 8.2 L Phosphorus Level 2.1 #L Magnesium Level 1.7 Prealbumin 4.1 L Triglycerides Level 185 H Exam/Review of Systems Exam Vitals Vital Signs Date Temp Pulse Resp B/P (MAP) Pulse Ox O2 O2 Flow FiO2 Time Delivery Rate 09/19/18 118 28 94 90 14:20 09/19/18 98.7 128/80 High Flow 11:32 (96) Intake and Output 09/18/18 09/18/18 09/19/18 1515:00 23:00 07:00 IntakeIntake Total 550 ml 50 ml 720 ml OutputOutput Total 1000 ml 800 ml BalanceBalance 550 ml -950 ml -80 ml Exam Constitutional: alert, frail Respiratory: diminished breath sounds Cardiovascular: regular rate and rhythm Gastrointestinal: soft, non-tender Genitourinary - Female: other (Acosta catheter) Musculoskeletal: nl extremities to inspection Extremities: normal pulses Neurological: confused, lethargic Results Results 24hrs Laboratory Tests Test 09/19/18 06:05 White Blood Count 5.4 Red Blood Count 3.73 L Hemoglobin 11.4 L Hematocrit 36.4 L Mean Corpuscular Volume 97.6 Mean Corpuscular Hemoglobin 30.6 Mean Corpuscular Hemoglobin Concent 31.3 L Red Cell Distribution Width 14.2 Platelet Count 107 L Mean Platelet Volume 12.2 H Immature Granulocytes % 3.700 H Neutrophils % Segmented Neutrophils % (Manual) 68 Band Neutrophils % (Manual) 18 H Lymphocytes % Lymphocytes % (Manual) 7 L Reactive Lymphocytes % (Manual) 1 H Monocytes % Monocytes % (Manual) 6 Eosinophils % Basophils % Nucleated Red Blood Cells % 0.0 Immature Granulocytes # 0.200 H Neutrophils # Neutrophils # (Manual) 3.7 Band Neutrophils # 0.9 H Lymphocytes (Manual) 0.3 L Lymphocytes # Reactive Lymphocytes # 0.0 Monocytes # Monocytes # (Manual) 0.3 Eosinophils # Basophils # Nucleated Red Blood Cells # Platelet Estimate DECREASED Polychromasia 1+ Sodium Level 139 Potassium Level 3.7 Chloride Level 109 Carbon Dioxide Level 28 Anion Gap 2 L Blood Urea Nitrogen 24 H Creatinine 0.36 L Est Glomerular Filtrat Rate mL/min Glucose Level 123 Calcium Level 8.2 L Phosphorus Level 2.1 #L Magnesium Level 1.7 Prealbumin 4.1 L Triglycerides Level 185 H Medications Medication Current Medications IV Flush (NS 3 ml) 3 ml PER PROTOCOL IV ; Start 09/03/18 at 13:00 Lorazepam (Ativan) 0.5 mg Q6H PRN IV .ANXIETY; Start 09/03/18 at 13:00 Ondansetron HCl (Zofran Inj) 4 mg Q6H PRN IV NAUSEA/VOMITING; Start 09/03/18 at 13:00 Nitroglycerin (Nitroglycerin (Sl Tab) 0.4 Mg) 1 tab Q5M PRN SL .CHEST PAIN; Start 09/03/18 at 13:00 Acetaminophen (Tylenol Tab) 650 mg Q6H PRN PO .PAIN 1-3 OR TEMP; Start 09/03/18 at 13:00 Morphine Sulfate (morphine) 2 mg Q4H PRN IV .PAIN 7-10; Start 09/03/18 at 13:00 Docusate Sodium (Colace) 100 mg Q12H PRN PO .CONSTIPATION; Start 09/03/18 at 13:00 Magnesium Hydroxide (Milk Of Mag) 30 ml DAILY PRN PO .CONSTIPATION; Start 09/03/18 at 13:00 Famotidine (Pepcid Iv) 20 mg QHS IV Last administered on 09/18/18at 20:43; Admin Dose 20 MG; Start 09/03/18 at 21:00 [facility] This patient lin... PRN PRN XX WOUND CARE; Start 09/03/18 at 18:00 Acetaminophen (Tylenol Supp) 650 mg Q6H PRN OR FEVER Last administered on 09/10/18at 18:48; Admin Dose 650 MG; Start 09/03/18 at 20:00 Enalaprilat (Vasotec Iv) 0.625 mg Q6H PRN IV ELEVATED BLOOD PRESSURE Last administered on 09/03/18at 20:58; Admin Dose 0.625 MG; Start 09/03/18 at 20:00 Levalbuterol (Xopenex Neb) 0.63 mg Q6H RESP THERAPY HHN Last administered on 09/19/18at 14:25; Admin Dose 0.63 MG; Start 09/04/18 at 00:00 Meropenem/Sodium Chloride 50 ml @ 100 mls/hr Q12 IVPB Last administered on 09/19/18at 08:06; Admin Dose 100 MLS/HR; Start 09/12/18 at 21:00 Apixaban (Eliquis) 2.5 mg BID PO ; Start 09/15/18 at 12:00 IV Flush (NS 10 ml) 10 ml Q8 PRN IV IV PROTOCOL; Start 09/17/18 at 16:00 Total Parenteral Nutrition 1,000 ml @ 60 mls/hr [id number] IV Last administered on 09/19/18at 07:58; Admin Dose 60 MLS/HR; Start 09/18/18 at 16:00 CHRIS ROSARIO Sep 19, 2018 14:56
[2018-09-19] MEDS: FAMOTIDINE 20 MG INJ IV SCH (20:19)
[2018-09-20] VITALS (10 sets, daily range): BP systolic 110–127; BP diastolic 75–88; PULSE 67–126; RESP 18–19
[2018-09-20] MEDS: LEVALBUTEROL (NEB) 0.63 MG/3 ML AMP HHN SCH ×4 (01:19→20:23)
[2018-09-20] MEDS: TPN 1,000 ML IV SCH ×2 (03:25→18:00)
--- NOTE | 2018-09-20 04:02 | PN ---
Date/Time of Note Date/Time of Note DATE: 09/20/18 TIME: 04:02 Assessment/Plan VTE Prophylaxis Risk score (from Nsg)>0 risk: 11 SCD applied (from Nsg): Yes Lines/Catheters IV Catheter Type (from Nrs): PICC Line Urinary Cath still in place: Yes Assessment/Plan Assessment/Plan - Sepsis with fever, and elevated lactic acid most likely secondary to pneumonia. Continue antibiotics per ID. Dr. Batista is following in infection disease consultation. - Health care associated pneumonia - Acute respiratory insufficiency. is following in pulmonology consultation. - Hypernatremia, resolved. Dr. Fulton is following in nephrology consultation. - Severe anemia, f/up on stool for OB. - Acute kidney injury due to dehydration, continue IV fluids. - Severe hypokalemia, status post replacement, resolved. - Bipolar disorder. - Bedbound status - Hx Gout - Hx of hemorrhoidectomy. - Protein calorie malnutrition, continue PPN. - DNR/DNI status - Poor prognosis. Dr. Cheema is following in palliative care consultation. Further recommendations based on clinical course. Plan of care is discussed with Dr. Wyman. Result Diagram: 09/19/18 0605 09/19/18 0605 Results 24hrs Laboratory Tests Test 09/19/18 06:05 White Blood Count 5.4 Red Blood Count 3.73 L Hemoglobin 11.4 L Hematocrit 36.4 L Mean Corpuscular Volume 97.6 Mean Corpuscular Hemoglobin 30.6 Mean Corpuscular Hemoglobin Concent 31.3 L Red Cell Distribution Width 14.2 Platelet Count 107 L Mean Platelet Volume 12.2 H Immature Granulocytes % 3.700 H Neutrophils % Segmented Neutrophils % (Manual) 68 Band Neutrophils % (Manual) 18 H Lymphocytes % Lymphocytes % (Manual) 7 L Reactive Lymphocytes % (Manual) 1 H Monocytes % Monocytes % (Manual) 6 Eosinophils % Basophils % Nucleated Red Blood Cells % 0.0 Immature Granulocytes # 0.200 H Neutrophils # Neutrophils # (Manual) 3.7 Band Neutrophils # 0.9 H Lymphocytes (Manual) 0.3 L Lymphocytes # Reactive Lymphocytes # 0.0 Monocytes # Monocytes # (Manual) 0.3 Eosinophils # Basophils # Nucleated Red Blood Cells # Platelet Estimate DECREASED Polychromasia 1+ Sodium Level 139 Potassium Level 3.7 Chloride Level 109 Carbon Dioxide Level 28 Anion Gap 2 L Blood Urea Nitrogen 24 H Creatinine 0.36 L Est Glomerular Filtrat Rate mL/min Glucose Level 123 Calcium Level 8.2 L Phosphorus Level 2.1 #L Magnesium Level 1.7 Prealbumin 4.1 L Triglycerides Level 185 H Exam/Review of Systems Exam Vitals Vital Signs Date Temp Pulse Resp B/P (MAP) Pulse Ox O2 O2 Flow FiO2 Time Delivery Rate 09/20/18 96 70 01:21 09/20/18 120 24 01:19 09/19/18 97.5 126/82 23:08 (97) 09/19/18 Nasal 20:00 Cannula Intake and Output 09/19/18 09/19/18 09/20/18 1515:00 23:00 07:00 IntakeIntake Total 5.5 ml OutputOutput Total 900 ml BalanceBalance 5.5 ml -900 ml Results Results 24hrs Laboratory Tests Test 09/19/18 06:05 White Blood Count 5.4 Red Blood Count 3.73 L Hemoglobin 11.4 L Hematocrit 36.4 L Mean Corpuscular Volume 97.6 Mean Corpuscular Hemoglobin 30.6 Mean Corpuscular Hemoglobin Concent 31.3 L Red Cell Distribution Width 14.2 Platelet Count 107 L Mean Platelet Volume 12.2 H Immature Granulocytes % 3.700 H Neutrophils % Segmented Neutrophils % (Manual) 68 Band Neutrophils % (Manual) 18 H Lymphocytes % Lymphocytes % (Manual) 7 L Reactive Lymphocytes % (Manual) 1 H Monocytes % Monocytes % (Manual) 6 Eosinophils % Basophils % Nucleated Red Blood Cells % 0.0 Immature Granulocytes # 0.200 H Neutrophils # Neutrophils # (Manual) 3.7 Band Neutrophils # 0.9 H Lymphocytes (Manual) 0.3 L Lymphocytes # Reactive Lymphocytes # 0.0 Monocytes # Monocytes # (Manual) 0.3 Eosinophils # Basophils # Nucleated Red Blood Cells # Platelet Estimate DECREASED Polychromasia 1+ Sodium Level 139 Potassium Level 3.7 Chloride Level 109 Carbon Dioxide Level 28 Anion Gap 2 L Blood Urea Nitrogen 24 H Creatinine 0.36 L Est Glomerular Filtrat Rate mL/min Glucose Level 123 Calcium Level 8.2 L Phosphorus Level 2.1 #L Magnesium Level 1.7 Prealbumin 4.1 L Triglycerides Level 185 H Medications Medication Current Medications IV Flush (NS 3 ml) 3 ml PER PROTOCOL IV ; Start 09/03/18 at 13:00 Lorazepam (Ativan) 0.5 mg Q6H PRN IV .ANXIETY; Start 09/03/18 at 13:00 Ondansetron HCl (Zofran Inj) 4 mg Q6H PRN IV NAUSEA/VOMITING; Start 09/03/18 at 13:00 Nitroglycerin (Nitroglycerin (Sl Tab) 0.4 Mg) 1 tab Q5M PRN SL .CHEST PAIN; Start 09/03/18 at 13:00 Acetaminophen (Tylenol Tab) 650 mg Q6H PRN PO .PAIN 1-3 OR TEMP; Start 09/03/18 at 13:00 Morphine Sulfate (morphine) 2 mg Q4H PRN IV .PAIN 7-10; Start 09/03/18 at 13:00 Docusate Sodium (Colace) 100 mg Q12H PRN PO .CONSTIPATION; Start 09/03/18 at 13:00 Magnesium Hydroxide (Milk Of Mag) 30 ml DAILY PRN PO .CONSTIPATION; Start 09/03/18 at 13:00 Famotidine (Pepcid Iv) 20 mg QHS IV Last administered on 09/19/18 20:19; Admin Dose 20 MG; Start 09/03/18 at 21:00 Miscellaneous Information (Pending [facility] Order For Wound Care) This patient lin... PRN PRN XX WOUND CARE; Start 09/03/18 at 18:00 Acetaminophen (Tylenol Supp) 650 mg Q6H PRN [place] FEVER Last administered on 09/10/18 18:48; Admin Dose 650 MG; Start 09/03/18 at 20:00 Enalaprilat (Vasotec Iv) 0.625 mg Q6H PRN IV ELEVATED BLOOD PRESSURE Last administered on 09/03/18at 20:58; Admin Dose 0.625 MG; Start 09/03/18 at 20:00 Levalbuterol (Xopenex Neb) 0.63 mg Q6H RESP THERAPY HHN Last administered on 09/20/18 01:19; Admin Dose 0.63 MG; Start 09/04/18 at 00:00 Meropenem/Sodium Chloride 50 ml @ 100 mls/hr Q12 IVPB Last administered on 09/19/18 20:19; Admin Dose 100 MLS/HR; Start 09/12/18 at 21:00 Apixaban (Eliquis) 2.5 mg BID PO ; Start 09/15/18 at 12:00 IV Flush (NS 10 ml) 10 ml Q8 PRN IV IV PROTOCOL; Start 09/17/18 at 16:00 Total Parenteral Nutrition 1,000 ml @ 60 mls/hr [id number] IV Last administered on 09/20/18at 03:25; Admin Dose 60 MLS/HR; Start 09/18/18 at 16:00 BIJAN TERRAZAS Sep 20, 2018 04:02
[2018-09-20] MEDS: ENOXAPARIN 60 MG/0.6 ML SYG SC SCH (06:25)
[2018-09-20] MEDS ORDERED: FUROSEMIDE 20 MG INJ IV ONE (08:30)
--- NOTE | 2018-09-20 08:40 | PN ---
DATE: 09/20/2018 SUBJECTIVE: The patient remains in serious condition on high flow oxygen. No other events noted. N o hemoptysis, hematemesis, hematochezia. OBJECTIVE: VITAL SIGNS: Blood pressure is 121/88, respiration is 18, pulse 126, temperature 98.3. HEENT: Head is normocephalic. NECK: Supple. HEART: Tachycardic. LUNGS: Show diminished breath sounds at the base. ABDOMEN: Soft, nontender to palpation without rebound or guarding. EXTREMITIES: Negative for clubbing, cyanosis. Positive edema. DERMATOLOGIC: No rashes. MUSCULOSKELETAL: No joint effusions. NEUROLOGIC: No change in exam. MEDICATIONS: The patient's medications have been reviewed. LABORATORY DATA: Has been reviewed. ASSESSMENT AND PLAN: 1. Nonoliguric acute kidney injury with unknown baseline creatinine. Etiology is secondary to hemod ynamics. Renal function is improved. Continue current treatment plan, supportive care, renally dose all medicines. 2. Volume overload. Etiology is multifactorial secondary to third spacing, diastolic heart failure. Continue intermittent diuretic therapy, monitor electrolytes, renal function closely. 3. Hypokalemia and hypomagnesemia. Continue to monitor and replete. 4. Mineral bone disorder. The patient is hypophosphatemic. Continue to monitor and replete as need ed. 5. Sepsis secondary to pneumonia bacteremia. Patient has completed antibiotic course. 6. Acute encephalopathy and dementia, etiology is toxic metabolic. 7. Acute hypoxic respiratory failure secondary to pneumonia and congestive heart failure. Continue current medical management. Continue high flow oxygen. Follow up with pulmonary. 8. Anemia. Monitor hemoglobin and hematocrit levels. 9. Nutrition. The patient is on TPN. Will continue to monitor. 10. History of bipolar disorder. Dictated By: SANDRA AGUIRRE DO NR/NTS Conf#: [id number] DID#: [id number] CC: GUALBERTO AGUILAR MD; MAIKLE THOMPSON MD;*EndCC*
[2018-09-20] MEDS: MEROPENEM 1 GM/50ML(PMX) 50 ML IVPB SCH (08:43)
[2018-09-20] MEDS: BALSAM PERU/CASTOR OIL 60 GM TUBE TOP SCH ×2 (08:45→20:53)
[2018-09-20] MEDS ORDERED: MAGNESIUM SULFATE 2 GM/50 ML 50 ML IVPB ONE (11:30)
[2018-09-20] MEDS: POTASSIUM CHLORIDE 100 ML IVPB SCH ×2 (11:35→13:35)
--- NOTE | 2018-09-20 12:01 | CONS ---
Consultation Date/Type/Reason Admit Date/Time September 03, 2018 at 06:14 Initial Consult Date Type of Consult Pulmonary Patient condition is tenuous. Still on 100% nonrebreather mask. General exam; elderly female, awake and appropriately responsive. Appearing mildly tachypneic. Date/Time of Note DATE: 09/20/18 TIME: 12:00 24 HR Interval Summary Free Text/Dictation Patient's condition has been tenuous. On 100% FiO2. General exam; elderly woman, awake and responsive but appearing lethargic. H EENT exam; supple neck, no JVD. No lymphadenopathy. Midline trachea. No thyromegaly. Patient has fair dentition. Chest exam; diminished breath sounds throughout. S1-S2 audible, no murmurs. Abdomen exam; soft, no organomegaly. Scaphoid. Bowel sounds audible. Nontender. Extremity exam; no edema. Patient does have patchy ecchymosis. PSYCHOLOGY ASSISTANT exam; patient awake responsive to some degree. Assessment and recommendations; 1. Patient admitted with severe bilateral pneumonia with severe hypoxemia despite adequate antimicrobial treatment. 2. Left upper extremity DVT. 3. Anemia and thrombocytopenia. Continue current supportive care. Consider palliative care. Prognosis is very poor. Exam/Review of Systems Exam Vitals Vital Signs Date Temp Pulse Resp B/P (MAP) Pulse Ox O2 O2 Flow FiO2 Time Delivery Rate 09/20/18 97.8 112 18 113/77 96 High Flow 10:56 (89) 09/20/18 100 08:18 Intake and Output 09/19/18 09/19/18 09/20/18 1515:00 23:00 07:00 IntakeIntake Total 55.5 ml 0 ml OutputOutput Total 900 ml 400 ml BalanceBalance 55.5 ml -900 ml -400 ml Results Result Diagram: 09/19/18 0605 09/20/18 0713 Results 24hrs Laboratory Tests Test 09/20/18 07:13 Sodium Level 137 Potassium Level 3.3 L Chloride Level 105 Carbon Dioxide Level 28 Anion Gap 4 L Blood Urea Nitrogen 32 H Creatinine 0.34 L Est Glomerular Filtrat Rate mL/min Glucose Level 87 Calcium Level 8.2 L Phosphorus Level 2.1 L Magnesium Level 1.5 L Medications Medication Current Medications IV Flush (NS 3 ml) 3 ml PER PROTOCOL IV ; Start 09/03/18 at 13:00 Lorazepam (Ativan) 0.5 mg Q6H PRN IV .ANXIETY; Start 09/03/18 at 13:00 Ondansetron HCl (Zofran Inj) 4 mg Q6H PRN IV NAUSEA/VOMITING; Start 09/03/18 at 13:00 Nitroglycerin (Nitroglycerin (Sl Tab) 0.4 Mg) 1 tab Q5M PRN SL .CHEST PAIN; Start 09/03/18 at 13:00 Acetaminophen (Tylenol Tab) 650 mg Q6H PRN PO .PAIN 1-3 OR TEMP; Start 09/03/18 at 13:00 Morphine Sulfate (morphine) 2 mg Q4H PRN IV .PAIN 7-10; Start 09/03/18 at 13:00 Docusate Sodium (Colace) 100 mg Q12H PRN PO .CONSTIPATION; Start 09/03/18 at 13:00 Magnesium Hydroxide (Milk Of Mag) 30 ml DAILY PRN PO .CONSTIPATION; Start 09/03/18 at 13:00 Famotidine (Pepcid Iv) 20 mg QHS IV Last administered on 09/19/18 20:19; Admin Dose 20 MG; Start 09/03/18 at 21:00 Miscellaneous Information (Pending Santyl Order For Wound Care) This patient lin... PRN PRN XX WOUND CARE; Start 09/03/18 at 18:00 Acetaminophen (Tylenol Supp) 650 mg Q6H PRN [place] FEVER Last administered on 09/10/18 18:48; Admin Dose 650 MG; Start 09/03/18 at 20:00 Enalaprilat (Vasotec Iv) 0.625 mg Q6H PRN IV ELEVATED BLOOD PRESSURE Last administered on 09/03/18 20:58; Admin Dose 0.625 MG; Start 09/03/18 at 20:00 Levalbuterol (Xopenex Neb) 0.63 mg Q6H RESP THERAPY HHN Last administered on 09/20/18 08:18; Admin Dose 0.63 MG; Start 09/04/18 at 00:00 Meropenem/Sodium Chloride 50 ml @ 100 mls/hr Q12 IVPB Last administered on 09/20/18 08:43; Admin Dose 100 MLS/HR; Start 09/12/18 at 21:00 Apixaban (Eliquis) 2.5 mg BID PO ; Start 09/15/18 at 12:00; Status Hold IV Flush (NS 10 ml) 10 ml Q8 PRN IV IV PROTOCOL; Start 09/17/18 at 16:00 Total Parenteral Nutrition 1,000 ml @ 60 mls/hr [id number] IV Last administered on 09/20/18at 03:25; Admin Dose 60 MLS/HR; Start 09/18/18 at 16:00 Enoxaparin Sodium (Lovenox) 60 mg Q24H SC Last administered on 09/20/18at 06:25; Admin Dose 60 MG; Start 09/20/18 at 05:30 Potassium Chloride 100 ml @ 50 mls/hr Q2H IVPB Last administered on 09/20/18at 11:35; Admin Dose 50 MLS/HR; Start 09/20/18 at 11:30; Stop 09/20/18 at 15:29 Magnesium Sulfate 50 ml @ 25 mls/hr ONCE ONCE IVPB ; Start 09/20/18 at 11:30; Stop 09/20/18 at 13:29 CASSANDRA HONG 14, 2019 12:01
--- NOTE | 2018-09-20 12:36 | CONS ---
Assessment/Plan Assessment/Plan Hospital Course (Demo Recall) All noted, no acute events, pt remains unchanged Microbiology: Urine culture preliminary negative blood culture grew gram- positive cocci in clusters 1 out of 2 sets Antimicrobials: Merrem Physical examination: This is a fragile chronically ill-appearing elderly woman who is awake in no distress. Head atraumatic normocephalic sclera nonicteric vehicle mucosa dry. Neck is supple chest rise symmetrical breath sounds with scattered crackles. Heart: S1-S2. Abdomen soft bowel sounds present. Extremities with trace edema. Assessment: 1. Severe sepsis, present on admission 2. Bacteremia, cw contaminant 3. Respiratory failure likely ongoing aspiration secondary to secretion retention 3. Healthcare associated pneumonia 4. S/p LARRY 5. Anemia 6. DNR Plan: Clinically unchanged, continue present care, dc abx, pulmonary rec-s Consultation Date/Type/Reason Admit Date/Time September 03, 2018 at 06:14 Initial Consult Date Type of Consult id Date/Time of Note DATE: 09/20/18 TIME: 12:34 Exam/Review of Systems Exam Vitals Vital Signs Date Temp Pulse Resp B/P (MAP) Pulse Ox O2 O2 Flow FiO2 Time Delivery Rate 09/20/18 109 12:08 09/20/18 97.8 18 113/77 96 High Flow 10:56 (89) 09/20/18 100 08:18 Intake and Output 09/19/18 09/19/18 09/20/18 1515:00 23:00 07:00 IntakeIntake Total 55.5 ml 0 ml OutputOutput Total 900 ml 400 ml BalanceBalance 55.5 ml -900 ml -400 ml Results Result Diagram: 09/19/18 0605 09/20/18 0713 Results 24hrs Laboratory Tests Test 09/20/18 07:13 Sodium Level 137 Potassium Level 3.3 L Chloride Level 105 Carbon Dioxide Level 28 Anion Gap 4 L Blood Urea Nitrogen 32 H Creatinine 0.34 L Est Glomerular Filtrat Rate mL/min Glucose Level 87 Calcium Level 8.2 L Phosphorus Level 2.1 L Magnesium Level 1.5 L Medications Medication Current Medications IV Flush (NS 3 ml) 3 ml PER PROTOCOL IV ; Start 09/03/18 at 13:00 Lorazepam (Ativan) 0.5 mg Q6H PRN IV .ANXIETY; Start 09/03/18 at 13:00 Ondansetron HCl (Zofran Inj) 4 mg Q6H PRN IV NAUSEA/VOMITING; Start 09/03/18 at 13:00 Nitroglycerin (Nitroglycerin (Sl Tab) 0.4 Mg) 1 tab Q5M PRN SL .CHEST PAIN; Start 09/03/18 at 13:00 Acetaminophen (Tylenol Tab) 650 mg Q6H PRN PO .PAIN 1-3 OR TEMP; Start 09/03/18 at 13:00 Morphine Sulfate (morphine) 2 mg Q4H PRN IV .PAIN 7-10; Start 09/03/18 at 13:00 Docusate Sodium (Colace) 100 mg Q12H PRN PO .CONSTIPATION; Start 09/03/18 at 13:00 Magnesium Hydroxide (Milk Of Mag) 30 ml DAILY PRN PO .CONSTIPATION; Start 09/03/18 at 13:00 Famotidine (Pepcid Iv) 20 mg QHS IV Last administered on 09/19/18at 20:19; Admin Dose 20 MG; Start 09/03/18 at 21:00 [facility] This patient lin... PRN PRN XX WOUND CARE; Start 09/03/18 at 18:00 Acetaminophen (Tylenol Supp) 650 mg Q6H PRN [place] FEVER Last administered on 09/10/18at 18:48; Admin Dose 650 MG; Start 09/03/18 at 20:00 Enalaprilat (Vasotec Iv) 0.625 mg Q6H PRN IV ELEVATED BLOOD PRESSURE Last administered on 09/03/18at 20:58; Admin Dose 0.625 MG; Start 09/03/18 at 20:00 Levalbuterol (Xopenex Neb) 0.63 mg Q6H RESP THERAPY HHN Last administered on 09/20/18at 08:18; Admin Dose 0.63 MG; Start 09/04/18 at 00:00 Meropenem/Sodium Chloride 50 ml @ 100 mls/hr Q12 IVPB Last administered on 09/20/18at 08:43; Admin Dose 100 MLS/HR; Start 09/12/18 at 21:00 Apixaban (Eliquis) 2.5 mg BID PO ; Start 09/15/18 at 12:00; Status Hold IV Flush (NS 10 ml) 10 ml Q8 PRN IV IV PROTOCOL; Start 09/17/18 at 16:00 Total Parenteral Nutrition 1,000 ml @ 60 mls/hr [id number] IV Last administered on 09/20/18at 03:25; Admin Dose 60 MLS/HR; Start 09/18/18 at 16:00 Enoxaparin Sodium (Lovenox) 60 mg Q24H SC Last administered on 09/20/18at 06:25; Admin Dose 60 MG; Start 09/20/18 at 05:30 Potassium Chloride 100 ml @ 50 mls/hr Q2H IVPB Last administered on 09/20/18at 11:35; Admin Dose 50 MLS/HR; Start 09/20/18 at 11:30; Stop 09/20/18 at 15:29 Magnesium Sulfate 50 ml @ 25 mls/hr ONCE ONCE IVPB ; Start 09/20/18 at 11:30; Stop 09/20/18 at 13:29 GHADA ART NP Sep 20, 2018 12:36
[2018-09-20] MEDS: FAMOTIDINE 20 MG INJ IV SCH (20:53)
[2018-09-21] VITALS (12 sets, daily range): BP systolic 123–147; BP diastolic 75–84; PULSE 50–166; RESP 16–20
[2018-09-21] MEDS: LEVALBUTEROL (NEB) 0.63 MG/3 ML AMP HHN SCH ×4 (01:08→19:58)
[2018-09-21] MEDS: morphine 2 MG INJ IV PRN ×2 (01:13→10:16)
[2018-09-21] MEDS: ENOXAPARIN 60 MG/0.6 ML SYG SC SCH (05:58)
[2018-09-21] MEDS: BALSAM PERU/CASTOR OIL 60 GM TUBE TOP SCH ×2 (09:17→20:55)
[2018-09-21] MEDS: TPN 1,000 ML IV SCH (10:15)
--- NOTE | 2018-09-21 10:43 | PN ---
Date/Time of Note Date/Time of Note DATE: 09/21/18 TIME: 10:42 Assessment/Plan VTE Prophylaxis Risk score (from Ns)>0 risk: 10 SCD applied (from Ns): Yes Pharmacological prophylaxis: LMWH Lines/Catheters IV [facility]from [facility] PICC Line Central line still needed: Yes Urinary Cath still in place: Yes Reason Cath still needed: skin wounds contaminated by urine Assessment/Plan Hospital Course - Sepsis with fever, and elevated lactic acid most likely secondary to pneumonia. Continue antibiotics per ID. Dr. Batista is following in infection disease consultation. - Health care associated pneumonia - Acute respiratory insufficiency. is following in pulmonology consultation. - Hypernatremia, resolved. Dr. Fulton is following in nephrology consultation. - Severe anemia, f/up on stool for OB. - Acute kidney injury due to dehydration, continue IV fluids. - Severe hypokalemia, status post replacement, resolved. - Bipolar disorder. - Bedbound status - Hx Gout - Hx of hemorrhoidectomy. - Protein calorie malnutrition, continue PPN. - DNR/DNI status - Poor prognosis. Dr. Cheema is following in palliative care consultation. Result Diagram: 09/21/18 0604 09/21/18 0604 Results 24hrs Laboratory Tests Test 09/21/18 06:04 White Blood Count 5.7 Red Blood Count 3.29 L Hemoglobin 10.0 L Hematocrit 31.3 L Mean Corpuscular Volume 95.1 Mean Corpuscular Hemoglobin 30.4 Mean Corpuscular Hemoglobin Concent 31.9 L Red Cell Distribution Width 13.7 Platelet Count 145 # Mean Platelet Volume 11.9 H Immature Granulocytes % 4.900 H Neutrophils % Segmented Neutrophils % (Manual) 68 Band Neutrophils % (Manual) 8 H Lymphocytes % Lymphocytes % (Manual) 14 L Monocytes % Monocytes % (Manual) 7 Eosinophils % Eosinophils % (Manual) 1 Basophils % Metamyelocytes % (manual) 1 H Myelocytes % (Manual) 1 H Nucleated Red Blood Cells % 0.0 Immature Granulocytes # 0.280 H Neutrophils # Neutrophils # (Manual) 3.9 Band Neutrophils # 0.4 Lymphocytes (Manual) 0.7 L Lymphocytes # Monocytes # Monocytes # (Manual) 0.3 Eosinophils # Basophils # Metamyelocytes # 0.0 Myelocytes # 0.0 Nucleated Red Blood Cells # Platelet Estimate NORMAL Giant Platelets 6 H Polychromasia 1+ Sodium Level 136 Potassium Level 4.0 Chloride Level 104 Carbon Dioxide Level 28 Anion Gap 4 L Blood Urea Nitrogen 32 H Creatinine 0.35 L Est Glomerular Filtrat Rate mL/min Glucose Level 85 Calcium Level 8.2 L Phosphorus Level 2.8 Magnesium Level 1.8 Subjective 24 Hr Interval Summary Free Text/Dictation Patient not responsive to voice or touch but appears comfortable Exam/Review of Systems Exam Vitals Vital Signs Date Temp Pulse Resp B/P (MAP) Pulse Ox O2 O2 Flow FiO2 Time Delivery Rate 09/21/18 131 20 98 50 09:13 09/21/18 97.8 138/78 High Flow 07:56 (98) Intake and Output 09/20/18 09/20/18 09/21/18 1515:00 23:00 07:00 IntakeIntake Total 50 ml OutputOutput Total 1200 ml BalanceBalance 50 ml -1200 ml Constitutional: well developed Head: normocephalic, atraumatic Neck: supple Respiratory: diminished breath sounds Cardiovascular: regular rate and rhythm Gastrointestinal: soft, non-tender Extremities: normal pulses Results Results 24hrs Laboratory Tests Test 09/21/18 06:04 White Blood Count 5.7 Red Blood Count 3.29 L Hemoglobin 10.0 L Hematocrit 31.3 L Mean Corpuscular Volume 95.1 Mean Corpuscular Hemoglobin 30.4 Mean Corpuscular Hemoglobin Concent 31.9 L Red Cell Distribution Width 13.7 Platelet Count 145 # Mean Platelet Volume 11.9 H Immature Granulocytes % 4.900 H Neutrophils % Segmented Neutrophils % (Manual) 68 Band Neutrophils % (Manual) 8 H Lymphocytes % Lymphocytes % (Manual) 14 L Monocytes % Monocytes % (Manual) 7 Eosinophils % Eosinophils % (Manual) 1 Basophils % Metamyelocytes % (manual) 1 H Myelocytes % (Manual) 1 H Nucleated Red Blood Cells % 0.0 Immature Granulocytes # 0.280 H Neutrophils # Neutrophils # (Manual) 3.9 Band Neutrophils # 0.4 Lymphocytes (Manual) 0.7 L Lymphocytes # Monocytes # Monocytes # (Manual) 0.3 Eosinophils # Basophils # Metamyelocytes # 0.0 Myelocytes # 0.0 Nucleated Red Blood Cells # Platelet Estimate NORMAL Giant Platelets 6 H Polychromasia 1+ Sodium Level 136 Potassium Level 4.0 Chloride Level 104 Carbon Dioxide Level 28 Anion Gap 4 L Blood Urea Nitrogen 32 H Creatinine 0.35 L Est Glomerular Filtrat Rate mL/min Glucose Level 85 Calcium Level 8.2 L Phosphorus Level 2.8 Magnesium Level 1.8 Medications Medication Current Medications IV Flush (NS 3 ml) 3 ml PER PROTOCOL IV ; Start 09/03/18 at 13:00 Lorazepam (Ativan) 0.5 mg Q6H PRN IV .ANXIETY; Start 09/03/18 at 13:00 Ondansetron HCl (Zofran Inj) 4 mg Q6H PRN IV NAUSEA/VOMITING; Start 09/03/18 at 13:00 Nitroglycerin (Nitroglycerin (Sl Tab) 0.4 Mg) 1 tab Q5M PRN SL .CHEST PAIN; Start 09/03/18 at 13:00 Acetaminophen (Tylenol Tab) 650 mg Q6H PRN PO .PAIN 1-3 OR TEMP; Start 09/03/18 at 13:00 Morphine Sulfate (morphine) 2 mg Q4H PRN IV .PAIN 7-10 Last administered on 09/21/18at 10:16; Admin Dose 2 MG; Start 09/03/18 at 13:00 Docusate Sodium (Colace) 100 mg Q12H PRN PO .CONSTIPATION; Start 09/03/18 at 13:00 Magnesium Hydroxide (Milk Of Mag) 30 ml DAILY PRN PO .CONSTIPATION; Start 09/03/18 at 13:00 Famotidine (Pepcid Iv) 20 mg QHS IV Last administered on 09/20/18at 20:53; Admin Dose 20 MG; Start 09/03/18 at 21:00 Miscellaneous Information (Pending [facility] Order For Wound Care) This patient lin... PRN PRN XX WOUND CARE; Start 09/03/18 at 18:00 Acetaminophen (Tylenol Supp) 650 mg Q6H PRN [place] FEVER Last administered on 09/10/18 18:48; Admin Dose 650 MG; Start 09/03/18 at 20:00 Enalaprilat (Vasotec Iv) 0.625 mg Q6H PRN IV ELEVATED BLOOD PRESSURE Last administered on 09/03/18at 20:58; Admin Dose 0.625 MG; Start 09/03/18 at 20:00 Levalbuterol (Xopenex Neb) 0.63 mg Q6H RESP THERAPY HHN Last administered on 6/15/19at 09:04; Admin Dose 0.63 MG; Start 09/04/18 at 00:00 Apixaban (Eliquis) 2.5 mg BID PO ; Start 09/15/18 at 12:00; Status Hold IV Flush (NS 10 ml) 10 ml Q8 PRN IV IV PROTOCOL; Start 09/17/18 at 16:00 Total Parenteral Nutrition 1,000 ml @ 60 mls/hr [id number] IV Last administered on 09/21/18at 10:15; Admin Dose 60 MLS/HR; Start 09/18/18 at 16:00 Enoxaparin Sodium (Lovenox) 60 mg Q24H SC Last administered on 09/21/18at 05:58; Admin Dose 60 MG; Start 09/20/18 at 05:30 ROBIN HOLLAND Sep 21, 2018 10:42
[2018-09-21] MEDS ORDERED: SOD CHLORIDE 0.9% 250 ML IV ONE (11:00)
--- NOTE | 2018-09-21 12:34 | CONS ---
Assessment/Plan Assessment/Plan Hospital Course (Demo Recall) 1. Nonoliguric acute kidney injury with unknown baseline creatinine. Etiology is secondary to hemodynamics. Renal function is improved. Continue current treatment plan, supportive care, renally dose all medicines. 2. Volume overload. Etiology is multifactorial secondary to third spacing, diastolic heart failure. Continue intermittent diuretic therapy, monitor electrolytes, renal function closely. 3. Hypokalemia and hypomagnesemia. Continue to monitor and replete. 4. Mineral bone disorder. The patient is hypophosphatemic. Continue to monitor and replete as needed. 5. Sepsis secondary to pneumonia bacteremia. Patient has completed antibiotic course. 6. Acute encephalopathy and dementia, etiology is toxic metabolic. 7. Acute hypoxic respiratory failure secondary to pneumonia and congestive heart failure. Continue current medical management. Continue high flow oxygen. Follow up with pulmonary. 8. Anemia. Monitor hemoglobin and hematocrit levels. 9. Nutrition. The patient is on TPN. Will continue to monitor. 10. History of bipolar disorder. Consultation Date/Type/Reason Admit Date/Time September 03, 2018 at 06:14 Initial Consult Date Date/Time of Note DATE: 09/21/18 TIME: 12:33 24 HR Interval Summary Free Text/Dictation adequate urine output no f/c, or n/v d/w rn gen nad cv rrr pulm ctab abd soft, nd, nt +bs ext: no edema Exam/Review of Systems Exam Vitals Vital Signs Date Temp Pulse Resp B/P (MAP) Pulse Ox O2 O2 Flow FiO2 Time Delivery Rate 09/21/18 129 12:10 09/21/18 98.7 16 131/75 90 High Flow 11:53 (93) 09/21/18 50 09:13 Intake and Output 09/20/18 09/20/18 09/21/18 1515:00 23:00 07:00 IntakeIntake Total 50 ml OutputOutput Total 1200 ml BalanceBalance 50 ml -1200 ml Results Result Diagram: 09/21/18 0604 09/21/18 0604 Results 24hrs Laboratory Tests Test 09/21/18 06:04 White Blood Count 5.7 Red Blood Count 3.29 L Hemoglobin 10.0 L Hematocrit 31.3 L Mean Corpuscular Volume 95.1 Mean Corpuscular Hemoglobin 30.4 Mean Corpuscular Hemoglobin Concent 31.9 L Red Cell Distribution Width 13.7 Platelet Count 145 # Mean Platelet Volume 11.9 H Immature Granulocytes % 4.900 H Neutrophils % Segmented Neutrophils % (Manual) 68 Band Neutrophils % (Manual) 8 H Lymphocytes % Lymphocytes % (Manual) 14 L Monocytes % Monocytes % (Manual) 7 Eosinophils % Eosinophils % (Manual) 1 Basophils % Metamyelocytes % (manual) 1 H Myelocytes % (Manual) 1 H Nucleated Red Blood Cells % 0.0 Immature Granulocytes # 0.280 H Neutrophils # Neutrophils # (Manual) 3.9 Band Neutrophils # 0.4 Lymphocytes (Manual) 0.7 L Lymphocytes # Monocytes # Monocytes # (Manual) 0.3 Eosinophils # Basophils # Metamyelocytes # 0.0 Myelocytes # 0.0 Nucleated Red Blood Cells # Platelet Estimate NORMAL Giant Platelets 6 H Polychromasia 1+ Sodium Level 136 Potassium Level 4.0 Chloride Level 104 Carbon Dioxide Level 28 Anion Gap 4 L Blood Urea Nitrogen 32 H Creatinine 0.35 L Est Glomerular Filtrat Rate mL/min Glucose Level 85 Calcium Level 8.2 L Phosphorus Level 2.8 Magnesium Level 1.8 Medications Medication Current Medications IV Flush (NS 3 ml) 3 ml PER PROTOCOL IV ; Start 09/03/18 at 13:00 Lorazepam (Ativan) 0.5 mg Q6H PRN IV .ANXIETY; Start 09/03/18 at 13:00 Ondansetron HCl (Zofran Inj) 4 mg Q6H PRN IV NAUSEA/VOMITING; Start 09/03/18 at 13:00 Nitroglycerin (Nitroglycerin (Sl Tab) 0.4 Mg) 1 tab Q5M PRN SL .CHEST PAIN; S tart 09/03/18 at 13:00 Acetaminophen (Tylenol Tab) 650 mg Q6H PRN PO .PAIN 1-3 OR TEMP; Start 09/03/18 at 13:00 Morphine Sulfate (morphine) 2 mg Q4H PRN IV .PAIN 7-10 Last administered on 09/21/18at 10:16; Admin Dose 2 MG; Start 09/03/18 at 13:00 Docusate Sodium (Colace) 100 mg Q12H PRN PO .CONSTIPATION; Start 09/03/18 at 13:00 Magnesium Hydroxide (Milk Of Mag) 30 ml DAILY PRN PO .CONSTIPATION; Start 09/03/18 at 13:00 Famotidine (Pepcid Iv) 20 mg QHS IV Last administered on 09/20/18at 20:53; Admin Dose 20 MG; Start 09/03/18 at 21:00 Miscellaneous Information (Pending Santyl Order For Wound Care) This patient lin... PRN PRN XX WOUND CARE; Start 09/03/18 at 18:00 Acetaminophen (Tylenol Supp) 650 mg Q6H PRN [place] FEVER Last administered on 09/10/18 18:48; Admin Dose 650 MG; Start 09/03/18 at 20:00 Enalaprilat (Vasotec Iv) 0.625 mg Q6H PRN IV ELEVATED BLOOD PRESSURE Last administered on 09/03/18at 20:58; Admin Dose 0.625 MG; Start 09/03/18 at 20:00 Levalbuterol (Xopenex Neb) 0.63 mg Q6H RESP THERAPY HHN Last administered on 09/21/18 09:04; Admin Dose 0.63 MG; Start 09/04/18 at 00:00 Apixaban (Eliquis) 2.5 mg BID PO ; Start 09/15/18 at 12:00; Status Hold IV Flush (NS 10 ml) 10 ml Q8 PRN IV IV PROTOCOL; Start 09/17/18 at 16:00 Total Parenteral Nutrition 1,000 ml @ 60 mls/hr [id number] IV Last administered on 09/21/18at 10:15; Admin Dose 60 MLS/HR; Start 09/18/18 at 16:00 Enoxaparin Sodium (Lovenox) 60 mg Q24H SC Last administered on 09/21/18at 05:58; Admin Dose 60 MG; Start 09/20/18 at 05:30 ASTON DE PAZ MD Sep 21, 2018 12:34
--- NOTE | 2018-09-21 16:09 | CONS ---
Consultation Date/Type/Reason Admit Date/Time September 03, 2018 at 06:14 Initial Consult Date SUBJECTIVE: Patient is awake, alert, afebrile VS: stable T: 98.7 LABS: Reviewed. WBC- 5.7 Blood culture on admission grew staph species 1 out of 2 sets. Urine culture negative Chest x-ray on admission revealed right basilar consolidation. Please see full report in the chart Microbiology: Urine culture preliminary negative blood culture grew gram-posi tive cocci in clusters 1 out of 2 sets Antimicrobials: off of antbx Physical examination: GEN: This is a fragile chronically ill-appearing elderly woman, who is awake in no distress. HENT: Head atraumatic normocephalic; sclera nonicteric vehicle mucosa dry. Neck is supple PULM: chest rise symmetrical breath sounds with scattered crackles. Heart: S1-S2. Abdomen: soft, bowel sounds present. Extremities with trace edema. Assessment: 1. Severe sepsis, present on admission 2. Bacteremia, likely contaminant 3. Healthcare associated pneumonia possibly aspiration 4. Acute possibly on chronic kidney disease 5. Anemia Plan: Pt is stable, Will continue to monitor off of antbx. Pulmonary following. Date/Time of Note DATE: 09/21/18 TIME: 16:08 Exam/Review of Systems Exam Vitals Vital Signs Date Temp Pulse Resp B/P (MAP) Pulse Ox O2 O2 Flow FiO2 Time Delivery Rate 09/21/18 123 16:06 09/21/18 20 98 50 14:02 09/21/18 98.7 131/75 High Flow 11:53 (93) Intake and Output 09/20/18 09/20/18 09/21/18 1515:00 23:00 07:00 IntakeIntake Total 50 ml OutputOutput Total 1200 ml BalanceBalance 50 ml -1200 ml Results Result Diagram: 09/21/18 0604 09/21/18 0604 Results 24hrs Laboratory Tests Test 09/21/18 06:04 White Blood Count 5.7 Red Blood Count 3.29 L Hemoglobin 10.0 L Hematocrit 31.3 L Mean Corpuscular Volume 95.1 Mean Corpuscular Hemoglobin 30.4 Mean Corpuscular Hemoglobin Concent 31.9 L Red Cell Distribution Width 13.7 Platelet Count 145 # Mean Platelet Volume 11.9 H Immature Granulocytes % 4.900 H Neutrophils % Segmented Neutrophils % (Manual) 68 Band Neutrophils % (Manual) 8 H Lymphocytes % Lymphocytes % (Manual) 14 L Monocytes % Monocytes % (Manual) 7 Eosinophils % Eosinophils % (Manual) 1 Basophils % Metamyelocytes % (manual) 1 H Myelocytes % (Manual) 1 H Nucleated Red Blood Cells % 0.0 Immature Granulocytes # 0.280 H Neutrophils # Neutrophils # (Manual) 3.9 Band Neutrophils # 0.4 Lymphocytes (Manual) 0.7 L Lymphocytes # Monocytes # Monocytes # (Manual) 0.3 Eosinophils # Basophils # Metamyelocytes # 0.0 Myelocytes # 0.0 Nucleated Red Blood Cells # Platelet Estimate NORMAL Giant Platelets 6 H Polychromasia 1+ Sodium Level 136 Potassium Level 4.0 Chloride Level 104 Carbon Dioxide Level 28 Anion Gap 4 L Blood Urea Nitrogen 32 H Creatinine 0.35 L Est Glomerular Filtrat Rate mL/min Glucose Level 85 Calcium Level 8.2 L Phosphorus Level 2.8 Magnesium Level 1.8 Medications Medication Current Medications IV Flush (NS 3 ml) 3 ml PER PROTOCOL IV ; Start 09/03/18 at 13:00 Lorazepam (Ativan) 0.5 mg Q6H PRN IV .ANXIETY; Start 09/03/18 at 13:00 Ondansetron HCl (Zofran Inj) 4 mg Q6H PRN IV NAUSEA/VOMITING; Start 09/03/18 at 13:00 Nitroglycerin (Nitroglycerin (Sl Tab) 0.4 Mg) 1 tab Q5M PRN SL .CHEST PAIN; Start 09/03/18 at 13:00 Acetaminophen (Tylenol Tab) 650 mg Q6H PRN PO .PAIN 1-3 OR TEMP; Start 09/03/18 at 13:00 Morphine Sulfate (morphine) 2 mg Q4H PRN IV .PAIN 7-10 Last administered on 09/21/18at 10:16; Admin Dose 2 MG; Start 09/03/18 at 13:00 Docusate Sodium (Colace) 100 mg Q12H PRN PO .CONSTIPATION; Start 09/03/18 at 13:00 Magnesium Hydroxide (Milk Of Mag) 30 ml DAILY PRN PO .CONSTIPATION; Start 09/03/18 at 13:00 Famotidine (Pepcid Iv) 20 mg QHS IV Last administered on 09/20/18at 20:53; Admin Dose 20 MG; Start 09/03/18 at 21:00 Miscellaneous Information (Pending Santyl Order For Wound Care) This patient lin... PRN PRN XX WOUND CARE; Start 09/03/18 at 18:00 Acetaminophen (Tylenol Supp) 650 mg Q6H PRN [place] FEVER Last administered on 09/10/18at 18:48; Admin Dose 650 MG; Start 09/03/18 at 20:00 Enalaprilat (Vasotec Iv) 0.625 mg Q6H PRN IV ELEVATED BLOOD PRESSURE Last administered on 09/03/18at 20:58; Admin Dose 0.625 MG; Start 09/03/18 at 20:00 Levalbuterol (Xopenex Neb) 0.63 mg Q6H RESP THERAPY HHN Last administered on 09/21/18 13:52; Admin Dose 0.63 MG; Start 09/04/18 at 00:00 Apixaban (Eliquis) 2.5 mg BID PO ; Start 09/15/18 at 12:00; Status Hold IV Flush (NS 10 ml) 10 ml Q8 PRN IV IV PROTOCOL; Start 09/17/18 at 16:00 Total Parenteral Nutrition 1,000 ml @ 60 mls/hr [id number] IV Last administered on 09/21/18at 10:15; Admin Dose 60 MLS/HR; Start 09/18/18 at 16:00 Enoxaparin Sodium (Lovenox) 60 mg Q24H SC Last administered on 09/21/18 05:58; Admin Dose 60 MG; Start 09/20/18 at 05:30 SARAH YANG Sep 21, 2018 16:09
--- NOTE | 2018-09-21 16:52 | CONS ---
Consult Date/Type/Reason Admit Date/Time September 03, 2018 at 06:14 Initial Consult Date Type of Consultation: Pulm Date/Time of Note DATE: 09/21/18 TIME: 16:49 Subjective No events. Remains on high flow FiO2 Objective Vitals Vital Signs Date Temp Pulse Resp B/P (MAP) Pulse Ox O2 O2 Flow FiO2 Time Delivery Rate 09/21/18 123 16:06 09/21/18 20 98 50 14:02 09/21/18 Nasal 13:00 Cannula 09/21/18 98.7 131/75 11:53 (93) Intake and Output 09/20/18 09/20/18 09/21/18 1515:00 23:00 07:00 IntakeIntake Total 50 ml OutputOutput Total 1200 ml BalanceBalance 50 ml -1200 ml Exam HEENT: Neck supple; no JVD; no LAD CVS: RRR, S1 and S2 CHEST: Coarse rhonchi B/L ABD: Soft, NT, + BS EXT: No c/c/e Results/Medications Result Diagram: 09/21/18 0604 09/21/18 0604 Results 24 hrs Laboratory Tests Test 09/21/18 06:04 White Blood Count 5.7 Red Blood Count 3.29 L Hemoglobin 10.0 L Hematocrit 31.3 L Mean Corpuscular Volume 95.1 Mean Corpuscular Hemoglobin 30.4 Mean Corpuscular Hemoglobin Concent 31.9 L Red Cell Distribution Width 13.7 Platelet Count 145 # Mean Platelet Volume 11.9 H Immature Granulocytes % 4.900 H Neutrophils % Segmented Neutrophils % (Manual) 68 Band Neutrophils % (Manual) 8 H Lymphocytes % Lymphocytes % (Manual) 14 L Monocytes % Monocytes % (Manual) 7 Eosinophils % Eosinophils % (Manual) 1 Basophils % Metamyelocytes % (manual) 1 H Myelocytes % (Manual) 1 H Nucleated Red Blood Cells % 0.0 Immature Granulocytes # 0.280 H Neutrophils # Neutrophils # (Manual) 3.9 Band Neutrophils # 0.4 Lymphocytes (Manual) 0.7 L Lymphocytes # Monocytes # Monocytes # (Manual) 0.3 Eosinophils # Basophils # Metamyelocytes # 0.0 Myelocytes # 0.0 Nucleated Red Blood Cells # Platelet Estimate NORMAL Giant Platelets 6 H Polychromasia 1+ Sodium Level 136 Potassium Level 4.0 Chloride Level 104 Carbon Dioxide Level 28 Anion Gap 4 L Blood Urea Nitrogen 32 H Creatinine 0.35 L Est Glomerular Filtrat Rate mL/min Glucose Level 85 Calcium Level 8.2 L Phosphorus Level 2.8 Magnesium Level 1.8 Home Meds Active Scripts Polyethylene Glycol* (Miralax*) 17 Gm Powd.pack, 17 GM PO DAILY for CONSTIPATION, #7 Prov:MARA EGAN DO 03/22/17 Reported Medications Cholecalciferol* (Vitamin D3*) 1,000 Unit Tablet, 1000 UNIT PO DAILY, TAB 09/03/18 Acetaminophen with Codeine (Acetaminophen-Cod #3 Tablet) 1 Each Tablet, 1 TAB PO Q8 PRN for PAIN LEVEL 7-10, #7 TAB 09/03/18 Carbidopa/Levodopa (Sinemet 25-100 mg Tablet) 1 Each Tablet, 1 EACH PO BID, TAB 09/03/18 Protein Supplement (Promod) 946 Ml Liquid, 30 ML PO BID 09/03/18 Potassium Chloride* (K-Dur*) 10 Meq Tab.prt.sr, 10 MEQ PO DAILY, TAB 09/03/18 Multivitamin* (Daily Value*) 1 Each Tablet, 1 TAB PO DAILY, TAB 09/03/18 Losartan Potassium* (Losartan Potassium*) 50 Mg Tablet, 50 MG PO DAILY, TAB HOLD IF SBP <110 OR HR <60 09/03/18 Furosemide* (Lasix*) 20 Mg Tablet, 20 MG PO DAILY, TAB 09/03/18 Ferrous Sulfate* (Ferrous Sulfate*) 325 Mg Tabec, 325 MG PO BID, TAB 09/03/18 Diclofenac Sodium* (Diclofenac Sodium*) 25 Mg Tablet.dr, 25 MG PO Q8 PRN for PAIN LEVEL 4-6, #60 TAB 09/03/18 Allopurinol* (Allopurinol*) 100 Mg Tablet, 200 MG PO DAILY, TAB 09/03/18 Acetaminophen (Acetaminophen) 650 Mg Supp.rect, 650 MG RC Q6H PRN for PAIN LEVEL 1-6, SUPP.RECT AND FEVER 09/03/18 Diclofenac Sodium* (Voltaren* Gel) 1% -100 Gm Gel, 2 GM TOP QID, #1 TUB 12/21/17 Tramadol Hcl* (Ultram*) 50 Mg Tablet, 50 MG PO Q6H PRN for PAIN, TAB 12/21/17 Famotidine* (Famotidine*) 20 Mg Tablet, 20 MG PO DAILY, #30 TAB 12/21/17 Escitalopram Oxalate* (Escitalopram Oxalate*) 5 Mg Tablet, 5 MG PO DAILY, #30 TAB 12/21/17 Clonidine Hcl* (Clonidine Hcl*) 0.1 Mg Tab, 0.1 MG PO Q8 PRN for ELEVATED BLOOD PRESSURE, TAB 12/21/17 Valbenazine Tosylate (Ingrezza) 40 Mg Capsule, 40 MG PO QHS, CAP 12/21/17 Divalproex Sodium* (Depakote*) 500 Mg Tablet.dr, 1000 MG PO BID, #120 TAB 12/21/17 Clonidine Hcl* (Clonidine Hcl*) 0.1 Mg Tab, 0.1 MG PO Q8 PRN for ELEVATED BLOOD PRESSURE, TAB 12/21/17 Ammonium Lactate* (Lac-Hydrin* 12% (225gm)) 1 Applic Lotion, 1 APPLIC TOP DAILY, BOTTLE 12/21/17 Medications Current Medications IV Flush (NS 3 ml) 3 ml PER PROTOCOL IV ; Start 09/03/18 at 13:00 Lorazepam (Ativan) 0.5 mg Q6H PRN IV .ANXIETY; Start 09/03/18 at 13:00 Ondansetron HCl (Zofran Inj) 4 mg Q6H PRN IV NAUSEA/VOMITING; Start 09/03/18 at 13:00 Nitroglycerin (Nitroglycerin (Sl Tab) 0.4 Mg) 1 tab Q5M PRN SL .CHEST PAIN; Start 09/03/18 at 13:00 Acetaminophen (Tylenol Tab) 650 mg Q6H PRN PO .PAIN 1-3 OR TEMP; Start 09/03/18 at 13:00 Morphine Sulfate (morphine) 2 mg Q4H PRN IV .PAIN 7-10 Last administered on 09/21/18at 10:16; Admin Dose 2 MG; Start 09/03/18 at 13:00 Docusate Sodium (Colace) 100 mg Q12H PRN PO .CONSTIPATION; Start 09/03/18 at 13:00 Magnesium Hydroxide (Milk Of Mag) 30 ml DAILY PRN PO .CONSTIPATION; Start 09/03/18 at 13:00 Famotidine (Pepcid Iv) 20 mg QHS IV Last administered on 09/20/18at 20:53; Admin Dose 20 MG; Start 09/03/18 at 21:00 Miscellaneous Information (Pending Santyl Order For Wound Care) This patient lin... PRN PRN XX WOUND CARE; Start 09/03/18 at 18:00 Acetaminophen (Tylenol Supp) 650 mg Q6H PRN [place] FEVER Last administered on 09/10/18at 18:48; Admin Dose 650 MG; Start 09/03/18 at 20:00 Enalaprilat (Vasotec Iv) 0.625 mg Q6H PRN IV ELEVATED BLOOD PRESSURE Last administered on 09/03/18at 20:58; Admin Dose 0.625 MG; Start 09/03/18 at 20:00 Levalbuterol (Xopenex Neb) 0.63 mg Q6H RESP THERAPY HHN Last administered on 09/21/18at 13:52; Admin Dose 0.63 MG; Start 09/04/18 at 00:00 Apixaban (Eliquis) 2.5 mg BID PO ; Start 09/15/18 at 12:00; Status Hold IV Flush (NS 10 ml) 10 ml Q8 PRN IV IV PROTOCOL; Start 09/17/18 at 16:00 Total Parenteral Nutrition 1,000 ml @ 60 mls/hr [id number] IV Last administered on 09/21/18at 10:15; Admin Dose 60 MLS/HR; Start 09/18/18 at 16:00 Enoxaparin Sodium (Lovenox) 60 mg Q24H SC Last administered on 09/21/18at 05:58; Admin Dose 60 MG; Start 09/20/18 at 05:30 Assessment/Plan Hospital Course (Demo Recall) IMP: 1. Possible early healthcare-associated pneumonia versus aspiration pneumonia--not improving clinically or radiographically 2. Advanced dementia. 3. Significant anemia, possibly of chronic disease. 4. Dehydration with hypernatremia. 5. Deep venous thrombosis and gastrointestinal prophylaxis. 6. Dementia with dysphagia. RECS: 1. Continue to monitor H and H 2. Antibiotics per ID 3. Aspiration precautions. 4. Decrease supplemental O2 as tolerated 5. Continue free water for hypernatremia Assessment/Plan (Daily) IMP: 1. Hypoxemic Respiratory Insufficiency 2. Sepsis 3. Healthcare associated pneumonia possibly aspiration 4. Acute possibly on chronic kidney disease 5. Anemia RECS: 1. Titrate O2 as tolerated 2. Aspiration precautions 3. BD's/CPT [place] ABDI MD Sep 21, 2018 16:52
[2018-09-21] MEDS: FAMOTIDINE 20 MG INJ IV SCH (20:55)
[2018-09-21] MEDS: DILTIAZEM 25 MG INJ IV SCH (21:00)
[2018-09-22] VITALS (10 sets, daily range): BP systolic 104–122; BP diastolic 70–76; PULSE 90–127; RESP 18–20
[2018-09-22] MEDS: LEVALBUTEROL (NEB) 0.63 MG/3 ML AMP HHN SCH ×4 (01:29→19:33)
[2018-09-22] MEDS: TPN 1,000 ML IV SCH ×2 (03:26→21:10)
[2018-09-22] MEDS: ENOXAPARIN 60 MG/0.6 ML SYG SC SCH (05:54)
[2018-09-22] MEDS: BALSAM PERU/CASTOR OIL 60 GM TUBE TOP SCH ×2 (08:48→21:11)
[2018-09-22] MEDS: DILTIAZEM 25 MG INJ IV SCH ×2 (08:49→21:11)
--- NOTE | 2018-09-22 10:53 | PN ---
Date/Time of Note Date/Time of Note DATE: 09/22/18 TIME: 10:53 Assessment/Plan VTE Prophylaxis Risk score (from Ns)>0 risk: 9 SCD applied (from Ns): Yes Pharmacological prophylaxis: LMWH Lines/Catheters IV Catheter Type (from [facility]): PICC Line Central line still needed: Yes Urinary Cath still in place: Yes Reason Cath still needed: skin wounds contaminated by urine Assessment/Plan Hospital Course - Sepsis with fever, and elevated lactic acid most likely secondary to pneumonia. Continue antibiotics per ID. Dr. Batista is following in infection disease consultation. - Health care associated pneumonia - Acute respiratory insufficiency. is following in pulmonology consultation. - Hypernatremia, resolved. Dr. Fulton is following in nephrology consultation. - Severe anemia, f/up on stool for OB. - Acute kidney injury due to dehydration, continue IV fluids. - Severe hypokalemia, status post replacement, resolved. - Bipolar disorder. - Bedbound status - Hx Gout - Hx of hemorrhoidectomy. - Protein calorie malnutrition, continue PPN. - DNR/DNI status - Poor prognosis. Dr. Cheema is following in palliative care consultation. Result Diagram: 09/21/18 0604 09/22/18 0538 Results 24hrs Laboratory Tests Test 09/22/18 05:38 Sodium Level 136 Potassium Level 3.6 Chloride Level 105 Carbon Dioxide Level 28 Anion Gap 3 L Blood Urea Nitrogen 29 H Creatinine 0.33 L Est Glomerular Filtrat Rate mL/min Glucose Level 118 Calcium Level 8.2 L Phosphorus Level 3.0 Magnesium Level 1.7 Subjective 24 Hr Interval Summary Free Text/Dictation Eyes open but not verbally responsive Exam/Review of Systems Exam Vitals Vital Signs Date Temp Pulse Resp B/P (MAP) Pulse Ox O2 O2 Flow FiO2 Time Delivery Rate 09/22/18 95 08:47 09/22/18 40 08:20 09/22/18 123 20 Nasal 08:20 Cannula 09/22/18 98.1 113/70 07:18 (84) Intake and Output 09/21/18 09/21/18 09/22/18 1515:00 23:00 07:00 IntakeIntake Total 250 ml 725.5 ml 0 ml OutputOutput Total 400 ml 700 ml BalanceBalance 250 ml 325.5 ml -700 ml Constitutional: well developed Head: normocephalic, atraumatic Neck: supple Respiratory: diminished breath sounds Cardiovascular: regular rate and rhythm Gastrointestinal: soft, non-tender Extremities: normal pulses Results Results 24hrs Laboratory Tests Test 09/22/18 05:38 Sodium Level 136 Potassium Level 3.6 Chloride Level 105 Carbon Dioxide Level 28 Anion Gap 3 L Blood Urea Nitrogen 29 H Creatinine 0.33 L Est Glomerular Filtrat Rate mL/min Glucose Level 118 Calcium Level 8.2 L Phosphorus Level 3.0 Magnesium Level 1.7 Medications Medication Current Medications IV Flush (NS 3 ml) 3 ml PER PROTOCOL IV ; Start 09/03/18 at 13:00 Lorazepam (Ativan) 0.5 mg Q6H PRN IV .ANXIETY; Start 09/03/18 at 13:00 Ondansetron HCl (Zofran Inj) 4 mg Q6H PRN IV NAUSEA/VOMITING; Start 09/03/18 at 13:00 Nitroglycerin (Nitroglycerin (Sl Tab) 0.4 Mg) 1 tab Q5M PRN SL .CHEST PAIN; Start 09/03/18 at 13:00 Acetaminophen (Tylenol Tab) 650 mg Q6H PRN PO .PAIN 1-3 OR TEMP; Start 09/03/18 at 13:00 Morphine Sulfate (morphine) 2 mg Q4H PRN IV .PAIN 7-10 Last administered on 09/07 08/25at 10:16; Admin Dose 2 MG; Start 09/03/18 at 13:00 Docusate Sodium (Colace) 100 mg Q12H PRN PO .CONSTIPATION; Start 09/03/18 at 13:00 Magnesium Hydroxide (Milk Of Mag) 30 ml DAILY PRN PO .CONSTIPATION; Start 09/03/18 at 13:00 Famotidine (Pepcid Iv) 20 mg QHS IV Last administered on 09/21/18at 20:55; Admin Dose 20 MG; Start 09/03/18 at 21:00 Miscellaneous Information (Pending [facility] Order For Wound Care) This patient lin... PRN PRN XX WOUND CARE; Start 09/03/18 at 18:00 Acetaminophen (Tylenol Supp) 650 mg Q6H PRN [place] FEVER Last administered on 09/10/18at 18:48; Admin Dose 650 MG; Start 09/03/18 at 20:00 Enalaprilat (Vasotec Iv) 0.625 mg Q6H PRN IV ELEVATED BLOOD PRESSURE Last administered on 09/03/18at 20:58; Admin Dose 0.625 MG; Start 09/03/18 at 20:00 Levalbuterol (Xopenex Neb) 0.63 mg Q6H RESP THERAPY HHN Last administered on 09/22/18at 08:10; Admin Dose 0.63 MG; Start 09/04/18 at 00:00 Apixaban (Eliquis) 2.5 mg BID PO ; Start 09/15/18 at 12:00; Status Hold IV Flush (NS 10 ml) 10 ml Q8 PRN IV IV PROTOCOL; Start 09/17/18 at 16:00 Total Parenteral Nutrition 1,000 ml @ 60 mls/hr [id number] IV Last administered on 09/22/18at 03:26; Admin Dose 60 MLS/HR; Start 09/18/18 at 16:00 Enoxaparin Sodium (Lovenox) 60 mg Q24H SC Last administered on 09/22/18at 05:54; Admin Dose 60 MG; Start 09/20/18 at 05:30 Diltiazem HCl (Cardizem Iv) 20 mg Q12 IV Last administered on 09/22/18at 08:49; Admin Dose 20 MG; Start 09/21/18 at 21:00 ROBIN HOLLAND Sep 22, 2018 10:53
--- NOTE | 2018-09-22 12:55 | CONS ---
Assessment/Plan Assessment/Plan Hospital Course (Demo Recall) 1. Nonoliguric acute kidney injury with unknown baseline creatinine. Etiology is secondary to hemodynamics. Renal function is improved. Continue current treatment plan, supportive care, renally dose all medicines. 2. Volume overload. Etiology is multifactorial secondary to third spacing, diastolic heart failure. Continue intermittent diuretic therapy, monitor electrolytes, renal function closely. 3. Hypokalemia and hypomagnesemia. Continue to monitor and replete. 4. Mineral bone disorder. The patient is hypophosphatemic. Continue to monitor and replete as needed. 5. Sepsis secondary to pneumonia bacteremia. Patient has completed antibiotic course. 6. Acute encephalopathy and dementia, etiology is toxic metabolic. 7. Acute hypoxic respiratory failure secondary to pneumonia and congestive heart failure. Continue current medical management. Continue high flow oxygen. Follow up with pulmonary. 8. Anemia. Monitor hemoglobin and hematocrit levels. 9. Nutrition. The patient is on TPN. Will continue to monitor. 10. History of bipolar disorder. Consultation Date/Type/Reason Admit Date/Time September 03, 2018 at 06:14 Initial Consult Date Date/Time of Note DATE: 09/22/18 TIME: 12:54 Exam/Review of Systems Exam Vitals Vital Signs Date Temp Pulse Resp B/P (MAP) Pulse Ox O2 O2 Flow FiO2 Time Delivery Rate 09/22/18 90 12:00 09/22/18 97.9 18 122/75 97 11:34 (91) 09/22/18 40 08:20 09/22/18 Nasal 08:20 Cannula Intake and Output 09/21/18 09/21/18 09/22/18 1515:00 23:00 07:00 IntakeIntake Total 250 ml 725.5 ml 0 ml OutputOutput Total 400 ml 700 ml BalanceBalance 250 ml 325.5 ml -700 ml Results Result Diagram: 09/21/18 0604 09/22/18 0538 Results 24hrs Laboratory Tests Test 09/22/18 05:38 Sodium Level 136 Potassium Level 3.6 Chloride Level 105 Carbon Dioxide Level 28 Anion Gap 3 L Blood Urea Nitrogen 29 H Creatinine 0.33 L Est Glomerular Filtrat Rate mL/min Glucose Level 118 Calcium Level 8.2 L Phosphorus Level 3.0 Magnesium Level 1.7 Medications Medication Current Medications IV Flush (NS 3 ml) 3 ml PER PROTOCOL IV ; Start 09/03/18 at 13:00 Lorazepam (Ativan) 0.5 mg Q6H PRN IV .ANXIETY; Start 09/03/18 at 13:00 Ondansetron HCl (Zofran Inj) 4 mg Q6H PRN IV NAUSEA/VOMITING; Start 09/03/18 at 13:00 Nitroglycerin (Nitroglycerin (Sl Tab) 0.4 Mg) 1 tab Q5M PRN SL .CHEST PAIN; Start 09/03/18 at 13:00 Acetaminophen (Tylenol Tab) 650 mg Q6H PRN PO .PAIN 1-3 OR TEMP; Start 09/03/18 at 13:00 Morphine Sulfate (morphine) 2 mg Q4H PRN IV .PAIN 7-10 Last administered on 09/21/18at 10:16; Admin Dose 2 MG; Start 09/03/18 at 13:00 Docusate Sodium (Colace) 100 mg Q12H PRN PO .CONSTIPATION; Start 09/03/18 at 13:00 Magnesium Hydroxide (Milk Of Mag) 30 ml DAILY PRN PO .CONSTIPATION; Start 09/03/18 at 13:00 Famotidine (Pepcid Iv) 20 mg QHS IV Last administered on 09/21/18at 20:55; Admin Dose 20 MG; Start 09/03/18 at 21:00 Miscellaneous Information (Pending [facility] Order For Wound Care) This patient lin... PRN PRN XX WOUND CARE; Start 09/03/18 at 18:00 Acetaminophen (Tylenol Supp) 650 mg Q6H PRN [place] FEVER Last administered on 09/10/18at 18:48; Admin Dose 650 MG; Start 09/03/18 at 20:00 Enalaprilat (Vasotec Iv) 0.625 mg Q6H PRN IV ELEVATED BLOOD PRESSURE Last administered on 09/03/18at 20:58; Admin Dose 0.625 MG; Start 09/03/18 at 20:00 Levalbuterol (Xopenex Neb) 0.63 mg Q6H RESP THERAPY HHN Last administered on 09/22/18at 08:10; Admin Dose 0.63 MG; Start 09/04/18 at 00:00 Apixaban (Eliquis) 2.5 mg BID PO ; Start 09/15/18 at 12:00; Status Hold IV Flush (NS 10 ml) 10 ml Q8 PRN IV IV PROTOCOL; Start 09/17/18 at 16:00 Total Parenteral Nutrition 1,000 ml @ 60 mls/hr [id number] IV Last administered on 09/22/18at 03:26; Admin Dose 60 MLS/HR; Start 09/18/18 at 16:00 Enoxaparin Sodium (Lovenox) 60 mg Q24H SC Last administered on 09/22/18at 05:54; Admin Dose 60 MG; Start 09/20/18 at 05:30 Diltiazem HCl (Cardizem Iv) 20 mg Q12 IV Last administered on 09/22/18at 08:49; Admin Dose 20 MG; Start 09/21/18 at 21:00 ASTON DE PAZ MD Sep 22, 2018 12:55
--- NOTE | 2018-09-22 13:45 | CONS ---
Consultation Date/Type/Reason Admit Date/Time September 03, 2018 at 06:14 Initial Consult Date SUBJECTIVE: Patient looks comfortable. Afebrile. No acute events over night. VS: stable T: 97.9 LABS: Reviewed. Chest x-ray on admission revealed right basilar consolidation. Please see full report in the chart Microbiology: Urine culture preliminary negative blood culture grew gram- positive cocci in clusters 1 out of 2 sets Blood culture on admission grew staph species 1 out of 2 sets. Urine culture negative Antimicrobials: off of antbx Physical examination: GEN: This is a fragile chronically ill-appearing elderly woman, who is awake in no distress. HENT: Head atraumatic normocephalic; sclera nonicteric vehicle mucosa dry. Neck is supple PULM: chest rise symmetrical breath sounds with scattered crackles. Heart: S1-S2. Abdomen: soft, bowel sounds present. Extremities with trace edema. Assessment: 1. Severe sepsis, present on admission 2. Bacteremia, likely contaminant 3. Healthcare associated pneumonia possibly aspiration 4. Acute possibly on chronic kidney disease 5. Anemia Plan: Pt is stable, Will continue to monitor off of antbx. Pulmonary following. Date/Time of Note DATE: 09/22/18 TIME: 13:43 Exam/Review of Systems Exam Vitals Vital Signs Date Temp Pulse Resp B/P (MAP) Pulse Ox O2 O2 Flow FiO2 Time Delivery Rate 09/22/18 90 12:00 09/22/18 97.9 18 122/75 97 11:34 (91) 09/22/18 40 08:20 09/22/18 Nasal 08:20 Cannula Intake and Output 09/21/18 09/21/18 09/22/18 1515:00 23:00 07:00 IntakeIntake Total 250 ml 725.5 ml 0 ml OutputOutput Total 400 ml 700 ml BalanceBalance 250 ml 325.5 ml -700 ml Results Result Diagram: 09/21/18 0604 09/22/18 0538 Results 24hrs Laboratory Tests Test 09/22/18 05:38 Sodium Level 136 Potassium Level 3.6 Chloride Level 105 Carbon Dioxide Level 28 Anion Gap 3 L Blood Urea Nitrogen 29 H Creatinine 0.33 L Est Glomerular Filtrat Rate mL/min Glucose Level 118 Calcium Level 8.2 L Phosphorus Level 3.0 Magnesium Level 1.7 Medications Medication Current Medications IV Flush (NS 3 ml) 3 ml PER PROTOCOL IV ; Start 09/03/18 at 13:00 Lorazepam (Ativan) 0.5 mg Q6H PRN IV .ANXIETY; Start 09/03/18 at 13:00 Ondansetron HCl (Zofran Inj) 4 mg Q6H PRN IV NAUSEA/VOMITING; Start 09/03/18 at 13:00 Nitroglycerin (Nitroglycerin (Sl Tab) 0.4 Mg) 1 tab Q5M PRN SL .CHEST PAIN; Start 09/03/18 at 13:00 Acetaminophen (Tylenol Tab) 650 mg Q6H PRN PO .PAIN 1-3 OR TEMP; Start 09/03/18 at 13:00 Morphine Sulfate (morphine) 2 mg Q4H PRN IV .PAIN 7-10 Last administered on 09/21/18at 10:16; Admin Dose 2 MG; Start 09/03/18 at 13:00 Docusate Sodium (Colace) 100 mg Q12H PRN PO .CONSTIPATION; Start 09/03/18 at 13:00 Magnesium Hydroxide (Milk Of Mag) 30 ml DAILY PRN PO .CONSTIPATION; Start 09/03/18 at 13:00 Famotidine (Pepcid Iv) 20 mg QHS IV Last administered on 09/21/18at 20:55; Admin Dose 20 MG; Start 09/03/18 at 21:00 [facility] This patient lin... PRN PRN XX WOUND CARE; Start 09/03/18 at 18:00 Acetaminophen (Tylenol Supp) 650 mg Q6H PRN [place] FEVER Last administered on 09/10/18at 18:48; Admin Dose 650 MG; Start 09/03/18 at 20:00 Enalaprilat (Vasotec Iv) 0.625 mg Q6H PRN IV ELEVATED BLOOD PRESSURE Last a dministered on 09/03/18at 20:58; Admin Dose 0.625 MG; Start 09/03/18 at 20:00 Levalbuterol (Xopenex Neb) 0.63 mg Q6H RESP THERAPY HHN Last administered on 09/22/18 13:36; Admin Dose 0.63 MG; Start 09/04/18 at 00:00 Apixaban (Eliquis) 2.5 mg BID PO ; Start 09/15/18 at 12:00; Status Hold IV Flush (NS 10 ml) 10 ml Q8 PRN IV IV PROTOCOL; Start 09/17/18 at 16:00 Total Parenteral Nutrition 1,000 ml @ 60 mls/hr [id number] IV Last administered on 09/22/18at 03:26; Admin Dose 60 MLS/HR; Start 09/18/18 at 16:00 Enoxaparin Sodium (Lovenox) 60 mg Q24H SC Last administered on 09/22/18at 05:54; Admin Dose 60 MG; Start 09/20/18 at 05:30 Diltiazem HCl (Cardizem Iv) 20 mg Q12 IV Last administered on 09/22/18at 08:49; Admin Dose 20 MG; Start 09/21/18 at 21:00 Fat Emulsion Intravenous 250 ml @ 21 mls/hr DAILY@16 IV ; Start 09/22/18 at 16:00 SARAH YANG Sep 22, 2018 13:45
[2018-09-22] MEDS: FAT EMULSION 20% 250 ML IV SCH (15:11)
--- NOTE | 2018-09-22 16:22 | CONS ---
Consult Date/Type/Reason Admit Date/Time September 03, 2018 at 06:14 Initial Consult Date Type of Consultation: Pulm Date/Time of Note DATE: 09/22/18 TIME: 16:20 Subjective Remains on high-FiO2. No events overnight. Objective Vitals Vital Signs Date Temp Pulse Resp B/P (MAP) Pulse Ox O2 O2 Flow FiO2 Time Delivery Rate 09/22/18 98.0 116 18 114/76 94 15:25 (89) 09/22/18 45 13:46 09/22/18 Nasal 13:46 Cannula Intake and Output 09/21/18 09/21/18 09/22/18 1515:00 23:00 07:00 IntakeIntake Total 250 ml 725.5 ml 0 ml OutputOutput Total 400 ml 700 ml BalanceBalance 250 ml 325.5 ml -700 ml Exam HEENT: Neck supple; no JVD; no LAD CVS: RRR, S1 and S2 CHEST: Coarse BS b/L ABD: Soft, NT, + BS EXT: No c/c/e Results/Medications Result Diagram: 09/21/18 0604 09/22/18 0538 Results 24 hrs Laboratory Tests Test 09/22/18 05:38 Sodium Level 136 Potassium Level 3.6 Chloride Level 105 Carbon Dioxide Level 28 Anion Gap 3 L Blood Urea Nitrogen 29 H Creatinine 0.33 L Est Glomerular Filtrat Rate mL/min Glucose Level 118 Calcium Level 8.2 L Phosphorus Level 3.0 Magnesium Level 1.7 Home Meds Active Scripts Polyethylene Glycol* (Miralax*) 17 Gm Powd.pack, 17 GM PO DAILY for CONSTIPATION, #7 Prov:JULISAMARAMONTY DE LEON 03/22/17 Reported Medications Cholecalciferol* (Vitamin D3*) 1,000 Unit Tablet, 1000 UNIT PO DAILY, TAB 09/03/18 Acetaminophen with Codeine (Acetaminophen-Cod #3 Tablet) 1 Each Tablet, 1 TAB PO Q8 PRN for PAIN LEVEL 7-10, #7 TAB 09/03/18 Carbidopa/Levodopa (Sinemet 25-100 mg Tablet) 1 Each Tablet, 1 EACH PO BID, TAB 09/03/18 Protein Supplement (Promod) 946 Ml Liquid, 30 ML PO BID 09/03/18 Potassium Chloride* (K-Dur*) 10 Meq Tab.prt.sr, 10 MEQ PO DAILY, TAB 09/03/18 Multivitamin* (Daily Value*) 1 Each Tablet, 1 TAB PO DAILY, TAB 09/03/18 Losartan Potassium* (Losartan Potassium*) 50 Mg Tablet, 50 MG PO DAILY, TAB HOLD IF SBP <110 OR HR <60 09/03/18 Furosemide* (Lasix*) 20 Mg Tablet, 20 MG PO DAILY, TAB 09/03/18 Ferrous Sulfate* (Ferrous Sulfate*) 325 Mg Tabec, 325 MG PO BID, TAB 09/03/18 Diclofenac Sodium* (Diclofenac Sodium*) 25 Mg Tablet.dr, 25 MG PO Q8 PRN for PAIN LEVEL 4-6, #60 TAB 09/03/18 Allopurinol* (Allopurinol*) 100 Mg Tablet, 200 MG PO DAILY, TAB 09/03/18 Acetaminophen (Acetaminophen) 650 Mg Supp.rect, 650 MG RC Q6H PRN for PAIN LEVEL 1-6, SUPP.RECT AND FEVER 09/03/18 Diclofenac Sodium* (Voltaren* Gel) 1% -100 Gm Gel, 2 GM TOP QID, #1 TUB 12/21/17 Tramadol Hcl* (Ultram*) 50 Mg Tablet, 50 MG PO Q6H PRN for PAIN, TAB 12/21/17 Famotidine* (Famotidine*) 20 Mg Tablet, 20 MG PO DAILY, #30 TAB 12/21/17 Escitalopram Oxalate* (Escitalopram Oxalate*) 5 Mg Tablet, 5 MG PO DAILY, #30 TAB 12/21/17 Clonidine Hcl* (Clonidine Hcl*) 0.1 Mg Tab, 0.1 MG PO Q8 PRN for ELEVATED BLOOD PRESSURE, TAB 12/21/17 Valbenazine Tosylate (Ingrezza) 40 Mg Capsule, 40 MG PO QHS, CAP 12/21/17 Divalproex Sodium* (Depakote*) 500 Mg Tablet.dr, 1000 MG PO BID, #120 TAB 12/21/17 Clonidine Hcl* (Clonidine Hcl*) 0.1 Mg Tab, 0.1 MG PO Q8 PRN for ELEVATED BLOOD PRESSURE, TAB 12/21/17 Ammonium Lactate* (Lac-Hydrin* 12% (225gm)) 1 Applic Lotion, 1 APPLIC TOP DAILY, BOTTLE 12/21/17 Medications Current Medications IV Flush (NS 3 ml) 3 ml PER PROTOCOL IV ; Start 09/03/18 at 13:00 Lorazepam (Ativan) 0.5 mg Q6H PRN IV .ANXIETY; Start 09/03/18 at 13:00 Ondansetron HCl (Zofran Inj) 4 mg Q6H PRN IV NAUSEA/VOMITING; Start 09/03/18 at 13:00 Nitroglycerin (Nitroglycerin (Sl Tab) 0.4 Mg) 1 tab Q5M PRN SL .CHEST PAIN; Start 09/03/18 at 13:00 Acetaminophen (Tylenol Tab) 650 mg Q6H PRN PO .PAIN 1-3 OR TEMP; Start 09/03/18 at 13:00 Morphine Sulfate (morphine) 2 mg Q4H PRN IV .PAIN 7-10 Last administered on 09/21/18at 10:16; Admin Dose 2 MG; Start 09/03/18 at 13:00 Docusate Sodium (Colace) 100 mg Q12H PRN PO .CONSTIPATION; Start 09/03/18 at 13:00 Magnesium Hydroxide (Milk Of Mag) 30 ml DAILY PRN PO .CONSTIPATION; Start 09/03/18 at 13:00 Famotidine (Pepcid Iv) 20 mg QHS IV Last administered on 09/21/18at 20:55; Admin Dose 20 MG; Start 09/03/18 at 21:00 Miscellaneous Information (Pending [facility] Order For Wound Care) This patient lin... PRN PRN XX WOUND CARE; Start 09/03/18 at 18:00 Acetaminophen (Tylenol Supp) 650 mg Q6H PRN [place] FEVER Last administered on 09/10/18at 18:48; Admin Dose 650 MG; Start 09/03/18 at 20:00 Enalaprilat (Vasotec Iv) 0.625 mg Q6H PRN IV ELEVATED BLOOD PRESSURE Last administered on 09/03/18at 20:58; Admin Dose 0.625 MG; Start 09/03/18 at 20:00 Levalbuterol (Xopenex Neb) 0.63 mg Q6H RESP THERAPY HHN Last administered on 09/22/18at 13:36; Admin Dose 0.63 MG; Start 09/04/18 at 00:00 Apixaban (Eliquis) 2.5 mg BID PO ; Start 09/15/18 at 12:00; Status Hold IV Flush (NS 10 ml) 10 ml Q8 PRN IV IV PROTOCOL; Start 09/17/18 at 16:00 Total Parenteral Nutrition 1,000 ml @ 60 mls/hr [id number] IV Last administered on 09/22/18at 03:26; Admin Dose 60 MLS/HR; Start 09/18/18 at 16:00 Enoxaparin Sodium (Lovenox) 60 mg Q24H SC Last administered on 09/22/18at 05:54; Admin Dose 60 MG; Start 09/20/18 at 05:30 Diltiazem HCl (Cardizem Iv) 20 mg Q12 IV Last administered on 09/22/18at 08:49; Admin Dose 20 MG; Start 09/21/18 at 21:00 Fat Emulsion Intravenous 250 ml @ 21 mls/hr DAILY@16 IV Last administered on 09/22/18at 15:11; Admin Dose 21 MLS/HR; Start 09/22/18 at 16:00 Assessment/Plan Assessment/Plan (Daily) IMP: 1. Hypoxemic Respiratory Insufficiency 2. Sepsis 3. Healthcare associated pneumonia possibly aspiration 4. Acute possibly on chronic kidney disease 5. Anemia RECS: 1. Titrate O2 as tolerated 2. Aspiration precautions 3. BD's/CPT 4. Palliative Care consult ALBANIA ABDI MD Sep 22, 2018 16:22
[2018-09-22] MEDS: FAMOTIDINE 20 MG INJ IV SCH (21:10)
[2018-09-23] VITALS (8 sets, daily range): BP systolic 108–125; BP diastolic 65–72; PULSE 67–130; RESP 18–20
[2018-09-23] MEDS: LEVALBUTEROL (NEB) 0.63 MG/3 ML AMP HHN SCH ×3 (01:12→13:24)
[2018-09-23] MEDS: ENOXAPARIN 60 MG/0.6 ML SYG SC SCH (05:16)
[2018-09-23] MEDS: BALSAM PERU/CASTOR OIL 60 GM TUBE TOP SCH (08:08)
[2018-09-23] MEDS: DILTIAZEM 25 MG INJ IV SCH (08:09)
[2018-09-23] MEDS ORDERED: MAGNESIUM SULFATE 2 GM/50 ML 50 ML IVPB ONE (08:30)
--- NOTE | 2018-09-23 08:56 | PN ---
DATE: 09/23/2018 SUBJECTIVE: The patient remains in serious condition, on high flow oxygen. No other acute events no ritika. OBJECTIVE: VITAL SIGNS: Blood pressure is 125/72, respirations 18, pulse 73, temperature 99.0. HEENT: Head is normocephalic. NECK: Supple. HEART: Regular rate. LUNGS: Show diminished breath sounds at the base. ABDOMEN: Soft, nontender to palpation without rebound or guarding. EXTREMITIES: Negative for clubbing, cyanosis. Positive edema. DERMATOLOGIC: No rashes. MUSCULOSKELETAL: No joint effusion. NEUROLOGIC: No change in exam. MEDICATIONS: Reviewed. LABORATORY DATA: Reviewed. IMAGING STUDIES: Reviewed. ASSESSMENT AND PLAN: 1. Nonoliguric acute kidney injury with unknown baseline creatinine. Etiology is secondary to hemod ynamics. Renal function is improved. Continue current treatment plan, supportive care, and renally dose all medications. 2. Volume overload. Etiology is secondary to third spacing, diastolic heart failure. Continue inte rmittent diuretic therapy, monitor electrolytes, and renal function closely. 3. Hypokalemia and hypomagnesemia. Continue to monitor and replete. 4. Mineral bone disorder. Continue to monitor calcium and phosphorus levels. 5. Sepsis secondary to pneumonia and bacteremia. The patient is completing antibiotic course. 6. Acute encephalopathy and dementia, etiology is toxic metabolic. 7. Acute hypoxemic respiratory failure secondary to pneumonia and congestive heart failure. Continu e medical management. Continue high flow oxygen. Follow up with pulmonary. 8. Anemia. Monitor hemoglobin and hematocrit levels. 9. Nutrition. Continue TPN. 10. History of bipolar disorder. Dictated By: SANDRA AGUIRRE DO NR/NTS Conf#: [id number] DID#: [id number] CC: GUALBERTO AGUILAR MD; MAIKEL THOMPSON MD;*EndCC*
[2018-09-23] MEDS: POTASSIUM CHLORIDE 100 ML IVPB SCH ×2 (11:10→13:18)
--- NOTE | 2018-09-23 11:15 | CONS ---
Assessment/Plan Assessment/Plan Assessment/Plan (Daily) Assessment and recommendations; 1. Patient with history of advanced dementia admitted with severe bilateral pneumonia with persistent severe hypoxemia. Consider palliative care. Prognosis is very poor. Consultation Date/Type/Reason Admit Date/Time September 03, 2018 at 06:14 Initial Consult Date Type of Consult Pulmonary Patient condition is tenuous. Still on 100% nonrebreather mask. General exam; elderly female, awake and appropriately responsive. Appearing mildly tachypneic. Date/Time of Note DATE: 09/23/18 TIME: 11:14 24 HR Interval Summary Free Text/Dictation Patient's condition has slightly improved with mildly improved hypoxemia. Still on high flow nasal cannula currently at 45% FiO2. General exam; elderly woman, very lethargic. Currently no distress. Exam/Review of Systems Exam Vitals Vital Signs Date Temp Pulse Resp B/P (MAP) Pulse Ox O2 O2 Flow FiO2 Time Delivery Rate 09/23/18 95 45 08:45 09/23/18 124 08:00 09/23/18 99.0 18 125/72 07:57 (89) 09/23/18 Nasal 07:45 Cannula Intake and Output 09/22/18 09/22/18 09/23/18 1515:00 23:00 07:00 IntakeIntake Total 5.5 ml 804 ml OutputOutput Total 1500 ml 750 ml BalanceBalance 5.5 ml -696 ml -750 ml Exam H EENT exam; supple neck, no JVD. No lymphadenopathy. Midline trachea. Patient has a multiple carious teeth. Chest exam; diminished breath sounds throughout. S1-S2 audible, no murmurs. Abdomen exam; scaphoid. No organomegaly. Bowel sounds are sluggish. Extremity exam; no peripheral edema. [employer] exam; patient awake responsive but exhibiting severe lethargic. Results Result Diagram: 09/23/18 0621 09/23/18 0622 Results 24hrs Laboratory Tests Test 09/23/18 06:21 09/23/18 06:22 White Blood Count 7.1 # Red Blood Count 2.90 L Hemoglobin 8.7 L Hematocrit 27.7 L Mean Corpuscular Volume 95.5 Mean Corpuscular Hemoglobin 30.0 Mean Corpuscular Hemoglobin Concent 31.4 L Red Cell Distribution Width 13.9 Platelet Count 215 # Mean Platelet Volume 10.8 H Immature Granulocytes % 4.500 H Neutrophils % 66.6 Lymphocytes % 19.4 Monocytes % 8.8 Eosinophils % 0.4 Basophils % 0.3 Nucleated Red Blood Cells % 0.0 Immature Granulocytes # 0.320 H Neutrophils # 4.7 Lymphocytes # 1.4 Monocytes # 0.6 Eosinophils # 0.0 Basophils # 0.0 Nucleated Red Blood Cells # 0.0 Sodium Level 136 Potassium Level 3.4 L Chloride Level 104 Carbon Dioxide Level 30 Anion Gap 2 L Blood Urea Nitrogen 26 H Creatinine 0.32 L Est Glomerular Filtrat Rate mL/min Glucose Level 97 Calcium Level 8.2 L Phosphorus Level 3.5 Magnesium Level 1.5 L Medications Medication Current Medications IV Flush (NS 3 ml) 3 ml PER PROTOCOL IV ; Start 09/03/18 at 13:00 Lorazepam (Ativan) 0.5 mg Q6H PRN IV .ANXIETY; Start 09/03/18 at 13:00 Ondansetron HCl (Zofran Inj) 4 mg Q6H PRN IV NAUSEA/VOMITING; Start 09/03/18 at 13:00 Nitroglycerin (Nitroglycerin (Sl Tab) 0.4 Mg) 1 tab Q5M PRN SL .CHEST PAIN; Start 09/03/18 at 13:00 Acetaminophen (Tylenol Tab) 650 mg Q6H PRN PO .PAIN 1-3 OR TEMP; Start 09/03/18 at 13:00 Morphine Sulfate (morphine) 2 mg Q4H PRN IV .PAIN 7-10 Last administered on 09/21/18at 10:16; Admin Dose 2 MG; Start 09/03/18 at 13:00 Docusate Sodium (Colace) 100 mg Q12H PRN PO .CONSTIPATION; Start 09/03/18 at 13:00 Magnesium Hydroxide (Milk Of Mag) 30 ml DAILY PRN PO .CONSTIPATION; Start 08/08 11/25 at 13:00 Famotidine (Pepcid Iv) 20 mg QHS IV Last administered on 09/22/18at 21:10; Admin Dose 20 MG; Start 09/03/18 at 21:00 Miscellaneous Information (Pending [facility] Order For Wound Care) This patient lin... PRN PRN XX WOUND CARE; Start 09/03/18 at 18:00 Acetaminophen (Tylenol Supp) 650 mg Q6H PRN [place] FEVER Last administered on 6/4/19at 18:48; Admin Dose 650 MG; Start 09/03/18 at 20:00 Enalaprilat (Vasotec Iv) 0.625 mg Q6H PRN IV ELEVATED BLOOD PRESSURE Last administered on 09/03/18 20:58; Admin Dose 0.625 MG; Start 09/03/18 at 20:00 Levalbuterol (Xopenex Neb) 0.63 mg Q6H RESP THERAPY HHN Last administered on 09/23/18 08:42; Admin Dose 0.63 MG; Start 09/04/18 at 00:00 Apixaban (Eliquis) 2.5 mg BID PO ; Start 09/15/18 at 12:00; Status Hold IV Flush (NS 10 ml) 10 ml Q8 PRN IV IV PROTOCOL; Start 09/17/18 at 16:00 Total Parenteral Nutrition 1,000 ml @ 60 mls/hr [id number] IV Last administered on 09/22/18 21:10; Admin Dose 60 MLS/HR; Start 09/18/18 at 16:00 Enoxaparin Sodium (Lovenox) 60 mg Q24H SC Last administered on 09/23/18 05:16; Admin Dose 60 MG; Start 09/20/18 at 05:30 Diltiazem HCl (Cardizem Iv) 20 mg Q12 IV Last administered on 09/23/18 08:09; Admin Dose 20 MG; Start 09/21/18 at 21:00 Fat Emulsion Intravenous 250 ml @ 21 mls/hr DAILY@16 IV Last administered on 09/22/18 15:11; Admin Dose 21 MLS/HR; Start 09/22/18 at 16:00 Potassium Chloride 100 ml @ 50 mls/hr Q2H IVPB Last administered on 09/23/18 11:10; Admin Dose 50 MLS/HR; Start 09/23/18 at 08:30; Stop 09/23/18 at 12:29 CASSANDRA HONG 17, 2019 11:15
[2018-09-23] MEDS: TPN 1,000 ML IV SCH (12:43)
--- NOTE | 2018-09-23 13:08 | PN ---
Date/Time of Note Date/Time of Note DATE: 09/23/18 TIME: 13:06 Assessment/Plan VTE Prophylaxis Risk score (from Ns)>0 risk: 9 SCD applied (from Ns): Yes Pharmacological prophylaxis: LMWH Lines/Catheters IV Catheter Type (from Nrs): PICC Line Central line still needed: Yes Urinary Cath still in place: Yes Reason Cath still needed: urinary retention Assessment/Plan Hospital Course Patient is lethargic but arousable, continues on Vapotherm with 45% FiO2 and TPN, pending evaluation for [facility]. Assessment/Plan - Sepsis with fever, and elevated lactic acid most likely secondary to pneumonia. Continue antibiotics per ID. Dr. Batista is following in infection disease consultation. - Health care associated pneumonia - Acute respiratory insufficiency. is following in pulmonology cons ultation. - Hypernatremia, resolved. Dr. Fulton is following in nephrology consultation. - Severe anemia, f/up on stool for OB. - Acute kidney injury due to dehydration, continue IV fluids. - Severe hypokalemia, status post replacement, resolved. - Bipolar disorder. - Bedbound status - Hx Gout - Hx of hemorrhoidectomy. - Protein calorie malnutrition, continue TPN. - DNR/DNI status - Poor prognosis. Dr. Cheema is following in palliative care consultation. Further recommendations based on clinical course. Plan of care is discussed with Dr. Wyman. Result Diagram: 09/23/18 0621 09/23/18 0622 Results 24hrs Laboratory Tests Test 09/23/18 06:21 09/23/18 06:22 White Blood Count 7.1 # Red Blood Count 2.90 L Hemoglobin 8.7 L Hematocrit 27.7 L Mean Corpuscular Volume 95.5 Mean Corpuscular Hemoglobin 30.0 Mean Corpuscular Hemoglobin Concent 31.4 L Red Cell Distribution Width 13.9 Platelet Count 215 # Mean Platelet Volume 10.8 H Immature Granulocytes % 4.500 H Neutrophils % 66.6 Lymphocytes % 19.4 Monocytes % 8.8 Eosinophils % 0.4 Basophils % 0.3 Nucleated Red Blood Cells % 0.0 Immature Granulocytes # 0.320 H Neutrophils # 4.7 Lymphocytes # 1.4 Monocytes # 0.6 Eosinophils # 0.0 Basophils # 0.0 Nucleated Red Blood Cells # 0.0 Sodium Level 136 Potassium Level 3.4 L Chloride Level 104 Carbon Dioxide Level 30 Anion Gap 2 L Blood Urea Nitrogen 26 H Creatinine 0.32 L Est Glomerular Filtrat Rate mL/min Glucose Level 97 Calcium Level 8.2 L Phosphorus Level 3.5 Magnesium Level 1.5 L Exam/Review of Systems Exam Vitals Vital Signs Date Temp Pulse Resp B/P (MAP) Pulse Ox O2 O2 Flow FiO2 Time Delivery Rate 09/23/18 98.0 67 18 108/72 98 11:53 (84) 09/23/18 45 08:45 09/23/18 Nasal 07:45 Cannula Intake and Output 09/22/18 09/22/18 09/23/18 1515:00 23:00 07:00 IntakeIntake Total 5.5 ml 804 ml OutputOutput Total 1500 ml 750 ml BalanceBalance 5.5 ml -696 ml -750 ml Exam Constitutional: alert, frail Respiratory: diminished breath sounds Cardiovascular: regular rate and rhythm Gastrointestinal: soft, non-tender Genitourinary - Female: other (Acosta catheter) Musculoskeletal: nl extremities to inspection Extremities: normal pulses Neurological: confused, lethargic Results Results 24hrs Laboratory Tests Test 09/23/18 06:21 09/23/18 06:22 White Blood Count 7.1 # Red Blood Count 2.90 L Hemoglobin 8.7 L Hematocrit 27.7 L Mean Corpuscular Volume 95.5 Mean Corpuscular Hemoglobin 30.0 Mean Corpuscular Hemoglobin Concent 31.4 L Red Cell Distribution Width 13.9 Platelet Count 215 # Mean Platelet Volume 10.8 H Immature Granulocytes % 4.500 H Neutrophils % 66.6 Lymphocytes % 19.4 Monocytes % 8.8 Eosinophils % 0.4 Basophils % 0.3 Nucleated Red Blood Cells % 0.0 Immature Granulocytes # 0.320 H Neutrophils # 4.7 Lymphocytes # 1.4 Monocytes # 0.6 Eosinophils # 0.0 Basophils # 0.0 Nucleated Red Blood Cells # 0.0 Sodium Level 136 Potassium Level 3.4 L Chloride Level 104 Carbon Dioxide Level 30 Anion Gap 2 L Blood Urea Nitrogen 26 H Creatinine 0.32 L Est Glomerular Filtrat Rate mL/min Glucose Level 97 Calcium Level 8.2 L Phosphorus Level 3.5 Magnesium Level 1.5 L Medications Medication Current Medications IV Flush (NS 3 ml) 3 ml PER PROTOCOL IV ; Start 09/03/18 at 13:00 Lorazepam (Ativan) 0.5 mg Q6H PRN IV .ANXIETY; Start 09/03/18 at 13:00 Ondansetron HCl (Zofran Inj) 4 mg Q6H PRN IV NAUSEA/VOMITING; Start 09/03/18 at 13:00 Nitroglycerin (Nitroglycerin (Sl Tab) 0.4 Mg) 1 tab Q5M PRN SL .CHEST PAIN; Start 09/03/18 at 13:00 Acetaminophen (Tylenol Tab) 650 mg Q6H PRN PO .PAIN 1-3 OR TEMP; Start 09/03/18 at 13:00 Morphine Sulfate (morphine) 2 mg Q4H PRN IV .PAIN 7-10 Last administered on 09/21/18at 10:16; Admin Dose 2 MG; Start 09/03/18 at 13:00 Docusate Sodium (Colace) 100 mg Q12H PRN PO .CONSTIPATION; Start 09/03/18 at 13:00 Magnesium Hydroxide (Milk Of Mag) 30 ml DAILY PRN PO .CONSTIPATION; Start 09/03/18 at 13:00 Famotidine (Pepcid Iv) 20 mg QHS IV Last administered on 09/22/18at 21:10; Admin Dose 20 MG; Start 09/03/18 at 21:00 Miscellaneous Information (Pending [facility] Order For Wound Care) This patient lin... PRN PRN XX WOUND CARE; Start 09/03/18 at 18:00 Acetaminophen (Tylenol Supp) 650 mg Q6H PRN [place] FEVER Last administered on 09/10/18at 18:48; Admin Dose 650 MG; Start 09/03/18 at 20:00 Enalaprilat (Vasotec Iv) 0.625 mg Q6H PRN IV ELEVATED BLOOD PRESSURE Last administered on 09/03/18at 20:58; Admin Dose 0.625 MG; Start 09/03/18 at 20:00 Levalbuterol (Xopenex Neb) 0.63 mg Q6H RESP THERAPY HHN Last administered on 09/23/18at 08:42; Admin Dose 0.63 MG; Start 09/04/18 at 00:00 Apixaban (Eliquis) 2.5 mg BID PO ; Start 09/15/18 at 12:00; Status Hold IV Flush (NS 10 ml) 10 ml Q8 PRN IV IV PROTOCOL; Start 09/17/18 at 16:00 Total Parenteral Nutrition 1,000 ml @ 60 mls/hr [id number] IV Last administered on 09/23/18at 12:43; Admin Dose 60 MLS/HR; Start 09/18/18 at 16:00 Enoxaparin Sodium (Lovenox) 60 mg Q24H SC Last administered on 09/23/18at 05:16; Admin Dose 60 MG; Start 09/20/18 at 05:30 Diltiazem HCl (Cardizem Iv) 20 mg Q12 IV Last administered on 09/23/18at 08:09; Admin Dose 20 MG; Start 09/21/18 at 21:00 Fat Emulsion Intravenous 250 ml @ 21 mls/hr DAILY@16 IV Last administered on 09/22/18at 15:11; Admin Dose 21 MLS/HR; Start 09/22/18 at 16:00 CHRIS ROSARIO Sep 23, 2018 13:08
--- NOTE | 2018-09-23 16:01 | CONS ---
Assessment/Plan Assessment/Plan Hospital Course (Demo Recall) Look comfortable, no fevers Microbiology: Urine culture preliminary negative blood culture grew gram- positive cocci in clusters 1 out of 2 sets Physical examination: This is a fragile chronically ill-appearing elderly woman who is awake in no distress. Head atraumatic normocephalic sclera nonicteric vehicle mucosa dry. Neck is supple chest rise symmetrical breath sounds with scattered crackles. Heart: S1-S2. Abdomen soft bowel sounds present. Extremities with trace edema. Assessment: 1. Severe sepsis, present on admission 2. Bacteremia, cw contaminant 3. Respiratory failure likely ongoing aspiration secondary to secretion retention 3. Healthcare associated pneumonia===> treated 4. S/p LARRY 5. Anemia 6. DNR Plan: Clinically unchanged, stable off abx, continue aspiration precautions, f/u pulmonary rec-s Consultation Date/Type/Reason Admit Date/Time September 03, 2018 at 06:14 Initial Consult Date Type of Consult id Date/Time of Note DATE: 09/23/18 TIME: 16:00 Exam/Review of Systems Exam Vitals Vital Signs Date Temp Pulse Resp B/P (MAP) Pulse Ox O2 O2 Flow FiO2 Time Delivery Rate 09/23/18 110 24 97 Nasal 45 13:26 Cannula 09/23/18 98.0 108/72 11:53 (84) Intake and Output 09/22/18 09/22/18 09/23/18 1515:00 23:00 07:00 IntakeIntake Total 5.5 ml 804 ml OutputOutput Total 1500 ml 750 ml BalanceBalance 5.5 ml -696 ml -750 ml Results Result Diagram: 09/23/18 0621 09/23/18 0622 Results 24hrs Laboratory Tests Test 09/23/18 06:21 09/23/18 06:22 White Blood Count 7.1 # Red Blood Count 2.90 L Hemoglobin 8.7 L Hematocrit 27.7 L Mean Corpuscular Volume 95.5 Mean Corpuscular Hemoglobin 30.0 Mean Corpuscular Hemoglobin Concent 31.4 L Red Cell Distribution Width 13.9 Platelet Count 215 # Mean Platelet Volume 10.8 H Immature Granulocytes % 4.500 H Neutrophils % 66.6 Lymphocytes % 19.4 Monocytes % 8.8 Eosinophils % 0.4 Basophils % 0.3 Nucleated Red Blood Cells % 0.0 Immature Granulocytes # 0.320 H Neutrophils # 4.7 Lymphocytes # 1.4 Monocytes # 0.6 Eosinophils # 0.0 Basophils # 0.0 Nucleated Red Blood Cells # 0.0 Sodium Level 136 Potassium Level 3.4 L Chloride Level 104 Carbon Dioxide Level 30 Anion Gap 2 L Blood Urea Nitrogen 26 H Creatinine 0.32 L Est Glomerular Filtrat Rate mL/min Glucose Level 97 Calcium Level 8.2 L Phosphorus Level 3.5 Magnesium Level 1.5 L Medications Medication Current Medications IV Flush (NS 3 ml) 3 ml PER PROTOCOL IV ; Start 09/03/18 at 13:00 Lorazepam (Ativan) 0.5 mg Q6H PRN IV .ANXIETY; Start 09/03/18 at 13:00 Ondansetron HCl (Zofran Inj) 4 mg Q6H PRN IV NAUSEA/VOMITING; Start 09/03/18 at 13:00 Nitroglycerin (Nitroglycerin (Sl Tab) 0.4 Mg) 1 tab Q5M PRN SL .CHEST PAIN; Start 09/03/18 at 13:00 Acetaminophen (Tylenol Tab) 650 mg Q6H PRN PO .PAIN 1-3 OR TEMP; Start 09/03/18 at 13:00 Morphine Sulfate (morphine) 2 mg Q4H PRN IV .PAIN 7-10 Last administered on 09/21/18at 10:16; Admin Dose 2 MG; Start 09/03/18 at 13:00 Docusate Sodium (Colace) 100 mg Q12H PRN PO .CONSTIPATION; Start 09/03/18 at 13:00 Magnesium Hydroxide (Milk Of Mag) 30 ml DAILY PRN PO .CONSTIPATION; Start 09/03/18 at 13:00 Famotidine (Pepcid Iv) 20 mg QHS IV Last administered on 09/22/18at 21:10; Admin Dose 20 MG; Start 09/03/18 at 21:00 Miscellaneous Information (Pending [facility] Order For Wound Care) This patient lin... PRN PRN XX WOUND CARE; Start 09/03/18 at 18:00 Acetaminophen (Tylenol Supp) 650 mg Q6H PRN [place] FEVER Last administered on 09/10/18at 18:48; Admin Dose 650 MG; Start 09/03/18 at 20:00 Enalaprilat (Vasotec Iv) 0.625 mg Q6H PRN IV ELEVATED BLOOD PRESSURE Last administered on 09/03/18at 20:58; Admin Dose 0.625 MG; Start 09/03/18 at 20:00 Levalbuterol (Xopenex Neb) 0.63 mg Q6H RESP THERAPY HHN Last administered on 09/23/18at 13:24; Admin Dose 0.63 MG; Start 09/04/18 at 00:00 Apixaban (Eliquis) 2.5 mg BID PO ; Start 09/15/18 at 12:00; Status Hold IV Flush (NS 10 ml) 10 ml Q8 PRN IV IV PROTOCOL; Start 09/17/18 at 16:00 Total Parenteral Nutrition 1,000 ml @ 60 mls/hr [id number] IV Last administered on 09/23/18at 12:43; Admin Dose 60 MLS/HR; Start 09/18/18 at 16:00 Enoxaparin Sodium (Lovenox) 60 mg Q24H SC Last administered on 09/23/18at 05:16; Admin Dose 60 MG; Start 09/20/18 at 05:30 Diltiazem HCl (Cardizem Iv) 20 mg Q12 IV Last administered on 09/23/18at 08:09; Admin Dose 20 MG; Start 09/21/18 at 21:00 Fat Emulsion Intravenous 250 ml @ 21 mls/hr DAILY@16 IV Last administered on 09/22/18at 15:11; Admin Dose 21 MLS/HR; Start 09/22/18 at 16:00 GHADA ART NP Sep 23, 2018 16:01
[2018-09-23] MEDS: FAT EMULSION 20% 250 ML IV SCH (16:55)
== END 2018-09-23 18:08 | DRG 871 ==
LOC: E/R 04:18 → CANBEDREQ 05:11 → TEL 06:14
PROVIDERS: ADMIT Internal Medicine; ATTEND Internal Medicine
PROC: 30233N1 Transfusion of Nonautologous Red Blood Cells into Peripheral Vein, Percutaneous Approach (ICD-10-PCS; principal; 2018-09-03)
PROC: 02HV33Z Insertion of Infusion Device into Superior Vena Cava, Percutaneous Approach (ICD-10-PCS; 2018-09-17)
PROC: 3E0436Z Introduction of Nutritional Substance into Central Vein, Percutaneous Approach (ICD-10-PCS; 2018-09-17)
DX: A41.9 Sepsis, unspecified organism (principal); J69.0 Pneumonitis due to inhalation of food and vomit; J96.01 Acute respiratory failure with hypoxia; G92 Toxic encephalopathy; N17.9 Acute kidney failure, unspecified; N39.0 Urinary tract infection, site not specified; E87.2 Acidosis; E87.0 Hyperosmolality and hypernatremia; E44.1 Mild protein-calorie malnutrition; I82.622 Acute embolism and thrombosis of deep veins of left upper extremity; I13.0 Hypertensive heart and chronic kidney disease with heart failure and stage 1 through stage 4 chronic kidney disease, or unspecified chronic kidney disease; R65.20 Severe sepsis without septic shock; D63.8 Anemia in other chronic diseases classified elsewhere; D69.6 Thrombocytopenia, unspecified; E87.70 Fluid overload, unspecified; E86.0 Dehydration; E87.6 Hypokalemia; E83.51 Hypocalcemia; F31.9 Bipolar disorder, unspecified; G20 Parkinson's disease; F02.80 Dementia in other diseases classified elsewhere, unspecified severity, without behavioral disturbance, psychotic disturbance, mood disturbance, and anxiety; I25.10 Atherosclerotic heart disease of native coronary artery without angina pectoris; I50.9 Heart failure, unspecified; I25.2 Old myocardial infarction; M10.9 Gout, unspecified; M81.0 Age-related osteoporosis without current pathological fracture; N18.9 Chronic kidney disease, unspecified; R13.10 Dysphagia, unspecified; Z66 Do not resuscitate; Z74.01 Bed confinement status; Z68.23 Body mass index [BMI] 23.0-23.9, adult
CPT/HCPCS: 36430; 36569; 36600; 71045; 76937; 80048; 80053; 80202; 81001; 81003; 82043; 82803; 82962; 83605; 83735; 83935; 84100; 84134; 84155; 84300; 84443; 84478; 84484; 85025; 85610; 85730; 86850; 86900; 86901; 86920; 87086; 92526; 92610; 93005; 93970; 93971; 94640; 94664; J0456; J0692; J0696; J1940; J2060; J2185; J2270; J3370; J3475; J3480; J7030; J7040; J7042; J7050; J7070; P9016